=== PATIENT | female | born 1990 | race Caucasian/White ===

== ENCOUNTER → 2018-06-23 | Outpatient (CLI) | payer MEDICAID ==
[~2018-06-23] MED LIST: ACHD5005 PO; ALBU8.5H2 IH; CEPH-507 PO; CETI10TA20 PO; CYCL10TA9 PO; DIPH25TA82 PO; DOCO100C PO; DOCU100C37 PO; FLUT16SP22 NS; HYDR-3454 PO; IBUP-1773 PO; IBUP-30 PO; MONT10TA21 PO; PNV91TAB3 PO; PRED20TA PO; TRAM50TA2 PO
--- NOTE | 2018-06-23 16:06 | Diagnostic Imaging Report ---
TECHNIQUE: Multiple real-time grayscale images were obtained over the gravid uterus. COMPARISON: None. FINDINGS: There is a single living intrauterine in transverse presentation. There is normal volume of amniotic fluid. Placenta is posterior. There is no previa. Anatomical survey is unremarkable. This includes three-vessel cord and four-chamber heart. Heart rate is 161 beats per minute and regular. The biometry correlates with gestational age of 21 weeks 3 days. Biometrical measurements are as follows: Biparietal 4.85 cm, age 20 weeks 5 days. Head circumference 19.03 cm, age 21 weeks 3 days. Abdominal circumference 17.16 cm, age 22 weeks 1 days. Femur length 3.48 cm, age 21 weeks 0 days. Sonographic estimate age: 21 weeks 3 days. Sonographic estimated date of delivery: 10/31/18. Estimated Weight: 431 gm (+/- 63 gm). LMP percentile: 10%. heart rate: 161 beats per minute. number: 1 of 1. IMPRESSION: Single living intrauterine with sonographically estimated gestational age of 21 weeks 3 days and estimated date of confinement of 10/31/2018. Dictated by: Dictated on workstation # [id number]
== END ==
LOC: RAD 12:58
PROVIDERS: ATTEND Obstetrics & Gynecology
DX: Z34.91 Encounter for supervision of normal pregnancy, unspecified, first trimester (principal); Z3A.21 21 weeks gestation of pregnancy
CPT/HCPCS: 76805

== ENCOUNTER 2018-09-16 23:58 | Outpatient (CLI) | payer MEDICAID ==
[~2018-09-16] VITALS: Ht 160 cm; Wt 83.0 kg
[2018-09-17] VITALS (8 sets, daily range): BP systolic 118–133; BP diastolic 67–79
[2018-09-17] MEDS ORDERED: D5 LR IV SOLUTION 1,000 ML IV ONE (00:22)
[2018-09-17] MEDS ORDERED: D5 LR IV SOLUTION 1,000 ML IV SCH (00:30)
[2018-09-17] MEDS ORDERED: morphine INJ 10 MG/ML 1ML (SYR OR VIAL) IVP ONE (00:30)
[2018-09-17 00:48] LABS: BASOPHILS % (AUTO) 0 % (0-10); EOSINOPHILS # (AUTO) 0.6 10^3/uL (0.0-0.3); EOSINOPHILS % (AUTO) 5 % (0-10); HEMATOCRIT 36 % (35-52); HEMOGLOBIN 11.9 G/DL (11.5-16.0); LYMPHOCYTES # (AUTO) 1.5 X 10^3 (1.0-4.0); LYMPHOCYTES % (AUTO) 12 % (12-44); MEAN CORPUSCULAR HEMOGLOBIN 30 PG (25-34); MEAN CORPUSCULAR HGB CONC 33 G/DL (32-36); MEAN CORPUSCULAR VOLUME 90 FL (80-99); MEAN PLATELET VOLUME 9.9 FL (7.4-10.4); MONOCYTES # (AUTO) 0.9 X 10^3 (0.0-1.0); MONOCYTES % (AUTO) 7 % (0-12); NEUTROPHILS # (AUTO) 9.8 X 10^3 (1.8-7.8); NEUTROPHILS % (AUTO) 76 % (42-75); PLATELET COUNT 331 10^3/uL (130-400); RED BLOOD COUNT 4.01 10^6/uL (4.35-5.85); RED CELL DISTRIBUTION WIDTH 13.2 % (10.0-14.5); WHITE BLOOD COUNT 12.8 10^3/uL (4.3-11.0)
[2018-09-17] MEDS ORDERED: GUAI100G2 PO (00:50)
[2018-09-17 01:11] LABS: ALANINE AMINOTRANSFERASE 259 U/L (0-55); ALBUMIN 3.5 GM/DL (3.2-4.5); ALKALINE PHOSPHATASE 136 U/L (40-136); AMYLASE 33 U/L (25-125); BILIRUBIN,DIRECT 0.3 MG/DL (0.0-0.3); BILIRUBIN,INDIRECT 0.2 MG/DL; BILIRUBIN,TOTAL 0.5 MG/DL (0.1-1.0); BUN/CREATININE RATIO 13; CALCIUM 8.9 MG/DL (8.5-10.1); CARBON DIOXIDE 18 MMOL/L (21-32); CHLORIDE 110 MMOL/L (98-107); CREATININE SERUM 0.62 MG/DL (0.60-1.30); GFR ESTIMATED > 60; GLUCOSE 101 MG/DL (70-105); LIPASE 13 U/L (8-78); POTASSIUM 3.5 MMOL/L (3.6-5.0); SODIUM 139 MMOL/L (135-145); TOTAL PROTEIN 6.3 GM/DL (6.4-8.2)
[2018-09-17 03:23] LABS: BACTERIA,URINE TRACE /HPF; BILIRUBIN,URINE 1+ (NEGATIVE); CLARITY,URINE SL CLOUDY; COLOR,URINE AMBER; GLUCOSE, URINE (UA) 3+ (NEGATIVE); KETONES,URINE NEGATIVE (NEGATIVE); LEUKOCYTE ESTERASE ,URINE 2+ (NEGATIVE); NITRITE,URINE NEGATIVE (NEGATIVE); PH,URINE 5 (5-9); PROTEIN,URINE 1+ (NEGATIVE); SQUAMOUS EPITHELIAL CELL,UR 25-50 /HPF; UROBILINOGEN,URINE 4 MG/DL (NORMAL); WBC,URINE 0-2 /HPF
[2018-09-17] MEDS ORDERED: guaiFENesin/DM (ROBITUSSIN DM) 10 ML UDC ONE (06:10)
[2018-09-17] MEDS ORDERED: cefTRIAXone 1 GM/10 ML for IV (ROCEPHIN) ONE (06:11)
[2018-09-17] MEDS ORDERED: RT-ALBUTEROL SULF 2.5 MG/3 ML PRE-MIX VIAL ONE (06:11)
[2018-09-17] MEDS ORDERED: NS (IVPB) 0 ML ONE (06:12)
[2018-09-17] MEDS ORDERED: NS (IVPB) 50 ML ONE (06:15)
[2018-09-17] MEDS ORDERED: cefTRIAXone FOR IV USE 1,000 MG in NS (IVPB) 50 ML IV ONE (06:15)
[2018-09-17] MEDS ORDERED: guaiFENesin/DM (ROBITUSSIN DM) 10 ML UDC PO PRN (06:15)
[2018-09-17] MEDS ORDERED: RT-ALBUTEROL SULF 2.5 MG/3 ML PRE-MIX VIAL INH PRN (06:30)
[2018-09-17] MEDS ORDERED: IPRA4AER IH (08:30)
[2018-09-17] MEDS ORDERED: GUAI-858 PO (08:30)
[2018-09-17] MEDS ORDERED: RT-ALBUTEROL SULF 2.5 MG/3 ML PRE-MIX VIAL INH SCH (09:00)
[2018-09-17 09:24] LABS: ALANINE AMINOTRANSFERASE 268 U/L (0-55); ALBUMIN 3.3 GM/DL (3.2-4.5); ALKALINE PHOSPHATASE 135 U/L (40-136); BILIRUBIN,TOTAL 0.7 MG/DL (0.1-1.0); BUN/CREATININE RATIO 10; CALCIUM 8.6 MG/DL (8.5-10.1); CARBON DIOXIDE 18 MMOL/L (21-32); CHLORIDE 110 MMOL/L (98-107); GFR ESTIMATED > 60; GLUCOSE 104 MG/DL (70-105); POTASSIUM 3.5 MMOL/L (3.6-5.0); SODIUM 139 MMOL/L (135-145); TOTAL PROTEIN 5.9 GM/DL (6.4-8.2)
--- NOTE | 2018-09-17 11:16 | Diagnostic Imaging Report ---
Indication: Abdominal pain during . biophysical profile score is performed which reveals amniotic fluid to be within normal limits with amniotic fluid index of 8 cm. There is tone and motion of limb and trunk. breathing motion was also noted. Placenta reveals no evidence of hematoma or other abnormality. cardiac activity is present with rate of 143 beats per minute. Impression: Normal biophysical profile score of 8/8. Dictated by: Dictated on workstation # [id number]
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
[2018-09-18 06:46] LABS: HEPATITIS C ANTIBODY C Non-Reactive (Non-Reactive)
== END 2018-09-17 11:08 | disposition home or self-care (01) ==
LOC: LDRP 23:58 → WSo 23:58
PROVIDERS: ATTEND Obstetrics & Gynecology
DX: R05 Cough (principal); O99.333 Smoking (tobacco) complicating pregnancy, third trimester; F17.210 Nicotine dependence, cigarettes, uncomplicated; R07.81 Pleurodynia; Z3A.34 34 weeks gestation of pregnancy
CPT/HCPCS: 36415; 76819; 80053; 80074; 81000; 82150; 82247; 82248; 83690; 85025; 94640; 96361; 96374; 96375; 99214

== ENCOUNTER 2018-09-29 13:06 | Inpatient (IN) | payer MEDICAID ==
[~2018-09-29] VITALS: Ht 160 cm; Wt 80.3 kg
[~2018-09-29 13:06] MED LIST changes: -CETI10CA PO; -DIPH25CA79 PO; -IBUP-844 PO; +LACTATED RINGERS 1,000 ML IV ONE; -PREN1TAB79 PO
--- NOTE | 2018-09-29 13:06 | NUR ---
JITENDRA GOMEZ presented to unit from HOME, accompanied by Family, with c/o PREVIOUS SECTION. JITENDRA GOMEZ weighed, gowned, voided, and to bed. EFHM and TOCO applied, VS taken. JITENDRA GOMEZ oriented to bed controls, call light, TV, heat, and A/C controls.
[2018-09-29 13:14] VITALS: BP 126/60
[2018-09-29] MEDS: LACTATED RINGERS 1,000 ML IV SCH ×2 (13:18→16:26)
--- NOTE | 2018-09-29 13:18 | NUR ---
IV started, see intervention.
--- OUTSIDE RECORDS SUMMARY | 2018-09-29 13:30 | XMS REPORT ---
Author Author VÍCTOR NYE [facility] Address [address] [place] [address] Care Team Providers Care Repair Coil Winder Name Role Phone PARRIS, DAWRENEA Unavailable PROBLEMS Type Condition ICD9-CM Code [id number] Code Onset Dates Condition Status SNOMED Code Problem Acute allergic rhinitis J30.9 Active 02486407 Problem Post traumatic stress disorder F43.10 Active 92990090 Problem Bipolar II disorder F31.81 Active 59711889 Problem Chronic posttraumatic stress disorder F43.12 Active 336546953 ALLERGIES Substance Reaction Event Type Date Status Prozac nausea Drug Allergy Jul, Active ENCOUNTERS Encounter Location Date Diagnosis [facility] [id number] [place] [address]83- 4244 Oct, [facility] [address] [address] Sep, [facility] [id number] [place] [address] 07091- 0257 Aug, [facility] [id number] [place] [address] 69042- 0449 Aug, [facility] [id number] [place] [address] 24633- 1818 Jul, Post traumatic stress disorder F43.10 [facility] [id number] [place] [address] 01908- 7067 Jul, Chronic posttraumatic stress disorder F43.12 and Bipolar II disorder F31.81 [facility] [id number] [place] [address] 23672 -0600 06 Jul, 2018 Acute allergic rhinitis J30.9 [facility] [id number] [place] [address] 05823- 2546 Jun, Chronic posttraumatic stress disorder F43.12 and Bipolar II disorder F31.81 [facility] [id number] [place] [address] 859355- 9593 Aug, depression F53 [facility] [id number] [place] [address] 733709- 3094 Feb, [facility] [id number] [place] [address] 87419- 9046 14 Dec, 2014 [facility] [id number] [place] [address] 95265- 4110 Dec, [facility] [id number] [place] [address] 92690- 9300 Oct, [facility] [id number] [place] [address] 06438- 8245 Oct, [facility] [id number] [place] [address] 29328- 5317 Aug, [facility] [address] [place] [address] 99092- 3481 Aug, [facility] [id number] [place] [address] 66746- 3228 Aug, [facility] [address] [address] Aug, [facility] [address] [place] [address] 20085- 5682 Aug, [facility] [address], [place] [address] 5[address] Aug, [facility] [id number] [place] [address] 39055- 1475 Aug, [facility] [address] [address] Aug, [facility] [id number] [place] [address] 61729- 5390 Aug, [facility] [address] [facility] [id number] [address] Aug, [facility] [id number] 3186 Aug, [facility] [address] Aug, [facility] [address] [facility] [id number], [place] [address] Jul, [facility] [address] [facility] [id number], [place] [address]32 Jul, [facility] [id number] [address] 7049 Jul, [facility] [address] [address] 00[address] Jul, [facility] [address], [place] [address]- 5984 Jul, [facility] [address], [place] [address]- 2605 Jul, [facility] [address] [address]- 7842 January, [facility] [id number] [address] January, [facility] [id number] [address] January, [facility] [id number] [address] 1499 January, IMMUNIZATIONS No Known Immunizations SOCIAL HISTORY Never Assessed REASON FOR VISIT Psychiatric intake Dyaana, Referred by Dr. Grimes PLAN OF CARE Activity Details Follow Up 3 Months Reason: VITAL SIGNS Height 64.1 in 2018-08-20 Weight 187.0 lbs 2018-08-20 Heart Rate 92 bpm 2018-08-20 Respiratory Rate 20 2018-08-20 BMI 31.99 kg/m2 2018-08-20 Blood pressure systolic 114 mmHg 2018-08-20 Blood pressure diastolic 62 mmHg 2018-08-20 MEDICATIONS Medication Instructions Dosage Frequency Start Date End Date Duration Status MetFORMIN HCl ER 500 MG Orally Once a day 1 tablet with evening meal 24h Not-Taking Formula Active Delaney Allergy 180 MG Orally Once a day 1 tablet 24h Not-Taking Zyrtec Allergy 10 MG Orally Once a day 1 tablet 24h 30 day(s) Active Zoloft 25 MG Orally Once a day 1 tablet 24h Not-Taking Benadryl Active RESULTS No Results PROCEDURES No Known procedures INSTRUCTIONS MEDICATIONS ADMINISTERED No Known Medications MEDICAL (GENERAL) HISTORY Type Description Date Medical History NARC ALERT Medical History PCOS (Polycystic Ovary Syndrome) Medical History depression Surgical History 2 cesarian Hospitalization History Hospitalization for surgery only
--- OUTSIDE RECORDS SUMMARY | 2018-09-29 13:30 | XMS REPORT ---
Author Author KATJA PIMENTEL Organization [facility] Address [address] [place] [address] Care Team Providers Care County Historian Name Role Phone KATJA PIMENTEL Unavailable PROBLEMS Type Condition ICD9-CM Code [id number] Code Onset Dates Condition Status SNOMED Code Problem Hx of diabetes mellitus Z86.39 Active 392430418 Problem Acute allergic rhinitis J30.9 Active 38163624 Problem Chronic posttraumatic stress disorder F43.12 Active 685322606 Problem Post traumatic stress disorder F43.10 Active 09099491 Problem Bipolar II disorder F31.81 Active 58997706 ALLERGIES No Information ENCOUNTERS Encounter Location Date Diagnosis [place] [address] [address] Oct, [place] [address] [address]- [address]851 Sep, [place] [address] [address]- 7779 Sep, [place] [address] [address]- 1106 Aug, [place] [address] [address]- 9143 Aug, [place] [id number] [place] [address] 99768- 7917 Aug, Chronic posttraumatic stress disorder F43.12 and Bipolar II disorder F31.81 [facility] [address] [address]- [address] Aug, Acute non-recurrent maxillary sinusitis J01.00 and Hx of diabetes mellitus Z86.39 [place] [address] [address]- 1645 Jul, Post traumatic stress disorder F43.10 [facility] [id number] [place] [address] 44468- 4725 Jul, Chronic posttraumatic stress disorder F43.12 and Bipolar II disorder F31.81 [facility] [address] [place] [address] 97198 -2040 Jul, Acute allergic rhinitis J30.9 [facility] [id number] [place] [address] 37805- 0360 Jun, Chronic posttraumatic stress disorder F43.12 and Bipolar II disorder F31.81 [facility] [id number] [place] [address] 73391- 0157 Aug, depression F53 [facility] [id number] [place] [address] 87249- 3098 Feb, [facility] [id number] [place] [address] 28588- 3151 Dec, [facility] [id number] [place] [address] 01268- 0534 Dec, [facility] [id number] [place] [address] 91661- 7454 Oct, [facility] [address], [place] [address]- 8713 Oct, [facility] [id number] [place] [address] 96071- 3132 Aug, [facility] [id number] [place] [address] 15834- 1141 Aug, [facility] [id number] [place] [address] 849030- 3007 Aug, [facility] [address] [place] [address] 31888- 6481 Aug, [facility] [id number] [place] [address], [place]- [address] Aug, [facility] [place] [facility] [address] [id number] [place] [address]- 0647 Aug, [facility] [place] [facility] [address] [id number] [place] [address]- 2513 Aug, [facility] [place] [facility] [address] [id number] [place] [address]- 4021 Aug, [facility] [place] [facility] [address] [id number] [place] [address]- 5267 Aug, [facility] [place] [facility] [address] [id number] [place] [address]- 2907 Aug, [facility] [place] [facility] [address] [id number] [place] [address]- 8190 Aug, [facility] [place] [facility] [address] [id number] [place] [address]- 4667 Aug, [facility] [place] [facility] [address] [id number] [place] [address]- 1187 Jul, [facility] [place] [facility] [address] [id number] [place] [address]- 4023 Jul, [facility] [place] [facility] [address] [id number] [place] [address]- 4731 Jul, [facility] [place] [facility] [address] [id number] [place] [address]- 9152 Jul, [facility] [place] [facility] [address] [id number] [place] [address]- 3138 Jul, [facility] [place] [facility] [address] [id number] [place] [address]- 3718 Jul, [facility] [place] [facility] [address] [id number] [place] [address]- 5646 January, [facility] [place] [facility] [address] [id number] [place] [address] January, [facility] [place] [facility] [address] [facility] [id number] [place] [address]- 7844 January, [facility] [address] [facility] [id number] [address] January, IMMUNIZATIONS No Known Immunizations SOCIAL HISTORY Never Assessed REASON FOR VISIT f/u PLAN OF CARE Activity Details Follow Up Next available Reason: VITAL SIGNS MEDICATIONS Unknown Medications RESULTS No Results PROCEDURES Procedure Date Ordered Result Body Site Psychotherapy, patient &/family, 30 minutes, established patient Sep 10, 2018 INSTRUCTIONS MEDICATIONS ADMINISTERED No Known Medications MEDICAL (GENERAL) HISTORY Type Description Date Medical History NARC ALERT Medical History PCOS (Polycystic Ovary Syndrome) Medical History depression Surgical History 2 cesarian Hospitalization History Hospitalization for surgery only
--- OUTSIDE RECORDS SUMMARY | 2018-09-29 13:30 | XMS REPORT ---
Author Author AMIRA DAVIS [facility] Address [address] [place] [address] Care Team Providers Care Casting Machine Set Up Operator Name Role Phone AMIRA DAVIS Unavailable PROBLEMS Type Condition ICD9-CM Code GRL65-VL Code Onset Dates Condition Status SNOMED Code Problem Hx of diabetes mellitus Z86.39 Active 743729247 Problem Acute allergic rhinitis J30.9 Active 11746999 Problem Chronic posttraumatic stress disorder F43.12 Active 413176212 Problem Post traumatic stress disorder F43.10 Active 64966098 Problem Bipolar II disorder F31.81 Active 17463867 ALLERGIES No Information ENCOUNTERS Encounter Location Date Diagnosis [facility] [address] [address] Oct, [facility] [address] [address]- [address] Sep, [place] [address] [address] Sep, [place] [address] [place] [id number] [place] [address]35- 8701 Aug, [place] [address] [address]- [address] Aug, Chronic posttraumatic stress disorder F43.12 and Bipolar II disorder F31.81 [facility] [address] [address]- 6287 Aug, Acute non-recurrent maxillary sinusitis J01.00 and Hx of diabetes mellitus Z86.39 [facility] [address] [address] [id number] [place] [address] 96015- 2597 Jul, Post traumatic stress disorder F43.10 [place] [address] [address] 14 Jul, 2018 Chronic posttraumatic stress disorder F43.12 and Bipolar II disorder F31.81 [facility] [id number] [place] [address] -[address]11 Jul, Acute allergic rhinitis J30.9 [facility] [address] [address] Jun, Chronic posttraumatic stress disorder F43.12 and Bipolar II disorder F31.81 [facility] [id number] [place] [address] 00451- 5604 Aug, depression F53 [facility] [address] [id number] [place] [address] 41301- 5181 Feb, [facility] [address] [id number] [place] [address] 69224- 7539 14 Dec, 2014 [facility] [id number] [place] [address] 07708- 0230 Dec, [facility] [id number] [place] [address] 66481- 8393 Oct, [facility] [id number] [place] [address] 04962- 4970 Oct, [facility] [address] [address]- 4[address] Aug, [facility] [id number] [place] [address] 69799- 5326 Aug, [facility] [address], [place] [address]- 7042 Aug, [facility] [address] [id number] [place] [address] 58272- 2008 Aug, [facility] [address], [place] [address]- 0141 Aug, [facility] [address] [place] [address] [id number] [place] [address] 1001 Aug, [facility] [place] [facility] [address] [id number] [place] [address]- 9611 Aug, [facility] [place] [facility] [address] [id number] [place] [address]- 8875 Aug, [facility] [place] [facility] [address] [id number] [place] [address]- 9057 Aug, [facility] [place] [facility] [address] [id number] [place] [address]- 4889 Aug, [facility] [place] [facility] [address] [id number] [place] [address] Aug, [facility] [place] [facility] [address] [id number] [place] [address]- 9533 Aug, [facility] [place] [facility] [address] [id number] [place] [address]- 7190 Jul, [facility] [place] [facility] [address] [id number] [place] [address]- 4875 Jul, [facility] [place] [facility] [address] [id number] [place] [address]- 9672 Jul, [facility] [place] [facility] [address] [id number] [place] [address]- 9181 Jul, [facility] [place] [facility] [address] [id number] [place] [address]- 5794 Jul, [facility] [place] [facility] [address] [id number] [place] [address]- 6117 Jul, [facility] [place] [facility] [address] [id number] [place] [address]- 8382 January, [facility] [place] [facility] [address] [id number] [place] [address]- 6428 January, [facility] [place] [facility] [address] [id number] [place] [address]- 7973 January, [facility] [address] [facility] [id number] [place] [address]- 7404 January, IMMUNIZATIONS No Known Immunizations SOCIAL HISTORY Never Assessed REASON FOR VISIT Requests return call PLAN OF CARE VITAL SIGNS MEDICATIONS Unknown Medications RESULTS No Results PROCEDURES No Known procedures INSTRUCTIONS MEDICATIONS ADMINISTERED No Known Medications MEDICAL (GENERAL) HISTORY Type Description Date Medical History NARC ALERT Medical History PCOS (Polycystic Ovary Syndrome) Medical History depression Surgical History 2 cesarian Hospitalization History Hospitalization for surgery only
--- OUTSIDE RECORDS SUMMARY | 2018-09-29 13:30 | XMS REPORT ---
Author Author AMIRA DAVIS [facility] Address [address] [place] [address] Care Team Providers Care Life Insurance Sales Name Role Phone AMIRA DAVIS Unavailable PROBLEMS Type Condition ICD9-CM Code [id number] Code Onset Dates Condition Status SNOMED Code Problem Hx of diabetes mellitus Z86.39 Active 106609094 Problem Acute allergic rhinitis J30.9 Active 48370529 Problem Chronic posttraumatic stress disorder F43.12 Active 484446981 Problem Post traumatic stress disorder F43.10 Active 61788901 Problem Bipolar II disorder F31.81 Active 93721159 ALLERGIES Substance Reaction Event Type Date Status Prozac nausea Drug Allergy Aug, Active ENCOUNTERS Encounter Location Date Diagnosis [place] [address] [address]- [address] Oct, [facility] [address] 9[address]96- 9307 Sep, [facility] [address] 03348- 3870 Sep, [place] [address] [address]- [address] Aug, [facility] [address] 95912- 9547 Aug, Chronic posttraumatic stress disorder F43.12 and Bipolar II disorder F31.81 [facility] [address] 90759- 0877 Aug, Acute non-recurrent maxillary sinusitis J01.00 and Hx of diabetes mellitus Z86.39 [facility] [address] [address]68- 9005 Jul, Post traumatic stress disorder F43.10 [facility] [address], [place] [address]- 7149 Jul, Chronic posttraumatic stress disorder F43.12 and Bipolar II disorder F31.81 [facility] [address], [place] [address] Jul, Acute allergic rhinitis J30.9 [facility] [address] [place] [id number] [place] [address] 37319- 6404 Jun, Chronic posttraumatic stress disorder F43.12 and Bipolar II disorder F31.81 [facility] [address] [place] [address] 23919- 3410 Aug, depression F53 [facility] [address] [place] [address] [id number] [place] [address] 88253- 5892 Feb, [facility] [address] [place] [id number] [place] [address] 83515- 0450 14 Dec, 2014 [facility] [address] [place] [address] [id number] [place] [address] 27831- 8839 Dec, [facility] [address] [place] [id number] [place] [address] 39591- 2020 Oct, [facility] [address], [place] [address]- 6385 Oct, [facility] [id number] [place] [address] 08846 2547 Aug, [facility] [address], [place] [address] 2545 Aug, [facility] [address] [place] [id number] [place] [address] 99668- 5302 Aug, [facility] [address], [place] [address]- 2541 Aug, [facility] [id number] [place] [address] 60390- 0708 Aug, [facility] [place] [facility] [address] [id number] [place] [address]- 2758 Aug, [facility] [place] [facility] [address] [id number] [place] [address]- 8899 Aug, [facility] [place] [facility] [address] [id number] [place] [address]7 Aug, [facility] [place] [facility] [address] [id number] [place] [address]- 4390 Aug, [facility] [place] [facility] [address] [id number] [place] [address]- 2282 Aug, [facility] [place] [facility] [address] [id number] [place] [address]- 7486 Aug, [facility] [place] [facility] [address] [id number] [place] 9246 Aug, [facility] [place] [facility] [address] [id number] [place] [address]- 2569 Jul, [facility] [place] [facility] [address] [id number] [place] [address]- 2431 Jul, [facility] [place] [facility] [address] [id number] [place] [address]- 9577 Jul, [facility] [place] [facility] [address] [id number] [place] [address]- 5190 Jul, [facility] [place] [facility] [address] [id number] [place] [address]- 6435 Jul, [facility] [place] [facility] [address] [id number] [place] [address]- 8611 Jul, [facility] [place] [facility] [address] [id number] [place] [address]- 5843 January, [facility] [place] [facility] [address] [id number] [place] [address]64 January, [facility] [place] [facility] [address] [id number] [place] [address]- 8743 January, [facility] [address] [facility] [id number] [place] [address]- 1601 January, IMMUNIZATIONS No Known Immunizations SOCIAL HISTORY Never Assessed REASON FOR VISIT Establish Care/ discuss allergies- ALEJO Guan PLAN OF CARE Activity Details Follow Up prn. if not improving with PCP or reg follow up Reason: VITAL SIGNS Height 64.1 in 2018-09-10 Weight 183.2 lbs 2018-09-10 Temperature 98.0 degrees Fahrenheit 2018-09-10 Heart Rate 92 bpm 2018-09-10 Respiratory Rate 18 2018-09-10 BMI 31.34 kg/m2 2018-09-10 Blood pressure systolic 110 mmHg 2018-09-10 Blood pressure diastolic 68 mmHg 2018-09-10 MEDICATIONS Medication Instructions Dosage Frequency Start Date End Date Duration Status Benadryl Active Augmentin 500-125 MG Orally 2 times a day 1 tablet 12h 12 Aug, 2018 10 days Active Formula Active Zyrtec Allergy 10 MG Orally Once a day 1 tablet 24h 30 day(s) Active RESULTS Name Result Date Reference Range A1C (IN HOUSE) 2018-09-10 A1C IN HOUSE 5.1 4.3 - 5.6 % Previous A1c Lot [id number] Exp date 06/2020 PROCEDURES Procedure Date Ordered Result Body Site GLYCATED HEMOGLOBIN TEST Sep 10, 2018 INSTRUCTIONS MEDICATIONS ADMINISTERED No Known Medications MEDICAL (GENERAL) HISTORY Type Description Date Medical History NARC ALERT Medical History PCOS (Polycystic Ovary Syndrome) Medical History depression Surgical History 2 cesarian Hospitalization History Hospitalization for surgery only
--- OUTSIDE RECORDS SUMMARY | 2018-09-29 13:30 | XMS REPORT ---
Author Author ABI NASH Organization [facility] Address [address] [place] [address] Care Team Providers Care Public Service Administrator Name Role Phone ABI NASH Unavailable PROBLEMS Type Condition ICD9-CM Code GNR69-XK Code Onset Dates Condition Status SNOMED Code Problem Acute allergic rhinitis J30.9 Active 53015070 Problem Bipolar II disorder F31.81 Active 66823128 Problem Chronic posttraumatic stress disorder F43.12 Active 949276416 ALLERGIES Substance Reaction Event Type Date Status Prozac nausea Drug Allergy Jul, Active ENCOUNTERS Encounter Location Date Diagnosis [facility] [address] [address]- [address] Aug, [facility] [address] [place] [id number] [place] [address] 70918- 0000 Jul, [facility] [address] [address]99- 4321 Jul, [facility] [address] [place] [id number] [place] [address] -6898 Jul, Acute allergic rhinitis J30.9 [facility] [address] [address]- 6088 Jun, Chronic posttraumatic stress disorder F43.12 and Bipolar II disorder F31.81 [facility] [address] [place] [id number] [place] [address] 89765- 6261 Aug, depression F53 [facility] [address] 19326- 0881 Feb, [facility] [address] [address]- 1990 Dec, [facility] [address] [id number] [place] [address]- 7242 Dec, [facility] [place] [facility] [address] [id number] [place] [address] Oct, [facility] [place] [facility] [address] [id number] [place] [address]- 3216 Oct, [facility] [place] [facility] [address] [id number] [place] [address]- 6686 Aug, [facility] [place] [facility] [address] [id number] [place] [address] Aug, [facility] [place] [facility] [address] [id number] [place] [address]- 4385 Aug, [facility] [place] [facility] [address] [id number] [place] [address]- 5110 Aug, [facility] [place] [facility] [address] [id number] [place] [address]- 3001 Aug, [facility] [place] [facility] [address] [id number] [place] [address]- 7212 Aug, [facility] [place] [facility] [address] [id number] [place] [address]- 1019 Aug, [facility] [place] [facility] [address] [id number] [place] [address]- 8651 Aug, [facility] [place] [facility] [address] [id number] [place] [address]- 8422 Aug, [facility] [place] [facility] [address] [id number] [place] 1713 Aug, [facility] [place] [facility] [address] [id number] [place] [address]- 3466 Aug, [facility] [place] [facility] [address] [id number] [place] [address]- 4616 Aug, [facility] [place] [facility] [address] [id number] [place] [address]- 2899 Jul, [facility] [address] [id number] [address]- 5129 Jul, [facility] [address], [place] [address]- 7312 Jul, [facility] [address], [place] [address]- 4203 Jul, [facility] [address] [place] [id number], [place] [address]- 0526 Jul, [facility] [address], [place] [address]- 8941 Jul, [facility] [address] [place] [address] 31178- 9581 January, [facility] [address], [place] [address]- 0384 January, [facility] [address] [address]- 8152 January, [facility] [address] [id number] [address]- 0899 January, IMMUNIZATIONS No Known Immunizations SOCIAL HISTORY Never Assessed REASON FOR VISIT congestion/allergies - ALEJO Cardenas PLAN OF CARE Activity Details Follow Up if not improving with PCP or reg follow up Reason: VITAL SIGNS Height 64.1 in 2018-08-05 Weight 180.4 lbs 2018-08-05 Temperature 97.7 degrees Fahrenheit 2018-08-05 Heart Rate 88 bpm 2018-08-05 Respiratory Rate 18 2018-08-05 BMI 30.87 kg/m2 2018-08-05 Blood pressure systolic 100 mmHg 2018-08-05 Blood pressure diastolic 56 mmHg 2018-08-05 MEDICATIONS Medication Instructions Dosage Frequency Start Date End Date Duration Status Benadryl Active Formula Active MetFORMIN HCl ER 500 MG Orally Once a day 1 tablet with evening meal 24h Not-Taking Zoloft 25 MG Orally Once a day 1 tablet 24h Not-Taking Delaney Allergy 180 MG Orally Once a day 1 tablet 24h Not-Taking RESULTS No Results PROCEDURES No Known procedures INSTRUCTIONS MEDICATIONS ADMINISTERED No Known Medications MEDICAL (GENERAL) HISTORY Type Description Date Medical History NARC ALERT Medical History PCOS (Polycystic Ovary Syndrome) Medical History depression Surgical History 2 cesarian Hospitalization History Hospitalization for surgery only
--- OUTSIDE RECORDS SUMMARY | 2018-09-29 13:31 | XMS REPORT ---
Author Author DOMINIQUE GUADALUPE [facility] Address [address] [place] [address] Care Team Providers Care Fuel Operator Name Role Phone DOMINIQUE GUADALUPE Unavailable PROBLEMS Type Condition ICD9-CM Code TQR00-TU Code Onset Dates Condition Status SNOMED Code Assessment depression F53 Aug, Active 31984868 Problem Anxiety state, unspecified 300.00 Active 610443020 Problem Other abnormal glucose 790.29 Active 114353543 Problem Allergic rhinitis due to pollen 477.0 Active 20952744 Problem Abnormal weight gain 783.1 Active 397126368 Problem Painful respiration 786.52 Active 42610334 Problem Posttraumatic stress disorder 309.81 Active 29269656 ALLERGIES Unknown Allergies SOCIAL HISTORY No smoking Hx information available PLAN OF CARE VITAL SIGNS MEDICATIONS Unknown Medications RESULTS No Results PROCEDURES Procedure Date Ordered Related Diagnosis Body Site Psych diagnostic evaluation, new patient Sep 10, 2016 IMMUNIZATIONS No Known Immunizations
--- OUTSIDE RECORDS SUMMARY | 2018-09-29 13:31 | XMS REPORT ---
Author Author KATJA PIMENTEL Organization [facility] Address [address] [place] [address] Care Team Providers Care Edger Automatic Name Role Phone KATJA PIMENTEL Unavailable PROBLEMS Type Condition ICD9-CM Code DKU19-QU Code Onset Dates Condition Status SNOMED Code Problem Other abnormal glucose 790.29 Active 472321460 Problem Bipolar II disorder F31.81 Active 26498870 Problem Chronic posttraumatic stress disorder F43.12 Active 215304231 Problem Abnormal weight gain 783.1 Active 287207500 Problem Painful respiration 786.52 Active 01024288 Problem Anxiety state, unspecified 300.00 Active 921926057 Problem Allergic rhinitis due to pollen 477.0 Active 76360830 ALLERGIES No Information ENCOUNTERS Encounter Location Date Diagnosis [place] [address] [place] [id number] [place] [address]24- 8600 Aug, [place] [address] [address]- 3436 Jul, [place] [address] [place] [id number] [place] [address] 05595- 2778 Jul, [facility] [address] [place] [id number] [place] [address] 22241- 5053 Jun, Chronic posttraumatic stress disorder F43.12 and Bipolar II disorder F31.81 [facility] [address] [place] [id number] [place] [address] 60707- 9124 Aug, depression F53 [facility] [address] [address]- 0428 Feb, [facility] [address] [place] [id number] [place] [address] 44248- 2856 Dec, [place] [address] [place] [id number] [place] [address]- 4220 Dec, [facility] [address] [id number] [place] [address]- 0076 Oct, [facility] [place] [facility] [address] [id number] [place] [address]6 Oct, [facility] [address] [id number] [place] [address]- 3956 Aug, [facility] [address] [id number] [place] [address]- 0570 Aug, [facility] [address] [id number] [place] [address] Aug, [facility] [address] [id number] [place] [address]- 1516 Aug, [facility] [address] [id number] [place] [address]- 8416 Aug, [facility] [address] [id number] [place] [address]- 4003 Aug, [facility] [place] [facility] [address] [id number] [place] [address]- 9791 Aug, [facility] [address] [id number] [place] [address]- 5008 Aug, [facility] [place] [facility] [address] [id number] [place] [address]- 4651 Aug, [facility] [place] [facility] [address] [id number] [place] [address]- 1123 Aug, [facility] [place] [facility] [address] [id number] [place] [address]- 7926 Aug, [facility] [place] [facility] [address] [id number] [place] [address]- 2126 Aug, [facility] [place] [facility] [address] [id number] [place] [address]- 4589 Jul, [facility] [id number] [address]- 7818 Jul, [facility] [address] [facility] [id number] [address]- 9966 Jul, [facility] [id number], [place] [address]- 4726 Jul, [facility] [address] [facility] [id number], [place] [address]- 3683 Jul, [facility] [id number], [place] [address]- 9723 Jul, [facility] [address], [place] [address]- 5159 January, [facility] [address], [place] [address]- 1378 January, [facility] [address], [place] [address]- 6915 January, [facility] [id number], [place] [address] January, IMMUNIZATIONS No Known Immunizations SOCIAL HISTORY Never Assessed REASON FOR VISIT intake PLAN OF CARE Activity Details Follow Up 2 Weeks Reason: VITAL SIGNS MEDICATIONS Medication Instructions Dosage Frequency Start Date End Date Duration Status Delaney Allergy 180 MG Orally Once a day 1 tablet 24h Active Zoloft 25 MG Orally Once a day 1 tablet 24h Not-Taking Formula Active MetFORMIN HCl ER 500 MG Orally Once a day 1 tablet with evening meal 24h Not-Taking RESULTS No Results PROCEDURES Procedure Date Ordered Result Body Site Psych diagnostic evaluation, established patient Jul 23, 2018 INSTRUCTIONS MEDICATIONS ADMINISTERED No Known Medications MEDICAL (GENERAL) HISTORY Type Description Date Medical History NARC ALERT Medical History depression Medical History PCOS (Polycystic Ovary Syndrome)-dx 2012 Surgical History 2 cesarian Hospitalization History Hospitalization for surgery only
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
--- NOTE | 2018-09-29 13:35 | NUR ---
Dr. Zepeda in to see patient.
[2018-09-29 13:56] LABS: BASOPHILS % (AUTO) 0 % (0-10); EOSINOPHILS # (AUTO) 0.2 10^3/uL (0.0-0.3); EOSINOPHILS % (AUTO) 2 % (0-10); HEMATOCRIT 38 % (35-52); HEMOGLOBIN 12.8 G/DL (11.5-16.0); LYMPHOCYTES # (AUTO) 0.6 X 10^3 (1.0-4.0); LYMPHOCYTES % (AUTO) 8 % (12-44); MEAN CORPUSCULAR HEMOGLOBIN 29 PG (25-34); MEAN CORPUSCULAR HGB CONC 34 G/DL (32-36); MEAN CORPUSCULAR VOLUME 87 FL (80-99); MEAN PLATELET VOLUME 10.4 FL (7.4-10.4); MONOCYTES # (AUTO) 0.3 X 10^3 (0.0-1.0); MONOCYTES % (AUTO) 4 % (0-12); NEUTROPHILS # (AUTO) 6.6 X 10^3 (1.8-7.8); NEUTROPHILS % (AUTO) 85 % (42-75); PLATELET COUNT 312 10^3/uL (130-400); RED BLOOD COUNT 4.39 10^6/uL (4.35-5.85); RED CELL DISTRIBUTION WIDTH 13.2 % (10.0-14.5); WHITE BLOOD COUNT 7.7 10^3/uL (4.3-11.0)
[2018-09-29 14:00] LABS: BILIRUBIN,URINE NEGATIVE (NEGATIVE); CLARITY,URINE CLEAR; COLOR,URINE YELLOW; GLUCOSE, URINE (UA) NEGATIVE (NEGATIVE); KETONES,URINE 4+ (NEGATIVE); LEUKOCYTE ESTERASE ,URINE 1+ (NEGATIVE); NITRITE,URINE NEGATIVE (NEGATIVE); PH,URINE 5 (5-9); PROTEIN,URINE 1+ (NEGATIVE); UROBILINOGEN,URINE 4 MG/DL (NORMAL)
[2018-09-29] MEDS: guaiFENesin/DM (ROBITUSSIN DM) 10 ML UDC PO PRN ×2 (14:14→21:23)
[2018-09-29 14:16] LABS: BACTERIA,URINE TRACE /HPF; RBC,URINE RARE /HPF
[2018-09-29] MEDS ORDERED: DIPH25CA79 PO ×2 (14:25)
[2018-09-29] MEDS ORDERED: CETI10CA PO ×2 (14:25)
[2018-09-29] MEDS ORDERED: PREN1TAB79 PO ×2 (14:25)
[2018-09-29 16:10] VITALS: BP 124/74
--- NOTE | 2018-09-29 19:30 | NUR ---
Report to Rodolfo Carter RN.
[2018-09-29 21:00] VITALS: BP 135/63
[2018-09-29 23:02] VITALS: BP 109/51
[2018-09-30] VITALS (14 sets, daily range): BP systolic 101–135; BP diastolic 51–75
[2018-09-30] MEDS: guaiFENesin/DM (ROBITUSSIN DM) 10 ML UDC PO PRN ×3 (00:55→20:42)
[2018-09-30 05:49] LABS: PROTHROMBIN TIME PATIENT 12.9 SEC (12.2-14.7)
[2018-09-30 05:54] LABS: ALANINE AMINOTRANSFERASE 215 U/L (0-55); ALKALINE PHOSPHATASE 166 U/L (40-136); BILIRUBIN,TOTAL 0.7 MG/DL (0.1-1.0); BUN/CREATININE RATIO 9; CALCIUM 8.3 MG/DL (8.5-10.1); CARBON DIOXIDE 17 MMOL/L (21-32); CHLORIDE 109 MMOL/L (98-107); CREATININE SERUM 0.58 MG/DL (0.60-1.30); GFR ESTIMATED > 60; GLUCOSE 98 MG/DL (70-105); POTASSIUM 3.4 MMOL/L (3.6-5.0); SODIUM 138 MMOL/L (135-145); TOTAL PROTEIN 5.7 GM/DL (6.4-8.2)
--- NOTE | 2018-09-30 07:45 | NUR ---
SLEEPING SOUNDLY WHEN ENTERED ROOM. S.O. ASLEEP WELL. DECISION TO NOT AWAKEN PT AT THIS TIME R/T POOR SLEEP DURING THE NIGHT.
[2018-09-30] MEDS: LACTATED RINGERS 1,000 ML IV SCH ×2 (08:18→15:40)
--- NOTE | 2018-09-30 08:20 | NUR ---
PT AWAKE. VSS. ADJUSTING MONITORS TO TRY TO CAPTURE FHR TRACING. ASSESSMENT COMPLETED. PLAN FOR THIS AFTERNOON.
--- NOTE | 2018-09-30 09:55 | NUR ---
BETAMETHASONE 12 MG IM IN LEFT VG SITE BY AIDA ONEAL. SITE CLEAR. TRACING MATERNAL PULSE WHEN PT SAT UP AND THEN TURNED TO SIDE FOR INJECTION. HAS HAD A REACTIVE STRIP.
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
--- NOTE | 2018-09-30 10:35 | NUR ---
MRSA SWAB OBTAINED FROM [facility] AND TO LAB.
[2018-09-30] MEDS ORDERED: BETAMETHASONE ACE/NA PHOS 6 MG/ML (CELESTONE SOLUSPAN) IM SCH (11:00)
[2018-09-30] MEDS ORDERED: FAMOTIDINE 20MG/2ML IV (PEPCID) IV ONE (15:00)
[2018-09-30] MEDS ORDERED: LACTATED RINGERS 1,000 ML IV PRN (15:00)
[2018-09-30] MEDS ORDERED: METOCLOPRAMIDE INJ 10 MG/2 ML (REGLAN) IV ONE (15:00)
[2018-09-30] MEDS ORDERED: CITRIC ACID/SOB CIT (BICITRA) 30 ML UDC PO ONE (15:00)
--- NOTE | 2018-09-30 15:00 | NUR ---
LOTS OF VISITORS IN ROOM. PREPARING TO SPONGE BATHE IN BATHROOM.
[2018-09-30] MEDS ORDERED: FAMOTIDINE 20MG/2ML IV (PEPCID) ONE (15:06)
[2018-09-30] MEDS ORDERED: METOCLOPRAMIDE INJ 10 MG/2 ML (REGLAN) ONE (15:06)
[2018-09-30] MEDS ORDERED: CITRIC ACID/SOB CIT (BICITRA) 30 ML UDC ONE (15:06)
[2018-09-30] MEDS ORDERED: ONDANSETRON 4 MG/2 ML (SDV) Z0FRAN IVP PRN (15:30)
[2018-09-30] MEDS ORDERED: MEASLES,MUMPS,RUBELLA 1 EA INJ SC SCH (15:30)
[2018-09-30] MEDS ORDERED: ceFAZolin INJECTION 1,000 MG in NS (IVPB) 50 ML IV ONE (15:30)
[2018-09-30] MEDS ORDERED: TETANUS,DIPTH,PERTUSS P/F (BOOSTRIX) 0.5 ML VIAL IM SCH (15:30)
[2018-09-30] MEDS ORDERED: HYDROmorphone 2 MG/ML VIAL (DILAUDID) IV PRN (15:30)
[2018-09-30] MEDS ORDERED: ceFAZolin 2 GM/50 ML PRE-MIX IVPB IV ONE (15:30)
--- NOTE | 2018-09-30 15:34 | Discharge Inst-Women's Service ---
Discharge Inst-Women's Serv Depart Medication/Instructions New, Converted or Re-Newed RX: RX on Chart Final Diagnosis POD 2 RLTCS at 36.5 Acute fatty liver disease of Consults/Follow Up Additional Follow Up: Yes Orders/Referrals Dr. Zepeda or Danielle Eng in 7-[address] Zepeda in 6 weeks Activity Activity: Activity as Tolerated Driving Instructions: No Driving for 1 Week NO SMOKING: NO SMOKING Nothing Inside Vagina: No Douching, No [place], No Tampons Diet Discharge Diet: No Restrictions Symptoms to Report to : Bleeding Excessive, Pain Increased, Fever Over 101 Degrees F, Vaginal Bleeding Increase, Questions/Concerns For Any Problems or Questions: Contact Your Physician Skin/Wound Care Infection Signs and Symptoms: Increased Redness, Foul Odor of Wound, Increased Drainage, Skin Itchy or Has a Rash, Increased Swelling, Temperature Above 101 F Operative Area Clean and Dry: Keep Incision Clean/Dry Stitches/Whitman/Dermabond: Dermabond, Care of Stitches Bathing Instructions: SHARYN Miranda DO Sep 30, 2018 15:34
[2018-09-30] MEDS ORDERED: DOCU100C37 PO ×2 (15:35)
[2018-09-30] MEDS ORDERED: ACHD5005 PO ×2 (15:35)
[2018-09-30] MEDS ORDERED: IBUP-844 PO ×2 (15:35)
[2018-09-30] MEDS ORDERED: fentaNYL INJECTION 100 MCG/2 ML AMP ONE (15:42)
--- NOTE | 2018-09-30 15:44 | NUR ---
TO OB OR AMB IN STABLE CONDITION FOR A REPEAT SECTION BY DR. MENDEZ ACC BY ELECTRICAL ENGINEERING PROFESSOR.
[2018-09-30] MEDS ORDERED: ONDANSETRON 4 MG/2 ML (SDV) Z0FRAN ONE (16:02)
[2018-09-30] MEDS ORDERED: BUPIVACAINE 0.5% 30 ML (SENSORCAINE) VIAL ONE (16:11)
[2018-09-30] MEDS ORDERED: OXYTOCIN/NORMAL SALINE 500 ML IV ONE ×2 (16:15→16:30)
[2018-09-30] MEDS ORDERED: diphenhydrAMINE 50 MG/ML INJ (BENADRYL) IV PRN (17:00)
[2018-09-30] MEDS ORDERED: NALOXONE 0.4 MG/ML 1 ML (NARCAN) VIAL IV PRN (17:00)
[2018-09-30] MEDS ORDERED: ONDANSETRON 4 MG/2 ML (SDV) Z0FRAN IV PRN (17:00)
--- NOTE | 2018-09-30 17:35 | NUR ---
TRANSFERRED TO PP ROOM 301 VIA PT BED FROM [facility] BY YONATAN FARMER MANAGER OF HUMAN RESOURCES AFTER A REPEAT SECTION BY DR. MENDEZ. IV PLACED ON PUMP WITH NEW TUBING. ABD SOFT. ABD DRSG D/I. FF U/2. VAG FLOW LT/MOD RUBRA. CALF SCDS ON BILATERALLY. ORIENTED TO SURROUNDINGS. CALL LIGHT PLACED WITHIN REACH. UNABLE TO MOVE LEGS YET. DENIES ANY PAIN. FAMILY AT BEDSIDE.
--- NOTE | 2018-09-30 17:36 | Operative Report ---
Operative Report Date of Procedure/Surgery Sep 30, 2018 Surgeon (s) SHARYN MENDEZ DO Meat Trimmer (s): Katelynn Davidson Post-Operative Diagnosis same Procedure Performed RLTCS Description of Procedure Anesthesia Type: Spinal Estimated blood loss (mL): 300 Specimen(s) collected/removed Placenta sent Description of the Procedure OPERATIVE REPORT IN DETAIL: Once in the operating room, spinal anesthesia was found to be adequate. She was placed in the supine position with leftward tilt, prepped and draped in normal sterile fashion. A timeout was performed. Anesthesia was tested. A Pfannenstiel skin incision was made through the previously existing scar using a knife and carried down to underlying fascia using Bovie cautery. The fascial incision was extended laterally using Bovie cautery. The superior aspect of fascial incision was then grasped with Kanu clamps, tented up and dissected off the underlying rectus muscles. The inferior aspect of the fascial incision was then grasped with Kanu clamps, tented upward and dissected off the underlying rectus muscles. Rectus muscles were dissected down the midline using sharp dissection with Metzenbaum scissors, which exposed the peritoneum, which I entered bluntly and extended using blunt traction. An Roderick ring retractor was placed within the peritoneal incision, which offered excellent lateral sidewall retraction. I proceeded with making a low transverse incision through the vesicouterine peritoneum and bluntly dissected off the lower uterine segment, creating a bladder flap. I then proceeded with my myotomy until membranes were visualized, at which point I extended the uterine incision laterally and superiorly using bandage scissors. Amniotomy was performed using Allis clamp, clear fluid was noted. The uterine incision extended laterally and superiorly using bandage scissors. The was found in the vertex presentation. With gentle fundal pressure, the infant's head was delivered through the incision where the nares and oropharynx were bulb suctioned. Nuchal cord was reduced x1. Anterior and posterior shoulder was delivered. was then brought out to the operative field where the cord was doubly clamped and cut and infant was handed off to the awaiting Dr. Rivero who was there for delivery. Cord blood was collected. Three-vessel cord and placenta was delivered spontaneously thereafter. IV Pitocin was initiated to facilitate uterine contraction. Uterine fundus became firmer with bimanual massage. The uterus was then exteriorized and cleared of all endometrial clots and debris. I then closed the uterine incision using 0 Vicryl suture in running locked fashion. Second layer of imbricating 0 Monocryl was placed. Excellent hemostasis was noted after doing this. I then placed the uterus back within the pelvis and once again I evaluate all my planes of dissection, which seemed to be hemostatic. I copiously irrigated the pelvis using normal saline. Once again, no active bleeding is noted from any of my dissection planes. I placed Interceed antiadhesive over my low transverse incision. I proceeded with closing the peritoneum with 3-0 vicryl suture in running fashion. The rectus muscles were then reapproximated using 3-0 Vicryl suture in interrupted fashion. The fascia was reapproximated using 0 Vicryl suture in running fashion. The subcutaneous tissue was reapproximated using 3-0 plain in interrupted subcutaneous stitch and the skin was reapproximated using 4-0 Monocryl in a running subcuticular. Dermabond was applied to incision. Sterile dressings with adhesive white tape. The patient tolerated the procedure well and was taken to the recovery area in stable condition. Lap and sponge count was correct at the end of the procedure. Instrument count was correct as well. One gram of Ancef were given preoperatively for infection prophylaxis. Findings of the Procedure Live female infant weight pending, APGARs 8/9. Grossly normal appear uterus tubes and ovaries Allergies and Home Medications Allergies Coded Allergies: No Known Drug Allergies (Unverified , 07/18/14) Home Medications Cetirizine HCl 10 Mg Capsule, 10 MG PO DAILY, (Reported) Diphenhydramine HCl 25 Mg Capsule, 50 MG PO Q6H, (Reported) Docusate Sodium 100 Mg Capsule, 100 MG PO BID PRN for CONSTIPATION-1ST LINE Prescribed by: SHARYN MENDEZ on 09/30/18 1535 Hydrocodone Bit/Acetaminophen 1 Tab Tab, 1-2 TAB PO Q6H PRN for PAIN-MODERATE Prescribed by: SHARYN MENDEZ on 09/30/18 1535 Ibuprofen 600 Mg Tablet, 600 MG PO Q6H Prescribed by: SHARYN MENDEZ on 09/30/18 1535 Vit W-Ca,Fe,FA(<1 mg) 1 Each Tablet, 1 EACH PO DAILY, (Reported) Patient Home Medication List Home Medication List Reviewed: Yes SHARYN MENDEZ DO Sep 30, 2018 17:36
--- NOTE | 2018-09-30 18:00 | NUR ---
CONTINUOUS SPO2 MONITORING. FAMILY AT BEDSIDE. WORRIED ABOUT IN NURSERY. UPDATES GIVEN.
--- NOTE | 2018-09-30 18:40 | NUR ---
[facility]ICARE PERFORMED WITH PAD CHANGE. FF U/2. VAG FLOW LT/MOD RUBRA. PT ATE A REGULAR DIET. S.O. IN NURSERY.
[2018-09-30] MEDS: OXYTOCIN/NORMAL SALINE 500 ML IV SCH ×2 (19:56→20:03)
[2018-09-30] MEDS: KETOROLAC 30 MG/ML VIAL IVP SCH (20:01)
[2018-09-30] MEDS: DOCUSATE SODIUM 100 MG (COLACE) CAP PO SCH (20:01)
[2018-09-30] MEDS: HYDROcodone/APAP 5 MG/325 MG (LORTAB) TAB PO PRN (20:02)
--- NOTE | 2018-09-30 21:30 | NUR ---
Pt. put call light on, states she cannot catch her breath, taking deep slow loud breaths, wheezing. Pt. asked "did you give me anything with Naproxen in it? I've done this before with Naproxen & sometimes with ibuprofen. 1 time I did it in the hospital & they gave me Benadryl & stuff & took xrays of my lungs." VS taken, SpO2 92% initially, auscultated lungs, wheezing noted. IS given & instructed pt. on doing, encouraged pt. to cough. 2133 - Called Dr. Zepeda, update given, new orders rc'd to give the IV Benadryl on pt's emar & order MAT protocol. Will give Benadryl & notify RT.
[2018-09-30] MEDS ORDERED: CATHETER FLUSH 10 ML SYR IV PRN (21:45)
--- NOTE | 2018-09-30 21:47 | NUR ---
RT to room to evaluate pt. Pt. states she does feel better when sitting up & continuing to do IS, lungs sound clearer. Cont. to monitor closely.
[2018-09-30] MEDS ORDERED: RT-ALBUTEROL SULF 2.5 MG/3 ML PRE-MIX VIAL ONE (21:52)
[2018-09-30] MEDS ORDERED: CATHETER FLUSH 10 ML SYR IV SCH (22:00)
[2018-09-30] MEDS ORDERED: RT-ALBUTEROL SULF 2.5 MG/3 ML PRE-MIX VIAL INH PRN (23:00)
[2018-09-30] MEDS ORDERED: ACETAMINOPHEN 500 MG TAB (TYLENOL) PO PRN (23:15)
[2018-09-30] MEDS ORDERED: D5 1/2 NS W/KCL 20 MEQ/L 1,000 ML IV SCH (23:15)
[2018-10-01] MEDS: HYDROcodone/APAP 5 MG/325 MG (LORTAB) TAB PO PRN ×4 (02:57→20:27)
[2018-10-01] MEDS ORDERED: SIMETHICONE 80 MG (MYLICON) CHEW PO PRN (03:00)
[2018-10-01 04:10] VITALS: BP 117/71
[2018-10-01] MEDS: KETOROLAC 30 MG/ML VIAL IVP SCH ×3 (06:15→07:19)
[2018-10-01 06:19] LABS: BASOPHILS % (AUTO) 0 % (0-10); EOSINOPHILS % (AUTO) 0 % (0-10); HEMATOCRIT 33 % (35-52); LYMPHOCYTES # (AUTO) 1.4 X 10^3 (1.0-4.0); LYMPHOCYTES % (AUTO) 13 % (12-44); MEAN CORPUSCULAR HGB CONC 33 G/DL (32-36); MEAN CORPUSCULAR VOLUME 88 FL (80-99); MEAN PLATELET VOLUME 10.1 FL (7.4-10.4); MONOCYTES # (AUTO) 0.6 X 10^3 (0.0-1.0); MONOCYTES % (AUTO) 6 % (0-12); NEUTROPHILS # (AUTO) 8.8 X 10^3 (1.8-7.8); NEUTROPHILS % (AUTO) 82 % (42-75); PLATELET COUNT 283 10^3/uL (130-400); RED BLOOD COUNT 3.73 10^6/uL (4.35-5.85); RED CELL DISTRIBUTION WIDTH 13.1 % (10.0-14.5); WHITE BLOOD COUNT 10.7 10^3/uL (4.3-11.0)
[2018-10-01 06:24] LABS: MEAN CORPUSCULAR HEMOGLOBIN 29 PG (25-34)
[2018-10-01 06:54] LABS: ALANINE AMINOTRANSFERASE 215 U/L (0-55); ALBUMIN 2.8 GM/DL (3.2-4.5); ALKALINE PHOSPHATASE 130 U/L (40-136); BILIRUBIN,TOTAL 0.3 MG/DL (0.1-1.0); BUN/CREATININE RATIO 13; CALCIUM 8.2 MG/DL (8.5-10.1); CARBON DIOXIDE 17 MMOL/L (21-32); CHLORIDE 112 MMOL/L (98-107); CREATININE SERUM 0.61 MG/DL (0.60-1.30); GFR ESTIMATED > 60; GLUCOSE 113 MG/DL (70-105); POTASSIUM 3.5 MMOL/L (3.6-5.0); SODIUM 140 MMOL/L (135-145); TOTAL PROTEIN 5.1 GM/DL (6.4-8.2)
--- NOTE | 2018-10-01 08:36 | Postpartum Progress Note ---
Note Note Day # 1 Subjective: Patient is without complaints. Ambulating, voiding. Tolerating a regular diet without nausea or vomiting, which is an improvement from preoperative. Normal lochia. Pain is well controlled with oral pain medications. Objective: Physical Exam: General - Alert and oriented, no apparent distress Abdomen - Soft, appropriately tender to palpation, non-distended, fundus firm at umbilicus Extremities - no edema, negative Karma's bilaterally Incision- c/d/i Assessment: POD 1 RLTCS Acute fatty liver disease of Acute blood loss anemia Plan: Routine care. Encourage breast feeding. Encourage ambulation. Ferrous sulfate supplementation. Plan for discharge tomorrow if improvement continues Vitals - Labs Vital Signs - I&O Vital Signs Date Time Temp Pulse Resp B/P (MAP) Pulse Ox O2 Delivery O2 Flow Rate FiO2 10/01/18 04:10 98.3 73 18 117/71 (86) 96 Room Air 09/30/18 23:43 98.5 105 18 118/57 (77) 95 Room Air 09/30/18 22:43 102 18 101/56 (71) 99 Room Air 09/30/18 22:41 83 98 21 09/30/18 22:39 98 Room Air 09/30/18 21:43 103 18 126/65 (85) 95 Room Air 09/30/18 21:38 95 18 95 Room Air 09/30/18 21:31 98.4 99 18 128/70 (89) 93 Room Air 09/30/18 20:01 98.6 105 18 132/75 (94) 98 Room Air 09/30/18 19:33 88 18 127/70 (89) 98 Room Air 09/30/18 18:40 89 18 114/71 (85) 98 Room Air 09/30/18 18:10 75 18 126/68 (87) 99 Room Air 09/30/18 17:40 97.8 83 18 124/61 (82) 97 Room Air 09/30/18 13:15 98.1 90 18 127/67 (87) 98 Room Air 09/30/18 10:35 98.2 80 18 135/58 (83) 96 Room Air I & O 10/01/18 07:00 Intake Total 3550 ml Output Total 200 ml Balance 3350 ml Labs Laboratory Tests 10/01/18 06:05: White Blood Count 10.7, Red Blood Count 3.73L, Hemoglobin 11.0L, Hematocrit 33L , Mean Corpuscular Volume 88, Mean Corpuscular Hemoglobin 29, Mean Corpuscular Hemoglobin Concent 33, Red Cell Distribution Width 13.1, Platelet Count 283, Mean Platelet Volume 10.1, Neutrophils (%) (Auto) 82H, Lymphocytes (%) (Auto) 13 , Monocytes (%) (Auto) 6, Eosinophils (%) (Auto) 0, Basophils (%) (Auto) 0, Neutrophils # (Auto) 8.8H, Lymphocytes # (Auto) 1.4, Monocytes # (Auto) 0.6, Eosinophils # (Auto) 0.0, Basophils # (Auto) 0.0, Sodium Level 140, Potassium Level 3.5L, Chloride Level 112H, Carbon Dioxide Level 17L, Anion Gap 11, Blood Urea Nitrogen 8, Creatinine 0.61, Estimat Glomerular Filtration Rate > 60, BUN/ Creatinine Ratio 13, Glucose Level 113H, Calcium Level 8.2L, Corrected Calcium 9.2, Total Bilirubin 0.3, Aspartate Amino Transf (AST/SGOT) 90H, Alanine Aminotransferase (ALT/SGPT) 215H, Alkaline Phosphatase 130, Total Protein 5.1L, Albumin 2.8L Microbiology 09/29/18 Urine Culture - Final, Complete See Report SHARYN MENDEZ DO Oct 01, 2018 08:36
[2018-10-01 09:00] VITALS: BP 121/77
--- NOTE | 2018-10-01 09:00 | NUR ---
to bedside for vitals and AM assessment. resting in bed with in arms. s/o at bedside. request pain medications for incisional pain. dressing removed. incision dry, no drainage noted. see shift assessment.
[2018-10-01] MEDS: DOCUSATE SODIUM 100 MG (COLACE) CAP PO SCH ×2 (09:15→20:27)
[2018-10-01] MEDS ORDERED: CEFEPIME INJECTION 2,000 MG in NS (IVPB) 50 ML IV SCH (10:00)
[2018-10-01] MEDS: RT-ALBUTEROL SULF 2.5 MG/3 ML PRE-MIX VIAL INH SCH ×4 (11:21→19:58)
[2018-10-01 12:49] VITALS: BP 131/80
[2018-10-01] MEDS ORDERED: IBUPROFEN 600 MG (MOTRIN) TAB PO SCH (15:30)
[2018-10-01 17:25] VITALS: BP 121/83
[2018-10-01] MEDS: guaiFENesin/DM (ROBITUSSIN DM) 10 ML UDC PO PRN (20:27)
[2018-10-01 23:10] VITALS: BP 116/65
[2018-10-02] MEDS: guaiFENesin/DM (ROBITUSSIN DM) 10 ML UDC PO PRN ×2 (02:19→08:16)
[2018-10-02] MEDS: HYDROcodone/APAP 5 MG/325 MG (LORTAB) TAB PO PRN ×2 (04:08→10:23)
[2018-10-02 05:45] VITALS: BP 127/76
[2018-10-02 06:28] LABS: ALANINE AMINOTRANSFERASE 162 U/L (0-55); ALBUMIN 2.7 GM/DL (3.2-4.5); ALKALINE PHOSPHATASE 118 U/L (40-136); BILIRUBIN,TOTAL 0.2 MG/DL (0.1-1.0); BUN/CREATININE RATIO 14; CALCIUM 7.9 MG/DL (8.5-10.1); CARBON DIOXIDE 20 MMOL/L (21-32); CHLORIDE 113 MMOL/L (98-107); CREATININE SERUM 0.56 MG/DL (0.60-1.30); GFR ESTIMATED > 60; GLUCOSE 86 MG/DL (70-105); POTASSIUM 3.6 MMOL/L (3.6-5.0); SODIUM 141 MMOL/L (135-145); TOTAL PROTEIN 4.9 GM/DL (6.4-8.2)
[2018-10-02] MEDS: RT-ALBUTEROL SULF 2.5 MG/3 ML PRE-MIX VIAL INH SCH ×2 (06:56→11:42)
--- NOTE | 2018-10-02 07:34 | Postpartum Progress Note ---
Note Note Day # 2 Subjective: Patient is without complaints. Ambulating, voiding. Tolerating a regular diet without nausea or vomiting. Normal lochia. Pain is well controlled with oral pain medications. Objective: Physical Exam: General - Alert and oriented, no apparent distress Abdomen - Soft, appropriately tender to palpation, non-distended, fundus firm at umbilicus Extremities - no edema, negative Karma's bilaterally Incision- c/d/i Assessment: POD 1 RLTCS Acute fatty liver disease of - liver enzymes improving Acute blood loss anemia Plan: Routine care. Encourage breast feeding. Encourage ambulation. Ferrous sulfate supplementation. Plan for discharge today Vitals - Labs Vital Signs - I&O Vital Signs Date Time Temp Pulse Resp B/P (MAP) Pulse Ox O2 Delivery O2 Flow Rate FiO2 10/02/18 06:57 95 Room Air 10/02/18 05:45 98.1 63 18 127/76 (93) 96 Room Air 10/01/18 23:10 97.8 64 18 116/65 (82) 96 Room Air 10/01/18 19:58 98 Room Air 10/01/18 17:25 98.3 94 16 121/83 (96) Room Air 10/01/18 15:45 96 Room Air 10/01/18 12:49 97.9 76 18 131/80 (97) 95 Room Air 10/01/18 11:24 Room Air 10/01/18 09:00 97.9 72 18 121/77 (92) Room Air 10/01/18 09:00 Room Air I & O 10/02/18 07:00 Intake Total 1200 ml Balance 1200 ml Labs Laboratory Tests 10/02/18 05:28: Sodium Level 141, Potassium Level 3.6, Chloride Level 113H, Carbon Dioxide Level 20L, Anion Gap 8, Blood Urea Nitrogen 8, Creatinine 0.56L, Estimat Glomerular Filtration Rate > 60, BUN/Creatinine Ratio 14, Glucose Level 86, Calcium Level 7.9L, Corrected Calcium 8.9, Total Bilirubin 0.2, Aspartate Amino Transf (AST/SGOT) 46H, Alanine Aminotransferase (ALT/SGPT) 162H, Alkaline Phosphatase 118, Total Protein 4.9L, Albumin 2.7L Microbiology 09/30/18 MRSA Screen - Final, Complete MRSA not isolated 09/29/18 Urine Culture - Final, Complete See Report SHARYN MENDEZ DO Oct 02, 2018 07:34
[2018-10-02 08:05] VITALS: BP 135/76
[2018-10-02] MEDS: DOCUSATE SODIUM 100 MG (COLACE) CAP PO SCH (08:16)
--- NOTE | 2018-10-02 08:20 | NUR ---
THIS RN TO PT'S BEDSIDE, SELF INTRODUCED. PT RESTING. VS OBTAINED. MEDS GIVEN; SEE EMAR FOR FURTHER. INITIAL SHIFT ASSESSMENT COMPLETED; SEE INTERVENTION FOR FURTHER. IV DC'D; SEE INTERVENTION. PT DENIES ANY NEEDS AT THIS TIME, PREPPING TO TAKE A NAP. LIGHTS OFF. CALL LIGHT WITHIN REACH. S/O AT THE BEDSIDE.
--- NOTE | 2018-10-02 08:30 | NUR ---
DR. MENDEZ HERE TO SEE PT.
--- NOTE | 2018-10-02 10:30 | NUR ---
DISCHARGE PAPERS PROVIDED AND REVIEWED WITH PT PER Wilbur ESPINAL RN. PRESCRIPTIONS, FOLLOW UP APPOINTMENT CARDS ALSO PROVIDED AND PLACED INTO DISCHARGE FOLDER. PAPER SIGNED.
--- NOTE | 2018-10-02 11:50 | NUR ---
THIS RN TO BEDSIDE, PT DOING HER BREATHING TREATMENT WITH AMALIA FROM RESPIRATORY. SUPPLIES PROVIDED TO PT PER REQUEST, DENIES ANY FURTHER NEEDS AND IS READY TO BE DISCHARGED TO [facility] STATUS.
--- NOTE | 2018-10-02 12:00 | NUR ---
PT DISCHARGED TO ROOMING IN STATUS.
== END 2018-10-02 12:00 | disposition home or self-care (01) | DRG 787 ==
LOC: LDRP 13:06 → WS 15:34
PROVIDERS: ADMIT Obstetrics & Gynecology; ATTEND Obstetrics & Gynecology
PROC: 10D00Z1 Extraction of Products of Conception, Low, Open Approach (ICD-10-PCS; principal; 2018-09-30 15:42)
DX: O26.613 Liver and biliary tract disorders in pregnancy, third trimester (principal); K76.0 Fatty (change of) liver, not elsewhere classified; O90.81 Anemia of the puerperium; D62 Acute posthemorrhagic anemia; O98.313 Other infections with a predominantly sexual mode of transmission complicating pregnancy, third trimester; A60.09 Herpesviral infection of other urogenital tract; O34.211 Maternal care for low transverse scar from previous cesarean delivery; O69.81X0 Labor and delivery complicated by cord around neck, without compression, not applicable or unspecified; O99.283 Endocrine, nutritional and metabolic diseases complicating pregnancy, third trimester; E28.2 Polycystic ovarian syndrome; Z3A.36 36 weeks gestation of pregnancy; Z37.0 Single live birth
CPT/HCPCS: 36415; 80053; 81000; 82570; 83033; 84156; 85025; 85610; 86850; 86900; 86901; 87081; 87088; 90715; 94640; 94664

== ENCOUNTER → 2018-09-29 | Outpatient (CLI) | payer MEDICAID ==
[~2018-09-29] MED LIST changes: +CETI10CA PO; +DIPH25CA79 PO; +GUAI-858 PO; +GUAI100G2 PO; +IBUP-844 PO; +IPRA4AER IH; +PREN1TAB79 PO
[2018-09-29 11:14] LABS: BASOPHILS % (AUTO) 0 % (0-10); EOSINOPHILS # (AUTO) 0.3 10^3/uL (0.0-0.3); EOSINOPHILS % (AUTO) 5 % (0-10); HEMATOCRIT 39 % (35-52); HEMOGLOBIN 12.8 G/DL (11.5-16.0); LYMPHOCYTES % (AUTO) 16 % (12-44); MEAN CORPUSCULAR HEMOGLOBIN 29 PG (25-34); MEAN CORPUSCULAR HGB CONC 33 G/DL (32-36); MEAN CORPUSCULAR VOLUME 87 FL (80-99); MEAN PLATELET VOLUME 10.1 FL (7.4-10.4); MONOCYTES # (AUTO) 0.6 X 10^3 (0.0-1.0); MONOCYTES % (AUTO) 10 % (0-12); NEUTROPHILS # (AUTO) 4.3 X 10^3 (1.8-7.8); NEUTROPHILS % (AUTO) 68 % (42-75); PLATELET COUNT 321 10^3/uL (130-400); RED BLOOD COUNT 4.41 10^6/uL (4.35-5.85); RED CELL DISTRIBUTION WIDTH 13.2 % (10.0-14.5); WHITE BLOOD COUNT 6.3 10^3/uL (4.3-11.0)
[2018-09-29 11:28] LABS: INR 0.9 (0.8-1.4)
[2018-09-29 11:32] LABS: ALANINE AMINOTRANSFERASE 265 U/L (0-55); ALBUMIN 3.8 GM/DL (3.2-4.5); ALKALINE PHOSPHATASE 201 U/L (40-136); BILIRUBIN,DIRECT 0.3 MG/DL (0.0-0.3); BILIRUBIN,INDIRECT 0.5 MG/DL; BILIRUBIN,TOTAL 0.8 MG/DL (0.1-1.0); BUN/CREATININE RATIO 11; CALCIUM 9.6 MG/DL (8.5-10.1); CARBON DIOXIDE 20 MMOL/L (21-32); CHLORIDE 105 MMOL/L (98-107); CREATININE SERUM 0.72 MG/DL (0.60-1.30); GFR ESTIMATED > 60; GLUCOSE 70 MG/DL (70-105); POTASSIUM 3.8 MMOL/L (3.6-5.0); SODIUM 137 MMOL/L (135-145); TOTAL PROTEIN 7.2 GM/DL (6.4-8.2)
== END ==
LOC: LABNPT 11:00
PROVIDERS: ATTEND Obstetrics & Gynecology
DX: O99.89 Other specified diseases and conditions complicating pregnancy, childbirth and the puerperium (principal); R74.8 Abnormal levels of other serum enzymes
CPT/HCPCS: 80053; 82247; 82248; 85025; 85610

== ENCOUNTER 2018-11-22 17:43 | Emergency (ER) | payer MEDICAID ==
[~2018-11-22] VITALS: Ht 160 cm; Wt 72.6 kg
[~2018-11-22 17:43] MED LIST changes: +CETI10CA PO; +DIPH25CA79 PO; +IBUP-844 PO; -LACTATED RINGERS 1,000 ML IV ONE; +PREN1TAB79 PO
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
[2018-11-22] MEDS ORDERED: RT-ALBUTEROL/IPRATROPIUM 3 ML (DUONEB) VIAL INH ONE (18:00)
--- NOTE | 2018-11-22 18:20 | ED Respiratory ---
General Chief Complaint: Respiratory Problems Stated Complaint: SOB Nursing Triage Note: PT PRESENTS TO ER WITH COMPLAINT OF SOA. PT STATES THIS STARTED WHENEVER SHE WAS . PT STATES THEY TOLD HER IT WOULD IMPROVE AFTER DELIVERY, BUT HAS NOT. PT HAD C SECTION ON 09/30/18. PT STATES SHE HAS USED AN ALBUTEROL, THAT IMPROVES HER SYMTPOMS. PT STATES SHE HAS RAN OUT OF HER ALBUTEROL INHALER. Source: patient Exam Limitations: no limitations History of Present Illness Date Seen by Provider: Nov 22, 2018 Time Seen by Provider: 18:20 Initial Comments 28 year old female patient presents to the ED with c/o SOA intermittently for the last several months, but was worse today. Mother is concerned that the patient is allergic to something in her house. Patient was initially told that her symptoms would improve after delivering her baby on 09/30/18. Patient denies any improvement. Patient has been using albuterol for symptoms. She does report mild improvement in the time of use, but reports the symptoms return within 2-3 hours after using any inhaler. Patient also notes nasal congestion, hoarseness, and rhinorrhea. At time she does have generalized itching. Denies changes in foods, soaps, detergents, food, etc. Timing/Duration: getting worse, intermittent Prior Episodes/Possible Cause: frequent episodes Modifying Factors: Worse With Activity; Improves With Albuterol Inhaler Allergies and Home Medications Allergies Coded Allergies: ibuprofen (Verified Allergy, Unknown, shortness of breath, 11/22/18) naproxen (Verified Allergy, Unknown, 10/01/18) SHORTNESS OF BREATH Home Medications Albuterol Sulfate 18 Gm Hfa.aer.ad, 2 PUFF INH Q4H PRN for SHORTNESS OF BREATH Prescribed by: CHERYL MARTIN on 11/22/182022 Cetirizine HCl 10 Mg Capsule, 10 MG PO DAILY, (Reported) Diphenhydramine HCl 25 Mg Capsule, 50 MG PO Q6H, (Reported) Docusate Sodium 100 Mg Capsule, 100 MG PO BID PRN for CONSTIPATION-1ST LINE Prescribed by: SHARYN MENDEZ on 09/30/181534 Epinephrine 0.3 Mg/0.3 Ml Auto.injct, 0.3 MG IJ ONCE PRN for SHORTNESS OF BREATH Prescribed by: CHERYL MARTIN on 11/22/182017 Famotidine 20 Mg Tablet, 20 MG PO BID Prescribed by: CHERYL MARTIN on 11/22/182017 Hydrocodone Bit/Acetaminophen 1 Tab Tab, 1-2 TAB PO Q6H PRN for PAIN-MODERATE Prescribed by: SHARYN MENDEZ on 09/30/18 153 Ibuprofen 600 Mg Tablet, 600 MG PO Q6H Prescribed by: SHARYN MENDEZ on 09/30/18 153 Vit W-Ca,Fe,FA(<1 mg) 1 Each Tablet, 1 EACH PO DAILY, (Reported) Patient Home Medication List Home Medication List Reviewed: Yes Review of Systems Review of Systems Constitutional: No chills, No diaphoresis, No dizziness, No fever, No malaise EENTM: see HPI, hoarseness, nose congestion, other (rhinorrhea); No ear pain, No mouth pain, No throat pain, No throat swelling Respiratory: see HPI, cough; No hemoptysis, No orthopnea, No phlegm; short of breath; No stridor; wheezing Cardiovascular: No chest pain; palpitations; No syncope Gastrointestinal: No abdominal pain, No constipation, No diarrhea, No dysphagia , No heartburn, No loss of appetite, No nausea, No vomiting Genitourinary: No dysuria, No frequency, No pain Musculoskeletal: no symptoms reported Skin: no symptoms reported Psychiatric/Neurological: No Symptoms Reported All Other Systems Reviewed Negative Unless Noted: Yes (Negative excepted noted.) Past Qmdoxxf-Mqsjhi-Vtngfr Hx Past Med/Social Hx: Reviewed Nursing Past Med/Soc Hx Patient Social History Alcohol Use: Denies Use Recreational Drug Use: No Type Used: Cigarettes Former Smoker, Quit: January 28, 2018 Recent Foreign Travel: No Contact w/Someone Who Travel: No Recent Infectious Disease Expo: No Recent Hopitalizations: No Immunizations Up To Date Tetanus Booster (TDap): Unknown PED Vaccines UTD: Yes Date of Pneumonia Vaccine: Aug 30, 2014 Date of Influenza Vaccine: Jul 28, 2018 Seasonal Allergies Seasonal Allergies: Yes Past Medical History Surgeries: Yes (Cyst removed on eye, D&C, CS x 2) Section, Eye Surgery Respiratory: No Sleep Apnea Cardiac: No Neurological: No Concussion Reproductive Disorders: No Female Reproductive Disorders: Polycystic Ovarian Dis Sexually Transmitted Disease: Yes (HSV2) HIV/AIDS: No Genitourinary: No Gastrointestinal: No Musculoskeletal: No Endocrine: No Diabetes, Non-Insulin dep HEENT: No Loss of Vision: Denies Hearing Impairment: Denies Cancer: No Psychosocial: Yes Bipolar, Depression Integumentary: No Blood Disorders: No Adverse Reaction/Blood Tranf: No Family Medical History Reviewed Nursing Family Hx Diabetes mellitus 19 MOTHER Hypertension 19 MOTHER Thyroid disease 19 MOTHER No Family History of: Asthma Dementia Myocardial infarction Respiratory disorder Seizure disorder No Pertinent Family Hx Physical Exam Vital Signs - First Documented 11/22/18 17:48 Pulse 100 Resp 22 B/P (MAP) 125/89 (101) Pulse Ox 90 O2 Delivery Room Air Capillary Refill : Less Than 3 Seconds Height: 5'3.00" Weight: 160lbs. 0.0oz. 72.153223vo; 31.4 BMI Method:Stated General Appearance: WD/WN, no apparent distress HEENT: PERRL/EOMI, pharynx normal Neck: non-tender, supple, normal inspection Respiratory: no respiratory distress, no accessory muscle use, rhonchi ( bilaterally), wheezing (bilateral wheezing ), expiration Cardiovascular: normal peripheral pulses, regular rate, rhythm, no edema, no murmur Gastrointestinal: normal bowel sounds, non tender, soft, no organomegaly; No distended Extremities: no pedal edema, no calf tenderness, normal capillary refill Neurologic/Psychiatric: alert, normal mood/affect, oriented x 3 Skin: normal color, warm/dry; No cyanosis, No cool, No mottled, No rash Progress/Results/Core Measures Suspected Sepsis Recent Fever Within 48 Hours: No Infection Criteria Present: None New/Unexplained Altered Menta: No Sepsis Screen: No Definite Risk SIRS Temperature: Pulse: 100 Respiratory Rate: 22 Laboratory Tests 11/22/18 17:54: White Blood Count 8.1 Blood Pressure 125 /89 Mean: 101 Laboratory Tests 11/22/18 17:54: Creatinine 0.83, Platelet Count 573H, Total Bilirubin 0.8 Results/Orders Lab Results Laboratory Tests Test 11/22/18 17:54 11/22/18 18:57 Range/Units White Blood Count 8.1 4.3-11.0 10^3/uL Red Blood Count 4.42 4.35-5.85 10^6/uL Hemoglobin 13.0 11.5-16.0 G/DL Hematocrit 39 35-52 % Mean Corpuscular Volume 89 80-99 FL Mean Corpuscular Hemoglobin 29 25-34 PG Mean Corpuscular Hemoglobin Concent 33 32-36 G/DL Red Cell Distribution Width 15.0 H 10.0-14.5 % Platelet Count 573 H 130-400 10^3/uL Mean Platelet Volume 10.3 7.4-10.4 FL Neutrophils (%) (Auto) 55 42-75 % Lymphocytes (%) (Auto) 26 12-44 % Monocytes (%) (Auto) 6 0-12 % Eosinophils (%) (Auto) 13 H 0-10 % Basophils (%) (Auto) 0 0-10 % Neutrophils # (Auto) 4.5 1.8-7.8 X 10^3 Lymphocytes # (Auto) 2.1 1.0-4.0 X 10^3 Monocytes # (Auto) 0.5 0.0-1.0 X 10^3 Eosinophils # (Auto) 1.1 H 0.0-0.3 10^3/uL Basophils # (Auto) 0.0 0.0-0.1 10^3/uL Neutrophils % (Manual) 55 % Lymphocytes % (Manual) 32 % Monocytes % (Manual) 4 % Eosinophils % (Manual) 9 % Basophils % (Manual) 0 % Band Neutrophils 0 % Blood Morphology Comment NORMAL Sodium Level 143 135-145 MMOL/L Potassium Level 4.1 3.6-5.0 MMOL/L Chloride Level 107 98-107 MMOL/L Carbon Dioxide Level 25 21-32 MMOL/L Anion Gap 11 5-14 MMOL/L Blood Urea Nitrogen 14 7-18 MG/DL Creatinine 0.83 0.60-1.30 MG/DL Estimat Glomerular Filtration Rate > 60 BUN/Creatinine Ratio 17 Glucose Level 89 70-105 MG/DL Calcium Level 9.8 8.5-10.1 MG/DL Corrected Calcium 9.5 8.5-10.1 MG/DL Total Bilirubin 0.8 0.1-1.0 MG/DL Aspartate Amino Transf (AST/SGOT) 14 5-34 U/L Alanine Aminotransferase (ALT/SGPT) 16 0-55 U/L Alkaline Phosphatase 65 40-136 U/L Total Protein 6.3 L 6.4-8.2 GM/DL Albumin 4.4 3.2-4.5 GM/DL D-Dimer 0.63 H 0.00-0.49 UG/ML My Orders Orders - MARIO,CHERYL L PA Albuterol/Ipra Inhalation Soln (Duoneb I (11/22/18 18:00) Svn Small Volume Nebulizer (11/22/18 17:55) Saline Lock/Iv-Start (11/22/18 18:31) Chest Pa/Lat (2 View) (11/22/18 18:31) Cbc With Automated Diff (11/22/18 18:31) Comprehensive Metabolic Panel (11/22/18 18:31) Famotidine Injection (Pepcid Injection) (11/22/18 18:31) Albuterol Pre-Mix Nebs (Rt) (Proventil (11/22/18 18:31) Ns Iv 1000 Ml (Sodium Chloride 0.9%) (11/22/18 18:31) Svn Small Volume Nebulizer (11/22/18 18:31) Diphenhydramine Injection (Benadryl Inje (11/22/18 18:45) Methylprednisolone Sod Succ (Solu-Medrol (11/22/18 18:45) Manual Differential (11/22/18 17:54) Fibrin Degradation Products (11/22/18 18:42) Prednisone Tablet (Deltasone Tablet) (11/22/18 20:15) Rx-Albuterol Inhaler (Rx-Proair) (11/22/18 20:02) Medications Given in ED Current Medications Medications Dose Ordered Sig/Kemi Route Start Time Stop Time Status Last Admin Dose Admin Albuterol/ Ipratropium 3 ml ONCE ONCE INH 11/22/18 18:00 11/22/18 18:01 DC 11/22/18 18:01 3 ML Diphenhydramine HCl 25 mg ONCE ONCE IM 11/22/18 18:45 11/22/18 18:46 DC 11/22/18 19:11 25 MG Methylprednisolone Sodium Succinate 125 mg ONCE ONCE IVP 11/22/18 18:45 11/22/18 18:46 DC 11/22/18 19:11 125 MG Prednisone 40 mg ONCE ONCE PO 11/22/18 20:15 11/22/18 20:16 DC 11/22/18 20:24 40 MG Vital Signs/I&O 11/22/18 11/22/18 17:48 20:30 Pulse 100 96 Resp 22 22 B/P (MAP) 125/89 (101) 131/89 (103) Pulse Ox 90 97 O2 Delivery Room Air Capillary Refill : Less Than 3 Seconds Blood Pressure Mean: 101 Diagnostic Imaging Diagonstic Imaging: Xray Plain Films/CT/US/NM/MRI: chest Comments CHEST PA/LAT (2 VIEW) INDICATION: Shortness of air. Cough. COMPARISON: 2014. EXAMINATION: Frontal and lateral views of the chest were obtained. FINDINGS: No normal heart size and pulmonary vascularity. The lungs are clear. There are no signs of infiltrate, pleural effusions or pneumothoraces. The visualized osseous structures show no acute abnormalities. IMPRESSION: No acute process. No signs of infiltrates, effusions or pneumothoraces. Dictated on workstation # [id number] Reviewed: Reviewed by Me (radiology report reviewed by me) Departure Communication (Admissions) Patient seen and evaluated. Patient initially given a DuoNeb treatment with mild improvement in symptoms. Patient was then given Pepcid 20 mg IV, Benadryl 25 mg IV, sliding Medrol 125 mg IV with improvement in symptoms. Following medications and nebulizer treatments patient reports almost complete resolution of symptoms. Patient is alert/oriented 3, no acute distress. Cardiovascular regular rate and rhythm, lungs are clear to auscultation. Plan for discharge to home. Patient to follow-up with her primary care provider for recheck and possible need for referral to Dr. conley for allergy testing and/or Dr. Grigsby for pulmonary evaluation. Patient also have her house tested for mold. Patient to return immediately to the emergency department for worsened symptoms or any other concerns. Impression Primary Impression: Asthma, allergic Qualified Codes: J45.41 - Moderate persistent asthma with (acute) exacerbation Disposition: 01 HOME, SELF-CARE Condition: Improved Departure-Patient Inst. Decision time for Depature: 20:08 Referrals: CJ GRIGSBY MICHAEL P MD ORENDER, JACQUELINE S DO (PCP/Family) Primary Care Physician Patient Instructions: Allergy to Mold, Anaphylaxis (DC), Asthma, Adult (DC) Add. Discharge Instructions: All discharge instructions reviewed with patient and/or family. Voiced understanding. Medications as instructed. Benadryl [id number] as needed for breakthrough symptoms. Have your house checked for mold. Follow-up with your family practitioner for recheck as an outpatient. Discussed seeing an leather whitener with your family practitioner. Return to the emergency department immediately for worsened symptoms or any other concerns. Scripts Albuterol Sulfate (Ventolin Hfa) 18 Gm Hfa.aer.ad 2 PUFF INH Q4H PRN for SHORTNESS OF BREATH, #1 EA 0 Refills Prov: CHERYL MARTIN 11/22/18 Famotidine (Pepcid) 20 Mg Tablet 20 MG PO BID, #60 TAB 0 Refills Prov: CHERYL MARTIN 11/22/18 Epinephrine (Epipen 2-Emery) 0.3 Mg/0.3 Ml Auto.injct 0.3 MG IJ ONCE PRN for SHORTNESS OF BREATH, #2 ML 1 Refill Prov: CHERYL MARTIN 11/22/18 Copy Copies To 1: KATIE MOSS GRETCHEN L PA Nov 22, 2018 18:20
[2018-11-22] MEDS ORDERED: NS IV 1000 ML 1,000 ML IV SCH (18:31)
[2018-11-22] MEDS ORDERED: FAMOTIDINE 20MG/2ML IV (PEPCID) IV STA (18:31)
[2018-11-22] MEDS ORDERED: RT-ALBUTEROL SULF 2.5 MG/3 ML PRE-MIX VIAL INH STA (18:31)
[2018-11-22 18:39] LABS: BASOPHILS % (AUTO) 0 % (0-10); EOSINOPHILS # (AUTO) 1.1 10^3/uL (0.0-0.3); EOSINOPHILS % (AUTO) 13 % (0-10); HEMATOCRIT 39 % (35-52); LYMPHOCYTES # (AUTO) 2.1 X 10^3 (1.0-4.0); LYMPHOCYTES % (AUTO) 26 % (12-44); MEAN CORPUSCULAR HEMOGLOBIN 29 PG (25-34); MEAN CORPUSCULAR HGB CONC 33 G/DL (32-36); MEAN CORPUSCULAR VOLUME 89 FL (80-99); MEAN PLATELET VOLUME 10.3 FL (7.4-10.4); MONOCYTES # (AUTO) 0.5 X 10^3 (0.0-1.0); MONOCYTES % (AUTO) 6 % (0-12); NEUTROPHILS # (AUTO) 4.5 X 10^3 (1.8-7.8); NEUTROPHILS % (AUTO) 55 % (42-75); PLATELET COUNT 573 10^3/uL (130-400); WHITE BLOOD COUNT 8.1 10^3/uL (4.3-11.0)
[2018-11-22] MEDS ORDERED: methylPREDNISolone 125 MG (Solu-MEDROL) VIAL IVP ONE (18:45)
[2018-11-22] MEDS ORDERED: diphenhydrAMINE 50 MG/ML INJ (BENADRYL) IM ONE (18:45)
--- NOTE | 2018-11-22 18:57 | Diagnostic Imaging Report ---
INDICATION: Shortness of air. Cough. COMPARISON: 03/04/2015. EXAMINATION: Frontal and lateral views of the chest were obtained. FINDINGS: No normal heart size and pulmonary vascularity. The lungs are clear. There are no signs of infiltrate, pleural effusions or pneumothoraces. The visualized osseous structures show no acute abnormalities. IMPRESSION: No acute process. No signs of infiltrates, effusions or pneumothoraces. Dictated by: Dictated on workstation # [id number]
[2018-11-22 19:01] LABS: BAND NEUTROPHILS 0 %; BASOPHILS % (MANUAL) 0 %; EOSINOPHILS % (MANUAL) 9 %; LYMPHOCYTES % (MANUAL) 32 %; MONOCYTES % (MANUAL) 4 %; NEUTROPHILS % (MANUAL) 55 %; RBC MORPH NORMAL
[2018-11-22 19:18] LABS: ALANINE AMINOTRANSFERASE 16 U/L (0-55); ALBUMIN 4.4 GM/DL (3.2-4.5); ALKALINE PHOSPHATASE 65 U/L (40-136); BILIRUBIN,TOTAL 0.8 MG/DL (0.1-1.0); BUN/CREATININE RATIO 17; CALCIUM 9.8 MG/DL (8.5-10.1); CARBON DIOXIDE 25 MMOL/L (21-32); CHLORIDE 107 MMOL/L (98-107); CREATININE SERUM 0.83 MG/DL (0.60-1.30); GFR ESTIMATED > 60; GLUCOSE 89 MG/DL (70-105); POTASSIUM 4.1 MMOL/L (3.6-5.0); SODIUM 143 MMOL/L (135-145); TOTAL PROTEIN 6.3 GM/DL (6.4-8.2)
[2018-11-22] MEDS ORDERED: RX-ALBUTEROL INHALER (PROAIR) 8 GM IH STA (20:02)
[2018-11-22] MEDS ORDERED: predniSONE 20 MG TAB PO ONE (20:15)
[2018-11-22] MEDS ORDERED: EPIN0.3P3 IJ (20:18)
[2018-11-22] MEDS ORDERED: FAMO-119 PO (20:18)
[2018-11-22] MEDS ORDERED: ALBU18HF2 INH (20:23)
[2018-11-22 20:30] VITALS: BP 131/89
== END 2018-11-22 20:31 | disposition home or self-care (01) ==
LOC: EDUNIT# 17:43 → ER 17:44
DX: J45.998 Other asthma (principal); G47.30 Sleep apnea, unspecified; E11.9 Type 2 diabetes mellitus without complications; F31.9 Bipolar disorder, unspecified; Z87.448 Personal history of other diseases of urinary system; Z88.6 Allergy status to analgesic agent; Z82.49 Family history of ischemic heart disease and other diseases of the circulatory system; Z88.8 Allergy status to other drugs, medicaments and biological substances; Z79.51 Long term (current) use of inhaled steroids; Z87.891 Personal history of nicotine dependence; Z98.890 Other specified postprocedural states
CPT/HCPCS: 36415; 71046; 80053; 85007; 85027; 85379

== ENCOUNTER 2019-02-09 09:37 | Emergency (ER) | payer MEDICAID ==
[~2019-02-09] VITALS: Ht 160 cm; Wt 72.6 kg
[~2019-02-09 09:37] MED LIST changes: +ALBU18HF2 INH; +EPIN0.3P3 IJ; +FAMO-119 PO
--- OUTSIDE RECORDS SUMMARY | 2019-02-09 09:42 | XMS REPORT ---
Author Author Migration, Doctor Organization [facility] Address Unknown Phone Unavailable Care Team Providers Care Replenishment Analyst Name Role Phone Migration, Doctor Unavailable Unavailable PROBLEMS Type Condition ICD9-CM Code [id number] Code Onset Dates Condition Status SNOMED Code Problem Acute allergic rhinitis J30.9 Active 74639216 Problem Hx of diabetes mellitus Z86.39 Active 083190900 Problem Chronic posttraumatic stress disorder F43.12 Active 555841232 Problem Bipolar II disorder F31.81 Active 11326643 Problem Post traumatic stress disorder F43.10 Active 62209749 ALLERGIES No Information ENCOUNTERS Encounter Location Date Diagnosis [facility] [address] [address] Dec, [facility] [address] [address] Oct, Post traumatic stress disorder F43.10 [facility] [address] [address] Aug, [facility] [address] [address] Aug, Chronic posttraumatic stress disorder F43.12 and Bipolar II disorder F31.81 [facility] [address] [address] Aug, Acute non-recurrent maxillary sinusitis J01.00 and Hx of diabetes mellitus Z86.39 [facility] [address] [address] Jul, Post traumatic stress disorder F43.10 [facility] [address] [address] Jul, Chronic posttraumatic stress disorder F43.12 and Bipolar II disorder F31.81 [facility] [address] [place] [address] Jul, Acute allergic rhinitis J30.9 [facility] [id number] [place] [address] Jun, Chronic posttraumatic stress disorder F43.12 and Bipolar II disorder F31.81 [facility] [id number] [place] [address] Aug, depression F53 [facility] [id number] [place] [address] Feb, [facility] [id number] [place] [address] 14 Dec, 2014 [facility] [id number] [place] [address] Dec, [facility] [id number] [place] [address] Oct, [facility] [id number] [place] [address] Oct, [facility] [id number] [place] [address] Aug, [facility] [id number] [place] [address] Aug, [facility] [id number] [place] [address] Aug, [facility] [id number] [place] [address] Aug, [facility] [id number] [place] [address] Aug, [facility] [id number] [place] [address] Aug, [facility] [id number] [place] [address] Aug, [facility] [address] [facility] [id number] [address] Aug, [facility] [address] [facility] [id number] [address] Aug, [facility] [address] [facility] [id number] Aug, [facility] [address] [facility] [id number] [address] Aug, [facility] [address] [facility] [id number], [place] [address] Aug, [facility] [address] [facility] [id number] [place] [address] Jul, [facility] [address] [facility] [id number] [address] Jul, [facility] [address] [id number] [address] Jul, [facility] [address] [facility] [id number] [address] Jul, [facility] [address] [id number] [address] Jul, [facility] [address] [id number] [address] Jul, [facility] [address] [id number] [address] January, [facility] [address] [facility] [id number], [place] [address] January, [facility] [address] [facility] [id number], [place] [address] January, [facility] [address] [facility] [id number], [place] [address] January, IMMUNIZATIONS No Known Immunizations SOCIAL HISTORY Never Assessed [place] [place] VITAL SIGNS MEDICATIONS Unknown Medications RESULTS No Results PROCEDURES No Known procedures INSTRUCTIONS MEDICATIONS ADMINISTERED No Known Medications MEDICAL (GENERAL) HISTORY Type Description Date Medical History NARC ALERT Medical History PCOS (Polycystic Ovary Syndrome) Medical History depression Surgical History 2 cesarian Hospitalization History Hospitalization for surgery only
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
--- NOTE | 2019-02-09 09:55 | ED Cough/URI ---
General Chief Complaint: Cough/Cold/Flu Symptoms Stated Complaint: COUGH;SOA;SORE THROAT Source: patient Exam Limitations: no limitations History of Present Illness Date Seen by Provider: February 09, 2019 Time Seen by Provider: 09:40 Initial Comments The patient presents to the ER by private conveyance with chief complaint of sore throat and nonproductive cough that is worse at night when she lays down. She has a Delaney, Singulair, Pepcid, inhaler she uses every 4 hours as necessary and nebulized albuterol. She says she's been using mojxop-ghj-blcak but her last use was sometime yesterday. She was told she had asthma after her last but she never had asthma or COPD before. She used to be a smoker but quit with her last area and this particular cough and runny nose and allergies as been going on for several months but in the last 3 or 4 days since it is progressively gotten worse to where she is having a hard time sleeping. She then explained that she slept pretty well last night so she did not need her breathing treatment. She is denying fevers nausea vomiting diarrhea abdominal pain travel outside the [place]. She says she put the pulse oximeter from her mom on her finger and it measured 80%. She remarks that she was on steroids one month ago and Benadryl, epinephrine pen, Pepcid. He was describing a possible anaphylactic reaction. Allergies and Home Medications Allergies Coded Allergies: ibuprofen (Verified Allergy, Unknown, shortness of breath, 11/22/18) naproxen (Verified Allergy, Unknown, 10/01/18) SHORTNESS OF BREATH Home Medications Albuterol Sulfate 18 Gm Hfa.aer.ad, 2 PUFF INH Q4H PRN for SHORTNESS OF BREATH Prescribed by: CHERYL MARTIN on 11/22/182022 Cetirizine HCl 10 Mg Capsule, 10 MG PO DAILY, (Reported) Diphenhydramine HCl 25 Mg Capsule, 50 MG PO Q6H, (Reported) Docusate Sodium 100 Mg Capsule, 100 MG PO BID PRN for CONSTIPATION-1ST LINE Prescribed by: SHARYN MENDEZ on 09/30/18 153 Epinephrine 0.3 Mg/0.3 Ml Auto.injct, 0.3 MG IJ ONCE PRN for SHORTNESS OF BREATH Prescribed by: CHERYL MARTIN on 11/22/182017 Famotidine 20 Mg Tablet, 20 MG PO BID Prescribed by: CHERYL MARTIN on 11/22/182017 Hydrocodone Bit/Acetaminophen 1 Tab Tab, 1-2 TAB PO Q6H PRN for PAIN-MODERATE Prescribed by: SHARYN MENDEZ on 09/30/18 153 Ibuprofen 600 Mg Tablet, 600 MG PO Q6H Prescribed by: SHARYN MENDEZ on 09/30/18 1535 Vit W-Ca,Fe,FA(<1 mg) 1 Each Tablet, 1 EACH PO DAILY, (Reported) Patient Home Medication List Home Medication List Reviewed: Yes Review of Systems Review of Systems Constitutional: No chills, No fever, No malaise EENTM: No hearing loss, No ear pain Respiratory: cough; No phlegm; short of breath, wheezing Cardiovascular: No chest pain, No palpitations Gastrointestinal: No abdominal pain, No constipation Past Oiisenc-Rwlriu-Ciqohd Hx Patient Social History Alcohol Use: Denies Use Recreational Drug Use: No Smoking Status: Never a Smoker Type Used: Cigarettes Former Smoker, Quit: January 28, 2018 Recent Hopitalizations: No Immunizations Up To Date Tetanus Booster (TDap): Unknown PED Vaccines UTD: Yes Date of Pneumonia Vaccine: Aug 30, 2014 Date of Influenza Vaccine: Jul 28, 2018 Seasonal Allergies Seasonal Allergies: Yes Past Medical History Surgeries: Yes (Cyst removed on eye, D&C, CS x 2) Section, Eye Surgery Respiratory: No Sleep Apnea Cardiac: No Neurological: No Concussion Reproductive Disorders: No Female Reproductive Disorders: Polycystic Ovarian Dis Sexually Transmitted Disease: Yes (HSV2) HIV/AIDS: No Genitourinary: No Gastrointestinal: No Musculoskeletal: No Endocrine: No Diabetes, Non-Insulin dep HEENT: No Loss of Vision: Denies Hearing Impairment: Denies Cancer: No Psychosocial: Yes Bipolar, Depression Integumentary: No Blood Disorders: No Adverse Reaction/Blood Tranf: No Family Medical History Diabetes mellitus 19 MOTHER Hypertension 19 MOTHER Thyroid disease 19 MOTHER No Family History of: Asthma Dementia Myocardial infarction Respiratory disorder Seizure disorder No Pertinent Family Hx Physical Exam Vital Signs - First Documented 02/09/19 09:49 Temp 97.6 Pulse 107 Resp 18 B/P (MAP) 143/87 (105) Pulse Ox 96 O2 Delivery Room Air O2 Flow Rate 99.00 Capillary Refill : Height: 5'3.00" Weight: 160lbs. 0.0oz. 72.186135dr; 31.4 BMI Method:Stated General Appearance: WD/WN, no apparent distress Eyes: Bilateral Eye Normal Inspection, Bilateral Eye PERRL, Bilateral Eye EOMI HEENT: PERRL/EOMI, normal ENT inspection, pharynx normal, TM abnormal (R), TM abnormal (L) (mucoid effusion without erythema injection or bulging bilaterally) Neck: non-tender, full range of motion, supple, normal inspection Respiratory: no respiratory distress, no accessory muscle use, wheezing (scant left worse than right) Cardiovascular: normal peripheral pulses, regular rate, rhythm Neurologic/Psychiatric: alert, normal mood/affect, oriented x 3, other ( pressured speech) Progress/Results/Core Measures Suspected Sepsis SIRS Temperature: Pulse: Respiratory Rate: Blood Pressure / Mean: Results/Orders My Orders Orders - YRN KNIGHT Chest Pa/Lat (2 View) (02/09/19 09:48) Vital Signs/I&O 02/09/19 02/09/19 09:49 09:49 Temp 97.6 Pulse 107 Resp 18 B/P (MAP) 143/87 (105) Pulse Ox 96 O2 Delivery Room Air Room Air O2 Flow Rate 99.00 Capillary Refill : Progress Note : Time: 09:54 Progress Note The patient's vital signs are acceptable. Her heart rate is around 100 - 105 as she is excitedly explaining her story however after she has left alone and stops talking her heart rate goes down in the 80s. Her oxygen saturation 94% on room air. Scant wheezes heard on the left base. She has not used her breathing treatment today. We will encourage her to use that and follow-up with primary care if nothing is seen on x-ray. Sounds like she has an upper respiratory tract infection with postnasal drip that causes her cough to be worse at night. We can recommend some things that might help her as well as have her follow-up with primary care discuss whether she needs better maintenance medications for her asthma. It's not entirely clear that she has been appropriately diagnosed with asthma. She presents difficulty with redirection. Diagnostic Imaging Diagonstic Imaging: Xray Plain Films/CT/US/NM/MRI: chest (2v) Comments No acute cardiopulmonary process noted. NAME: LUKASDUSTYELVIRAPHOENIX Darling [facility] REC#: [id number] PHYSICIAN: YRN KNIGHT MD CC: DOLORES JOSÉ MD; YRN KNIGHT Page 1 of 1 RADIOLOGY REPORT [facility] [place] CC: DOLORES JOSÉ MD; YRN KNIGHT Page 1 of 1 RADIOLOGY REPORT NAME: JITENDRA GOMEZ [facility] REC#: [id number] PT STATUS: REG ER : 1990 PHYSICIAN: YRN KNIGHT MD ADMIT DATE: 02/09/19/ER Signed Date of Exam: 02/09/19 CHEST PA/LAT (2 VIEW) CHEST PA/LAT (2 VIEW) Indication: Cough Comparison: 11/22/2018 Findings: No focal pneumonic consolidation, pleural effusion or pneumothorax. Normal heart size and pulmonary vasculature. Impression: No acute cardiopulmonary process. Dictated by: Dictated on workstation # [id number] Dict: 02/09/19 1012 Trans: 02/09/19 1015 Interpreted by: DOLORES JOSÉ MD Electronically signed by: DOLORES JOSÉ MD 02/09/19 1015 Reviewed: Reviewed by Ms Departure Impression Primary Impression: Upper respiratory infection Qualified Codes: J06.9 - Acute upper respiratory infection, unspecified Additional Impressions: Postnasal drip Chronic otitis media with effusion, bilateral Disposition: 01 HOME, SELF-CARE Condition: Stable Departure-Patient Inst. Decision time for Depature: 10:19 Referrals: [facility]/RICHY ABEL DO (PCP/Family) Primary Care Physician Add. Discharge Instructions: Please continue to use the Delaney. Use your breathing treatments as prescribed. If you have difficulty breathing then you may return to the ER for further evaluation. Please follow-up with primary care in the next 1-2 weeks to discuss better management of your asthma symptoms as well as diagnosis. You can discuss whether a pulmonology consult would be reasonable. Use vapor rubs such as Vicks or Mentholatum. Use hot tea with honey or lemon as necessary for your scratchy throat. You may also use salt water gargles as often as necessary. 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 You may Take Tessalon Perles 1 capsule every 6 hours as needed for cough. All discharge instructions reviewed with patient and/or family. Voiced understanding. Scripts Benzonatate (TESSALON PERLES) 100 Mg Capsule 100 MG PO Q6H PRN for COUGH, #20 CAP 0 Refills Prov: YRN KNIGHT 02/09/19 YRN KNIGHT February 09, 2019 09:55
--- NOTE | 2019-02-09 10:17 | Diagnostic Imaging Report ---
CHEST PA/LAT (2 VIEW) Indication: Cough Comparison: 11/22/2018 Findings: No focal pneumonic consolidation, pleural effusion or pneumothorax. Normal heart size and pulmonary vasculature. Impression: No acute cardiopulmonary process. Dictated by: Dictated on workstation # [id number]
[2019-02-09] MEDS ORDERED: BENZ100C18 PO (10:20)
[2019-02-09 10:35] VITALS: BP 131/57
== END 2019-02-09 10:33 | disposition home or self-care (01) ==
LOC: EDUNIT# 09:37 → ER 09:38
DX: J06.9 Acute upper respiratory infection, unspecified (principal); H65.493 Other chronic nonsuppurative otitis media, bilateral; R09.82 Postnasal drip; G47.30 Sleep apnea, unspecified; J45.909 Unspecified asthma, uncomplicated; E11.9 Type 2 diabetes mellitus without complications; F31.9 Bipolar disorder, unspecified; Z88.6 Allergy status to analgesic agent; Z87.448 Personal history of other diseases of urinary system; Z86.19 Personal history of other infectious and parasitic diseases; Z88.8 Allergy status to other drugs, medicaments and biological substances; Z87.891 Personal history of nicotine dependence; Z98.890 Other specified postprocedural states
CPT/HCPCS: 71046

== ENCOUNTER 2020-03-10 07:11 | Emergency (ER) | payer MEDICAID ==
[~2020-03-10] VITALS: Ht 160 cm; Wt 79.1 kg
[~2020-03-10 07:11] MED LIST changes: +BENZ100C18 PO
--- OUTSIDE RECORDS SUMMARY | 2020-03-10 07:19 | XMS REPORT ---
Author Author Chun Collado Organization [facility] Address [address] [place] [address] Care Team Providers Care Rn Psych Name Role Phone MYRTLE Collado Unavailable PROBLEMS Type Condition ICD9-CM Code PPI77-MD Code Onset Dates Condition S tatus SNOMED Code Problem Post traumatic stress disorder F43.10 Active 68077033 Problem Moderate persistent asthma with acute exacerbation J45.41 Active [id number] Problem Bipolar II disorder F31.81 Active [id number] ALLERGIES No Information ENCOUNTERS Encounter Location Date Diagnosis [facility] [address] [address] Dec, Moderate persistent asthma w ith acute exacerbation J45.41 ; Nasal polyps J33.9 ; Bipolar II disorder F31.81 and Chronic posttraumatic stress disorder F43.[address] [address] Dec, [facility] [address] [place] [id number] [address] [place] [address] Dec, [address] [place], [place] [id number] [place] [address] Nov, Post traumatic stress disorder F43.10 [facility] [address] [facility]] [id number] [address] [address] Oct, Moderate persistent asthma w ithout complication J45.40 [facility] [address] [facility] 3] [id number] [address] [address] 03 Oct, 2019 Mild intermittent asthma wit h exacerbation J45.21 [facility] [address] [facility]NOTE 3] [id number] [address] [address] Sep, [place] [address] [place] [address] [facility] [id number] [place] [address] Aug, [facility] [address] [facility] 3] [id number] [address] [address] 17 May, 2019 Chronic posttraumatic stress disorder F43.12 and Bipolar II disorder F31.81 [facility] [address] [facility]NOTE 3] [id number] [address] [place] [address] 13 May, 2019 Post traumatic stress disord er F43.10 and Bipolar II disorder F31.81 [facility] [address] [facility] 3] [id number] [address] [place] [address] 10 May, 2019 Moderate persistent asthma w ithout complication J45.40 and Elevated liver enzymes R74.8 [facility] [address] [facility] 3] [id number] [address] [place] [address] Apr, Post traumatic stress disord er F43.10 and Bipolar II disorder F31.81 [facility] [address] [facility]NOTE 3] [id number] [address] [place] [address] Mar, Nasal airway abnormality R68 .89 [facility] [address] [facility]NOTE 3] [id number] [address] [address] Mar, Acute allergic rhinitis J30. 9 and Uncomplicated asthma, unspecified asthma severity, unspecified whether persistent J45.909 [facility] [address] [facility] 3] [id number] [address] [phone] January, Post traumatic stress disord er F43.10 and Bipolar II disorder F31.81 [facility] [address] [facility]NOTE 3] [id number] [address] [place] [address] Dec, [facility] [address] [facility] 3] [id number] [address] [place] [phone] Oct, Post traumatic stress disord er F43.10 [facility] [address] [facility] 3] [id number] [address] [place] [phone] Aug, [facility] [address] [facility] 3] [id number] [address] [place] [address] Aug, Chronic posttraumatic stress disorder F43.12 and Bipolar II disorder F31.81 [facility] [address] [facility] 3] [id number] [address] [place] [address] Aug, Acute non-recurrent maxillar y sinusitis J01.00 and Hx of diabetes mellitus Z86.39 [facility] [address] [facility] 3] [id number] [address] [place] [address] Jul, Post traumatic stress disord er F43.10 [facility] [address] [facility] 3] [id number] [address] [place] [address] Jul, Chronic posttraumatic stress disorder F43.12 and Bipolar II disorder F31.81 [facility] [address] [facility] 3] [id number] [address] [place] [address] Jul, Acute allergic rhinitis J30. 9 [facility] [address] [facility]] [id number] [address] [place] [address] Jun, Chronic posttraumatic stress disorder F43.12 and Bipolar II disorder F31.81 [facility] [address] [facility] 3] [id number] [address] [place] [phone] Aug, depression F53 [facility] [address] [facility] 3] [id number] [address] [phone] Feb, [facility] [address] [facility] 3] [id number] [address] [place] [phone] Dec, [facility] [address] [facility] 3] [id number] [address] [place] [address] Dec, [facility] [address] [facility] 3] [id number] [address] [place] [phone] Oct, [facility] [address] [facility] 3] [id number] [address] [phone] Oct, [facility] [address] [facility] 3] [id number] [address] [place] [phone] Aug, [facility] [address] [id number] [address] [place] [address], [place] [address] 30 Aug, 2014 [facility] [address] [id number] [address] [place] [address], [place] [address] Aug, [facility] [address] [id number] [address] [place] [address], [place] [address] Aug, [facility] [address] [id number] [address] [place] [address], [place] [address] Aug, [facility] [address] [id number] [address] [place] [address], [place] [address] Aug, [facility] [address] [id number] [address] [place] [address], [place] [address] Aug, [facility] [address] [id number] [address] [place] [address], [place] [address] Aug, [facility] [address] [id number] [address] [place] [address], [place] [address] Aug, [facility] [address] [id number] [address] [place] [address], [place] [address] Aug, [facility] [address] [id number] [address] [place] [address], [place] [address] Aug, [facility] [address] [id number] [address] [place] [address], [place] [address] Aug, [facility] [address] [id number] [address] [place] [address], [place] [address] Jul, [facility] [address] [id number] [address] [place] [address], [place] [address] Jul, [facility] [address] [id number] [address] [place] [address], [place] [address] Jul, [facility] [address] [id number] [address] [place] [address], [place] [address] Jul, [facility] [address] [id number] [address] [place] [address], [place] [address] Jul, [facility] [address] [facility]] [id number] [address] [place] [address] Jul, [facility] [address] [facility] 3] [id number] [address] [place] [address] January, [facility] [address] [facility] 3] [id number] [address] [phone] January, [facility] [address] [facility] 3] [id number] [address] [place] [address] January, [facility] [address] [facility] 3] [id number] [address] [place] [phone] January, IMMUNIZATIONS No Known Immunizations SOCIAL HISTORY Never Assessed REASON FOR VISIT PLAN OF CARE VITAL SIGNS MEDICATIONS Unknown Medications RESULTS No Results PROCEDURES No Known procedures INSTRUCTIONS MEDICATIONS ADMINISTERED No Known Medications MEDICAL (GENERAL) HISTORY Type Description Date Medical History NARC ALERT Medical History PCOS (Polycystic Ovary Syndrome) Medical History depression Medical History Asthma Medical History liver enzyme issues during Surgical History 2 cesarian Surgical History d&c Surgical History cyst from left eyelid removed Surgical History nasal polyps Hospitalization History Hospitalization for surgery only
--- OUTSIDE RECORDS SUMMARY | 2020-03-10 07:19 | XMS REPORT ---
Author Author Chun Collado Organization [facility] Address [address] [place] [address] Care Team Providers Care Manager Technical Support Name Role Phone MYRTLE Collado Unavailable PROBLEMS Type Condition ICD9-CM Code OGN28-PQ Code Onset Dates Condition S tatus SNOMED Code Problem Moderate persistent asthma without complication J4 5.40 Active 768938723 Problem Mild intermittent asthma with exacerbation J45.21 Active 064268442 Problem Chronic posttraumatic stress disorder F43.12 Active 847460916 Problem Bipolar II disorder F31.81 Active 30274480 Problem Post traumatic stress disorder F43.10 Active [id number] ALLERGIES No Information ENCOUNTERS Encounter Location Date Diagnosis [facility] [address] [facility] [id number] [address] [address] 03 Oct, 2019 Mild intermittent asthma wit h exacerbation J45.21 [facility] [address] [address] Sep, [facility] [address] [facility] [place] [address] Aug, [facility] [address] [address] 17 May, 2019 Chronic posttraumatic stress disorder F4 3.12 and Bipolar II disorder F31.81 [facility] [address] [address] 13 May, 2019 Post traumatic stress disorder F43.10 an d Bipolar II disorder F31.81 [facility] [address] [address] 10 May, 2019 Moderate persistent asthma without compl ication J45.40 and Elevated liver enzymes R74.8 [facility] [address] [address] Apr, Post traumatic stress disorder F43.10 an d Bipolar II disorder F31.81 [facility] [id number] [place] [address] Mar, Nasal airway abnormality R68 .89 [facility] [address] [place] [id number] [address] [place] [address] Mar, Acute allergic rhinitis J30. 9 and Uncomplicated asthma, unspecified asthma severity, unspecified whether persistent J45.909 [facility] [address] [address] January, Post traumatic stress disorder F43.10 an d Bipolar II disorder F31.81 [facility] [address] [address] Dec, [facility] [address] [address] Oct, Post traumatic stress disorder F43.10 [facility] [address] [address] Aug, [place] [address] [address] Aug, Chronic posttraumatic stress disorder F4 3.12 and Bipolar II disorder F31.81 [place] [address] [address] Aug, Acute non-recurrent maxillary sinusitis J01.00 and Hx of diabetes mellitus Z86.39 [facility] [address] [address] Jul, Post traumatic stress disorder F43.10 [facility] [address] [address] 14 Jul, 2018 Chronic posttraumatic stress disorder F4 3.12 and Bipolar II disorder F31.81 [facility] [address] [place] [id number] [place] [address] Jul, Acute allergic rhinitis J30. 9 [facility] [address] [place] [id number] [place] [address] Jun, Chronic posttraumatic stress disorder F4 3.12 and Bipolar II disorder F31.81 [facility] [id number] [place] [address] Aug, depression F53 [facility] [id number] [place] [address] Feb, [facility] [id number] [place] [address] 14 Dec, 2014 [facility] [id number] [place] [address] Dec, [facility] [id number] [place] [address] Oct, [facility] [id number] [place] [address] Oct, [facility] [id number] [place] [address] Aug, [facility] [id number] [place] [address] Aug, [facility] [id number] [place] [address] Aug, [facility] [id number] [place] [address] Aug, [facility] [id number] [place] [address] Aug, [facility] [id number] [place] [address] Aug, [facility] [id number] [place] [address] Aug, [facility] [id number] [place] [address] Aug, [facility] [id number] [place] [address] 18 Aug, 2014 [facility] [id number] [place] [address] Aug, [facility] [id number] [place] [address] Aug, [facility] [id number] [place] [address] Aug, [facility] [id number] [place] [address] Jul, [facility] [address] [place] [id number] [place] [address] Jul, [facility] [id number] [place] [address] Jul, [facility] [address] [place] [id number] [place] [address] Jul, [facility] [id number] [place] [address] Jul, [facility] [id number] [place] [address] Jul, [facility] [id number] [place] [address] January, [facility] [id number] [place] [address] January, [facility] [id number] [place] [address] January, [facility] [id number] [place] [address] January, IMMUNIZATIONS No Known Immunizations SOCIAL HISTORY Never Assessed REASON FOR VISIT PLAN OF CARE VITAL SIGNS Weight 198.2 lbs 2014-02-17 Temperature 97 degrees Fahrenheit 2014-02-17 Heart Rate 78 bpm 2014-02-17 Respiratory Rate 16 2014-02-17 Blood pressure systolic 120 mmHg 2014-02-17 Blood pressure diastolic 82 mmHg 2014-02-17 MEDICATIONS No Known Medications RESULTS No Results PROCEDURES Procedure Date Ordered Result Body Site COMPLETE CBC W/AUTO DIFF WBC February 17, 2014 ASSAY THYROID STIM HORMONE February 17, 2014 ASSAY OF INSULIN February 17, 2014 LIPID PANEL February 17, 2014 COMPREHEN METABOLIC PANEL February 17, 2014 VENIPUNCT, ROUTINE* February 17, 2014 INSTRUCTIONS MEDICATIONS ADMINISTERED No Known Medications MEDICAL (GENERAL) HISTORY Type Description Date Medical History NARC ALERT Medical History PCOS (Polycystic Ovary Syndrome) Medical History depression Medical History Asthma Medical History liver enzyme issues during Surgical History 2 cesarian Surgical History d&c Surgical History cyst from left eyelid removed Hospitalization History Hospitalization for surgery only
--- OUTSIDE RECORDS SUMMARY | 2020-03-10 07:19 | XMS REPORT ---
Author Author Chun Collado Organization [facility] Address [address] [place] [address] Care Team Providers Care Truck Hop Name Role Phone MYRTLE Collado Unavailable PROBLEMS Type Condition ICD9-CM Code FJA89-ON Code Onset Dates Condition S tatus SNOMED Code Problem Post traumatic stress disorder F43.10 Active 57584887 Problem Moderate persistent asthma without complication J4 5.40 Active 670477202 Problem Chronic posttraumatic stress disorder F43.12 Active 150607350 Problem Bipolar II disorder F31.81 Active 94325376 ALLERGIES No Information ENCOUNTERS Encounter Location Date Diagnosis [facility] [address] [id number] [address] [place] [id number] 17 May, 2019 Chronic posttraumatic stress disorder F43.12 and Bipolar II disorder F31.81 [facility] [address] [facility] [id number] [address] [place] [address] 13 May, 2019 Post traumatic stress disord er F43.10 and Bipolar II disorder F31.81 [facility] [address] [facility] [id number] [address] [place] [id number] 10 May, 2019 Moderate persistent asthma w ithout complication J45.40 and Elevated liver enzymes R74.8 [facility] [address] [facility] [id number] [address] [place] [id number] 16 Apr, 2019 Post traumatic stress disord er F43.10 and Bipolar II disorder F31.81 [facility] [address] [facility] [id number] [address] [place] [address] Mar, Nasal airway abnormality R68 .89 [facility] [address] [facility] [id number] [address] [place] [address] Mar, Acute allergic rhinitis J30. 9 and Uncomplicated asthma, unspecified asthma severity, unspecified whether persistent J45.909 [facility] [address] [id number] [address] [place] [address] January, Post traumatic stress disord er F43.10 and Bipolar II disorder F31.81 [facility] [address] [id number] [address] [place] [address] Dec, [facility] [address] [id number] [address] [place] [address] Oct, Post traumatic stress disord er F43.10 [facility] [address] [id number] [address] [place] [address] Aug, [facility] [address] [facility] [id number] [address] [place] [address] Aug, Chronic posttraumatic stress disorder F43.12 and Bipolar II disorder F31.81 [facility] [address] [facility] [id number] [address] [place] [address] Aug, Acute non-recurrent maxillar y sinusitis J01.00 and Hx of diabetes mellitus Z86.39 [facility] [address] [facility] [id number] [address] [place] [address] Jul, Post traumatic stress disord er F43.10 [facility] [address] [facility] [id number] [address] [place] [id number] 14 Jul, 2018 Chronic posttraumatic stress disorder F43.12 and Bipolar II disorder F31.81 [facility] [address] [id number] [address] [place] [id number] 06 Jul, 2018 Acute allergic rhinitis J30. 9 [facility] [address] [facility] [id number] [address] [place] [address] Jun, Chronic posttraumatic stress disorder F43.12 and Bipolar II disorder F31.81 [facility] [address] [facility] [id number] [address] [place] [phone] Aug, depression F53 [facility] [address] [id number] [address] [place] [address], [place] [address] 11 Feb, 2015 [facility] [address] [id number] [address] [place] [address], [place] [address] 14 Dec, 2014 [facility] [address] [id number] [address] [place] [address], [place] [address] Dec, [facility] [address] [id number] [address] [place] [address], [place] [address] Oct, [facility] [address] [id number] [address] [place] [address], [place] [address] Oct, [facility] [address] [id number] [address] [place] [address], [place] [address] Aug, [facility] [address] [id number] [address] [place] [address], [place] [address] Aug, [facility] [address] [id number] [address] [place] [address], [place] [address] Aug, [facility] [address] [id number] [address] [place] [address], [place] [address] Aug, [facility] [address] [id number] [address] [place] [address], [place] [address] Aug, [facility] [address] [id number] [address] [place] [address], [place] [address] Aug, [facility] [address] [id number] [address] [place] [address], [place] [address] Aug, [facility] [address] [id number] [address] [place] [address], [place] [address] Aug, [facility] [address] [id number] [address] [place] [address], [place] [address] 18 Aug, 2014 [facility] [address] [id number] [address] [place] [address], [place] [address] Aug, [facility] [address] [id number] [address] [place] [address], [place] [address] Aug, [facility] [address] [id number] [address] [place] [phone] Aug, [facility] [address] [id number] [address] [place] [phone] Jul, [facility] [address] [id number] [address] [place] [phone] Jul, [facility] [address] [id number] [address] [place] [phone] Jul, [facility] [address] [id number] [address] [place] [address] Jul, [facility] [address] [id number] [address] [place] [address] Jul, [facility] [address] [id number] [address] [place] [phone] Jul, [facility] [address] [id number] [address] [place] [address] January, [facility] [address] [id number] [address] [place] [address] January, [facility] [address] [id number] [address] [place] [address] January, [facility] [address] [id number] [address] [place] [address] January, IMMUNIZATIONS No Known Immunizations SOCIAL HISTORY Never Assessed REASON FOR VISIT PLAN OF CARE VITAL SIGNS Weight 165.59 lbs 2014-09-16 Temperature 98 degrees Fahrenheit 2014-09-16 Heart Rate 78 bpm 2014-09-16 Respiratory Rate 18 2014-09-16 Blood pressure systolic 118 mmHg 2014-09-16 Blood pressure diastolic 78 mmHg 2014-09-16 MEDICATIONS Unknown Medications RESULTS No Results PROCEDURES Procedure Date Ordered Result Body Site COMPLETE CBC W/AUTO DIFF WBC Sep 16, 2014 MYCOPLASMA ANTIBODY Sep 16, 2014 URINALYSIS, AUTO, W/O SCOPE Sep 16, 2014 VISIT Sep 16, 2014 VENIPUNCT, ROUTINE* Sep 16, 2014 INSTRUCTIONS MEDICATIONS ADMINISTERED No Known Medications MEDICAL (GENERAL) HISTORY Type Description Date Medical History NARC ALERT Medical History PCOS (Polycystic Ovary Syndrome) Medical History depression Medical History Asthma Medical History liver enzyme issues during Surgical History 2 cesarian Surgical History d&c Surgical History cyst from left eyelid removed Hospitalization History Hospitalization for surgery only
--- OUTSIDE RECORDS SUMMARY | 2020-03-10 07:19 | XMS REPORT ---
Author Author Chun Collado Organization [facility] Address [address] [place] [address] Care Team Providers Care Spike Maker Name Role Phone MYRTLE Collado Unavailable PROBLEMS Type Condition ICD9-CM Code [id number] Code Onset Dates Condition S tatus SNOMED Code Problem Post traumatic stress disorder F43.10 Active 50414487 Problem Moderate persistent asthma without complication J4 5.40 Active 615599898 Problem Chronic posttraumatic stress disorder F43.12 Active 715332290 Problem Bipolar II disorder F31.81 Active 96427398 ALLERGIES No Information ENCOUNTERS Encounter Location Date Diagnosis [facility] [address] [address] Aug, [facility] [address] [address] 17 May, 2019 Chronic posttraumatic stress disorder F4 3.12 and Bipolar II disorder F31.[address] [address] 13 May, 2019 Post traumatic stress disorder F43.10 an d Bipolar II disorder F31.81 [place] [id number] [address] 10 May, 2019 Moderate persistent asthma without compl ication J45.40 and Elevated liver enzymes R74.8 [facility] [address] [address] 16 Apr, 2019 Post traumatic stress disorder F43.10 an d Bipolar II disorder F31.81 [facility] [address] [id number] [address] [place] [address] Mar, Nasal airway abnormality R68 .89 [facility] [address] [id number] [address] [place] [address] Mar, Acute allergic rhinitis J30. 9 and Uncomplicated asthma, unspecified asthma severity, unspecified whether persistent J45.909 [facility] [address] [address] January, Post traumatic stress disorder F43.10 an d Bipolar II disorder F31.81 [facility] [address] [address] Dec, [place] [address] [address] Oct, Post traumatic stress disorder F43.10 [place] [address] [address] Aug, [place] [address] [address] Aug, Chronic posttraumatic stress disorder F4 3.12 and Bipolar II disorder F31.81 [place] [address] [address] Aug, Acute non-recurrent maxillary sinusitis J01.00 and Hx of diabetes mellitus Z86.39 [place] [address] [address] Jul, Post traumatic stress disorder F43.10 [place] [address] [address] Jul, Chronic posttraumatic stress disorder F4 3.12 and Bipolar II disorder F31.81 [facility] [address] [facility] [id number] [address] [address] Jul, Acute allergic rhinitis J30. 9 [facility] [address] [address] Jun, Chronic posttraumatic stress disorder F4 3.12 and Bipolar II disorder F31.81 [facility] [address] [address] 12 Aug, 2016 depression F53 [facility] [address] [address] Feb, [facility] [address] [id number] [place] [address] 14 Dec, 2014 [facility] [address] [id number] [place] [address] Dec, [facility] [address] [id number] [place] [address] Oct, [facility] [address] [id number] [place] [address] Oct, [facility] [address] [id number] [place] [address] Aug, [facility] [address] [id number] [place] [address] Aug, [facility] [address] [id number] [place] [address] Aug, [facility] [address] [id number] [place] [address] Aug, [facility] [address] [id number] [place] [address] Aug, [facility] [address] [id number] [place] [address] Aug, [facility] [address] [id number] [place] [address] Aug, [facility] [address] [id number] [place] [address] Aug, [facility] [address] [id number] [place] [address] Aug, [facility] [address] [id number] [place] [address] Aug, [facility] [address] [id number] [place] [address] Aug, [facility] [address] [id number] [place] [address] Aug, [facility] [address] [id number] [place] [address] Jul, [facility] [id number] [place] [address] Jul, [facility] [id number] [place] [address] Jul, [facility] [id number] [place] [address] Jul, [facility] [id number] [place] [address] Jul, [facility] [id number] [place] [address] Jul, [facility] [id number] [place] [address] January, [facility] [id number] [place] [address] January, [facility] [id number] [place] [address] January, [facility] [id number] [place] [address] January, IMMUNIZATIONS No Known Immunizations SOCIAL HISTORY [...]
--- OUTSIDE RECORDS SUMMARY | 2020-03-10 07:20 | XMS REPORT ---
Author Author Chun Collado Organization [facility] Address [address] [place] [address] Care Team Providers Care Hand Engraver Name Role Phone MYRTLE Collado Unavailable PROBLEMS Type Condition ICD9-CM Code [id number] Code Onset Dates Condition S tatus SNOMED Code Problem Hx of diabetes mellitus Z86.39 Active 420457247 Problem Uncomplicated asthma, unspec ified asthma severity, unspecified whether persistent J45.909 Active 894457741 Problem Chronic posttraumatic stress disorder F43.12 Active 881762695 Problem Bipolar II disorder F31.81 Active 07993770 Problem Post traumatic stress disorder F43.10 Active 73004823 Problem Acute allergic rhinitis J30.9 Active 26407712 ALLERGIES No Information ENCOUNTERS Encounter Location Date Diagnosis [facility] [address] [facility] [id number] [address] [place] [address] 17 May, 2019 [facility] [address] [facility] [id number] [address] [place] [address] May, [facility] [address] [facility] [id number] [address] [place] [address] May, [facility] [address] [facility] [id number] [address] [place] [address] Apr, Post traumatic stress disord er F43.10 and Bipolar II disorder F31.81 [facility] [address] [facility] [id number] [address] [place] [address] Mar, Nasal airway abnormality R68 .89 [facility] [address] [facility] [id number] [address] [place] [address] Mar, Acute allergic rhinitis J30. 9 and Uncomplicated asthma, unspecified asthma severity, unspecified whether persistent J45.909 [facility] [address] [id number] [address] [place] [address] January, Post traumatic stress disord er F43.10 and Bipolar II disorder F31.81 [facility] [address] [id number] [address] [place] [address] Dec, [facility] [address] [id number] [address] [place] [address] Oct, Post traumatic stress disord er F43.10 [facility] [address] [id number] [address] [place] [address] Aug, [facility] [address] [facility] [id number] [address] [place] [address] Aug, Chronic posttraumatic stress disorder F43.12 and Bipolar II disorder F31.81 [facility] [address] [facility] [id number] [address] [place] [address] Aug, Acute non-recurrent maxillar y sinusitis J01.00 and Hx of diabetes mellitus Z86.39 [facility] [address] [id number] [address] [place] [address] Jul, Post traumatic stress disord er F43.10 [facility] [address] [facility] [id number] [address] [place] [address] 14 Jul, 2018 Chronic posttraumatic stress disorder F43.12 and Bipolar II disorder F31.81 [facility] [address] [id number] [address] [place] [address] 06 Jul, 2018 Acute allergic rhinitis J30. 9 [facility] [address] [id number] [address] [place] [address] Jun, Chronic posttraumatic stress disorder F43.12 and Bipolar II disorder F31.81 [facility] [address] [id number] [address] [place] [address] 12 Aug, 2016 depression F53 [facility] [address] [facility] [id number] [address] [place] [address] Feb, [facility] [address] [id number] [address] [place] [address], [place] [address] 14 Dec, 2014 [facility] [address] [id number] [address] [place] [address], [place] [address] Dec, [facility] [address] [id number] [address] [place] [address], [place] [address] Oct, [facility] [address] [id number] [address] [place] [address], [place] [address] Oct, [facility] [address] [id number] [address] [place] [address], [place] [address] Aug, [facility] [address] [id number] [address] [place] [address], [place] [address] Aug, [facility] [address] [id number] [address] [place] [address], [place] [address] Aug, [facility] [address] [id number] [address] [place] [address], [place] [address] Aug, [facility] [address] [id number] [address] [place] [address], [place] [address] Aug, [facility] [address] [id number] [address] [place] [address], [place] [address] Aug, [facility] [address] [id number] [address] [place] [address], [place] [address] Aug, [facility] [address] [id number] [address] [place] [address], [place] [address] Aug, [facility] [address] [id number] [address] [place] [address], [place] [address] Aug, [facility] [address] [id number] [address] [place] [address], [place] [address] Aug, [facility] [address] [id number] [address] [place] [address], [place] [address] Aug, [facility] [address] [id number] [address] [place] [address] Aug, [facility] [address] [id number] [address] [place] [address] Jul, [facility] [address] [id number] [address] [place] [address] Jul, [facility] [address] [id number] [address] [place] [address] Jul, [facility] [address] [id number] [address] [place] [address] Jul, [facility] [address] [id number] [address] [place] [address] Jul, [facility] [address] [id number] [address] [place] [address] Jul, [facility] [address] [id number] [address] [place] [address] January, [facility] [address] [id number] [address] [place] [address] January, [facility] [address] [id number] [address] [place] [address] January, [facility] [address] [id number] [address] [place] [address] January, IMMUNIZATIONS No Known Immunizations SOCIAL HISTORY [...]
--- OUTSIDE RECORDS SUMMARY | 2020-03-10 07:20 | XMS REPORT ---
Author Author Chun PIMENTEL Organization [facility] Address [address] [place] [address] Care Team Providers Care Shaper Set Up Operator Name Role Phone KATJA PIMENTEL Unavailable PROBLEMS Type Condition ICD9-CM Code [id number] Code Onset Dates Condition S tatus SNOMED Code Problem Post traumatic stress disorder F43.10 Active 43199229 Problem Moderate persistent asthma without complication J4 5.40 Active 503627443 Problem Chronic posttraumatic stress disorder F43.12 Active 200434511 Problem Bipolar II disorder F31.81 Active [id number] ALLERGIES No Information ENCOUNTERS Encounter Location Date Diagnosis [facility] [address] [id number] [address] [place] [address] 17 May, 2019 Chronic posttraumatic stress disorder F43.12 and Bipolar II disorder F31.81 [facility] [address] [id number] [address] [place] [id number] 13 May, 2019 Post traumatic stress disord er F43.10 and Bipolar II disorder F31.81 [facility] [address] [id number] [address] [place] [phone] 10 May, 2019 Moderate persistent asthma w ithout complication J45.40 and Elevated liver enzymes R74.8 [facility] [address] [facility] [id number] [address] [place] [address] 16 Apr, 2019 Post traumatic stress disord er F43.10 and Bipolar II disorder F31.81 [facility] [address] [id number] [address] [place] [address] Mar, Nasal airway abnormality R68 .89 [facility] [address] [id number] [address] [place] [address] Mar, Acute allergic rhinitis J30. 9 and Uncomplicated asthma, unspecified asthma severity, unspecified whether persistent J45.909 [facility] [address] [id number] [address] [place] [address] January, Post traumatic stress disord er F43.10 and Bipolar II disorder F31.81 [facility] [address] [id number] [address] [place] [address] Dec, [facility] [address] [facility] [id number] [address] [place] [id number] Oct, Post traumatic stress disord er F43.10 [facility] [address] [id number] [address] [place] [id number] Aug, [facility] [address] [facility] [id number] [address] [place] [address] Aug, Chronic posttraumatic stress disorder F43.12 and Bipolar II disorder F31.81 [facility] [address] [facility] [id number] [address] [place] [phone] Aug, Acute non-recurrent maxillar y sinusitis J01.00 and Hx of diabetes mellitus Z86.39 [facility] [address] [facility] [id number] [address] [place] [address] Jul, Post traumatic stress disord er F43.10 [facility] [address] [facility] [id number] [address] [place] [id number] 14 Jul, 2018 Chronic posttraumatic stress disorder F43.12 and Bipolar II disorder F31.81 [facility] [address] [facility] [id number] [address] [place] [id number] 06 Jul, 2018 Acute allergic rhinitis J30. 9 [facility] [address] [facility] [id number] [address] [place] [address] Jun, Chronic posttraumatic stress disorder F43.12 and Bipolar II disorder F31.81 [facility] [address] [facility] [id number] [address] [place] [address] Aug, depression F53 [facility] [address] [id number] [address] [place] [address], [place] [address] 11 Feb, 2015 [facility] [address] [id number] [address] [place] [address], [place] [address] 14 Dec, 2014 [facility] [address] [id number] [address] [place] [address], [place] [address] 13 Dec, 2014 [facility] [address] [id number] [address] [place] [address], [place] [address] 27 Oct, 2014 [facility] [address] [id number] [address] [place] [address], [place] [address] Oct, [facility] [address] [id number] [address] [place] [address], [place] [address] Aug, [facility] [address] [id number] [address] [place] [address], [place] [address] Aug, [facility] [address] [id number] [address] [place] [address], [place] [address] Aug, [facility] [address] [id number] [address] [place] [address], [place] [address] Aug, [facility] [address] [id number] [address] [place] [address], [place] [address] Aug, [facility] [address] [id number] [address] [place] [address], [place] [address] Aug, [facility] [address] [id number] [address] [place] [address], [place] [address] Aug, [facility] [address] [id number] [address] [place] [address], [place] [address] Aug, [facility] [address] [id number] [address] [place] [address], [place] [address] Aug, [facility] [address] [id number] [address] [place] [address], [place] [address] Aug, [facility] [address] [id number] [address] [place] [address], [place] [address] Aug, [facility] [address] [id number] [address] [place] [phone] Aug, [facility] [address] [id number] [address] [place] [id number] Jul, [facility] [address] [id number] [address] [place] [address] Jul, [facility] [address] [id number] [address] [place] [address] Jul, [facility] [address] [id number] [address] [place] [address] Jul, [facility] [address] [id number] [address] [place] [address] Jul, [facility] [address] [id number] [address] [place] [address] Jul, [facility] [address] [id number] [address] [place] [address] January, [facility] [address] [id number] [address] [place] [address] January, [facility] [address] [id number] [address] [place] [address] January, [facility] [address] [id number] [address] [place] [address] January, IMMUNIZATIONS No Known Immunizations SOCIAL HISTORY [...]
--- OUTSIDE RECORDS SUMMARY | 2020-03-10 07:20 | XMS REPORT ---
Author Author Chun PIMENTEL Organization [facility] Address [address] [place] [address] Care Team Providers Care Cam Milling Machine Operator Name Role Phone KATJA PIMENTEL Unavailable PROBLEMS ALLERGIES No Information ENCOUNTERS IMMUNIZATIONS No Known Immunizations SOCIAL HISTORY No smoking Hx information available REASON FOR VISIT PLAN OF CARE VITAL SIGNS MEDICATIONS Unknown Medications RESULTS No Results PROCEDURES INSTRUCTIONS MEDICATIONS ADMINISTERED No Known Medications MEDICAL (GENERAL) HISTORY
--- OUTSIDE RECORDS SUMMARY | 2020-03-10 07:20 | XMS REPORT ---
Author Author Chun PIMENTEL Organization [facility] Address [address] [place] [address] Care Team Providers Care Angiography Nurse Name Role Phone KATJA PIMENTEL Unavailable PROBLEMS Type Condition ICD9-CM Code [id number] Code Onset Dates Condition S tatus SNOMED Code Problem Acute allergic rhinitis J30.9 Active 77083532 Problem Hx of diabetes mellitus Z86.39 Active 609834762 Problem Chronic posttraumatic stress disorder F43.12 Active 019553936 Problem Bipolar II disorder F31.81 Active 94048778 Problem Post traumatic stress disorder F43.10 Active 58068155 ALLERGIES No Information ENCOUNTERS Encounter Location Date Diagnosis [place] [address] [facility] [id number] [address] [place] [address] January, Post traumatic stress disord er F43.10 and Bipolar II disorder F31.81 [place] [address] [facility] [id number] [address] [place] [address] Dec, [place] [address] [facility] [id number] [address] [place] [address] Oct, Post traumatic stress disord er F43.10 [place] [address] [facility] [id number] [address] [place] [address] Aug, [place] [address] [facility] [id number] [address] [place] [address] Aug, Chronic posttraumatic stress disorder F43.12 and Bipolar II disorder F31.81 [place] [address] [facility] [id number] [address] [place] [address] Aug, Acute non-recurrent maxillar y sinusitis J01.00 and Hx of diabetes mellitus Z86.39 [place] [address] [id number] [address] [place] [address] Jul, Post traumatic stress disord er F43.10 [facility] [address] [facility] [id number] [address] [place] [address] Jul, Chronic posttraumatic stress disorder F43.12 and Bipolar II disorder F31.81 [facility] [address] [facility] [id number] [address] [place] [address] Jul, Acute allergic rhinitis J30. 9 [facility] [address] [id number] [address] [place] [address] Jun, Chronic posttraumatic stress disorder F43.12 and Bipolar II disorder F31.81 [facility] [address] [facility] [id number] [address] [place] [address] Aug, depression F53 [facility] [address] [facility] [id number] [address] [place] [address] Feb, [facility] [address] [facility] [id number] [address] [place] [address] Dec, [facility] [address] [id number] [address] [place] [address] Dec, [facility] [address] [facility] [id number] [address] [place] [address] Oct, [facility] [address] [facility] [id number] [address] [place] [address] Oct, [facility] [address] [facility] [id number] [address] [place] [address] Aug, [facility] [address] [id number] [address] [place] [address] Aug, [facility] [address] [facility] [id number] [address] [place] [address] Aug, [facility] [address] [facility] [id number] [address] [place] [address] Aug, [facility] [address] [id number] [address] [place] [address], [place] [address] Aug, [facility] [address] [id number] [address] [place] [address], [place] [address] Aug, [facility] [address] [id number] [address] [place] [address], [place] [address] Aug, [facility] [address] [id number] [address] [place] [address], [place] [address] Aug, [facility] [address] [id number] [address] [place] [address], [place] [address] Aug, [facility] [address] [id number] [address] [place] [address], [place] [address] Aug, [facility] [address] [id number] [address] [place] [address], [place] [address] Aug, [facility] [address] [id number] [address] [place] [address], [place] [address] Aug, [facility] [address] [id number] [address] [place] [address], [place] [address] Jul, [facility] [address] [id number] [address] [place] [address], [place] [address] Jul, [facility] [address] [id number] [address] [place] [address], [place] [address] Jul, [facility] [address] [id number] [address] [place] [address], [place] [address] Jul, [facility] [address] [id number] [address] [place] [address], [place] [address] Jul, [facility] [address] [id number] [address] [place] [address], [place] [address] Jul, [facility] [address] [id number] [address] [place] [address], [place] [address] January, [facility] [address] [id number] [address] [place] [address], [place] [address] January, [facility] [address] [facility] [id number] [address] [place] [address] January, [facility] [address] [facility] [id number] [address] [place] [address] January, IMMUNIZATIONS No Known Immunizations SOCIAL HISTORY Never Assessed REASON FOR VISIT PLAN OF CARE VITAL SIGNS MEDICATIONS No Known Medications RESULTS No Results PROCEDURES Procedure Date Ordered Result Body Site PSYTX PT&/FAMILY 45 MINUTES Aug 31, 2014 INSTRUCTIONS MEDICATIONS ADMINISTERED No Known Medications MEDICAL (GENERAL) HISTORY Type Description Date Medical History NARC ALERT Medical History PCOS (Polycystic Ovary Syndrome) Medical History depression Surgical History 2 cesarian Hospitalization History Hospitalization for surgery only
--- OUTSIDE RECORDS SUMMARY | 2020-03-10 07:20 | XMS REPORT ---
Author Author Chun Collado Organization [facility] Address [address] [place] [address] Care Team Providers Care Business Continuity Coordinator Name Role Phone MYRTLE Colaldo Unavailable PROBLEMS Type Condition ICD9-CM Code BXS10-HD Code Onset Dates Condition S tatus SNOMED Code Problem Hx of diabetes mellitus Z86.39 Active 536297492 Problem Uncomplicated asthma, unspec ified asthma severity, unspecified whether persistent J45.909 Active 343279327 Problem Chronic posttraumatic stress disorder F43.12 Active 926861330 Problem Bipolar II disorder F31.81 Active 54813586 Problem Post traumatic stress disorder F43.10 Active 59136958 Problem Acute allergic rhinitis J30.9 Active 49026534 ALLERGIES No Information ENCOUNTERS Encounter Location Date Diagnosis [facility] [address] [id number] [address] [place] [address] May, [facility] [address] [address] Apr, [facility] [address] [id number] [address] [place] [address] Mar, Nasal airway abnormality R68 .89 [facility] [address] [facility] [id number] [address] [place] [address] Mar, Acute allergic rhinitis J30. 9 and Uncomplicated asthma, unspecified asthma severity, unspecified whether persistent J45.909 [facility] [address] [id number] [address] [place] [address] January, Post traumatic stress disord er F43.10 and Bipolar II disorder F31.81 [facility] [address] [id number] [address] [place] [address] Dec, [facility] [address] [id number] [address] [place] [address] Oct, Post traumatic stress disord er F43.10 [facility] [address] [id number] [address] [place] [address] 13 Aug, 2018 [facility] [address] [facility] [id number] [address] [place] [address] Aug, Chronic posttraumatic stress disorder F43.12 and Bipolar II disorder F31.81 [facility] [address] [id number] [address] [place] [address] Aug, Acute non-recurrent maxillar y sinusitis J01.00 and Hx of diabetes mellitus Z86.39 [facility] [address] [id number] [address] [place] [address] Jul, Post traumatic stress disord er F43.10 [facility] [address] [id number] [address] [place] [address] 14 Jul, 2018 Chronic posttraumatic stress disorder F43.12 and Bipolar II disorder F31.81 [facility] [address] [id number] [address] [place] [address] 06 Jul, 2018 Acute allergic rhinitis J30. 9 [facility] [address] [id number] [address] [place] [address] 24 Jun, 2018 Chronic posttraumatic stress disorder F43.12 and Bipolar II disorder F31.81 [facility] [address] [id number] [address] [place] [address] Aug, depression F53 [facility] [address] [id number] [address] [place] [address] Feb, [facility] [address] [id number] [address] [place] [address] 14 Dec, 2014 [facility] [address] [facility] [id number] [address] [place] [address] 13 Dec, 2014 [facility] [address] [id number] [address] [place] [address], [place] [address] Oct, [facility] [address] [id number] [address] [place] [address], [place] [address] Oct, [facility] [address] [id number] [address] [place] [address], [place] [address] Aug, [facility] [address] [id number] [address] [place] [address], [place] [address] Aug, [facility] [address] [id number] [address] [place] [address], [place] [address] Aug, [facility] [address] [id number] [address] [place] [address], [place] [address] Aug, [facility] [address] [id number] [address] [place] [address], [place] [address] Aug, [facility] [address] [id number] [address] [place] [address], [place] [address] Aug, [facility] [address] [id number] [address] [place] [address], [place] [address] Aug, [facility] [address] [id number] [address] [place] [address], [place] [address] Aug, [facility] [address] [id number] [address] [place] [address], [place] [address] Aug, [facility] [address] [id number] [address] [place] [address], [place] [address] Aug, [facility] [address] [id number] [address] [place] [address], [place] [address] Aug, [facility] [address] [id number] [address] [place] [address], [place] [address] Aug, [facility] [address] [id number] [address] [place] [address], [place] [address] Jul, [facility] [address] [id number] [address] [place] [address], [place] [address] Jul, [facility] [address] [id number] [address] [place] [address] Jul, [facility] [address] [id number] [address] [place] [address] Jul, [facility] [address] [id number] [address] [place] [address] Jul, [facility] [address] [id number] [address] [place] [address] Jul, [facility] [address] [id number] [address] [place] [address] January, [facility] [address] [id number] [address] [place] [address] January, [facility] [address] [id number] [address] [place] [address] January, [facility] [address] [id number] [address] [place] [address] January, IMMUNIZATIONS No Known Immunizations SOCIAL HISTORY [...]
--- OUTSIDE RECORDS SUMMARY | 2020-03-10 07:20 | XMS REPORT ---
Author Author Chun Collado Organization [facility] Address [address] [place] [address] Care Team Providers Care Vocational Nurse Name Role Phone MYRTLE Collado Unavailable PROBLEMS Type Condition ICD9-CM Code BPV75-GN Code Onset Dates Condition S tatus SNOMED Code Problem Hx of diabetes mellitus Z86.39 Active 694763863 Problem Uncomplicated asthma, unspec ified asthma severity, unspecified whether persistent J45.909 Active 238084283 Problem Chronic posttraumatic stress disorder F43.12 Active 787276763 Problem Bipolar II disorder F31.81 Active 48636582 Problem Post traumatic stress disorder F43.10 Active 86897494 Problem Acute allergic rhinitis J30.9 Active [id number] ALLERGIES No Information ENCOUNTERS Encounter Location Date Diagnosis [facility] [address] [facility] [id number] [address] [place] [phone] May, [facility] [address] [facility] [id number] [address] [place] [phone] May, [facility] [address] [facility] [id number] [address] [place] [phone] Apr, Post traumatic stress disord er F43.10 and Bipolar II disorder F31.81 [facility] [address] [facility] [id number] [address] [place] [phone] Mar, Nasal airway abnormality R68 .89 [facility] [address] [facility] [id number] [address] [place] [phone] Mar, Acute allergic rhinitis J30. 9 and Uncomplicated asthma, unspecified asthma severity, unspecified whether persistent J45.909 [facility] [address] [facility] [id number] [address] [place] [phone] January, Post traumatic stress disord er F43.10 and Bipolar II disorder F31.81 [facility] [address] [facility] [id number] [address] [place] [phone] Dec, [facility] [address] [facility] [id number] [address] [place] [address] Oct, Post traumatic stress disord er F43.10 [facility] [address] [facility] [id number] [address] [place] [phone] Aug, [facility] [address] [facility] [id number] [address] [place] [phone] Aug, Chronic posttraumatic stress disorder F43.12 and Bipolar II disorder F31.81 [facility] [address] [facility] [id number] [address] [place] [phone] Aug, Acute non-recurrent maxillar y sinusitis J01.00 and Hx of diabetes mellitus Z86.39 [facility] [address] [place] [id number] [address] [place] [phone] Jul, Post traumatic stress disord er F43.10 [facility] [address] [facility] [id number] [address] [place] [phone] 14 Jul, 2018 Chronic posttraumatic stress disorder F43.12 and Bipolar II disorder F31.81 [facility] [address] [facility] [id number] [address] [place] [phone] Jul, Acute allergic rhinitis J30. 9 [facility] [address] [facility] [id number] [address] [place] [phone] Jun, Chronic posttraumatic stress disorder F43.12 and Bipolar II disorder F31.81 [facility] [address] [facility] [id number] [address] [place] [phone] Aug, depression F53 [facility] [address] [facility] [id number] [address] [place] [phone] Feb, [facility] [address] [place] [id number] [address] [place] [id number] 14 Dec, 2014 [facility] [address] [id number] [address] [place] [address], [place] [address] Dec, [facility] [address] [id number] [address] [place] [address], [place] [address] Oct, [facility] [address] [id number] [address] [place] [address], [place] [address] Oct, [facility] [address] [id number] [address] [place] [address], [place] [address] Aug, [facility] [address] [id number] [address] [place] [address], [place] [address] Aug, [facility] [address] [id number] [address] [place] [address], [place] [address] Aug, [facility] [address] [id number] [address] [place] [address], [place] [address] Aug, [facility] [address] [id number] [address] [place] [address], [place] [address] Aug, [facility] [address] [id number] [address] [place] [address], [place] [address] Aug, [facility] [address] [id number] [address] [place] [address], [place] [address] Aug, [facility] [address] [id number] [address] [place] [address], [place] [address] Aug, [facility] [address] [id number] [address] [place] [address], [place] [address] Aug, [facility] [address] [id number] [address] [place] [address], [place] [address] Aug, [facility] [address] [id number] [address] [place] [address], [place] [address] Aug, [facility] [address] [id number] [address] [place] [address], [place] [address] Aug, [facility] [address] [id number] [address] [place] [phone] Jul, [facility] [address] [id number] [address] [place] [phone] Jul, [facility] [address] [id number] [address] [place] [phone] Jul, [facility] [address] [id number] [address] [place] [phone] Jul, [facility] [address] [id number] [address] [place] [phone] Jul, [facility] [address] [id number] [address] [place] [phone] Jul, [facility] [address] [id number] [address] [place] [phone] January, [facility] [address] [id number] [address] [place] [phone] January, [facility] [address] [id number] [address] [place] [phone] January, [facility] [address] [id number] [address] [place] [phone] January, IMMUNIZATIONS No Known Immunizations SOCIAL HISTORY [...]
--- OUTSIDE RECORDS SUMMARY | 2020-03-10 07:20 | XMS REPORT ---
Author Author Chun PIMENTEL Organization [facility] Address [address] [place] [address] Care Team Providers Care Foreign Trade Teacher Name Role Phone KATJA PIMENTEL Unavailable PROBLEMS Type Condition ICD9-CM Code [id number] Code Onset Dates Condition S tatus SNOMED Code Problem Acute allergic rhinitis J30.9 Active 65019339 Problem Hx of diabetes mellitus Z86.39 Active 283358713 Problem Chronic posttraumatic stress disorder F43.12 Active 685763148 Problem Bipolar II disorder F31.81 Active 62622827 Problem Post traumatic stress disorder F43.10 Active 42543931 ALLERGIES No Information ENCOUNTERS Encounter Location Date Diagnosis [place] [address] [address] [facility] [id number] [address] [place] [phone] January, Post traumatic stress disord er F43.10 and Bipolar II disorder F31.81 [place] [address] [address] [facility] [id number] [address] [place] [phone] Dec, [place] [address] [address] [facility] [id number] [address] [place] [address] Oct, Post traumatic stress disord er F43.10 [place] [address] [address] [facility] [id number] [address] [place] [phone] Aug, [place] [address] [address] [facility] [id number] [address] [place] [phone] Aug, Chronic posttraumatic stress disorder F43.12 and Bipolar II disorder F31.81 [place] [address] [address] [facility] [id number] [address] [place] [phone] Aug, Acute non-recurrent maxillar y sinusitis J01.00 and Hx of diabetes mellitus Z86.39 [place] [address] [id number] [address] [place] [phone] Jul, Post traumatic stress disord er F43.10 [facility] [address] [facility] [id number] [address] [place] [address] Jul, Chronic posttraumatic stress disorder F43.12 and Bipolar II disorder F31.81 [facility] [address] [facility] [id number] [address] [place] [phone] Jul, Acute allergic rhinitis J30. 9 [facility] [address] [id number] [address] [place] [address] Jun, Chronic posttraumatic stress disorder F43.12 and Bipolar II disorder F31.81 [facility] [address] [facility] [id number] [address] [place] [phone] Aug, depression F53 [facility] [address] [facility] [id number] [address] [place] [phone] Feb, [facility] [address] [facility] [id number] [address] [place] [phone] Dec, [facility] [address] [id number] [address] [place] [phone] Dec, [facility] [address] [facility] [id number] [address] [place] [phone] Oct, [facility] [address] [facility] [id number] [address] [place] [phone] Oct, [facility] [address] [facility] [id number] [address] [place] [phone] Aug, [facility] [address] [id number] [address] [place] [phone] Aug, [facility] [address] [facility] [id number] [address] [place] [phone] Aug, [facility] [address] [facility] [id number] [address] [place] [phone] Aug, [facility] [address] [id number] [address] [place] [address], [place] [address] Aug, [facility] [address] [id number] [address] [place] [address], [place] [address] Aug, [facility] [address] [id number] [address] [place] [address], [place] [address] Aug, [facility] [address] [id number] [address] [place] [address], [place] [address] Aug, [facility] [address] [id number] [address] [place] [address], [place] [address] Aug, [facility] [address] [id number] [address] [place] [address], [place] [address] Aug, [facility] [address] [id number] [address] [place] [address], [place] [address] Aug, [facility] [address] [id number] [address] [place] [address], [place] [address] Aug, [facility] [address] [id number] [address] [place] [address], [place] [address] Jul, [facility] [address] [id number] [address] [place] [address], [place] [address] Jul, [facility] [address] [id number] [address] [place] [address], [place] [address] Jul, [facility] [address] [id number] [address] [place] [address], [place] [address] Jul, [facility] [address] [id number] [address] [place] [address], [place] [address] Jul, [facility] [address] [id number] [address] [place] [address], [place] [address] Jul, [facility] [address] [id number] [address] [place] [address], [place] [address] January, [facility] [address] [id number] [address] [place] [address], [place] [address] January, [facility] [address] [facility] [id number] [address] [place] [phone] January, [facility] [address] [facility] [id number] [address] [place] [phone] January, IMMUNIZATIONS No Known Immunizations SOCIAL HISTORY Never Assessed REASON FOR VISIT PLAN OF CARE VITAL SIGNS MEDICATIONS No Known Medications RESULTS No Results PROCEDURES No Known procedures INSTRUCTIONS MEDICATIONS ADMINISTERED No Known Medications MEDICAL (GENERAL) HISTORY Type Description Date Medical History NARC ALERT Medical History PCOS (Polycystic Ovary Syndrome) Medical History depression Surgical History 2 cesarian Hospitalization History Hospitalization for surgery only
--- OUTSIDE RECORDS SUMMARY | 2020-03-10 07:20 | XMS REPORT ---
Author Author Santiago Walkerneema Doctor Organization [facility] Address Unknown Phone Unavailable Care Team Providers Care Clerical Administrative Assistant Name Role Phone Migration, Doctor Unavailable Unavailable PROBLEMS Type Condition ICD9-CM Code SFC56-LC Code Onset Dates Condition S tatus SNOMED Code Problem Acute allergic rhinitis J30.9 Active 00987919 Problem Hx of diabetes mellitus Z86.39 Active 671774917 Problem Chronic posttraumatic stress disorder F43.12 Active 982833070 Problem Bipolar II disorder F31.81 Active 25654001 Problem Post traumatic stress disorder F43.10 Active 49648294 ALLERGIES No Information ENCOUNTERS Encounter Location Date Diagnosis [place] [address] [address] [place] [id number] [place] [address] Dec, [facility] [address] [place] [id number] [address] [place] [address] Oct, Post traumatic stress disord er F43.10 [place] [address] [address] [place] [id number] [address] [place] [address] 13 Aug, 2018 [facility] [address] [place] [id number] [place] [address] Aug, Chronic posttraumatic stress disorder F43.12 and Bipolar II disorder F31.81 [facility] [address] [place] [id number] [address] [place] [address] Aug, Acute non-recurrent maxillar y sinusitis J01.00 and Hx of diabetes mellitus Z86.39 [facility] [address] [place] [id number] [address] [place] [address] Jul, Post traumatic stress disord er F43.10 [place] [address] [address] [place] [id number] [address] [place] [address] 14 Jul, 2018 Chronic posttraumatic stress disorder F43.12 and Bipolar II disorder F31.81 [facility] [address] [id number] [address] [place] [address] Jul, Acute allergic rhinitis J30. 9 [facility] [address] [facility] [id number] [address] [place] [address] Jun, Chronic posttraumatic stress disorder F43.12 and Bipolar II disorder F31.81 [facility] [address] [id number] [address] [place] [address] Aug, depression F53 [facility] [address] [id number] [address] [place] [phone] Feb, [facility] [address] [id number] [address] [place] [phone] 14 Dec, 2014 [facility] [address] [facility] [id number] [address] [place] [phone] Dec, [facility] [address] [id number] [address] [place] [phone] Oct, [facility] [address] [id number] [address] [place] [address] Oct, [facility] [address] [id number] [address] [place] [phone] Aug, [facility] [address] [facility] [id number] [address] [place] [phone] Aug, [facility] [address] [id number] [address] [place] [phone] Aug, [facility] [address] [id number] [address] [place] [phone] Aug, [facility] [address] [id number] [address] [place] [address] Aug, [facility] [address] [id number] [address] [place] [phone] Aug, [facility] [address] [id number] [address] [place] [phone] Aug, [facility] [address] [id number] [address] [place] [address], [place] [address] Aug, [facility] [address] [id number] [address] [place] [address], [place] [address] Aug, [facility] [address] [id number] [address] [place] [address], [place] [address] Aug, [facility] [address] [id number] [address] [place] [address], [place] [address] Aug, [facility] [address] [id number] [address] [place] [address], [place] [address] Aug, [facility] [address] [id number] [address] [place] [phone] Jul, [facility] [address] [id number] [address] [place] [address], [place] [address] Jul, [facility] [address] [id number] [address] [place] [phone] Jul, [facility] [address] [id number] [address] [place] [address] Jul, [facility] [address] [id number] [address] [place] [phone] Jul, [facility] [address] [id number] [address] [place] [phone] Jul, [facility] [address] [id number] [address] [place] [phone] January, [facility] [address] [id number] [address] [place] [phone] January, [facility] [address] [id number] [address] [place] [phone] January, [facility] [address] [id number] [address] [place] [phone] January, IMMUNIZATIONS No Known Immunizations SOCIAL HISTORY Never Assessed REASON FOR VISIT EMR-[facility] PLAN OF CARE VITAL SIGNS MEDICATIONS Unknown Medications RESULTS No Results PROCEDURES No Known procedures INSTRUCTIONS MEDICATIONS ADMINISTERED No Known Medications MEDICAL (GENERAL) HISTORY Type Description Date Medical History NARC ALERT Medical History PCOS (Polycystic Ovary Syndrome) Medical History depression Surgical History 2 cesarian Hospitalization History Hospitalization for surgery only
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
[2020-03-10] MEDS ORDERED: NS IV 1000 ML 1,000 ML IV SCH (07:30)
[2020-03-10] MEDS ORDERED: RT-ALBUTEROL/IPRATROPIUM 3 ML (DUONEB) VIAL INH ONE (07:30)
[2020-03-10] MEDS ORDERED: methylPREDNISolone 125 MG (Solu-MEDROL) VIAL IVP ONE (07:30)
[2020-03-10] MEDS ORDERED: MAGNESIUM 1 GM/100 ML IVPB 100 ML IV ONE (07:30)
[2020-03-10] MEDS ORDERED: RT-ALBUTEROL SULF 2.5 MG/3 ML PRE-MIX VIAL INH STA (07:30)
[2020-03-10] MEDS ORDERED: diphenhydrAMINE 25 MG TAB (BENADRYL) PO ONE (07:30)
--- NOTE | 2020-03-10 08:00 | NUR ---
Contacted pt , Toni, regarding pt condition et plan of care. Toni voices no further questions or concerns at this time. ([phone])
[2020-03-10 08:03] LABS: BASOPHILS # (AUTO) 0.1 10^3/uL (0.0-0.1); BASOPHILS % (AUTO) 1 % (0-10); EOSINOPHILS # (AUTO) 0.5 10^3/uL (0.0-0.3); EOSINOPHILS % (AUTO) 5 % (0-10); HEMATOCRIT 40 % (35-52); LYMPHOCYTES # (AUTO) 1.4 X 10^3 (1.0-4.0); LYMPHOCYTES % (AUTO) 15 % (12-44); MEAN CORPUSCULAR HEMOGLOBIN 28 PG (25-34); MEAN CORPUSCULAR HGB CONC 33 G/DL (32-36); MEAN CORPUSCULAR VOLUME 87 FL (80-99); MONOCYTES # (AUTO) 0.8 X 10^3 (0.0-1.0); MONOCYTES % (AUTO) 9 % (0-12); NEUTROPHILS # (AUTO) 6.9 X 10^3 (1.8-7.8); NEUTROPHILS % (AUTO) 71 % (42-75); PLATELET COUNT 438 10^3/uL (130-400); RED CELL DISTRIBUTION WIDTH 15.8 % (10.0-14.5); WHITE BLOOD COUNT 9.7 10^3/uL (4.3-11.0)
[2020-03-10 08:07] LABS: ALBUMIN 4.1 GM/DL (3.2-4.5)
[2020-03-10 08:08] LABS: CHLORIDE 110 MMOL/L (98-107); POTASSIUM 3.9 MMOL/L (3.6-5.0); SODIUM 141 MMOL/L (135-145)
[2020-03-10 08:09] LABS: CALCIUM 8.6 MG/DL (8.5-10.1)
[2020-03-10 08:10] LABS: GLUCOSE 102 MG/DL (70-105); TOTAL PROTEIN 6.6 GM/DL (6.4-8.2)
[2020-03-10 08:11] LABS: CARBON DIOXIDE 20 MMOL/L (21-32)
[2020-03-10 08:12] LABS: BILIRUBIN,TOTAL 0.3 MG/DL (0.1-1.0)
[2020-03-10 08:13] LABS: ALKALINE PHOSPHATASE 78 U/L (40-136)
[2020-03-10 08:14] LABS: CREATININE SERUM 0.78 MG/DL (0.60-1.30); GFR ESTIMATED > 60
[2020-03-10 08:15] LABS: BUN/CREATININE RATIO 17
[2020-03-10 08:17] LABS: ALANINE AMINOTRANSFERASE 20 U/L (0-55)
--- NOTE | 2020-03-10 08:28 | Diagnostic Imaging Report ---
INDICATION: Shortness of air COMPARISON: 02/09/2019 FINDINGS: Single frontal view of the chest demonstrates normal heart size and pulmonary vascularity. The lungs are well aerated and clear. No large pleural effusion or pneumothorax is seen. The visualized osseous structures show no acute abnormalities. IMPRESSION: 1. No acute cardiopulmonary process. Dictated by: Dictated on workstation # [id number]
--- NOTE | 2020-03-10 09:01 | ED Respiratory ---
General Chief Complaint: Respiratory Problems Stated Complaint: SOA Nursing Triage Note: Pt amb to room #10 with c/o SOA. Pt reports increase in SOA throughout this week that became severe throughout the night. 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 Initial SPO2 91% via RA. 2L O2 applied via NC et SPO2 delbert to 94%. Pt denies fever or chills. 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 Pt reports "burning sensation" to lungs. A&OX4. 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 She does have a history of allergies and asthma exacerbations although this seems to be worse than her prior episodes. Oxygen saturation is borderline at 91 percent on arrival. She is very wheezy. She denies any symptoms of infectious illness such as myalgia, headache, chills, sore throat, etc. She reports her inhaled albuterol has not helped her much over diet. She denies any risk factors for romeo virus such as exposure to ill persons or travel. Allergies and Home Medications Allergies Coded Allergies: ibuprofen (Verified Allergy, Unknown, shortness of breath, 11/22/18) naproxen (Verified Allergy, Unknown, 10/01/18) SHORTNESS OF BREATH Home Medications Albuterol Sulfate 18 Gm Hfa.aer.ad, 2 PUFF INH Q4H PRN for SHORTNESS OF BREATH Prescribed by: CHERYL MARTIN on 11/22/182022 Albuterol Sulfate 1 Puff Puff, 2 PUFF IH Q4H PRN for WHEEZING 1 PUFF = 90 MCG. Dispense with chamber is pt needs one. Prescribed by: NINI IBRAHIM on 03/10/20 1017 Albuterol Sulfate 2.5 Mg/3 Ml Vial.neb, 2.5 MG INH Q4H PRN for WHEEZING Prescribed by: NIIN IBRAHIM on 03/10/20 1017 Benzonatate 100 Mg Capsule, 100 MG PO Q6H PRN for COUGH Prescribed by: YRN KNIGHT on 02/09/19 1020 Cetirizine HCl 10 Mg Capsule, 10 MG PO DAILY, (Reported) Diphenhydramine HCl 25 Mg Capsule, 50 MG PO Q6H, (Reported) Docusate Sodium 100 Mg Capsule, 100 MG PO BID PRN for CONSTIPATION-1ST LINE Prescribed by: SHARYN MENDEZ on 09/30/18 153 Epinephrine 0.3 Mg/0.3 Ml Auto.injct, 0.3 MG IJ ONCE PRN for SHORTNESS OF BREATH Prescribed by: CHERYL MARTIN on 11/22/182017 Famotidine 20 Mg Tablet, 20 MG PO BID Prescribed by: CHERYL MARTIN on 11/22/182017 Hydrocodone Bit/Acetaminophen 1 Tab Tab, 1-2 TAB PO Q6H PRN for PAIN-MODERATE Prescribed by: SHARYN MENDEZ on 09/30/18 153 Ibuprofen 600 Mg Tablet, 600 MG PO Q6H Prescribed by: SHARYN MENDEZ on 09/30/18 153 Prednisone 20 Mg Tab, 40 MG PO DAILY Prescribed by: NINI IBRAHIM on 03/10/20 1017 Vit W-Ca,Fe,FA(<1 mg) 1 Each Tablet, 1 EACH PO DAILY, (Reported) [Nebulizer w tubing] , 1 NEB for WHEEZING Dx: Asthma, Samter's Triad. Lenght of need 99 mo. Prescribed by: NINI IBRAHIM on 03/10/20 1017 Patient Home Medication List Home Medication List Reviewed: Yes Review of Systems Review of Systems Constitutional: no symptoms reported EENTM: no symptoms reported Respiratory: see HPI Cardiovascular: no symptoms reported Gastrointestinal: no symptoms reported Genitourinary: no symptoms reported : No Musculoskeletal: no symptoms reported Skin: no symptoms reported Psychiatric/Neurological: No Symptoms Reported Hematologic/Lymphatic: No Symptoms Reported Immunological/Allergic: see HPI (seasonal allergy symptoms) Past Kialklj-Gkgytz-Mdryvk Hx Past Med/Social Hx: Reviewed Nursing Past Med/Soc Hx Patient Social History Alcohol Use: Rarely Uses Number of Drinks Today: 0 Recreational Drug Use: No Smoking Status: Former Smoker Type Used: Cigarettes Former Smoker, Quit: January 28, 2018 2nd Hand Smoke Exposure: No Recent Foreign Travel: No Contact w/Someone Who Travel: No Recent Infectious Disease Expo: No Recent Hopitalizations: No Immunizations Up To Date Tetanus Booster (TDap): Unknown PED Vaccines UTD: Yes Date of Pneumonia Vaccine: Aug 30, 2014 Date of Influenza Vaccine: Jul 28, 2018 Seasonal Allergies Seasonal Allergies: Yes Past Medical History Surgeries: Yes (Cyst removed on eye, D&C, CS x 2) Section, Eye Surgery Respiratory: Yes Asthma (Sampter's Triad), Sleep Apnea Cardiac: No Neurological: Yes Concussion Reproductive Disorders: No Female Reproductive Disorders: Polycystic Ovarian Dis Sexually Transmitted Disease: Yes (HSV2) HIV/AIDS: No Genitourinary: No Gastrointestinal: No Musculoskeletal: No Endocrine: No Diabetes, Non-Insulin dep HEENT: No Loss of Vision: Denies Hearing Impairment: Denies Cancer: No Psychosocial: Yes Bipolar, Depression Integumentary: No Blood Disorders: No Adverse Reaction/Blood Tranf: No Family Medical History Reviewed Nursing Family Hx Diabetes mellitus 19 MOTHER Hypertension 19 MOTHER Thyroid disease 19 MOTHER No Family History of: Asthma Dementia Myocardial infarction Respiratory disorder Seizure disorder No Pertinent Family Hx Physical Exam Vital Signs - First Documented 03/10/20 07:13 Temp 37.1 Pulse 126 Resp 30 B/P (MAP) 121/76 (91) Pulse Ox 94 O2 Delivery Nasal Cannula O2 Flow Rate 2.00 Capillary Refill : Less Than 3 Seconds Height: 5'3.00" Weight: 160lbs. 0.0oz. [id number]; 30.00 BMI Method:Stated General Appearance: WD/WN, mild distress HEENT: PERRL/EOMI, normal ENT inspection Neck: normal inspection Respiratory: no respiratory distress, no accessory muscle use, stridor, wheezing Cardiovascular: no edema, no murmur, tachycardia Gastrointestinal: non tender, soft Extremities: normal inspection, no pedal edema Neurologic/Psychiatric: manager case II-XII nml as tested, no motor/sensory deficits, alert, normal mood/affect, oriented x 3 Skin: normal color, warm/dry Progress/Results/Core Measures Suspected Sepsis Recent Fever Within 48 Hours: No Infection Criteria Present: Suspected New Infection New/Unexplained Altered Menta: No Sepsis Screen: Possible Sepsis Risk SIRS Temperature: Pulse: 126 Respiratory Rate: 30 Laboratory Tests 03/10/20 07:23: White Blood Count 9.7 Blood Pressure 121 /76 Mean: 91 Laboratory Tests 03/10/20 07:23: Creatinine 0.78, Platelet Count 438H, Total Bilirubin 0.3 Results/Orders Lab Results Laboratory Tests Test 03/10/20 07:23 Range/Units White Blood Count 9.7 4.3-11.0 10^3/uL Red Blood Count 4.60 4.35-5.85 10^6/uL Hemoglobin 13.0 11.5-16.0 G/DL Hematocrit 40 35-52 % Mean Corpuscular Volume 87 80-99 FL Mean Corpuscular Hemoglobin 28 25-34 PG Mean Corpuscular Hemoglobin Concent 33 32-36 G/DL Red Cell Distribution Width 15.8 H 10.0-14.5 % Platelet Count 438 H 130-400 10^3/uL Mean Platelet Volume 10.0 7.4-10.4 FL Neutrophils (%) (Auto) 71 42-75 % Lymphocytes (%) (Auto) 15 12-44 % Monocytes (%) (Auto) 9 0-12 % Eosinophils (%) (Auto) 5 0-10 % Basophils (%) (Auto) 1 0-10 % Neutrophils # (Auto) 6.9 1.8-7.8 X 10^3 Lymphocytes # (Auto) 1.4 1.0-4.0 X 10^3 Monocytes # (Auto) 0.8 0.0-1.0 X 10^3 Eosinophils # (Auto) 0.5 H 0.0-0.3 10^3/uL Basophils # (Auto) 0.1 0.0-0.1 10^3/uL Sodium Level 141 135-145 MMOL/L Potassium Level 3.9 3.6-5.0 MMOL/L Chloride Level 110 H 98-107 MMOL/L Carbon Dioxide Level 20 L 21-32 MMOL/L Anion Gap 11 5-14 MMOL/L Blood Urea Nitrogen 13 7-18 MG/DL Creatinine 0.78 0.60-1.30 MG/DL Estimat Glomerular Filtration Rate > 60 BUN/Creatinine Ratio 17 Glucose Level 102 70-105 MG/DL Calcium Level 8.6 8.5-10.1 MG/DL Corrected Calcium 8.5 8.5-10.1 MG/DL Total Bilirubin 0.3 0.1-1.0 MG/DL Aspartate Amino Transf (AST/SGOT) 17 5-34 U/L Alanine Aminotransferase (ALT/SGPT) 20 0-55 U/L Alkaline Phosphatase 78 40-136 U/L C-Reactive Protein High Sensitivity 0.49 0.00-0.50 MG/DL Total Protein 6.6 6.4-8.2 GM/DL Albumin 4.1 3.2-4.5 GM/DL Serum Test, Qualitative NEGATIVE NEGATIVE My Orders Orders - NINI COUCH MD Albuterol Pre-Mix Nebs (Rt) (Proventil (03/10/20 07:30) Albuterol/Ipra Inhalation Soln (Duoneb I (03/10/20 07:30) Svn Small Volume Nebulizer (03/10/20 07:30) Svn Small Volume Nebulizer (03/10/20 07:30) Methylprednisolone Sod Succ (Solu-Medrol (03/10/20 07:30) Ed Iv/Invasive Line Start (03/10/20 07:30) Ns Iv 1000 Ml (Sodium Chloride 0.9%) (03/10/20 07:30) Cbc With Automated Diff (03/10/20 07:30) Comprehensive Metabolic Panel (03/10/20 07:30) Hs C Reactive Protein (03/10/20 07:30) Hcg,Qualitative Serum (03/10/20 07:30) Diphenhydramine Tablet (Benadryl Tablet) (03/10/20 07:30) Magnesium 1 Gm/100 Ml Ivpb (Magnesium [place] (03/10/20 07:30) Chest 1 View, Ap/Pa Only (03/10/20 08:09) Medications Given in ED Vital Signs/I&O 03/10/20 03/10/20 03/10/20 07:13 07:56 10:30 Temp 37.1 36.9 Pulse 126 113 Resp 30 24 B/P (MAP) 121/76 (91) 127/72 (91) Pulse Ox 94 97 99 O2 Delivery Nasal Cannula Nasal Cannula Room Air O2 Flow Rate 2.00 2.00 2.00 Capillary Refill : Less Than 3 Seconds Blood Pressure Mean: 91 Progress Note #1: Time: 09:00 Progress Note Patient is receiving treatments including hour-long nebulizer treatment, a liter of IV fluid, Solu-Medrol 125 mg IV, magnesium 1 g IV. Cough and wheezing are improving. Labs are unremarkable. Patient is not . Chest x-ray is clear. Plan is to monitor her and hours so after her nebulizer treatment is complete to ensure she does not have rebound symptoms. If discharged, I will prescribe a nebulizer machine and medication. Progress Note #2: Progress Note Lungs were clear after nebulizer treatment. She experienced no rebound. She was discharged home with medications and a prescription for a nebulizer machine. Diagnostic Imaging Diagonstic Imaging: Xray Plain Films/CT/US/NM/MRI: chest Comments Chest x-ray viewed by me and report reviewed. See report below: NAME: JITENDRA GOMEZ [facility] REC#: [id number] PT STATUS: REG ER : 1990 PHYSICIAN: NINI COUCH MD ADMIT DATE: 03/10/20/ER Draft Date of Exam:03/10/20 CHEST 1 VIEW, AP/PA ONLY INDICATION: Shortness of air COMPARISON: 02/09/2019 FINDINGS: Single frontal view of the chest demonstrates normal heart size and pulmonary vascularity. The lungs are well aerated and clear. No large pleural effusion or pneumothorax is seen. The visualized osseous structures show no acute abnormalities. IMPRESSION: 1. No acute cardiopulmonary process. Dictated on workstation # [id number] Dict: 03/10/20 0825 Trans: 03/10/20 0827 [facility] [id number] Interpreted by: FAITH LEWIS MD Departure Impression Primary Impression: Asthma exacerbation Qualified Codes: J45.901 - Unspecified asthma with (acute) exacerbation Additional Impression: Samter's triad Disposition: 01 HOME, SELF-CARE Condition: Improved Departure-Patient Inst. Referrals: RICHY SOTO DO (PCP/Family) Primary Care Physician Patient Instructions: Asthma, Adult (DC) Add. Discharge Instructions: Drink plenty of water. Use your inhaler as prescribed. If you're at home and able you may use the nebulizer machine. Complete your steroids as prescribed. Avoid inhaled irritants such as dust, smoke, etc. Use an [id number] allergy medicine such as Claritin (loratadine), Zyrtec (cetirizine), etc. Follow-up with your primary care provider soon as possible. Return to care if you have worsening symptoms despite taking these measures. All discharge instructions reviewed with patient and/or family. Voiced understanding. Scripts [Nebulizer w tubing] No Conflict Check 1 NEB PRN for WHEEZING, #1 Dx: Asthma, Samter's Triad. Lenght of need 99 mo. Prov: NINI COUCH MD 03/10/20 Albuterol Sulfate (Albuterol Sulfate) 2.5 Mg/3 Ml Vial.neb 2.5 MG INH Q4H PRN for WHEEZING, #50 EA 1 Refill Prov: NINI COUCH MD 03/10/20 Prednisone (Prednisone) 20 Mg Tab 40 MG PO DAILY, #8 TAB 0 Refills Prov: NINI COUCH MD 03/10/20 Albuterol Sulfate (PROAIR HFA) 1 Puff Puff 2 PUFF IH Q4H PRN for WHEEZING, #1 PUFF 1 PUFF = 90 MCG. Dispense with chamber is pt needs one. Prov: NINI COUCH MD 03/10/20 Copy Copies To 1: RICHY SOTO JOSHUA T MD Mar 10, 2020 09:01
[2020-03-10] MEDS ORDERED: [UNRECOGNIZED DRUG - SUPPLY] NEB (10:17)
[2020-03-10] MEDS ORDERED: ALBU2.5V4 INH (10:17)
[2020-03-10] MEDS ORDERED: RT-ALBUINH IH (10:17)
[2020-03-10] MEDS ORDERED: PRD20T PO (10:17)
[2020-03-10 10:30] VITALS: BP 127/72
== END 2020-03-10 10:30 | disposition home or self-care (01) ==
LOC: EDUNIT# 07:11 → ER 07:13
DX: J45.901 Unspecified asthma with (acute) exacerbation (principal); K44.9 Diaphragmatic hernia without obstruction or gangrene; Z88.6 Allergy status to analgesic agent; Z87.891 Personal history of nicotine dependence; Z87.820 Personal history of traumatic brain injury; Z79.82 Long term (current) use of aspirin
CPT/HCPCS: 36415; 71045; 80053; 84703; 85025; 86141; 94640

== ENCOUNTER 2020-05-17 01:56 | Emergency (ER) | payer MEDICAID ==
[~2020-05-17] VITALS: Ht 160 cm; Wt 81.6 kg
[~2020-05-17 01:56] MED LIST changes: +ALBU2.5V4 INH; +PRD20T PO; +RT-ALBUINH IH; +[UNRECOGNIZED DRUG - SUPPLY] NEB
[2020-05-17] MEDS ORDERED: ALBUTEROL/IPRATROP (COMBIVENT RESPIMAT) 4 GM INHALER ONE ×2 (02:15→22:25)
[2020-05-17] MEDS ORDERED: ADVAIR HFA 115/21 MCG INHALER 8 GM IH ONE ×3 (02:15→22:24)
[2020-05-17] MEDS ORDERED: ALBUTEROL/IPRATROP (COMBIVENT RESPIMAT) 4 GM INHALER IH ONE (02:30)
[2020-05-17] MEDS ORDERED: methylPREDNISolone 125 MG (Solu-MEDROL) VIAL IVP ONE (02:30)
--- NOTE | 2020-05-17 02:45 | ED Respiratory ---
General Stated Complaint: SOB Source: patient, old records History of Present Illness Date Seen by Provider: May 17, 2020 Time Seen by Provider: 02:15 Initial Comments PT ARRIVES VIA POV FROM HOME PT WITH HISTORY OF ASTHMA C/O DIFFICULTY BREATHING FOR THE LAST 3-4 DAYS--STATES SHE "ALWAYS HAS BREATHING PROBLEMS" BUT HAS BEEN MUCH WORSE FOR THE LAST FEW DAYS C/O NON-PRODUCTIVE COUGH NO KNOWN FEVER/SWEATS/CHILLS CHEST FEELS TIGHT DUE TO BREATHING PROBLEMS STATES HER THROAT FEELS SORE AND TIGHT WELL NO NAUSEA/VOMITING/DIARRHEA NO HEADACHE NO BODY ACHES STATES SHE ALWAYS HAS DECREASED TASTE AND SMELL DUE TO NASAL POLYPS PT STATES THE HAS USED HER INHALERS AND NEBULIZER MULTIPLE TIMES EVERY DAY FOR THE LAST FEW DAYS--STATES HAS TO USE THEM 5-6 TIMES DURING THE NIGHT EVERY NIGHT--CANNOT STATE HOW MANY TIMES SHE HAS USED THEM IN THE LAST 24 HOURS USED ADVAIR YESTERDAY MORNING, DID NOT USE IT THIS EVENING LAST USED ALBUTEROL NEBULIZER AN HOUR AGO NO IMPROVEMENT HAS NOT SOUGHT CARE UNTIL TONIGHT FOR THIS EPISODE PT HAS NOT SEEN A GAMING SURVEILLANCE OBSERVER STATES SHE HAS "ALOT OF ALLERGIES" BUT HAS NOT SEEN AN ASSOCIATE THEATRE PROFESSOR OR HAD ANY ALLERGY TESTING DONE PT IS A FORMER SMOKER, QUIT WITH LAST DRINKS "OCCASIONALLY" AND HAD "1 DRINK" TONIGHT USED MARIJUANA WHEN YOUNGER, NONE FOR YEARS LMP 1 WEEK AGO. NORMAL. NO CONTROL. LIVES AT HOME WITH HER CHILDREN--NONE OF THEM ARE ILL NO KNOWN SICK CONTACTS OR KNOWN EXPOSURE TO COVID-19 PT IS UNEMPLOYED. PT WAS HERE IN FEBRUARY FOR SAME, COVID-19 TEST WAS NEGATIVE AT THAT TIME PCP: [facility] Allergies and Home Medications Allergies Coded Allergies: aspirin (Verified Allergy, Unknown, 05/17/20) ibuprofen (Verified Allergy, Unknown, shortness of breath, 11/22/18) naproxen (Verified Allergy, Unknown, 10/01/18) SHORTNESS OF BREATH Home Medications Albuterol Sulfate 18 Gm Hfa.aer.ad, 2 PUFF INH Q4H PRN for SHORTNESS OF BREATH Prescribed by: CHERYL MARTIN on 11/22/182022 Albuterol Sulfate 1 Puff Puff, 2 PUFF IH Q4H PRN for WHEEZING 1 PUFF = 90 MCG. Dispense with chamber is pt needs one. Prescribed by: NINI IBRAHIM on 03/10/20 1017 Albuterol Sulfate 2.5 Mg/3 Ml Vial.neb, 2.5 MG INH Q4H PRN for WHEEZING Prescribed by: NINI IBRAHIM on 03/10/20 1017 Benzonatate 100 Mg Capsule, 100 MG PO Q6H PRN for COUGH Prescribed by: YRN KNIGHT on 02/09/19 1020 Cetirizine HCl 10 Mg Capsule, 10 MG PO DAILY, (Reported) Diphenhydramine HCl 25 Mg Capsule, 50 MG PO Q6H, (Reported) Docusate Sodium 100 Mg Capsule, 100 MG PO BID PRN for CONSTIPATION-1ST LINE Prescribed by: SHARYN MENDEZ on 09/30/18 153 Epinephrine 0.3 Mg/0.3 Ml Auto.injct, 0.3 MG IJ ONCE PRN for SHORTNESS OF BREATH Prescribed by: CHERYL MARTIN on 11/22/182017 Famotidine 20 Mg Tablet, 20 MG PO BID Prescribed by: CHERYL MARTIN on 11/22/182017 Hydrocodone Bit/Acetaminophen 1 Tab Tab, 1-2 TAB PO Q6H PRN for PAIN-MODERATE Prescribed by: SHARYN MENDEZ on 09/30/18 153 Ibuprofen 600 Mg Tablet, 600 MG PO Q6H Prescribed by: SHARYN MENDEZ on 09/30/18 153 Prednisone 20 Mg Tab, 40 MG PO DAILY Prescribed by: NINI IBRAHIM on 03/10/20 101 Prednisone 10 Mg Tab.ds.pk, 10 MG PO DAILY Take 6 tabs(60mg)daily,decrease by 1 tab(10mg)every other day. 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 Prescribed by: NINI IBRAHIM on 03/10/20 1017 Patient Home Medication List Home Medication List Reviewed: Yes Review of Systems Review of Systems Constitutional: no symptoms reported; No diaphoresis, No dizziness, No fever EENTM: see HPI, throat pain Respiratory: see HPI, cough, short of breath, wheezing Cardiovascular: see HPI, chest pain Gastrointestinal: no symptoms reported; No abdominal pain, No nausea, No vomiti ng Genitourinary: no symptoms reported : No LMP: May 09, 2020 Musculoskeletal: no symptoms reported Skin: no symptoms reported Psychiatric/Neurological: No Symptoms Reported Hematologic/Lymphatic: No Symptoms Reported Immunological/Allergic: see HPI (ENVIRONMENTAL ALLERGIES, ASPIRIN ALLERGY, POSSIBLE FOOD ALLERGIES) Past Amxnips-Dfdtzh-Nzcgsj Hx Past Med/Social Hx: Reviewed and Corrections made Patient Social History Alcohol Use: Occasionally Uses Recreational Drug Use: Yes (THC WHEN YOUNG, NONE FOR YEARS;UDS + FOR AMPHETAMINES 05/17/20) Drug of Choice: THC WHEN YOUNG, NONE FOR YEARS; UDS+ AMPHETAMINES 05/17/20 Smoking Status: Former Smoker Type Used: Cigarettes Former Smoker, Quit: January 28, 2018 2nd Hand Smoke Exposure: No Recent Foreign Travel: No Contact w/Someone Who Travel: No Recent Hopitalizations: No Immunizations Up To Date Tetanus Booster (TDap): Unknown PED Vaccines UTD: Yes Date of Pneumonia Vaccine: Aug 30, 2014 Date of Influenza Vaccine: Jul 28, 2018 Seasonal Allergies Seasonal Allergies: Yes Past Medical History Surgeries: Yes (Cyst removed on eye, D&C, CS x 2) Section, Eye Surgery 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) Asthma, Sleep Apnea Cardiac: No Neurological: Yes Concussion Reproductive Disorders: No Female Reproductive Disorders: Ovarian Cyst, Polycystic Ovarian Dis Sexually Transmitted Disease: Yes (HSV2) HIV/AIDS: No Genitourinary: No Gastrointestinal: No Musculoskeletal: No Endocrine: Yes Diabetes, Non-Insulin dep HEENT: Yes (NASAL POLYPS) Loss of Vision: Denies Hearing Impairment: Denies Cancer: No Psychosocial: Yes Anxiety, Bipolar, Depression Integumentary: No Blood Disorders: No Adverse Reaction/Blood Tranf: No Family Medical History Diabetes mellitus 19 MOTHER Hypertension 19 MOTHER Thyroid disease 19 MOTHER No Family History of: Asthma Dementia Myocardial infarction Respiratory disorder Seizure disorder No Pertinent Family Hx Physical Exam Vital Signs - First Documented 05/17/20 05/17/20 02:10 02:20 Temp 36.5 Pulse 89 Resp 22 B/P (MAP) 128/92 (104) Pulse Ox 92 O2 Delivery Room Air O2 Flow Rate 2.00 Capillary Refill : Height: 5'3.00" Weight: 160lbs. 0.0oz. 72.407267fh; 30.00 BMI Method:Stated General Appearance: WD/WN, mild distress (DYSPEIC--TALKS RAPIDLY, BUT IS DYSPNEIC AND SPEAKS IN SHORT SENTENCES, BUT TALKS ALOT. MILDLY ANXIOUS) HEENT: PERRL/EOMI, TMs normal, pharyngeal erythema (MILD) Neck: non-tender, full range of motion, supple, normal inspection Respiratory: respiratory distress (MILD), decreased breath sounds, accessory muscle use, rales, wheezing Cardiovascular: no edema, no murmur, tachycardia Gastrointestinal: non tender, soft Extremities: normal capillary refill Neurologic/Psychiatric: filling mixer II-XII nml as tested, no motor/sensory deficits, alert, oriented x 3 Skin: normal color, warm/dry; No rash Progress/Results/Core Measures Suspected Sepsis SIRS Temperature: Pulse: Respiratory Rate: Laboratory Tests 05/17/20 02:30: White Blood Count 6.8 Blood Pressure / Mean: Laboratory Tests 05/17/20 02:30: Creatinine 0.77, Platelet Count 500H, Total Bilirubin 0.2 Results/Orders Lab Results Laboratory Tests Test 05/17/20 02:30 05/17/20 02:35 05/17/20 02:48 Range/Units White Blood Count 6.8 4.3-11.0 10^3/uL Red Blood Count 4.45 4.35-5.85 10^6/uL Hemoglobin 12.4 11.5-16.0 G/DL Hematocrit 38 35-52 % Mean Corpuscular Volume 86 80-99 FL Mean Corpuscular Hemoglobin 28 25-34 PG Mean Corpuscular Hemoglobin Concent 32 32-36 G/DL Red Cell Distribution Width 17.1 H 10.0-14.5 % Platelet Count 500 H 130-400 10^3/uL Mean Platelet Volume 9.8 7.4-10.4 FL Neutrophils (%) (Auto) 53 42-75 % Lymphocytes (%) (Auto) 31 12-44 % Monocytes (%) (Auto) 7 0-12 % Eosinophils (%) (Auto) 9 0-10 % Basophils (%) (Auto) 0 0-10 % Neutrophils # (Auto) 3.6 1.8-7.8 X 10^3 Lymphocytes # (Auto) 2.1 1.0-4.0 X 10^3 Monocytes # (Auto) 0.5 0.0-1.0 X 10^3 Eosinophils # (Auto) 0.6 H 0.0-0.3 10^3/uL Basophils # (Auto) 0.0 0.0-0.1 10^3/uL Erythrocyte Sedimentation Rate 6 0-20 MM/HR Sodium Level 145 135-145 MMOL/L Potassium Level 3.5 L 3.6-5.0 MMOL/L Chloride Level 111 H 98-107 MMOL/L Carbon Dioxide Level 23 21-32 MMOL/L Anion Gap 11 5-14 MMOL/L Blood Urea Nitrogen 7 7-18 MG/DL Creatinine 0.77 0.60-1.30 MG/DL Estimat Glomerular Filtration Rate > 60 BUN/Creatinine Ratio 9 Glucose Level 116 H 70-105 MG/DL Calcium Level 8.4 L 8.5-10.1 MG/DL Corrected Calcium 8.6 8.5-10.1 MG/DL Magnesium Level 1.6 1.6-2.4 MG/DL Total Bilirubin 0.2 0.1-1.0 MG/DL Aspartate Amino Transf (AST/SGOT) 13 5-34 U/L Alanine Aminotransferase (ALT/SGPT) 22 0-55 U/L Alkaline Phosphatase 65 40-136 U/L Lactate Dehydrogenase 188 125-220 U/L C-Reactive Protein High Sensitivity 0.12 0.00-0.50 MG/DL B-Type Natriuretic Peptide 69.4 <100.0 PG/ML Total Protein 6.2 L 6.4-8.2 GM/DL Albumin 3.7 3.2-4.5 GM/DL Procalcitonin 0.01 <0.10 NG/ML Serum Test, Qualitative NEGATIVE NEGATIVE Serum Alcohol < 10 <10 MG/DL Monoscreen NEGATIVE NEGATIVE Group A Streptococcus Screen NEGATIVE NEGATIVE Urine Color YELLOW Urine Clarity CLEAR Urine pH 6.0 5-9 Urine Specific [place] 1.025 H 1.016-1.022 Urine Protein NEGATIVE NEGATIVE Urine Glucose (UA) NEGATIVE NEGATIVE Urine Ketones NEGATIVE NEGATIVE Urine Nitrite NEGATIVE NEGATIVE Urine Bilirubin NEGATIVE NEGATIVE Urine Urobilinogen 0.2 < = 1.0 MG/DL Urine Leukocyte Esterase NEGATIVE NEGATIVE Urine RBC (Auto) NEGATIVE NEGATIVE Urine RBC NONE /HPF Urine WBC NONE /HPF Urine Squamous Epithelial Cells >50 H /HPF Urine Crystals NONE /LPF Urine Bacteria TRACE /HPF Urine Casts NONE /LPF Urine Mucus NEGATIVE /LPF Urine Culture Indicated NO Urine Opiates Screen NEGATIVE NEGATIVE Urine Oxycodone Screen NEGATIVE NEGATIVE Urine Methadone Screen NEGATIVE NEGATIVE Urine Propoxyphene Screen NEGATIVE NEGATIVE Urine Barbiturates Screen NEGATIVE NEGATIVE Ur Tricyclic Antidepressants Screen NEGATIVE NEGATIVE Urine Phencyclidine Screen NEGATIVE NEGATIVE Urine Amphetamines Screen POSITIVE H NEGATIVE Urine Methamphetamines Screen NEGATIVE NEGATIVE Urine Benzodiazepines Screen NEGATIVE NEGATIVE Urine Cocaine Screen NEGATIVE NEGATIVE Urine Cannabinoids Screen NEGATIVE NEGATIVE My Orders Orders - SALENA MONTERO DO Albuterol/Ipratropium Inhaler (Combivent (05/17/20 02:30) Fluticasone/Salmeterol 115/21 (Advair Hf (05/17/20 02:30) Methylprednisolone Sod Succ (Solu-Medrol (05/17/20 02:30) Rt Request For Service (05/17/20 02:16) Ed Iv/Invasive Line Start (05/17/20 02:16) O2 (05/17/20 02:16) Monitor-Rhythm Ecg Trace Only (05/17/20 02:16) Alcohol (05/17/20 02:16) BNP (05/17/20 02:16) Cbc With Automated Diff (05/17/20 02:16) Comprehensive Metabolic Panel (05/17/20 02:16) Drug Screen Stat (Urine) (05/17/20 02:16) Hcg,Qualitative Serum (05/17/20 02:16) Magnesium (05/17/20 02:16) Monotest (05/17/20 02:16) Rapid Strep A Screen (05/17/20 02:16) Ua Culture If Indicated (05/17/20 02:16) Procalcitonin (Pct) (05/17/20 02:16) Hs C Reactive Protein (05/17/20 02:16) Erythrocyte Sedimentation Rate (05/17/20 02:16) LDH (05/17/20 02:16) Chest 1 View, Ap/Pa Only (05/17/20 02:16) Coronavirus Sars-Cov-2 So 2018 (05/17/20 02:16) Fluticasone/Salmeterol 115/21 (Advair Hf (05/17/20 02:15) Albuterol/Ipratropium Inhaler (Combivent (05/17/20 02:15) Magnesium 1 Gm/100 Ml Ivpb (Magnesium [place] (05/17/20 03:30) Medications Given in ED Current Medications Medications Dose Ordered Sig/Kemi Route Start Time Stop Time Status Last Admin Dose Admin Albuterol/ Ipratropium 1 PUFF ONCE ONCE IH 05/17/20 02:30 05/17/20 02:31 DC 05/17/20 02:31 4 GM Magnesium Sulfate/ Dextrose 100 ml @ 100 mls/hr ONCE ONCE IV 05/17/20 03:30 05/17/20 04:29 05/17/20 03:30 200 MLS/HR Methylprednisolone Sodium Succinate 125 mg ONCE ONCE IVP 05/17/20 02:30 05/17/20 02:31 DC 05/17/20 02:31 125 MG Salmeterol Xinafoate/ Fluticasone 2 PUFFS ONCE ONCE IH 05/17/20 02:30 05/17/20 02:31 DC 05/17/20 02:31 60 PUFF Vital Signs/I&O 05/17/20 05/17/20 02:10 02:20 Temp 36.5 Pulse 89 Resp 22 B/P (MAP) 128/92 (104) Pulse Ox 92 O2 Delivery Room Air Nasal Cannula O2 Flow Rate 2.00 Capillary Refill : Progress Note : Progress Note O2 SAT 90-92% ON ROOM AIR ON ARRIVAL. PLACED ON O2 AND O2 SATS UP TO MID 90'S GIVEN SOLU-MEDROL, ADVAIR INHALER TREATMENT AND COMBIVENT INHALER TREATMENT--FEELS MUCH BETTER, INCREASED AERATION, DECREASED RALES/WHEEZING AND NO LONGER DYSPNEIC GIVEN IV MAGNESIUM WELL AFTER SYMPTOMS IMPROVED/RESOLVED, O2 WAS DISCONTINUED AND PT OBSERVED IN ER FOR OVER AN HOUR PT HAD NO RETURN OF SYMPTOMS, O2 SATS 96% ON ROOM AIR PT FEELS COMFORTABLE GOING HOME Departure Impression Primary Impression: Asthma exacerbation Additional Impression: Person under investigation for COVID-19 Disposition: HOME, SELF-CARE Condition: Improved Departure-Patient Inst. Referrals: RICHY SOTO DO (PCP/Family) Primary Care Physician [facility] [place] Patient Instructions: Asthma, Adult (DC), How to Use Your Metered Dose Inhaler (Adults), Rescue vs Controller Inhalers, Coronavirus Disease 2019 (COVID-19) Overview, Preventing the Spread of an Infectious Disease, How to Use Your Dry Powder Inhaler (Adults) Add. Discharge Instructions: LOTS OF CLEAR LIQUIDS TYLENOL AND MOTRIN NEEDED FOR PAIN OR FEVER USE YOUR ADVAIR 4 PUFFS TWICE A DAY FOR THE NEXT WEEK, THEN DECREASED TO 2 PUFFS TWICE A DAY USE YOUR COMBIVENT INHALER WITH A SPACER EVERY 4 HOURS NEEDED FOR BREATHING FOLLOW UP WITH [facility] IN 3-4 DAYS IF NO BETTER, RETURN TO ER IF WORSE QUARANTINE YOURSELF, ALL HOUSEHOLD MEMBERS AND ALL CLOSE CONTACTS FOR THE NEXT 2 WEEKS--NO ONE ENTERS OR LEAVES YOUR HOUSE FOR THE NEXT 2 WEEKS Scripts Prednisone (Prednisone) 10 Mg Tab.ds.pk 10 MG PO DAILY, #42 EA Take 6 tabs(60mg)daily,decrease by 1 tab(10mg)every other day. Prov: SALENA MONTERO DO 05/17/20 SALENA MONTERO DO May 17, 2020 02:45
[2020-05-17 02:51] LABS: BASOPHILS % (AUTO) 0 % (0-10); EOSINOPHILS # (AUTO) 0.6 10^3/uL (0.0-0.3); EOSINOPHILS % (AUTO) 9 % (0-10); HEMATOCRIT 38 % (35-52); HEMOGLOBIN 12.4 G/DL (11.5-16.0); LYMPHOCYTES # (AUTO) 2.1 X 10^3 (1.0-4.0); LYMPHOCYTES % (AUTO) 31 % (12-44); MEAN CORPUSCULAR HEMOGLOBIN 28 PG (25-34); MEAN CORPUSCULAR HGB CONC 32 G/DL (32-36); MEAN CORPUSCULAR VOLUME 86 FL (80-99); MEAN PLATELET VOLUME 9.8 FL (7.4-10.4); MONOCYTES # (AUTO) 0.5 X 10^3 (0.0-1.0); MONOCYTES % (AUTO) 7 % (0-12); NEUTROPHILS # (AUTO) 3.6 X 10^3 (1.8-7.8); NEUTROPHILS % (AUTO) 53 % (42-75); PLATELET COUNT 500 10^3/uL (130-400); RED CELL DISTRIBUTION WIDTH 17.1 % (10.0-14.5); WHITE BLOOD COUNT 6.8 10^3/uL (4.3-11.0)
[2020-05-17 03:03] LABS: ALBUMIN 3.7 GM/DL (3.2-4.5); CHLORIDE 111 MMOL/L (98-107); POTASSIUM 3.5 MMOL/L (3.6-5.0); SODIUM 145 MMOL/L (135-145)
[2020-05-17 03:04] LABS: CALCIUM 8.4 MG/DL (8.5-10.1)
[2020-05-17 03:05] LABS: GLUCOSE 116 MG/DL (70-105); TOTAL PROTEIN 6.2 GM/DL (6.4-8.2)
[2020-05-17 03:06] LABS: CARBON DIOXIDE 23 MMOL/L (21-32)
[2020-05-17 03:07] LABS: BILIRUBIN,TOTAL 0.2 MG/DL (0.1-1.0)
[2020-05-17 03:09] LABS: ALKALINE PHOSPHATASE 65 U/L (40-136); CREATININE SERUM 0.77 MG/DL (0.60-1.30); GFR ESTIMATED > 60
[2020-05-17 03:09] LABS: BILIRUBIN,URINE NEGATIVE (NEGATIVE); CLARITY,URINE CLEAR; COLOR,URINE YELLOW; GLUCOSE, URINE (UA) NEGATIVE (NEGATIVE); KETONES,URINE NEGATIVE (NEGATIVE); LEUKOCYTE ESTERASE ,URINE NEGATIVE (NEGATIVE); NITRITE,URINE NEGATIVE (NEGATIVE); PROTEIN,URINE NEGATIVE (NEGATIVE)
[2020-05-17 03:10] LABS: BUN/CREATININE RATIO 9
[2020-05-17 03:11] LABS: ERYTHROCYTE SEDIMENTATION RATE 6 MM/HR (0-20)
[2020-05-17 03:12] LABS: ALANINE AMINOTRANSFERASE 22 U/L (0-55); MAGNESIUM 1.6 MG/DL (1.6-2.4)
[2020-05-17 03:15] LABS: AMPHETAMINE SCREEN, URINE POSITIVE (NEGATIVE); BARBITURATE SCREEN URINE NEGATIVE (NEGATIVE); BENZODIAZEPINES SCREEN URINE NEGATIVE (NEGATIVE); CANNABINOID SCREEN, URINE NEGATIVE (NEGATIVE); COCAINE SCREEN URINE NEGATIVE (NEGATIVE); METHADONE STAT NEGATIVE (NEGATIVE); METHAMPHETAMINE SCREEN URINE S NEGATIVE (NEGATIVE); OPIATE SCREEN URINE NEGATIVE (NEGATIVE); OXYCODONE STAT NEGATIVE (NEGATIVE); PROPOXYPHENE STAT NEGATIVE (NEGATIVE); TRICYCLIC ANTIDEPRESSANTS SCRE NEGATIVE (NEGATIVE)
[2020-05-17 03:19] LABS: BACTERIA,URINE TRACE /HPF; SQUAMOUS EPITHELIAL CELL,UR >50 /HPF
[2020-05-17] MEDS ORDERED: MAGNESIUM 1 GM/100 ML IVPB 100 ML IV ONE ×2 (03:30→22:44)
[2020-05-17] MEDS ORDERED: PRED10TA22 PO (04:21)
[2020-05-17 04:30] VITALS: BP 132/90
--- NOTE | 2020-05-17 05:25 | Diagnostic Imaging Report ---
EXAMINATION: Portable erect AP chest at 2:50 AM INDICATION: Dyspnea The heart size is within normal limits and stable when compared to 03/10/2020. The lungs are generally clear. There is no evidence for failure, pneumonia or for a pleural effusion. The mediastinum is not widened. The osseous structures are intact. IMPRESSION: There is no evidence for active disease. Dictated by: Dictated on workstation # [id number]
[2020-05-17] MEDS ORDERED: methylPREDNISolone 125 MG (Solu-MEDROL) VIAL ONE (22:24)
[2020-05-17] MEDS ORDERED: MAGNESIUM 1 GM/100 ML IVPB 400 ML IV ONE (22:25)
[2020-05-18] MEDS ORDERED: LORazepam INJ 2 MG/ML (ATIVAN) VIAL ONE ×2 (00:01→08:36)
[2020-05-18] MEDS ORDERED: methylPREDNISolone 125 MG (Solu-MEDROL) VIAL ONE ×4 (03:55→21:40)
[2020-05-18] MEDS ORDERED: ENOXAPARIN 40 MG/0.4 ML (LOVENOX) SYR ONE (12:24)
[2020-05-18] MEDS ORDERED: diphenhydrAMINE 25 MG TAB (BENADRYL) PO ONE (16:46)
[2020-05-19] MEDS ORDERED: diphenhydrAMINE 25 MG TAB (BENADRYL) PO ONE (05:45)
--- NOTE | 2020-05-19 10:37 | Diagnostic Imaging Report ---
EXAMINATION: portable chest on 05/17 at 11:17 PM INDICATION: Fever with shortness of air and cough. Correlation is made with prior chest earlier the same day. The heart size is normal. Lungs appear to be fairly clear. No infiltrate is detected. There is no effusion or pneumothorax. IMPRESSION: No acute cardiopulmonary process is detected. Dictated by: Dictated on workstation # [id number]
[2020-05-19] MEDS ORDERED: EPIN0.3P2 IJ (12:41)
[2020-05-19 16:13] LABS: AMPHETAMINE SCREEN, URINE NEGATIVE (NEGATIVE); BARBITURATE SCREEN URINE NEGATIVE (NEGATIVE); BENZODIAZEPINES SCREEN URINE NEGATIVE (NEGATIVE); CANNABINOID SCREEN, URINE NEGATIVE (NEGATIVE); COCAINE SCREEN URINE NEGATIVE (NEGATIVE); METHADONE STAT NEGATIVE (NEGATIVE); METHAMPHETAMINE SCREEN URINE S NEGATIVE (NEGATIVE); OPIATE SCREEN URINE NEGATIVE (NEGATIVE); OXYCODONE STAT NEGATIVE (NEGATIVE); PROPOXYPHENE STAT NEGATIVE (NEGATIVE); TRICYCLIC ANTIDEPRESSANTS SCRE NEGATIVE (NEGATIVE)
[2020-05-19 16:47] LABS: WHITE BLOOD COUNT 14.4 10^3/uL (4.3-11.0)
[2020-05-19 16:48] LABS: BASOPHILS % (AUTO) 0 % (0-10); EOSINOPHILS % (AUTO) 0 % (0-10); HEMATOCRIT 40 % (35-52); HEMOGLOBIN 12.9 G/DL (11.5-16.0); LYMPHOCYTES # (AUTO) 2.4 X 10^3 (1.0-4.0); LYMPHOCYTES % (AUTO) 17 % (12-44); MEAN CORPUSCULAR HEMOGLOBIN 28 PG (25-34); MEAN CORPUSCULAR HGB CONC 33 G/DL (32-36); MEAN CORPUSCULAR VOLUME 86 FL (80-99); MEAN PLATELET VOLUME 9.7 FL (7.4-10.4); MONOCYTES # (AUTO) 1.4 X 10^3 (0.0-1.0); MONOCYTES % (AUTO) 10 % (0-12); NEUTROPHILS # (AUTO) 10.6 X 10^3 (1.8-7.8); NEUTROPHILS % (AUTO) 73 % (42-75); PLATELET COUNT 592 10^3/uL (130-400); RED CELL DISTRIBUTION WIDTH 17.1 % (10.0-14.5)
[2020-05-19 20:37] LABS: ABG PCO2 51 MMHG (35-45); ABG PH 7.35 (7.37-7.43); ABG PO2 75 MMHG (79-93); ABG TCO2 28.8 MMOL/L (21.0-31.0)
[2020-05-19 20:38] LABS: ABG BASE EXCESS 2.1 MMOL/L (-2.5-2.5); ABG OXYGEN SATURATION 94 % (94-100); ALLENS TEST YES-POS; INSPIRED O2 4L; PATIENT TEMP 36.5; VENTILATOR NO
[2020-05-19 20:39] LABS: INR 0.8 (0.8-1.4)
[2020-05-19 20:40] LABS: PROTHROMBIN TIME PATIENT 11.7 SEC (12.2-14.7)
[2020-05-19 20:42] LABS: BUN/CREATININE RATIO 18; CARBON DIOXIDE 24 MMOL/L (21-32); CHLORIDE 109 MMOL/L (98-107); CREATININE SERUM 0.72 MG/DL (0.60-1.30); GFR ESTIMATED > 60; GLUCOSE 92 MG/DL (70-105); SODIUM 145 MMOL/L (135-145)
[2020-05-19 20:43] LABS: ALANINE AMINOTRANSFERASE 24 U/L (0-55); ALBUMIN 4.2 GM/DL (3.2-4.5); ALKALINE PHOSPHATASE 70 U/L (40-136); BILIRUBIN,TOTAL 0.2 MG/DL (0.1-1.0); CALCIUM 9.3 MG/DL (8.5-10.1); MAGNESIUM 1.9 MG/DL (1.6-2.4)
== END 2020-05-17 04:30 | disposition home or self-care (01) ==
LOC: EDUNIT# 01:56 → ER 01:59
DX: J45.901 Unspecified asthma with (acute) exacerbation (principal); Z88.8 Allergy status to other drugs, medicaments and biological substances; Z88.6 Allergy status to analgesic agent; Z87.820 Personal history of traumatic brain injury; Z87.891 Personal history of nicotine dependence; Z82.49 Family history of ischemic heart disease and other diseases of the circulatory system; Z20.828 Contact with and (suspected) exposure to other viral communicable diseases; Z79.52 Long term (current) use of systemic steroids
CPT/HCPCS: 71045; 80053; 80306; 81000; 82805; 83615; 83735; 83880; 84145; 84484; 84703; 85025; 85610; 85652; 85730; 86141; 86308; 87430; 93041; 99284; G0480; U0002; 36415; 80320; 87635

== ENCOUNTER 2020-05-17 22:00 | Observation (INO) | payer MEDICAID ==
[~2020-05-17 22:00] MED LIST changes: +MAGNESIUM 1 GM/100 ML IVPB IV SCH; +PRED10TA22 PO
[2020-05-18] MEDS ORDERED: LORazepam INJ 2 MG/ML (ATIVAN) VIAL IV PRN (02:00)
[2020-05-19 08:00] VITALS: BP 96/59
[2020-05-19] MEDS ORDERED: HYDR-700 PO (08:37)
[2020-05-19] MEDS ORDERED: FLUT1DIS27 IH (08:37)
[2020-05-19] MEDS ORDERED: IPRA4AER IH (08:37)
[2020-05-19] MEDS ORDERED: CLON0.1T PO (08:37)
[2020-05-19] MEDS ORDERED: ALB0.5V INH (08:37)
[2020-05-19] MEDS ORDERED: GUAI5LIQ11 PO (08:37)
[2020-05-19] MEDS ORDERED: DIPH25CA79 PO (08:37)
--- NOTE | 2020-05-19 08:37 | NUR ---
SPOKE WITH THE PT AND ALSO CALLED [facility] TO COMPLETE THE MED REC THE FOLLOWING ARE FILL DATES FROM [facility]: 03-30-2020 CLONIDINE 0.1MG #30/PRN 03-30-2020 HYDROXYZINE HCL 25MG #90/PRN 05-17-2020 COMBIVENT RESPIMAT #10/29DS 05-17-2020 ADVAIR 500/50MCG #10/29DS 05-17-2020 ALBUTEROL SOLU. OTC MEDS: RUIZ FIELDS
[2020-05-19] MEDS ORDERED: diphenhydrAMINE 25 MG TAB (BENADRYL) PO PRN (08:45)
[2020-05-19] MEDS ORDERED: cloNIDine 0.1 MG (CATAPRES) TAB PO SCH (09:00)
[2020-05-19 09:32] LABS: BASOPHILS % (AUTO) 0 % (0-10); EOSINOPHILS % (AUTO) 0 % (0-10); HEMATOCRIT 39 % (35-52); HEMOGLOBIN 12.4 G/DL (11.5-16.0); LYMPHOCYTES % (AUTO) 5 % (12-44); MEAN CORPUSCULAR HEMOGLOBIN 27 PG (25-34); MEAN CORPUSCULAR HGB CONC 32 G/DL (32-36); MEAN CORPUSCULAR VOLUME 86 FL (80-99); MEAN PLATELET VOLUME 9.8 FL (7.4-10.4); MONOCYTES % (AUTO) 3 % (0-12); NEUTROPHILS % (AUTO) 92 % (42-75); PLATELET COUNT 486 10^3/uL (130-400); WHITE BLOOD COUNT 17.9 10^3/uL (4.3-11.0)
[2020-05-19 09:33] LABS: LYMPHOCYTES # (AUTO) 0.9 X 10^3 (1.0-4.0); MONOCYTES # (AUTO) 0.5 X 10^3 (0.0-1.0); NEUTROPHILS # (AUTO) 16.4 X 10^3 (1.8-7.8)
[2020-05-19 09:36] LABS: BUN/CREATININE RATIO 29; CALCIUM 8.9 MG/DL (8.5-10.1); CARBON DIOXIDE 24 MMOL/L (21-32); CHLORIDE 105 MMOL/L (98-107); CREATININE SERUM 0.68 MG/DL (0.60-1.30); GFR ESTIMATED > 60; GLUCOSE 133 MG/DL (70-105); POTASSIUM 4.7 MMOL/L (3.6-5.0); SODIUM 138 MMOL/L (135-145)
[2020-05-19] MEDS ORDERED: cloNIDine 0.1 MG (CATAPRES) TAB ONE (09:47)
[2020-05-19] MEDS ORDERED: ALBUTEROL/IPRATROP (COMBIVENT RESPIMAT) 4 GM INHALER IH SCH (10:00)
[2020-05-19 10:47] LABS: ABG BASE EXCESS 0.9 MMOL/L (-2.5-2.5); ABG PCO2 40 MMHG (35-45); ABG PH 7.41 (7.37-7.43); ABG PO2 81 MMHG (79-93); ABG TCO2 26.3 MMOL/L (21.0-31.0)
[2020-05-19 10:48] LABS: ABG OXYGEN SATURATION 97 % (94-100); CARBON DIOXIDE 22 MMOL/L (21-32); CHLORIDE 106 MMOL/L (98-107); INSPIRED O2 4 L; PATIENT TEMP 36.7; POTASSIUM 3.7 MMOL/L (3.6-5.0); SODIUM 141 MMOL/L (135-145)
[2020-05-19 10:49] LABS: ALANINE AMINOTRANSFERASE 22 U/L (0-55); ALBUMIN 3.9 GM/DL (3.2-4.5); ALKALINE PHOSPHATASE 66 U/L (40-136); BILIRUBIN,TOTAL 0.3 MG/DL (0.1-1.0); BUN/CREATININE RATIO 17; CALCIUM 8.5 MG/DL (8.5-10.1); CREATININE SERUM 0.75 MG/DL (0.60-1.30); GFR ESTIMATED > 60; GLUCOSE 138 MG/DL (70-105); MAGNESIUM 2.7 MG/DL (1.6-2.4); PHOSPHORUS 2.9 MG/DL (2.3-4.7); TOTAL PROTEIN 6.4 GM/DL (6.4-8.2)
[2020-05-19 10:50] LABS: HEMATOCRIT 39 % (35-52); HEMOGLOBIN 12.4 G/DL (11.5-16.0); MEAN CORPUSCULAR HEMOGLOBIN 27 PG (25-34); MEAN CORPUSCULAR HGB CONC 32 G/DL (32-36); MEAN CORPUSCULAR VOLUME 86 FL (80-99); MEAN PLATELET VOLUME 9.6 FL (7.4-10.4); PLATELET COUNT 506 10^3/uL (130-400); WHITE BLOOD COUNT 13.5 10^3/uL (4.3-11.0)
[2020-05-19 10:51] LABS: BASOPHILS % (AUTO) 0 % (0-10); EOSINOPHILS % (AUTO) 0 % (0-10); LYMPHOCYTES # (AUTO) 0.8 X 10^3 (1.0-4.0); LYMPHOCYTES % (AUTO) 6 % (12-44); MONOCYTES # (AUTO) 0.3 X 10^3 (0.0-1.0); MONOCYTES % (AUTO) 2 % (0-12); NEUTROPHILS # (AUTO) 12.5 X 10^3 (1.8-7.8); NEUTROPHILS % (AUTO) 92 % (42-75)
[2020-05-19 10:53] LABS: ANISOCYTOSIS SLIGHT; BAND NEUTROPHILS 0 %; BASOPHILS % (MANUAL) 0 %; EOSINOPHILS % (MANUAL) 0 %; LYMPHOCYTES % (MANUAL) 2 %; MONOCYTES % (MANUAL) 1 %; NEUTROPHILS % (MANUAL) 97 %
--- NOTE | 2020-05-19 11:04 | Diagnostic Imaging Report ---
INDICATION: Cough, fever and dyspnea CT imaging of the thorax is performed after bolus intravenous administration of iodinated contrast. 3-D reformatted images are produced. Comparison is made to previous study of 03/04/2015. Lungs are clear, bilaterally. There is no evidence of pneumothorax or significant pleural fluid. No pericardial effusion is identified. Thoracic aorta is unremarkable. There is no evidence of pulmonary arterial filling defect to indicate embolism. Upper abdominal sections are also unremarkable. IMPRESSION: No CTA evidence of pulmonary embolism or other acute abnormality within the thorax. Dictated by: Dictated on workstation # [id number]
[2020-05-19] MEDS ORDERED: ACETAMINOPHEN 500 MG TAB (TYLENOL) PO PRN (12:00)
[2020-05-19] MEDS ORDERED: methylPREDNISolone 125 MG (Solu-MEDROL) VIAL IVP SCH (12:00)
[2020-05-19] MEDS ORDERED: ENOXAPARIN 40 MG/0.4 ML (LOVENOX) SYR SC SCH (12:00)
[2020-05-19] MEDS ORDERED: LORazepam 1 MG (ATIVAN) TAB PO PRN (12:00)
[2020-05-19] MEDS ORDERED: PRD10T PO (12:40)
[2020-05-19] MEDS ORDERED: EPIN0.3P2 IJ (12:41)
--- NOTE | 2020-05-19 12:42 | Discharge Summary ---
Discharge Summary Hospital Course Hospital Course Date of Admission: May 18, 2020 at 02:00 Admission Diagnosis : Family Physician/Provider: Lindsay Montelongo DO Date of Discharge: 05/19/20 Discharge Diagnosis: Asthma exacerbation Hospital Course: Pt admitted with severe asthma exacerbation, treated with IV steroids and supplemental oxygen and had marked improvement. She thought she may need O2 for home, but did not qualify. She is working on desensitization outpatient. Discharged with plan to complete steroid taper already prescribed (picked up) but not yet started. Labs and Pending Lab Test: Laboratory Tests 05/19/20 05:00: White Blood Count 17.9H, Red Blood Count 4.54, Hemoglobin 12.4, Hematocrit 39, Mean Corpuscular Volume 86, Mean Corpuscular Hemoglobin 27, Mean Corpuscular Hemoglobin Concent 32, Red Cell Distribution Width 17.7H, Platelet Count 486H, Mean Platelet Volume 9.8, Neutrophils (%) (Auto) 92H, Lymphocytes (%) (Auto) 5L, Monocytes (%) (Auto) 3, Eosinophils (%) (Auto) 0, Basophils (%) (Auto) 0, Ne utrophils # (Auto) 16.4H, Lymphocytes # (Auto) 0.9L, Monocytes # (Auto) 0.5, Eosinophils # (Auto) 0.0, Basophils # (Auto) 0.0, Neutrophils % (Manual) [Pending], Sodium Level 138, Potassium Level 4.7, Chloride Level 105, Carbon Dioxide Level 24, Anion Gap 9, Blood Urea Nitrogen 20H, Creatinine 0.68, Estimat Glomerular Filtration Rate > 60, BUN/Creatinine Ratio 29, Glucose Level 133H, Calcium Level 8.9 Home Meds Active Epipen (Epinephrine) 0.3 Mg/0.3 Ml Auto.injct 0.3 Mg IJ PRN PRN Reported Prednisone 10 Mg Tab 0 PO UD 6 Days Take 6 tabs (60mg) daily, decrease by 1 tab (10mg) daily. Benadryl (Diphenhydramine HCl) 25 Mg Capsule 25-50 Mg PO Q6H PRN Guaifenesin-Dm 100-10 mg/5 ml (Guaifenesin/Dextromethorphan) 5 Ml Liquid 20 Ml PO Q4H PRN Albuterol Sulfate 2.5 Mg/0.5 Ml Vial.neb 2.5 Mg INH Q4H PRN Advair 500-50 Diskus (Fluticasone/Salmeterol) 1 Each Blst.w.dev 1 Each IH BID Combivent Respimat Inhal Spring (Albuterol/Ipratropium) 4 Gm Aero 1 Puff IH QID Hydroxyzine HCl 25 Mg Tablet 25 Mg PO Q8H PRN Clonidine HCl 0.1 Mg Tablet 0.1 Mg PO DAILY PRN Assessment/Pt DC Instructions See above Discharge Diet: Regular Diet Activity as Tolerated: Yes Discharge Physical Examination Allergies: Coded Allergies: aspirin (Verified Allergy, Unknown, 05/17/20) ibuprofen (Verified Allergy, Unknown, shortness of breath, 11/22/18) naproxen (Verified Allergy, Unknown, 10/01/18) SHORTNESS OF BREATH General Appearance: No Apparent Distress, WD/WN Respiratory: Lungs Clear, Normal Breath Sounds Cardiovascular: Regular Rate, Rhythm, No Murmur Extremity: No Pedal Edema Neurologic/Psychiatric: Alert, Normal Mood/Affect TANESHA LEIVA MD May 19, 2020 12:42
--- NOTE | 2020-05-19 13:05 | NUR ---
PTS SP02 DID NOT DROP BELOW 92% ON RA, AT ANY GIVEN TIME DURING 6 MINUTE WALK. PT DOES NOT QUALIFY FOR HOME 02 ATT. Addendum: 05/19/20 at 1305 by BAILEE DAVALOS RT Amended: Links added.
[2020-05-19] MEDS ORDERED: RELABEL FOR HOME USE MC SCH ×2 (13:30)
[2020-05-19] MEDS ORDERED: ADVAIR HFA 115/21 MCG INHALER 8 GM IH SCH ×2 (13:45→21:00)
[2020-05-19 17:51] LABS: BAND NEUTROPHILS 16 %
[2020-05-19 17:52] LABS: ANISOCYTOSIS SLIGHT; BASOPHILS % (MANUAL) 0 %; CRENATED RBC SLIGHT; EOSINOPHILS % (MANUAL) 0 %; HYPOCHROMASIA SLIGHT; LYMPHOCYTES % (MANUAL) 4 %; MONOCYTES % (MANUAL) 2 %; POIKILOCYTOSIS SLIGHT; POLYCHROMASIA SLIGHT; REACTIVE LYMPHOCYTES 1 %; ROULEAUX SLIGHT; TOXIC GRANULATION/VACUOLAZATIO 1+
[2020-05-19 17:53] LABS: NEUTROPHILS % (MANUAL) 77 %
--- NOTE | 2020-05-21 00:49 | ED Respiratory ---
General Stated Complaint: ASTHMA EXCERBATION,HYPOXIA,COVID PUI Source: patient, old records History of Present Illness Date Seen by Provider: May 17, 2020 Time Seen by Provider: 22:04 Initial Comments PT ARRIVES VIA POV FROM HOME C/O SHORTNESS OF BREATH--BEGAN AN HOUR AGO NO RELIEF WITH COUGH SYRUP, BENADRYL, ADVAIR, COMBIVENT C/O CHEST TIGHTNESS C/O NON PRODUCTIVE COUGH NO FEVER PT SEEN HERE LAST PM FOR SAME--SYMPTOMS RESOLVED WITH INHALER TREATMENTS, STEROIDS AND WAS ALSO GIVEN IV MAGNESIUM--SEE THAT CHART FOR DETAILS PT STATES SHE WAS FINE ALL LAST NIGHT AND ALL DAY TODAY, UNTIL AN HOUR AGO COVID TESTING WAS PERFORMED LAST NIGHT, NO RESULTS AT THIS TIME. STATES SHE HAD "A COUPLE" OF DRINKS TONIGHT DENIES SMOKING ANY METH OR THC OR CIGARETTES TONIGHT. PCP: [facility] Allergies and Home Medications Allergies Coded Allergies: aspirin (Verified Allergy, Unknown, 05/17/20) ibuprofen (Verified Allergy, Unknown, shortness of breath, 11/22/18) naproxen (Verified Allergy, Unknown, 10/01/18) SHORTNESS OF BREATH Home Medications Albuterol Sulfate 2.5 Mg/0.5 Ml Vial.neb, 2.5 MG INH Q4H PRN for SHORTNESS OF BREATH, (Reported) Albuterol/Ipratropium 4 Gm Aero, 1 PUFF IH QID, (Reported) Clonidine HCl 0.1 Mg Tablet, 0.1 MG PO DAILY PRN for ANXIETY, (Reported) Diphenhydramine HCl 25 Mg Capsule, 25-50 MG PO Q6H PRN for ALLERGY SYMPTOMS, (Reported) Epinephrine 0.3 Mg/0.3 Ml Auto.injct, 0.3 MG IJ PRN PRN for allergy/anaphylaxis Prescribed by: TANESHA LEIVA on 05/19/20 1241 Fluticasone/Salmeterol 1 Each Blst.w.dev, 1 EACH IH BID, (Reported) Guaifenesin/Dextromethorphan 5 Ml Liquid, 20 ML PO Q4H PRN for COUGH, (Reported) Hydroxyzine HCl 25 Mg Tablet, 25 MG PO Q8H PRN for ANXIETY, (Reported) Prednisone 10 Mg Tab, 0 PO UD, (Reported) Take 6 tabs (60mg) daily, decrease by 1 tab (10mg) daily. Patient Home Medication List Home Medication List Reviewed: Yes Review of Systems Review of Systems Constitutional: no symptoms reported; No chills, No diaphoresis, No fever EENTM: no symptoms reported Respiratory: see HPI, cough, short of breath, wheezing Cardiovascular: see HPI, chest pain; No edema, No palpitations, No syncope Gastrointestinal: no symptoms reported; No abdominal pain, No nausea, No vomiting Musculoskeletal: no symptoms reported Skin: no symptoms reported Psychiatric/Neurological: Anxiety Hematologic/Lymphatic: No Symptoms Reported Immunological/Allergic: no symptoms reported Past Cpzmgut-Mexjme-Lpcjdj Hx Past Med/Social Hx: Reviewed and Corrections made Patient Social History Alcohol Use: Occasionally Uses Recreational Drug Use: Yes Drug of Choice: THC WHEN YOUNG, NONE FOR YEARS; UDS+ AMPHETAMINES 05/17/20 Smoking Status: Former Smoker Type Used: Cigarettes Former Smoker, Quit: January 28, 2018 2nd Hand Smoke Exposure: No Recent Hopitalizations: No Immunizations Up To Date Tetanus Booster (TDap): Unknown PED Vaccines UTD: Yes Date of Pneumonia Vaccine: Aug 30, 2014 Date of Influenza Vaccine: Jul 28, 2018 Seasonal Allergies Seasonal Allergies: Yes Past Medical History Surgeries: Yes (Cyst removed on eye, D&C, CS x 2) Section, Eye Surgery 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) Asthma, Sleep Apnea Cardiac: No Neurological: Yes Concussion Reproductive Disorders: Yes Female Reproductive Disorders: Ovarian Cyst, Polycystic Ovarian Dis Sexually Transmitted Disease: Yes (HSV2) HIV/AIDS: No Genitourinary: No Gastrointestinal: No Musculoskeletal: No Endocrine: Yes Diabetes, Non-Insulin dep HEENT: Yes (NASAL POLYPS) Loss of Vision: Denies Hearing Impairment: Denies Cancer: No Psychosocial: Yes Anxiety, Bipolar, Depression Integumentary: No Blood Disorders: No Adverse Reaction/Blood Tranf: No Family Medical History Diabetes mellitus 19 MOTHER Hypertension 19 MOTHER Thyroid disease 19 MOTHER No Family History of: Asthma Dementia Myocardial infarction Respiratory disorder Seizure disorder No Pertinent Family Hx SOCIAL HISTORY: -OCCASIONAL ETOH -THC, HX OF METH USE--STATES SHE SMOKED IT. UDS + FOR AMPHETAMINES 05/17/20 -QUIT SMOKING IN 2017 Physical Exam Capillary Refill : Height: 5'3.00" Weight: 160lbs. 0.0oz. [id number]; 31.00 BMI Method:Stated General Appearance: moderate distress, other (PT ANXIOUS, TALKS NON-STOP AND RAPIDLY, BUT IN SHORT SENTENCES, CONSTANT MOVEMENTS. ) Neck: normal inspection Respiratory: respiratory distress, decreased breath sounds, accessory muscle use, wheezing (DIFFUSE EXPIRATORY WHEEZING BILATERALLY), other (DECREASED AERATION IN ALL LUNG REAVES) Cardiovascular: no murmur, tachycardia Gastrointestinal: soft Neurologic/Psychiatric: no motor/sensory deficits, alert, oriented x 3 Skin: normal color, warm/dry Progress/Results/Core Measures Suspected Sepsis Infection Criteria Present: None Sepsis Screen: No Definite Risk SIRS Temperature: Pulse: 119 Respiratory Rate: 18 Blood Pressure 96 /59 Mean: 71 Results/Orders Vital Signs/I&O Capillary Refill : Blood Pressure Mean: 71 Progress Note : Progress Note PT PLACED IN ISOLATION ROOM AND PPE WORN AT ALL TIMES O2 SAT 67% ON ROOM AIR. PT PLACED ON O2, FOLLOWED BY VAPOTHERM--O2 SATS UP TO 98-99% ON ROOM AIR PT GIVEN INHALER TREATMENTS WITH COMBIVENT AND ADVAIR, SOLU-MEDROL AND IV MANGESIUM WITH INCREASED PT CONTINUED TO BE VERY ANXIOUS AND C/O CHEST TIGHTNESS--GIVEN ATIVAN WITH RESOLUTION OF THOSE SYMPTOMS--PT NOW RESTING QUIETLY AND RESPIRATIONS ARE EVEN AND UNLABORED, WITH O2 SATS UP TO 100% Diagnostic Imaging Comments CXR--NO ACUTE PROCESS, PENDING RADIOLOGIST REVIEW CT CHEST ANGIOGRAM--NO P.E. OR ACUTE PROCESS, PER [facility] VIA FAX AT [phone] Reviewed: Reviewed by Me Departure Communication (Admissions) 0203--SPOKE WITH DR. LEIVA, ACCEPTS PT FOR ADMIT. Impression Primary Impression: Asthma exacerbation Additional Impressions: Acute respiratory failure with hypoxia Person under investigation for COVID-19 Anxiety Disposition: ADMITTED INPATIENT Condition: Improved Admissions Decision to Admit Reason: Admit from ER (General) Decision to Admit/Date: May 18, 2020 Time/Decision to Admit Time: 02:00 Departure-Patient Inst. Patient Instructions: Asthma, Adult (DC) Scripts Epinephrine (Epipen) 0.3 Mg/0.3 Ml Auto.injct 0.3 MG IJ PRN PRN for allergy/anaphylaxis, #0.3 ML 0 Refills Prov: TANESHA LEIVA MD 05/19/20 SALENA MONTERO DO May 21, 2020 00:49
== END 2020-05-19 13:55 | disposition home or self-care (01) ==
LOC: EDUNIT# 22:00 → ER 22:01 → ICU 22:02 → UNDOADMIN 05-18 02:00 → 4TH 05-18 13:00 → ICU 05-18 13:00 → UNDODISIN 05-19 13:55
PROVIDERS: ADMIT Family Medicine; ATTEND Family Medicine
DX: J45.51 Severe persistent asthma with (acute) exacerbation (principal); E11.9 Type 2 diabetes mellitus without complications; F41.9 Anxiety disorder, unspecified; F32.9 Major depressive disorder, single episode, unspecified; J96.01 Acute respiratory failure with hypoxia; Z79.51 Long term (current) use of inhaled steroids; Z79.899 Other long term (current) drug therapy; Z88.5 Allergy status to narcotic agent; Z88.8 Allergy status to other drugs, medicaments and biological substances; Z87.891 Personal history of nicotine dependence
CPT/HCPCS: 71275; 80048; 80053; 82805; 83735; 84100; 85007 ×2; 85027 ×2; 87081; 94640 ×3; 94761; 96365; 96366; 96375; 99285; G0378; 36415

== ENCOUNTER 2020-10-31 02:24 | Emergency (ER) | payer MEDICAID ==
[~2020-10-31] VITALS: Ht 161 cm; Wt 74.0 kg
[~2020-10-31 02:24] MED LIST changes: +ALB0.5V INH; +CLN.1T PO; +EPIN0.3P2 IJ; +FLUT1DIS27 IH; +GUAI5LIQ11 PO; +HYDR-700 PO; -MAGNESIUM 1 GM/100 ML IVPB IV SCH; +PRD10T PO
[2020-10-31] MEDS ORDERED: ALBUTEROL/IPRATROP (COMBIVENT RESPIMAT) 4 GM INHALER ONE (02:30)
[2020-10-31] MEDS ORDERED: ADVAIR HFA 115/21 MCG INHALER 8 GM IH ONE (02:30)
[2020-10-31 03:03] LABS: BASOPHILS # (AUTO) 0.1 10^3/uL (0.0-0.1); BASOPHILS % (AUTO) 1 % (0-10); EOSINOPHILS % (AUTO) 11 % (0-10); HEMATOCRIT 42 % (35-52); HEMOGLOBIN 13.3 g/dL (11.5-16.0); LYMPHOCYTES # (AUTO) 3.6 10^3/uL (1.0-4.0); LYMPHOCYTES % (AUTO) 40 % (12-44); MEAN CORPUSCULAR HEMOGLOBIN 28 pg (25-34); MEAN CORPUSCULAR HGB CONC 32 g/dL (32-36); MEAN CORPUSCULAR VOLUME 88 fL (80-99); MEAN PLATELET VOLUME 9.7 fL (9.0-12.2); MONOCYTES # (AUTO) 0.6 10^3/uL (0.0-1.0); MONOCYTES % (AUTO) 7 % (0-12); NEUTROPHILS # (AUTO) 3.7 10^3/uL (1.8-7.8); NEUTROPHILS % (AUTO) 42 % (42-75); PLATELET COUNT 557 10^3/uL (130-400)
--- NOTE | 2020-10-31 03:04 | ED Respiratory ---
General Chief Complaint: Respiratory Problems Stated Complaint: SOB;CHEST PAIN Nursing Triage Note: patient states she was "dreaming" that she couldn't breath, states woke up having difficulty breathing. states hx of asthma Source: patient, old records History of Present Illness Date Seen by Provider: Oct 31, 2020 Time Seen by Provider: 02:28 Initial Comments PT ARRIVES VIA POV FROM HOME C/O CHEST TIGHTNESS AND SHORTNESS OF BREATH--WAS "DREAMING" THAT SHE COULDN'T BREATHE, AND WOKE UP WITH IT JUST PRIOR TO ARRIVAL PT HAS LONG HISTORY OF ASTHMA AND ALWAYS IS SHORT OF BREATH AND HAS CHEST TIGHTNESS, BUT WAS WORSE THAN NORMAL WHEN SHE WOKE UP STATES SHE HAD AN ALBUTEROL NEBULIZER TREATMENT PRIOR TO ARRIVAL AND CAME HERE FREQUENT DRY COUGH NO FEVER/SWEATS/CHILLS CHRONIC CLEAR NASAL DRAINAGE PT IS ABLE TO TALK RAPIDLY AT LENGTH IN FULL SENTENCES ON ARRIVAL. PT WITH MULTITUDE OF VISITS FOR SAME PT WITH LONG HISTORY OF SMOKING CIGARETTES AND METH AND THC-CLAIMS NO RECENT USE PT ALSO OCCASIONALLY DRINKS, CLAIMS NO RECENT USE LMP SOMETIME IN AUGUST, NO CONTROL PCP: 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 IN [place], HAS NOT BEEN THERE RECENTLY Allergies and Home Medications Allergies Coded Allergies: aspirin (Verified Allergy, Unknown, 05/17/20) ibuprofen (Verified Allergy, Unknown, shortness of breath, 11/22/18) naproxen (Verified Allergy, Unknown, 10/01/18) SHORTNESS OF BREATH Home Medications Albuterol Sulfate 2.5 Mg/0.5 Ml Vial.neb, 2.5 MG INH Q4H PRN for SHORTNESS OF BREATH, (Reported) Albuterol/Ipratropium 4 Gm Aero, 1 PUFF IH QID, (Reported) Benzonatate 100 Mg Capsule, 200 MG PO TID Prescribed by: SALENA MONTERO on 10/31/20 0346 Clonidine HCl 0.1 Mg Tablet, 0.1 MG PO DAILY PRN for ANXIETY, (Reported) Diphenhydramine HCl 25 Mg Capsule, 25-50 MG PO Q6H PRN for ALLERGY SYMPTOMS, (Reported) Epinephrine 0.3 Mg/0.3 Ml Auto.injct, 0.3 MG IJ PRN PRN for allergy/anaphylaxis Prescribed by: TANESHA LEIVA on 05/19/20 1241 Fluticasone/Salmeterol 1 Each Blst.w.dev, 1 EACH IH BID, (Reported) Guaifenesin/Dextromethorphan 5 Ml Liquid, 20 ML PO Q4H PRN for COUGH, (Reported) Hydroxyzine HCl 25 Mg Tablet, 25 MG PO Q8H PRN for ANXIETY, (Reported) Methylprednisolone 4 Mg Tab.ds.pk, 4 MG PO UD PER DOSE PACK INSTRUCTIONS Prescribed by: SALENA MONTERO on 10/31/20345 Oseltamivir Phosphate 75 Mg Cap, 75 MG PO BID Prescribed by: SALENA MONTERO on 10/31/20345 Prednisone 10 Mg Tab, 0 PO UD, (Reported) Take 6 tabs (60mg) daily, decrease by 1 tab (10mg) daily. Promethazine/Dextromethorphan 473 Ml Syrup, 5 ML PO Q4H Prescribed by: SALENA MONTERO on 10/31/20345 Patient Home Medication List Home Medication List Reviewed: Yes Review of Systems Review of Systems Constitutional: no symptoms reported; No chills, No fever EENTM: ear pain, nose congestion; No throat pain Respiratory: see HPI, cough; No phlegm; short of breath, wheezing Cardiovascular: chest pain; No edema, No palpitations, No syncope Gastrointestinal: no symptoms reported Genitourinary: no symptoms reported Musculoskeletal: no symptoms reported Skin: no symptoms reported Psychiatric/Neurological: Anxiety Hematologic/Lymphatic: No Symptoms Reported Immunological/Allergic: no symptoms reported Past Tnuxnnc-Lbalee-Pruedp Hx Past Med/Social Hx: Reviewed and Corrections made Patient Social History Alcohol Use: Occasionally Uses Drug of Choice: THC WHEN YOUNG, NONE FOR YEARS; UDS+ AMPHETAMINES 05/17/20 Smoking Status: Current Someday Smoker Type Used: Cigarettes 2nd Hand Smoke Exposure: No Recent Hopitalizations: No Immunizations Up To Date Tetanus Booster (TDap): Unknown PED Vaccines UTD: Yes Date of Pneumonia Vaccine: Aug 30, 2014 Date of Influenza Vaccine: Jul 28, 2018 Seasonal Allergies Seasonal Allergies: Yes Past Medical History Surgeries: Yes (Cyst removed on eye, D&C, CS x 2; NASAL POLYPS REMOVED) Section, Eye Surgery, Nose 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) Asthma, Sleep Apnea Cardiac: No Neurological: Yes Concussion Reproductive Disorders: Yes Female Reproductive Disorders: Ovarian Cyst, Polycystic Ovarian Dis Sexually Transmitted Disease: Yes (HSV2) HIV/AIDS: No Genitourinary: No Gastrointestinal: No Musculoskeletal: No Endocrine: Yes Diabetes, Non-Insulin dep HEENT: Yes (NASAL POLYPS) Loss of Vision: Denies Hearing Impairment: Denies Cancer: No Psychosocial: Yes (SUBSTANCE ABUSE) Anxiety, Bipolar, Depression Integumentary: No Blood Disorders: No Adverse Reaction/Blood Tranf: No Family Medical History Diabetes mellitus 19 MOTHER Hypertension 19 MOTHER Thyroid disease 19 MOTHER No Family History of: Asthma Dementia Myocardial infarction Respiratory disorder Seizure disorder No Pertinent Family Hx SOCIAL HISTORY: -OCCASIONAL ETOH -THC, HX OF METH USE--STATES SHE SMOKED IT. UDS + FOR AMPHETAMINES 05/17/20, UDS + FOR METH AND AMPHETAMINES 10/31/20 -OCCASIONALLY SMOKES CIGARETTES Physical Exam Vital Signs - First Documented 10/31/20 10/31/20 02:31 02:35 Temp 35.6 Pulse 110 Resp 24 B/P (MAP) 125/81 (96) Pulse Ox 91 O2 Delivery Room Air O2 Flow Rate 2.00 Capillary Refill : Less Than 3 Seconds Height: 5'3.00" Weight: 160lbs. 0.0oz. 72.157030jl; 28.00 BMI Method:Stated General Appearance: other (MILDLY ANXIOUS, MILDLY DYSPNEIC, BUT SMILING AND TALKING RAPIDLY AT LENGTH IN FULL SENTENCES) HEENT: PERRL/EOMI; No pharyngeal erythema; other (RIGHT TM MILDLY INFLAMED, NASAL CONGESTION. CLEAR POST NASAL DRAINAGE. ) Neck: non-tender, full range of motion, supple, normal inspection Respiratory: wheezing (MILD INSPIRATORY / EXPIRATORY WHEEZING BILATERALLY), other (MILDLY DYSPNEIC, BUT ABLE TO TALK IN FULL SENTENCES. 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, no motor/sensory deficits, alert, oriented x 3 Skin: normal color, warm/dry Focused Exam Lactate Level 10/31/20 02:45: Lactic Acid Level 1.06 Lactic Acid Level Laboratory Tests Test 10/31/20 02:45 Lactic Acid Level 1.06 MMOL/L (0.50-2.00) Progress/Results/Core Measures Suspected Sepsis Recent Fever Within 48 Hours: No Infection Criteria Present: Suspected New Infection New/Unexplained Altered Menta: No Sepsis Screen: Possible Severe Sepsis Risk SIRS Temperature: Pulse: 110 Respiratory Rate: 24 Laboratory Tests 10/31/20 02:40: White Blood Count 9.0 Blood Pressure 125 /81 Mean: 96 10/31/20 02:45: Lactic Acid Level 1.06 Laboratory Tests 10/31/20 02:40: Creatinine 0.74, INR Comment 1.3, Platelet Count 557H, Total Bilirubin 0.4 Results/Orders Lab Results Laboratory Tests Test 10/31/20 02:35 10/31/20 02:40 10/31/20 02:45 10/31/20 03:40 Range/Units Coronavirus 2019 ([facility]) Negative Negative White Blood Count 9.0 4.3-11.0 10^3/uL Red Blood Count 4.81 3.80-5.11 10^6/uL Hemoglobin 13.3 11.5-16.0 g/dL Hematocrit 42 35-52 % Mean Corpuscular Volume 88 80-99 fL Mean Corpuscular Hemoglobin 28 25-34 pg Mean Corpuscular Hemoglobin Concent 32 32-36 g/dL Red Cell Distribution Width 16.3 H 10.0-14.5 % Platelet Count 557 H 130-400 10^3/uL Mean Platelet Volume 9.7 9.0-12.2 fL Immature Granulocyte % (Auto) 0 % Neutrophils (%) (Auto) 42 42-75 % Lymphocytes (%) (Auto) 40 12-44 % Monocytes (%) (Auto) 7 0-12 % Eosinophils (%) (Auto) 11 H 0-10 % Basophils (%) (Auto) 1 0-10 % Neutrophils # (Auto) 3.7 1.8-7.8 10^3/uL Lymphocytes # (Auto) 3.6 1.0-4.0 10^3/uL Monocytes # (Auto) 0.6 0.0-1.0 10^3/uL Eosinophils # (Auto) 1.0 H 0.0-0.3 10^3/uL Basophils # (Auto) 0.1 0.0-0.1 10^3/uL Immature Granulocyte # (Auto) 0.0 0.0-0.1 10^3/uL Erythrocyte Sedimentation Rate 4 0-20 MM/HR Prothrombin Time 16.5 H 12.2-14.7 SEC INR Comment 1.3 0.8-1.4 Activated Partial Thromboplast Time 44 H 24-35 SEC D-Dimer 0.98 H 0.00-0.49 UG/ML Sodium Level 145 135-145 MMOL/L Potassium Level 4.2 3.6-5.0 MMOL/L Chloride Level 109 H 98-107 MMOL/L Carbon Dioxide Level 23 21-32 MMOL/L Anion Gap 13 5-14 MMOL/L Blood Urea Nitrogen 14 7-18 MG/DL Creatinine 0.74 0.60-1.30 MG/DL Estimat Glomerular Filtration Rate > 60 BUN/Creatinine Ratio 19 Glucose Level 99 70-105 MG/DL Calcium Level 8.9 8.5-10.1 MG/DL Corrected Calcium 8.8 8.5-10.1 MG/DL Magnesium Level 2.0 1.6-2.4 MG/DL Total Bilirubin 0.4 0.1-1.0 MG/DL Aspartate Amino Transf (AST/SGOT) 17 5-34 U/L Alanine Aminotransferase (ALT/SGPT) 25 0-55 U/L Alkaline Phosphatase 67 40-136 U/L Lactate Dehydrogenase 202 125-220 U/L Total Creatine Kinase 132 29-168 U/L Creatine Kinase MB 1.5 <6.6 NG/ML Troponin I < 0.028 <0.028 NG/ML C-Reactive Protein High Sensitivity 0.05 0.00-0.50 MG/DL B-Type Natriuretic Peptide 23.9 <100.0 PG/ML Total Protein 6.7 6.4-8.2 GM/DL Albumin 4.1 3.2-4.5 GM/DL Procalcitonin 0.02 <0.10 NG/ML Serum Test, Qualitative NEGATIVE NEGATIVE Serum Alcohol < 10 <10 MG/DL Lactic Acid Level 1.06 0.50-2.00 MMOL/L Urine Color YELLOW Urine Clarity SL CLOUDY Urine pH 5.5 5-9 Urine Specific [place] >=1.030 1.016-1.022 Urine Protein NEGATIVE NEGATIVE Urine Glucose (UA) NEGATIVE NEGATIVE Urine Ketones NEGATIVE NEGATIVE Urine Nitrite NEGATIVE NEGATIVE Urine Bilirubin NEGATIVE NEGATIVE Urine Urobilinogen 0.2 < = 1.0 MG/DL Urine Leukocyte Esterase NEGATIVE NEGATIVE Urine RBC (Auto) NEGATIVE NEGATIVE Urine RBC NONE /HPF Urine WBC 0-2 /HPF Urine Squamous Epithelial Cells 2-5 /HPF Urine Crystals NONE /LPF Urine Bacteria TRACE /HPF Urine Casts NONE /LPF Urine Mucus NEGATIVE /LPF Urine Culture Indicated NO Urine Opiates Screen NEGATIVE NEGATIVE Urine Oxycodone Screen NEGATIVE NEGATIVE Urine Methadone Screen NEGATIVE NEGATIVE Urine Propoxyphene Screen NEGATIVE NEGATIVE Urine Barbiturates Screen NEGATIVE NEGATIVE Ur Tricyclic Antidepressants Screen NEGATIVE NEGATIVE Urine Phencyclidine Screen NEGATIVE NEGATIVE Urine Amphetamines Screen POSITIVE H NEGATIVE Urine Methamphetamines Screen POSITIVE H NEGATIVE Urine Benzodiazepines Screen NEGATIVE NEGATIVE Urine Cocaine Screen NEGATIVE NEGATIVE Urine Cannabinoids Screen NEGATIVE NEGATIVE Micro Results Microbiology 10/31/20 Influenza Types A,B Antigen ([facility]) - Final, Complete My Orders Orders - SALENA MOTNERO DO Ed Iv/Invasive Line Start (10/31/20 02:29) Urine Bedside (10/31/20 02:29) Ekg Tracing (10/31/20 02:29) O2 (10/31/20 02:29) Monitor-Rhythm Ecg Trace Only (10/31/20 02:29) Chest 1 View, Ap/Pa Only (10/31/20 02:29) BNP (10/31/20 02:29) Cbc With Automated Diff (10/31/20 02:29) Comprehensive Metabolic Panel (10/31/20 02:29) Creatine Kinase (10/31/20 02:29) Creatine Kinase Mb (10/31/20 02:29) Hs C Reactive Protein (10/31/20 02:29) Fibrin Degradation Products (10/31/20 02:29) Drug Screen Stat (Urine) (10/31/20 02:29) Magnesium (10/31/20 02:29) Procalcitonin (Pct) (10/31/20 02:29) Protime With Inr (10/31/20 02:29) Partial Thromboplastin Time (10/31/20 02:29) Ua Culture If Indicated (10/31/20 02:29) Influenza A And B Antigens (10/31/20 02:29) Erythrocyte Sedimentation Rate (10/31/20 02:29) Troponin I (10/31/20 02:29) LDH (10/31/20 02:29) Coronavirus Sars-Cov-2 So 2018 (10/31/20 02:29) Covid 19 Inhouse Test (10/31/20 02:29) Dexamethasone Injection (Decadron Inje (10/31/20 02:30) Dexamethasone Injection (Decadron Inje (10/31/20 02:29) Fluticasone/Salmeterol 115/21 (Advair Hf (10/31/20 02:30) Albuterol/Ipratropium Inhaler (Combivent (10/31/20 02:30) Hcg,Qualitative Serum (10/31/20 02:36) Lactic Acid Analyzer (10/31/20 02:49) Oseltamivir 75 Mg Capsule (Tamiflu 75 (10/31/20 03:15) Oseltamivir 75 Mg Capsule (Tamiflu 75 (10/31/20 03:05) Alcohol (10/31/20 04:03) Medications Given in ED Current Medications Medications Dose Ordered Sig/Kemi Route Start Time Stop Time Status Last Admin Dose Admin Albuterol/ Ipratropium 4 gm STK-MED ONCE .ROUTE 10/31/20 02:30 10/31/20 02:34 DC 10/31/20 02:43 4 GM Dexamethasone Sodium Phosphate 10 mg ONCE ONCE IV 10/31/20 02:30 10/31/20 02:33 DC 10/31/20 02:43 10 MG Oseltamivir Phosphate 75 mg ONCE ONCE PO 10/31/20 03:15 10/31/20 03:16 DC 10/31/20 03:10 75 MG Salmeterol Xinafoate/ Fluticasone 60 puff STK-MED ONCE IH 10/31/20 02:30 10/31/20 02:34 DC 10/31/20 02:43 4 PUFF Vital Signs/I&O 10/31/20 10/31/20 10/31/20 02:31 02:35 03:40 Temp 35.6 36.3 Pulse 110 93 Resp 24 17 B/P (MAP) 125/81 (96) 125/94 (96) Pulse Ox 91 93 99 O2 Delivery Room Air Nasal Cannula Room Air O2 Flow Rate 2.00 Capillary Refill : Less Than 3 Seconds Blood Pressure Mean: 96 Progress Note : Progress Note PLACED IN ISOLATION ROOM PPE WORN AT ALL TIMES COVID-19 TESTING PERFORMED O2 SATS 89-90% ON ROOM AIR ON ARRIVAL--UP TO 98% ON O2 AT 2L/NC GIVEN IV DECADRON GIVEN ADVAIR AND COMBIVENT INHALERS SIGNIFICANT IMPROVEMENT IN SYMPTOMS --WHEEZING RESOLVED, INCREASED AERATION, DECREASED COUGH/ESSENTIALLY RESOLVED. NO DYSPNEA AND PT CALM O2 SATS 97% ON ROOM AIR PRIOR TO DISMISSAL PT FEELS COMFORTABLE GOING HOME ECG Initial ECG Impression Date: Oct 31, 2020 Initial ECG Impression Time: 02:39 Initial ECG Rate: 106 Initial ECG Rhythm: S.Tach Diagnostic Imaging Comments CXR--NO ACUTE PROCESS, PENDING RADIOLOGIST REVIEW Departure Impression Primary Impression: Influenza B Additional Impressions: Asthma exacerbation Person under investigation for COVID-19 Methamphetamine use Disposition: 01 HOME, SELF-CARE Condition: Improved Departure-Patient Inst. Referrals: RICHY SOTO DO (PCP/Family) Primary Care Physician Patient Instructions: Flu, Adult (DC), Asthma, Adult (DC), Avoiding Asthma Triggers, Coronavirus Disease 2019 (COVID-19) Overview, Asthma Action Plan ED Add. Discharge Instructions: HOME, REST LOTS OF CLEAR LIQUIDS TYLENOL NEEDED FOR PAIN OR FEVER USE YOUR COMBIVENT INHALER--2-4 PUFFS EVERY 4 HOURS NEEDED FOR WHEEZING USE ADVAIR INHALER 2-4 PUFFS TWICE A DAY EVERY DAY\\ USE SPACERS AT ALL TIMES DO NOT USE ADDITIONAL ALBUTEROL WHEN YOU ARE USING COMBIVENT FOLLOW UP WITH YOUR DR IN 1-2 DAYS IF NO BETTER, RETURN TO ER IF WORSE QUARANTINE YOURSELF AND ALL HOUSEHOLD MEMBERS FOR 2 WEEKS OR UNTIL CLEARED BY DR. All discharge instructions reviewed with patient and/or family. Voiced understanding. Scripts Promethazine/Dextromethorphan (Promethazine-Dm Syrup) 473 Ml Syrup 5 ML PO Q4H for Cough, #200 ML Prov: SALENA MONTERO DO 10/31/20 Benzonatate (TESSALON PERLES) 100 Mg Capsule 200 MG PO TID, #30 CAP Prov: SALENA MONTERO DO 10/31/20 Methylprednisolone (Medrol) 4 Mg Tab.ds.pk 4 MG PO UD for 6 Days, #21 PKG PER DOSE PACK INSTRUCTIONS Prov: SALENA MONTERO DO 10/31/20 Oseltamivir Phosphate (Tamiflu) 75 Mg Cap 75 MG PO BID for 5 Days, #10 CAP Prov: SALENA MONTERO DO 10/31/20 SALENA MONTERO DO Oct 31, 2020 03:04
[2020-10-31] MEDS ORDERED: OSELTAMIVIR 75 MG (TAMIFLU) CAPSULE ONE (03:05)
[2020-10-31 03:08] LABS: ALBUMIN 4.1 GM/DL (3.2-4.5); CHLORIDE 109 MMOL/L (98-107); POTASSIUM 4.2 MMOL/L (3.6-5.0); SODIUM 145 MMOL/L (135-145)
[2020-10-31 03:09] LABS: CALCIUM 8.9 MG/DL (8.5-10.1)
[2020-10-31 03:10] LABS: GLUCOSE 99 MG/DL (70-105); TOTAL PROTEIN 6.7 GM/DL (6.4-8.2)
[2020-10-31 03:11] LABS: CARBON DIOXIDE 23 MMOL/L (21-32)
[2020-10-31 03:12] LABS: BILIRUBIN,TOTAL 0.4 MG/DL (0.1-1.0)
[2020-10-31 03:14] LABS: ALKALINE PHOSPHATASE 67 U/L (40-136); CREATININE SERUM 0.74 MG/DL (0.60-1.30); GFR ESTIMATED > 60
[2020-10-31 03:15] LABS: BUN/CREATININE RATIO 19
[2020-10-31] MEDS ORDERED: OSELTAMIVIR 75 MG (TAMIFLU) CAPSULE PO ONE (03:15)
[2020-10-31 03:17] LABS: ALANINE AMINOTRANSFERASE 25 U/L (0-55)
[2020-10-31 03:18] LABS: CREATINE KINASE 132 U/L (29-168)
[2020-10-31 03:24] LABS: CREATINE KINASE MB 1.5 NG/ML (<6.6)
[2020-10-31 03:40] VITALS: BP 125/94
[2020-10-31] MEDS ORDERED: METH4TAB PO (03:46)
[2020-10-31] MEDS ORDERED: BENZ100C18 PO (03:46)
[2020-10-31] MEDS ORDERED: D-ME473S11 PO (03:46)
[2020-10-31] MEDS ORDERED: OSLT75C PO (03:46)
[2020-10-31 04:02] LABS: BILIRUBIN,URINE NEGATIVE (NEGATIVE); CLARITY,URINE SL CLOUDY; COLOR,URINE YELLOW; GLUCOSE, URINE (UA) NEGATIVE (NEGATIVE); KETONES,URINE NEGATIVE (NEGATIVE); LEUKOCYTE ESTERASE ,URINE NEGATIVE (NEGATIVE); NITRITE,URINE NEGATIVE (NEGATIVE); PH,URINE 5.5 (5-9); PROTEIN,URINE NEGATIVE (NEGATIVE)
[2020-10-31 04:03] LABS: ERYTHROCYTE SEDIMENTATION RATE 4 MM/HR (0-20)
[2020-10-31 04:22] LABS: AMPHETAMINE SCREEN, URINE POSITIVE (NEGATIVE); BARBITURATE SCREEN URINE NEGATIVE (NEGATIVE); BENZODIAZEPINES SCREEN URINE NEGATIVE (NEGATIVE); CANNABINOID SCREEN, URINE NEGATIVE (NEGATIVE); COCAINE SCREEN URINE NEGATIVE (NEGATIVE); METHADONE STAT NEGATIVE (NEGATIVE); METHAMPHETAMINE SCREEN URINE S POSITIVE (NEGATIVE); OPIATE SCREEN URINE NEGATIVE (NEGATIVE); OXYCODONE STAT NEGATIVE (NEGATIVE); PROPOXYPHENE STAT NEGATIVE (NEGATIVE); TRICYCLIC ANTIDEPRESSANTS SCRE NEGATIVE (NEGATIVE)
[2020-10-31 04:28] LABS: FIBRIN DEGRADATION PRODUCTS 0.98 UG/ML (0.00-0.49); INR 1.3 (0.8-1.4); PROTHROMBIN TIME PATIENT 16.5 SEC (12.2-14.7)
[2020-10-31 04:33] LABS: BACTERIA,URINE TRACE /HPF; WBC,URINE 0-2 /HPF
--- NOTE | 2020-10-31 07:04 | Diagnostic Imaging Report ---
INDICATION: Shortness of breath, cough and congestion. Comparison made with prior examination of 05/17/2020. FINDINGS: The heart size, mediastinal configuration, and pulmonary vascularity are within normal limits. There is no pleural effusion, pneumothorax, or pneumonia. The osseous structures are unremarkable. IMPRESSION: No acute cardiopulmonary abnormality. Dictated by: Dictated on workstation # [id number]
== END 2020-10-31 03:45 | disposition home or self-care (01) ==
LOC: EDUNIT# 02:24 → ER 02:25
DX: J10.1 Influenza due to other identified influenza virus with other respiratory manifestations (principal); J45.901 Unspecified asthma with (acute) exacerbation; F15.90 Other stimulant use, unspecified, uncomplicated; F41.9 Anxiety disorder, unspecified; F17.210 Nicotine dependence, cigarettes, uncomplicated; Z20.822 Contact with and (suspected) exposure to COVID-19; Z87.820 Personal history of traumatic brain injury; Z88.6 Allergy status to analgesic agent; Z88.8 Allergy status to other drugs, medicaments and biological substances; Z82.49 Family history of ischemic heart disease and other diseases of the circulatory system; Z83.3 Family history of diabetes mellitus; Z79.52 Long term (current) use of systemic steroids
CPT/HCPCS: 71045; 80053; 80306; 81000; 82550; 82553; 83605; 83615; 83735; 83880; 84145; 84484; 84703; 85025; 85379; 85610; 85652; 85730; 86141; 87804; 93005; 93041; G0480; U0002; 36415; 80320; 87635

== ENCOUNTER 2021-08-25 00:41 | Emergency (ER) | payer MEDICAID ==
[~2021-08-25 00:41] MED LIST changes: +D-ME473S11 PO; +METH4TAB PO; +OSLT75C PO
[2021-08-25] MEDS ORDERED: guaiFENesin/CODEINE (ROBITUSSIN AC) 10ML UDC PO STA (01:53)
--- NOTE | 2021-08-25 01:58 | ED Respiratory ---
General Chief Complaint: Respiratory Problems Stated Complaint: ALLERGIC RXN Source: patient Exam Limitations: no limitations History of Present Illness Date Seen by Provider: Aug 25, 2021 Time Seen by Provider: 00:54 Initial Comments Patient is a 31-year-old female who presents to the emergency department with an acute onset of shortness of breath and feeling like her throat was closing. Patient has a history of Samter's triad, asthma, nasal polyps and aspirin intolerance. She has had many exacerbations of this in the past. She is recently run out of her breathing treatments today. She states she was unsure if she was exposed to something during her Thanksgiving dinner as she says that lots of foods have think she is allergic to. She states it was an acute onset of shortness of breath. She did not feel like her throat was swelling but that it was closing. She follows with pulmonology at [facility] in [place]. She has not been on steroids in about a month. She states she feels better on them but they make her "mean". She denies any recent fevers or chills. She is complaining of little congestion and being hoarse. She has had more coughing tonight than usual and her throat is sore. She denies rashes. She has had no nausea vomiting or diarrhea. No urinary complaints. She did have a breathing treatment per EMS prior to arrival as well as an IM injection of epinephrine. All other review of systems reviewed and negative except as stated. Timing/Duration: just prior to arrival Severity: severe Prior Episodes/Possible Cause: frequent episodes Modifying Factors: Improves With Albuterol Inhaler Associated Symptoms: nasal congestion, shortness of breath, sore throat, other (cough) Allergies and Home Medications Allergies Coded Allergies: aspirin (Verified Allergy, Unknown, 05/17/20) ibuprofen (Verified Allergy, Unknown, shortness of breath, 11/22/18) naproxen (Verified Allergy, Unknown, 10/01/18) SHORTNESS OF BREATH Patient Home Medication List Home Medication List Reviewed: Yes Albuterol Sulfate (Albuterol Sulfate) 2.5 Mg/0.5 Ml Vial.neb, 2.5 MG INH Q4H PRN for SHORTNESS OF BREATH, (Reported) Entered as Reported by: MILES FONSECA on 05/19/20 0873 Albuterol Sulfate (Albuterol Sulfate) 2.5 Mg/3 Ml Vial.neb, 2.5 MG INH Q4H PRN for WHEEZING Prescribed by: YVETTE WILLINGHAM on 08/25/21223 Albuterol/Ipratropium (Combivent Respimat Inhal [place]) 4 Gm Aero, 1 PUFF IH QID, (Reported) Entered as Reported by: MILES FONSECA on 05/19/20836 Albuterol/Ipratropium (Combivent Respimat Inhal [place]) 4 Gm Aero, 2 PUFF IH Q6H Prescribed by: YVETTE WILLINGHAM on 08/25/21223 Benzonatate (Tessalon Perles) 100 Mg Capsule, 200 MG PO TID Prescribed by: SALENA MONTERO on 10/31/20 034 Clonidine HCl (Clonidine HCl) 0.1 Mg Tablet, 0.1 MG PO DAILY PRN for ANXIETY, (Reported) Entered as Reported by: MILES FONSECA on 05/19/20836 Diphenhydramine HCl (Benadryl) 25 Mg Capsule, 25-50 MG PO Q6H PRN for ALLERGY SYMPTOMS, (Reported) Entered as Reported by: MILES FONSECA on 05/19/20836 Epinephrine (Epipen) 0.3 Mg/0.3 Ml Auto.injct, 0.3 MG IJ PRN PRN for allergy/anaphylaxis Prescribed by: TANESHA LEIVA on 05/19/20 124 Fluticasone/Salmeterol (Advair 500-50 Diskus) 1 Each Blst.w.dev, 1 EACH IH BID, (Reported) Entered as Reported by: MILES FONSECA on 05/19/20836 Guaifenesin/Codeine (Robitussin Ac (Codeine) Syrup) 10 Ml Syrp, 5 ML PO Q6H PRN for cough Prescribed by: YVETTE WILLINGHAM on 08/25/21224 Guaifenesin/Dextromethorphan (Guaifenesin-Dm 100-10 mg/5 ml) 5 Ml Liquid, 20 ML PO Q4H PRN for COUGH, (Reported) Entered as Reported by: MILES FONSECA on 05/19/20 08 Hydroxyzine HCl (Hydroxyzine HCl) 25 Mg Tablet, 25 MG PO Q8H PRN for ANXIETY, (Reported) Entered as Reported by: MILES FONSECA on 05/19/20 0837 Methylprednisolone (Medrol) 4 Mg Tab.ds.pk, 4 MG PO UD Prescribed by: SALENA MONTERO on 10/31/20 0346 Oseltamivir Phosphate (Tamiflu) 75 Mg Cap, 75 MG PO BID Prescribed by: SALENA MONTERO on 10/31/20 0346 Prednisone (Prednisone) 10 Mg Tab, 0 PO UD, (Reported) Entered as Reported by: TANESHA LEIVA on 05/19/20 1240 Prednisone (Prednisone) 10 Mg Tab.ds.pk, 10 MG PO DAILY Prescribed by: YVETTE WILLINGHAM on 08/25/21 0222 Promethazine/Dextromethorphan (Promethazine-Dm Syrup) 473 Ml Syrup, 5 ML PO Q4H Prescribed by: SALENA MONTERO on 10/31/20 034 Review of Systems Review of Systems Constitutional: see HPI EENTM: throat pain Respiratory: cough, short of breath Cardiovascular: no symptoms reported Gastrointestinal: no symptoms reported Genitourinary: no symptoms reported Musculoskeletal: no symptoms reported Skin: no symptoms reported All Other Systems Reviewed Negative Unless Noted: Yes Past Osseqef-Wtoonl-Nxjyic Hx Patient Social History Smoking Status: Former Smoker Additional substance use comme: PAST HX Alcohol Use?: Yes Alcohol Frequency: Couple times a week Immunizations Up To Date Tetanus Booster (TDap): Unknown PED Vaccines UTD: Yes Seasonal Allergies Seasonal Allergies: Yes Past Medical History Surgery/Hospitalization HX: SAMTER'S TRIAD Surgeries: Yes (Cyst removed on eye, D&C, CS x 2; NASAL POLYPS REMOVED) Section, Eye Surgery, Nose 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) Asthma, Sleep Apnea Cardiac: No Neurological: Yes Concussion Reproductive Disorders: Yes Female Reproductive Disorders: Ovarian Cyst, Polycystic Ovarian Dis Sexually Transmitted Disease: Yes (HSV2) HIV/AIDS: No Genitourinary: No Gastrointestinal: No Musculoskeletal: No Endocrine: Yes Diabetes, Non-Insulin dep HEENT: Yes (NASAL POLYPS) Loss of Vision: Denies Hearing Impairment: Denies Cancer: No Psychosocial: Yes (SUBSTANCE ABUSE) Anxiety, Bipolar, Depression Integumentary: No Blood Disorders: No Adverse Reaction/Blood Tranf: No Family Medical History Diabetes mellitus 19 MOTHER Hypertension 19 MOTHER Thyroid disease 19 MOTHER No Family History of: Asthma Dementia Myocardial infarction Respiratory disorder Seizure disorder No Pertinent Family Hx SOCIAL HISTORY: -OCCASIONAL ETOH -THC, HX OF METH USE--STATES SHE SMOKED IT. UDS + FOR AMPHETAMINES 05/17/20, UDS + FOR METH AND AMPHETAMINES 10/31/20 -OCCASIONALLY SMOKES CIGARETTES Physical Exam Vital Signs - First Documented Capillary Refill : Height: 5'3.00" Weight: 160lbs. 0.0oz. [id number]; 28.00 BMI Method:Stated General Appearance: WD/WN, no apparent distress HEENT: PERRL/EOMI, pharynx normal (slightly erythematous), other (hoarse voice; no intraoral edema) Neck: full range of motion, supple, normal inspection Respiratory: lungs clear, normal breath sounds, no respiratory distress, no accessory muscle use Cardiovascular: regular rate, rhythm Gastrointestinal: soft Extremities: normal range of motion, non-tender, normal inspection Neurologic/Psychiatric: no motor/sensory deficits, alert, normal mood/affect, oriented x 3 Skin: normal color, warm/dry Progress/Results/Core Measures Suspected Sepsis SIRS Temperature: Pulse: Respiratory Rate: Blood Pressure / Mean: Results/Orders My Orders Orders - YVETTE WILLINGHAM MD Prednisone Tablet (Deltasone Tablet) (08/25/21 02:00) Guaifenesin/Codeine Syrup (Robitussin Ac (08/25/21 01:53) Medications Given in ED Current Medications Medications Dose Ordered Sig/Kemi Route Start Time Stop Time Status Last Admin Dose Admin Prednisone 50 mg ONCE ONCE PO 08/25/21 02:00 08/25/21 02:01 DC 08/25/21 02:09 50 MG Vital Signs/I&O 08/25/21 08/25/21 00:43 00:43 Temp 36.9 Pulse 116 Resp 22 B/P (MAP) 135/68 (90) Pulse Ox 95 O2 Delivery Room Air Room Air Capillary Refill : Progress Note : Time: 01:57 Progress Note Patient's oxygen saturations are 97% on room air. She exhibits no increased work of breathing/respiratory distress. She is not wheezing. No intraoral swelling is noted. Heart rate is in the mid 80s, pressure is good. We will start patient on a tapering dose of steroids as well as give her some Robitussin with codeine for her cough. 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 All questions are sought and answered. Patient stable for discharge. Departure Impression Primary Impression: Acute asthma exacerbation Qualified Codes: J45.901 - Unspecified asthma with (acute) exacerbation Disposition: 01 HOME, SELF-CARE Condition: Stable Departure-Patient Inst. Decision time for Depature: 02:19 Referrals: RICHY MONTELONGO DO (PCP/Family) Primary Care Physician Patient Instructions: Asthma, Adult (DC) Add. Discharge Instructions: Take the prednisone daily as prescribed. You will decrease by 10 mg every 3 days starting at 50 mg. Use your breathing treatments as prescribed. Follow-up with Dr. Montelongo. Please come back to the emergency room if you have any return of symptoms especially with fever, vomiting or any other emergent concerns. Scripts Guaifenesin/Codeine (ROBITUSSIN AC (CODEINE) [place]) 10 Ml Syrp 5 ML PO Q6H PRN for cough, #60 ML Prov: YVETTE WILLINGHAM MD 08/25/21 Albuterol Sulfate (Albuterol Sulfate) 2.5 Mg/3 Ml Vial.neb 2.5 MG INH Q4H PRN for WHEEZING, #50 EA 1 Refill Prov: YVETTE WILLINGHAM MD 08/25/21 Albuterol/Ipratropium (Combivent Respimat Inhal [place]) 4 Gm Aero 2 PUFF IH Q6H, #1 EA Prov: YVETTE WILLINGHAM MD 08/25/21 Prednisone (Prednisone) 10 Mg Tab.ds.pk 10 MG PO DAILY, #45 EA take 5 tablets a day for 3 days take 4 tablets a day for 3 days take 3 tablets a day for 3 days take 2 tablets a day for 3 days take 1 tablet a day for 3 days Prov: YVETTE WILLINGHAM MD 08/25/21 Copy Copies To 1: RICHY MONTELONGO KATHRYN M MD Aug 25, 2021 01:58
[2021-08-25] MEDS ORDERED: predniSONE 20 MG TAB PO ONE (02:00)
[2021-08-25] MEDS ORDERED: PRED10TA22 PO (02:22)
[2021-08-25] MEDS ORDERED: GFCD10B PO (02:24)
[2021-08-25] MEDS ORDERED: IPRA4AER IH (02:24)
[2021-08-25] MEDS ORDERED: ALBU2.5V4 INH (02:24)
[2021-08-25 02:56] VITALS: BP 121/84
== END 2021-08-25 03:04 | disposition home or self-care (01) ==
LOC: EDUNIT# 00:41 → ER 00:43
DX: J45.901 Unspecified asthma with (acute) exacerbation (principal); G47.30 Sleep apnea, unspecified; E11.9 Type 2 diabetes mellitus without complications; F41.9 Anxiety disorder, unspecified; Z87.820 Personal history of traumatic brain injury; Z87.891 Personal history of nicotine dependence; Z79.899 Other long term (current) drug therapy
CPT/HCPCS: 99285

== ENCOUNTER 2021-09-02 04:41 | Inpatient (IN) | payer MEDICAID ==
[~2021-09-02] VITALS: Ht 160 cm; Wt 78.3 kg
[~2021-09-02 04:41] MED LIST changes: +GFCD10B PO
[2021-09-02] MEDS ORDERED: RT-ALBUTEROL SULF 2.5 MG/3 ML PRE-MIX VIAL ONE (04:55)
[2021-09-02] MEDS ORDERED: RT-ALBUTEROL/IPRATROPIUM 3 ML (DUONEB) VIAL ONE (04:55)
[2021-09-02] MEDS ORDERED: RT-ALBUTEROL SULF 2.5 MG/3 ML PRE-MIX VIAL INH STA (04:56)
[2021-09-02] MEDS ORDERED: methylPREDNISolone 125 MG (Solu-MEDROL) VIAL IV STA (04:56)
[2021-09-02] MEDS ORDERED: RT-ALBUTEROL SULF 2.5 MG/3 ML PRE-MIX VIAL INH ONE ×2 (05:00→08:00)
[2021-09-02] MEDS ORDERED: RT-ALBUTEROL/IPRATROPIUM 3 ML (DUONEB) VIAL INH ONE ×2 (05:00)
[2021-09-02 05:07] LABS: BASOPHILS % (AUTO) 0 % (0-10); EOSINOPHILS # (AUTO) 0.1 10^3/uL (0.0-0.3); EOSINOPHILS % (AUTO) 1 % (0-10); HEMATOCRIT 42 % (35-52); HEMOGLOBIN 13.6 g/dL (11.5-16.0); LYMPHOCYTES # (AUTO) 3.2 10^3/uL (1.0-4.0); LYMPHOCYTES % (AUTO) 27 % (12-44); MEAN CORPUSCULAR HEMOGLOBIN 30 pg (25-34); MEAN CORPUSCULAR HGB CONC 32 g/dL (32-36); MEAN CORPUSCULAR VOLUME 93 fL (80-99); MEAN PLATELET VOLUME 9.2 fL (9.0-12.2); MONOCYTES % (AUTO) 8 % (0-12); NEUTROPHILS # (AUTO) 7.3 10^3/uL (1.8-7.8); NEUTROPHILS % (AUTO) 63 % (42-75); PLATELET COUNT 547 10^3/uL (130-400); WHITE BLOOD COUNT 11.6 10^3/uL (4.3-11.0)
[2021-09-02 05:10] LABS: ALBUMIN 4.2 GM/DL (3.2-4.5); POTASSIUM 4.1 MMOL/L (3.6-5.0)
[2021-09-02 05:11] LABS: CALCIUM 9.2 MG/DL (8.5-10.1)
[2021-09-02 05:14] LABS: BILIRUBIN,TOTAL 0.3 MG/DL (0.1-1.0)
[2021-09-02 05:16] LABS: CREATININE SERUM 0.75 MG/DL (0.60-1.30)
[2021-09-02 05:19] LABS: MAGNESIUM 1.9 MG/DL (1.6-2.4)
--- NOTE | 2021-09-02 05:49 | Diagnostic Imaging Report ---
EXAMINATION: Chest 1 view HISTORY: Asthma attack. COMPARISON: 10/31/2020. FINDINGS: The lung volumes are normal. No focal consolidation is seen. Mildly prominent interstitial markings are seen bilaterally. No large pleural effusion or pneumothorax is seen. The cardiomediastinal silhouette is normal in size and contour. No acute osseous abnormality is seen. IMPRESSION: 1. Mildly prominent interstitial markings bilaterally, consistent with a history of asthma. No focal consolidations. Dictated by: Dictated on workstation # [id number]
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
--- NOTE | 2021-09-02 06:42 | ED Respiratory ---
General Chief Complaint: Respiratory Problems Stated Complaint: ASTHMA Nursing Triage Note: TO ED VIA POV AND AMBULATORY TO ROOM 10 WITH C/O SOA. Source: patient, old records History of Present Illness Date Seen by Provider: Sep 02, 2021 Time Seen by Provider: 04:57 Initial Comments PT ARRIVES VIA POV FROM HOME PT LONGSTANDING HISTORY OF ASTHMA, WITH MULTIPLE ER VISITS AND ADMITS PT HAS BEEN DX WITH [facility] PT HAS HAD INCREASED ASTHMA SYMPTOMS FOR THE LAST 2 WEEKS, ESPECIALLY AT NIGHT SYMPTOMS MUCH WORSE SINCE LAST WEEK/GI, AND WAS SEEN HERE IN ER ON 08/25/21. PT WAS SENT HOME WITH PREDNISONE TAPER, CODEINE COUGH MEDICATION AND REFILL ON HER ALBUTEROL NEB SOLUTION WELL HER COMBIVENT INHALER PT WAS SEEN YESTERDAY AT [facility] FOR THIS SAME PROBLEM, AND HAD LAB AND CXR DONE AT THAT TIME, WHICH WERE REPORTEDLY NORMAL, PER PT, AND SHE REPORTS THAT NO ADDITIONAL MEDICATIONS/TREATMENTS WERE PRESCRIBED, AND WAS ADVISED TO CONTINUE EVERYTHING THAT WAS PRESCRIBED IN ER ON 08/25/21. SHE REPORTS SHE DID NOT HAVE A COVID TEST YESTERDAY PT STATES BREATHING HAS CONTINUED TO WORSEN TONIGHT, AND SHE FEELS LIKE SHE IS GETTING WORN OUT NO FEVER AT ANY TIME COUGH IS NON-PRODUCTIVE NO SWELLING IN LEGS/FEET OR PAIN IN CALVES NO KNOWN SICK CONTACTS PT WITH LONG HISTORY OF SMOKING METH, WELL OCCASIONALLY SMOKING CIGARETTES, AND THIS APPEARS TO CONTRIBUTE TO THESE EXACERBATIONS PCP: [facility] Allergies and Home Medications Allergies Coded Allergies: aspirin (Verified Allergy, Unknown, 05/17/20) ibuprofen (Verified Allergy, Unknown, shortness of breath, 11/22/18) naproxen (Verified Allergy, Unknown, 10/01/18) SHORTNESS OF BREATH Patient Home Medication List Home Medication List Reviewed: Yes Albuterol Sulfate (Albuterol Sulfate) 2.5 Mg/0.5 Ml Vial.neb, 2.5 MG INH Q4H PRN for SHORTNESS OF BREATH, (Reported) Entered as Reported by: MILES FONSECA on 05/19/20 0837 Albuterol Sulfate (Albuterol Sulfate) 2.5 Mg/3 Ml Vial.neb, 2.5 MG INH Q4H PRN for WHEEZING Prescribed by: YVETTE WILLINGHAM on 08/25/21 0224 Albuterol/Ipratropium (Combivent Respimat Inhal [place]) 4 Gm Aero, 1 PUFF IH QID, (Reported) Entered as Reported by: MILES FONSECA on 05/19/20 08 Albuterol/Ipratropium (Combivent Respimat Inhal [place]) 4 Gm Aero, 2 PUFF IH Q6H Prescribed by: YVETTE WILLINGHAM on 08/25/21 0224 Epinephrine (Epipen) 0.3 Mg/0.3 Ml Auto.injct, 0.3 MG IJ PRN PRN for allergy/anaphylaxis Prescribed by: TANESHA LEIVA on 05/19/20 1241 Fluticasone Propionate (Flonase Allergy Relief) 9.9 Ml [place].susp, 2 SPRAY NS DAILY Prescribed by: GURVINDER HART on 09/03/21 122 Fluticasone/Salmeterol (Advair Hfa 230-21 Mcg Inhaler) 12 Gm Hfa.aer.ad, 12 GM IH BID Prescribed by: GURVINDER HART on 09/03/21 122 Hydroxyzine HCl (Hydroxyzine HCl) 25 Mg Tablet, 25 MG PO Q8H PRN for ANXIETY, (Reported) Entered as Reported by: MILES FONSECA on 05/19/20836 Inhaler, Assist Devices (Compact Space Chamber) 1 Each Spacer, EACH MC BID, (DME) Prescribed by: GURVINDER HART on 09/03/21 122 Loratadine (Loratadine) 10 Mg Tablet, 10 MG PO DAILY Prescribed by: GURVINDER HART on 09/03/21 122 Montelukast Sodium (Montelukast Sodium) 10 Mg Tablet, 10 MG PO HS Prescribed by: GURVINDER HART on 09/03/21 122 Prednisone (Prednisone) 10 Mg Tab.ds.pk, 10 MG PO DAILY Prescribed by: GURVINDER HART on 09/03/21 122 Discontinued Medications Benzonatate (Tessalon Perles) 100 Mg Capsule, 200 MG PO TID Prescribed by: SALENA MONTERO on 10/31/20 2896 Last Action: Discontinued Clonidine HCl (Clonidine HCl) 0.1 Mg Tablet, 0.1 MG PO DAILY PRN for ANXIETY, (Reported) Entered as Reported by: MILES FONSECA on 05/19/20836 Last Action: Discontinued Diphenhydramine HCl (Benadryl) 25 Mg Capsule, 25-50 MG PO Q6H PRN for ALLERGY SYMPTOMS, (Reported) Entered as Reported by: MILES FONSECA on 05/19/20836 Last Action: Discontinued Fluticasone/Salmeterol (Advair 500-50 Diskus) 1 Each Blst.w.dev, 1 EACH IH BID, (Reported) Entered as Reported by: MILES FONSECA on 05/19/20836 Guaifenesin/Codeine (Robitussin Ac (Codeine) Syrup) 10 Ml Syrp, 5 ML PO Q6H PRN for cough Prescribed by: YVETTE WILLINGHAM on 08/25/21224 Last Action: Discontinued Guaifenesin/Dextromethorphan (Guaifenesin-Dm 100-10 mg/5 ml) 5 Ml Liquid, 20 ML PO Q4H PRN for COUGH, (Reported) Entered as Reported by: MILES FONSECA on 05/19/20836 Last Action: Discontinued Methylprednisolone (Medrol) 4 Mg Tab.ds.pk, 4 MG PO UD Prescribed by: SALENA MONTERO on 10/31/20345 Last Action: Discontinued Oseltamivir Phosphate (Tamiflu) 75 Mg Cap, 75 MG PO BID Prescribed by: SALENA MONTERO on 10/31/20345 Last Action: Discontinued Prednisone (Prednisone) 10 Mg Tab, 0 PO UD, (Reported) Entered as Reported by: TANESHA LEIVA on 05/19/20 1240 Last Action: Discontinued Prednisone (Prednisone) 10 Mg Tab.ds.pk, 10 MG PO DAILY Prescribed by: YVETTE WILLINGHAM on 08/25/21221 Last Action: Discontinued Promethazine/Dextromethorphan (Promethazine-Dm Syrup) 473 Ml Syrup, 5 ML PO Q4H Prescribed by: SALENA MONTERO on 10/31/20345 Last Action: Discontinued Review of Systems Review of Systems Constitutional: no symptoms reported; No fever EENTM: nose congestion Respiratory: see HPI, cough, dyspnea on exertion, orthopnea, short of breath Cardiovascular: other (CHEST TIGHT FROM BREATHING) Gastrointestinal: no symptoms reported Genitourinary: no symptoms reported Musculoskeletal: no symptoms reported Skin: no symptoms reported Psychiatric/Neurological: No Symptoms Reported Hematologic/Lymphatic: No Symptoms Reported Immunological/Allergic: no symptoms reported Past Bdqhqdu-Cyeucz-Brtptm Hx Patient Social History Tobacco Use?: Yes Tobacco type used: Cigarettes Smoking Status: Current Someday Smoker Substance use?: Yes Substance type: Methamphetamine, Marijuana Additional substance use comme: HX METH Substance frequency: Couple times a week Alcohol Use?: Yes Alcohol Frequency: Once in a while Immunizations Up To Date Tetanus Booster (TDap): Unknown PED Vaccines UTD: Yes Seasonal Allergies Seasonal Allergies: Yes Past Medical History Surgery/Hospitalization HX: [facility] Surgeries: Yes (Cyst removed on eye, D&C, CS x 2; NASAL POLYPS REMOVED) Section, Eye Surgery, Nose 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) Asthma, Sleep Apnea Cardiac: No Neurological: Yes Concussion Reproductive Disorders: Yes Female Reproductive Disorders: Ovarian Cyst, Polycystic Ovarian Dis Sexually Transmitted Disease: Yes (HSV2) HIV/AIDS: No Genitourinary: No Gastrointestinal: No Musculoskeletal: No Endocrine: Yes Diabetes, Non-Insulin dep HEENT: Yes (NASAL POLYPS) Loss of Vision: Denies Hearing Impairment: Denies Cancer: No Psychosocial: Yes (SUBSTANCE ABUSE) Anxiety, Bipolar, Depression Integumentary: No Blood Disorders: No Adverse Reaction/Blood Tranf: No Family Medical History Diabetes mellitus 19 MOTHER Hypertension 19 MOTHER Thyroid disease 19 MOTHER No Family History of: Asthma Dementia Myocardial infarction Respiratory disorder Seizure disorder No Pertinent Family Hx SOCIAL HISTORY: -OCCASIONAL ETOH -THC, HX OF METH USE--STATES SHE SMOKED IT. UDS + FOR AMPHETAMINES 05/17/20, UDS + FOR METH AND AMPHETAMINES 10/31/20 -OCCASIONALLY SMOKES CIGARETTES Physical Exam Vital Signs - First Documented 09/02/21 09/02/21 04:50 04:59 Temp 36.5 Pulse 100 Resp 24 B/P (MAP) 117/82 (94) Pulse Ox 95 O2 Delivery Room Air Capillary Refill : Less Than 3 Seconds Height: 5'3.00" Weight: 160lbs. 0.0oz. [id number]; 28.00 BMI Method:Stated General Appearance: WD/WN, other (MILDLY DYSPNEIC, TALKS IN 2-4 WORD SENTENCES. ) HEENT: PERRL/EOMI Neck: normal inspection Respiratory: decreased breath sounds, accessory muscle use (MILD), other (PT DYSPNEIC, WITH DECREASED AERATION IN ALL LUNG REAVES) Cardiovascular: regular rate, rhythm, no murmur Gastrointestinal: non tender, soft Extremities: no pedal edema, normal capillary refill Neurologic/Psychiatric: no motor/sensory deficits, alert, oriented x 3, other (MILDLY ANXIOUS) Skin: normal color, warm/dry Progress/Results/Core Measures Suspected Sepsis SIRS Temperature: Pulse: 100 Respiratory Rate: 24 Laboratory Tests 09/02/21 04:52: White Blood Count 11.6H Blood Pressure 117 /82 Mean: 94 Laboratory Tests 09/02/21 04:52: Creatinine 0.75, Platelet Count 547H, Total Bilirubin 0.3 Results/Orders Lab Results Laboratory Tests Test 09/02/21 04:52 09/02/21 06:35 Range/Units White Blood Count 11.6 H 4.3-11.0 10^3/uL Red Blood Count 4.51 3.80-5.11 10^6/uL Hemoglobin 13.6 11.5-16.0 g/dL Hematocrit 42 35-52 % Mean Corpuscular Volume 93 80-99 fL Mean Corpuscular Hemoglobin 30 25-34 pg Mean Corpuscular Hemoglobin Concent 32 32-36 g/dL Red Cell Distribution Width 13.9 10.0-14.5 % Platelet Count 547 H 130-400 10^3/uL Mean Platelet Volume 9.2 9.0-12.2 fL Immature Granulocyte % (Auto) 1 % Neutrophils (%) (Auto) 63 42-75 % Lymphocytes (%) (Auto) 27 12-44 % Monocytes (%) (Auto) 8 0-12 % Eosinophils (%) (Auto) 1 0-10 % Basophils (%) (Auto) 0 0-10 % Neutrophils # (Auto) 7.3 1.8-7.8 10^3/uL Lymphocytes # (Auto) 3.2 1.0-4.0 10^3/uL Monocytes # (Auto) 1.0 0.0-1.0 10^3/uL Eosinophils # (Auto) 0.1 0.0-0.3 10^3/uL Basophils # (Auto) 0.0 0.0-0.1 10^3/uL Immature Granulocyte # (Auto) 0.1 0.0-0.1 10^3/uL Sodium Level 142 135-145 MMOL/L Potassium Level 4.1 3.6-5.0 MMOL/L Chloride Level 106 98-107 MMOL/L Carbon Dioxide Level 24 21-32 MMOL/L Anion Gap 12 5-14 MMOL/L Blood Urea Nitrogen 16 7-18 MG/DL Creatinine 0.75 0.60-1.30 MG/DL Estimat Glomerular Filtration Rate 91 BUN/Creatinine Ratio 21 Glucose Level 97 70-105 MG/DL Calcium Level 9.2 8.5-10.1 MG/DL Corrected Calcium 9.0 8.5-10.1 MG/DL Magnesium Level 1.9 1.6-2.4 MG/DL Total Bilirubin 0.3 0.1-1.0 MG/DL Aspartate Amino Transf (AST/SGOT) 18 5-34 U/L Alanine Aminotransferase (ALT/SGPT) 37 0-55 U/L Alkaline Phosphatase 62 40-136 U/L B-Type Natriuretic Peptide < 10.0 <100.0 PG/ML Total Protein 7.0 6.4-8.2 GM/DL Albumin 4.2 3.2-4.5 GM/DL Serum Test, Qualitative NEGATIVE NEGATIVE Serum Alcohol < 10 <10 MG/DL Influenza Type A (RT-PCR) Not Detected Not Detecte Influenza Type B (RT-PCR) Not Detected Not Detecte SARS-CoV-2 RNA (RT-PCR) Not Detected Not Detecte Urine Opiates Screen POSITIVE H NEGATIVE Urine Oxycodone Screen NEGATIVE NEGATIVE Urine Methadone Screen NEGATIVE NEGATIVE Urine Propoxyphene Screen NEGATIVE NEGATIVE Urine Barbiturates Screen NEGATIVE NEGATIVE Ur Tricyclic Antidepressants Screen NEGATIVE NEGATIVE Urine Phencyclidine Screen NEGATIVE NEGATIVE Urine Amphetamines Screen NEGATIVE NEGATIVE Urine Methamphetamines Screen NEGATIVE NEGATIVE Urine Benzodiazepines Screen NEGATIVE NEGATIVE Urine Cocaine Screen NEGATIVE NEGATIVE Urine Cannabinoids Screen NEGATIVE NEGATIVE My Orders Orders - SALENA MONTERO DO Albuterol/Ipra Inhalation Soln (Duoneb I (09/02/21 04:55) Albuterol Pre-Mix Nebs (Rt) (Proventil (09/02/21 04:55) Albuterol Pre-Mix Nebs (Rt) (Proventil (09/02/21 05:00) Albuterol/Ipra Inhalation Soln (Duoneb I (09/02/21 05:00) Ed Iv/Invasive Line Start (09/02/21 04:56) Ekg Tracing (09/02/21 04:56) O2 (09/02/21 04:56) Monitor-Rhythm Ecg Trace Only (09/02/21 04:56) Bnp [place] (09/02/21 04:56) Cbc With Automated Diff (09/02/21 04:56) Comprehensive Metabolic Panel (09/02/21 04:56) Hcg,Qualitative Serum (09/02/21 04:56) Magnesium (09/02/21 04:56) Influenza A And B By Pcr (09/02/21 04:56) Chest 1 View, Ap/Pa Only (09/02/21 04:56) Albuterol Pre-Mix Nebs (Rt) (Proventil (09/02/21 04:56) Albuterol/Ipra Inhalation Soln (Duoneb I (09/02/21 05:00) Dexamethasone Injection (Decadron Injec (09/02/21 05:00) Methylprednisolone Sod Succ (Solu-Medrol (09/02/21 04:56) Covid 19 Inhouse Test (09/02/21 04:56) Alcohol (09/02/21 05:16) Drug Screen Stat (Urine) (09/02/21 05:16) Ed Admission (Communication) (09/02/21 06:56) Vital Signs/I&O 09/02/21 09/02/21 09/02/21 04:50 04:59 05:12 Temp 36.5 Pulse 100 Resp 24 B/P (MAP) 117/82 (94) Pulse Ox 95 99 O2 Delivery Room Air Room Air Capillary Refill : Less Than 3 Seconds Blood Pressure Mean: 94 Progress Note : Progress Note PLACED IN ISOLATION ROOM PPE WORN COVID-19 TESTING PERFORMED HOUR LONG NEB TREATMENT AND IV SOLU-MEDROL GIVEN O2 SATS REMAIN 95-97% BUT PT IS STILL DYSPNEIC. NO DETERIORATION IN PT'S CONDITION DURING ER STAY ECG Initial ECG Impression Date: Sep 02, 2021 Initial ECG Impression Time: 05:14 Initial ECG Rate: 93 Initial ECG Rhythm: Normal Sinus Diagnostic Imaging Comments CXR--PER RADIOLOGIST REPORT AT 0556 FINDINGS: The lung volumes are normal. No focal consolidation is seen. Mildly prominent interstitial markings are seen bilaterally. No large pleural effusion or pneumothorax is seen. The cardiomediastinal silhouette is normal in size and contour. No acute osseous abnormality is seen. IMPRESSION: 1. Mildly prominent interstitial markings bilaterally, consistent with a history of asthma. No focal consolidations. Reviewed: Reviewed by Me Departure Communication (Admissions) 0600--SPOKE WITH DR. HART, HOSPITALIST FOR [facility], ACCEPTS PT FOR ADMIT AND SHE WILL PUT IN ALL ADMIT ORDERS. Impression Primary Impression: Status asthmaticus Additional Impressions: Acute asthma exacerbation Failure of outpatient treatment Disposition: ADMITTED INPATIENT Condition: Stable Admissions Decision to Admit Reason: Admit from ER (General) Decision to Admit/Date: Sep 02, 2021 Time/Decision to Admit Time: 06:00 Departure-Patient Inst. Referrals: RICHY SOTO DO (PCP/Family) Primary Care Physician Scripts Fluticasone Propionate (Flonase Allergy Relief) 9.9 Ml [place].susp 2 SPRAY NS DAILY, #1 EACH 2 SPRAYS PER [place]STRIL DAILY X 2 DAYS THEN 1 SPRAY DAILY Prov: GURVINDER HART DO 09/03/21 Prednisone (Prednisone) 10 Mg Tab.ds.pk 10 MG PO DAILY, #42 EA Take 6 tabs(60mg)daily,decrease by 1 tab(10mg)every other day. Prov: GURVINDER HART DO 09/03/21 Inhaler, Assist Devices (Compact Space Chamber) 1 Each Spacer EACH MC BID for asthma, #1 Prov: GURVINDER HART DO 09/03/21 Fluticasone/Salmeterol (Advair Hfa 230-21 Mcg Inhaler) 12 Gm Hfa.aer.ad 12 GM IH BID, #1 GM Prov: GURVINDER HART DO 09/03/21 Loratadine (Loratadine) 10 Mg Tablet 10 MG PO DAILY, #90 TAB Prov: GURVINDER HART DO 09/03/21 Montelukast Sodium (Montelukast Sodium) 10 Mg Tablet 10 MG PO HS, #90 TAB Prov: GURVINDER HART DO 09/03/21 SALENA MONTERO DO Sep 02, 2021 06:42
[2021-09-02 07:06] LABS: AMPHETAMINE SCREEN, URINE NEGATIVE (NEGATIVE); BARBITURATE SCREEN URINE NEGATIVE (NEGATIVE); BENZODIAZEPINES SCREEN URINE NEGATIVE (NEGATIVE); CANNABINOID SCREEN, URINE NEGATIVE (NEGATIVE); COCAINE SCREEN URINE NEGATIVE (NEGATIVE); METHADONE STAT NEGATIVE (NEGATIVE); METHAMPHETAMINE SCREEN URINE S NEGATIVE (NEGATIVE); OPIATE SCREEN URINE POSITIVE (NEGATIVE); OXYCODONE STAT NEGATIVE (NEGATIVE); PROPOXYPHENE STAT NEGATIVE (NEGATIVE); TRICYCLIC ANTIDEPRESSANTS SCRE NEGATIVE (NEGATIVE)
[2021-09-02 07:39] VITALS: BP 121/94
[2021-09-02] MEDS ORDERED: CALCIUM CARBONATE 500 MG (TUMS) TAB.CHEW PO PRN (08:00)
[2021-09-02] MEDS ORDERED: DOCUSATE SODIUM 100 MG (COLACE) CAP PO PRN (08:00)
[2021-09-02] MEDS ORDERED: diphenhydrAMINE 25 MG TAB (BENADRYL) PO PRN (08:00)
[2021-09-02] MEDS ORDERED: morphine INJ 10 MG/ML 1ML (SYR OR VIAL) IVP PRN (08:00)
[2021-09-02] MEDS ORDERED: HYDROcodone/APAP 5 MG/325 MG (LORTAB) TAB PO PRN (08:00)
[2021-09-02] MEDS ORDERED: ALPRAZolam 0.25 MG (XANAX) TAB PO PRN (08:00)
[2021-09-02] MEDS ORDERED: ONDANSETRON 4 MG (ZOFRAN) ORAL DISSOLVE TAB PO PRN (08:00)
[2021-09-02] MEDS ORDERED: ONDANSETRON 4 MG/2 ML (SDV) Z0FRAN IVP PRN (08:00)
[2021-09-02] MEDS ORDERED: LOPERAMIDE 2 MG (IMODIUM) TABLET PO PRN (08:00)
[2021-09-02] MEDS ORDERED: MELATONIN 3 MG TABLET PO PRN (08:00)
[2021-09-02] MEDS ORDERED: ACETAMINOPHEN 325 MG TABLET PO PRN (08:15)
[2021-09-02] MEDS: LORATADINE (CLARITIN) 10 MG TAB PO SCH (09:47)
[2021-09-02] MEDS: ENOXAPARIN 40 MG/0.4 ML (LOVENOX) SYR SC SCH (09:48)
[2021-09-02] MEDS: polyethylene glycoL POWDER 17 GM (MIRALAX) PACK PO SCH ×2 (09:54→21:00)
[2021-09-02] MEDS: SENNA W/DOCUSATE (SENOKOT S) TABLET PO SCH ×2 (09:54→21:00)
[2021-09-02 10:11] VITALS: BP 121/94
[2021-09-02] MEDS ORDERED: RT-ALBUTEROL/IPRATROPIUM 3 ML (DUONEB) VIAL INH PRN (10:30)
[2021-09-02] MEDS: methylPREDNISolone 40 MG/ML (Solu-MEDROL) VIAL IV SCH ×3 (11:46→23:16)
[2021-09-02 12:00] VITALS: BP 119/77
[2021-09-02] MEDS: RT-BUDESONIDE NEBS 0.5 MG/2ML (PULMICORT) AMP INH SCH ×2 (13:21→20:46)
[2021-09-02] MEDS: RT-ALBUTEROL/IPRATROPIUM 3 ML (DUONEB) VIAL INH SCH ×2 (15:46→20:46)
[2021-09-02 16:07] VITALS: BP 110/51
[2021-09-02 20:09] VITALS: BP 124/76
[2021-09-02] MEDS ORDERED: MONTELUKAST 10 MG (SINGULAIR) TAB PO SCH (21:00)
[2021-09-03] VITALS: BP 104/61
[2021-09-03] MEDS: RT-ALBUTEROL/IPRATROPIUM 3 ML (DUONEB) VIAL INH SCH ×2 (02:55→07:35)
[2021-09-03 04:00] VITALS: BP 106/67
[2021-09-03] MEDS: methylPREDNISolone 40 MG/ML (Solu-MEDROL) VIAL IV SCH ×2 (05:53→11:30)
[2021-09-03 06:23] LABS: BASOPHILS % (AUTO) 0 % (0-10); EOSINOPHILS % (AUTO) 0 % (0-10); HEMATOCRIT 41 % (35-52); HEMOGLOBIN 13.2 g/dL (11.5-16.0); LYMPHOCYTES % (AUTO) 6 % (12-44); MEAN CORPUSCULAR HEMOGLOBIN 30 pg (25-34); MEAN CORPUSCULAR HGB CONC 32 g/dL (32-36); MEAN CORPUSCULAR VOLUME 92 fL (80-99); MEAN PLATELET VOLUME 9.4 fL (9.0-12.2); MONOCYTES # (AUTO) 0.6 10^3/uL (0.0-1.0); MONOCYTES % (AUTO) 3 % (0-12); NEUTROPHILS # (AUTO) 14.2 10^3/uL (1.8-7.8); NEUTROPHILS % (AUTO) 89 % (42-75); PLATELET COUNT 519 10^3/uL (130-400)
[2021-09-03 06:30] LABS: ALBUMIN 3.9 GM/DL (3.2-4.5); POTASSIUM 4.4 MMOL/L (3.6-5.0)
[2021-09-03 06:31] LABS: CALCIUM 9.3 MG/DL (8.5-10.1)
[2021-09-03 06:32] LABS: TOTAL PROTEIN 6.5 GM/DL (6.4-8.2)
[2021-09-03 06:34] LABS: BILIRUBIN,TOTAL 0.4 MG/DL (0.1-1.0)
[2021-09-03 06:36] LABS: CREATININE SERUM 0.65 MG/DL (0.60-1.30)
[2021-09-03 07:06] LABS: LYMPHOCYTES % (MANUAL) 6 %; MONOCYTES % (MANUAL) 4 %; NEUTROPHILS % (MANUAL) 90 %
[2021-09-03 07:41] VITALS: BP 126/68
[2021-09-03] MEDS: SENNA W/DOCUSATE (SENOKOT S) TABLET PO SCH (09:15)
[2021-09-03] MEDS: polyethylene glycoL POWDER 17 GM (MIRALAX) PACK PO SCH (09:15)
[2021-09-03] MEDS: ENOXAPARIN 40 MG/0.4 ML (LOVENOX) SYR SC SCH (09:34)
[2021-09-03] MEDS: LORATADINE (CLARITIN) 10 MG TAB PO SCH (09:34)
[2021-09-03 11:13] VITALS: BP 130/76
[2021-09-03] MEDS ORDERED: INHA1SPA32 MC (12:25)
[2021-09-03] MEDS ORDERED: LORA10TA7 PO (12:25)
[2021-09-03] MEDS ORDERED: MONT-40 PO (12:25)
[2021-09-03] MEDS ORDERED: PRED10TA22 PO (12:25)
[2021-09-03] MEDS ORDERED: FLUT9.9S NS (12:25)
[2021-09-03] MEDS ORDERED: FLUT12AE6 IH (12:25)
--- NOTE | 2021-09-03 12:25 | Discharge Summary ---
Discharge Summary Hospital Course Was the Problem List Reviewed?: Yes Problems/Dx: (1) Status asthmaticus (2) Failure of outpatient treatment Status: Acute Hospital Course Date of Admission: Sep 02, 2021 at 06:58 Admission Diagnosis : Family Physician/Provider: Lindsay Montelongo DO Date of Discharge: 09/03/21 Discharge Diagnosis: Status asthmaticus Hospital Course: Short course after admitted for status asthmaticus. IV steroids initiated. Patient resolved and was deemed stable for discharge on long taper steroids. Singulair and Claritin and Flonase and Advair with spacer initiated. Labs and Pending Lab Test: Laboratory Tests 09/03/21 05:52: White Blood Count 16.0H, Red Blood Count 4.45, Hemoglobin 13.2, Hematocrit 41, Mean Corpuscular Volume 92, Mean Corpuscular Hemoglobin 30, Mean Corpuscular Hemoglobin Concent 32, Red Cell Distribution Width 13.9, Platelet Count 519H, Mean Platelet Volume 9.4, Immature Granulocyte % (Auto) 1, Neutrophils (%) (Auto) 89H, Lymphocytes (%) (Auto) 6L, Monocytes (%) (Auto) 3, Eosinophils (%) (Auto) 0, Basophils (%) (Auto) 0, Neutrophils # (Auto) 14.2H, Lymphocytes # (Auto) 1.0, Monocytes # (Auto) 0.6, Eosinophils # (Auto) 0.0, Basophils # (Auto) 0.0, Immature Granulocyte # (Auto) 0.2H, Neutrophils % (Manual) 90, Lymphocytes % (Manual) 6, Monocytes % (Manual) 4, Sodium Level 140, Potassium Level 4.4, Chloride Level 104, Carbon Dioxide Level 21, Anion Gap 15H, Blood Urea Nitrogen 16, Creatinine 0.65, Estimat Glomerular Filtration Rate 107, BUN/Creatinine Ratio 25, Glucose Level 134H, Calcium Level 9.3, Corrected Calcium 9.4, Total Bilirubin 0.4, Aspartate Amino Transf (AST/SGOT) 11, Alanine Aminotransferase (ALT/SGPT) 30, Alkaline Phosphatase 57, Total Protein 6.5, Albumin 3.9 Home Meds Active Flonase Allergy Relief (Fluticasone Propionate) 9.9 Ml [place].susp 2 [place] NS DAILY 2 SPRAYS PER NOSTRIL DAILY X 2 DAYS THEN 1 SPRAY DAILY Prednisone 10 Mg Tab.ds.pk 10 Mg PO DAILY Take 6 tabs(60mg)daily,decrease by 1 tab(10mg)every other day. Compact Space Chamber (Inhaler, Assist Devices) 1 Each Spacer Each MC BID Advair Hfa 230-21 Mcg Inhaler (Fluticasone/Salmeterol) 12 Gm Hfa.aer.ad 12 Gm IH BID Loratadine 10 Mg Tablet 10 Mg PO DAILY Montelukast Sodium 10 Mg Tablet 10 Mg PO HS Albuterol Sulfate 2.5 Mg/3 Ml Vial.neb 2.5 Mg INH Q4H PRN Combivent Respimat Inhal [place] (Albuterol/Ipratropium) 4 Gm Aero 2 Puff IH Q6H Epipen (Epinephrine) 0.3 Mg/0.3 Ml Auto.injct 0.3 Mg IJ PRN PRN Reported Albuterol Sulfate 2.5 Mg/0.5 Ml Vial.neb 2.5 Mg INH Q4H PRN Advair 500-50 Diskus (Fluticasone/Salmeterol) 1 Each Blst.w.dev 1 Each IH BID Combivent Respimat Inhal [place] (Albuterol/Ipratropium) 4 Gm Aero 1 Puff IH QID Hydroxyzine HCl 25 Mg Tablet 25 Mg PO Q8H PRN Assessment/Pt Instructions PCP this week Discharge Planning: <30 minutes discharge planning Discharge Instructions Discharge Diet: No Restrictions Activity as Tolerated: Yes Discharge Physical Examination Vital Signs Vital Signs Date Time Temp Pulse Resp B/P (MAP) Pulse Ox O2 Delivery O2 Flow Rate FiO2 09/03/21 11:13 36.7 116 18 130/76 (94) 96 Room Air General Appearance: No Apparent Distress, WD/WN, Chronically ill Allergies: Coded Allergies: aspirin (Verified Allergy, Unknown, 05/17/20) ibuprofen (Verified Allergy, Unknown, shortness of breath, 11/22/18) naproxen (Verified Allergy, Unknown, 10/01/18) SHORTNESS OF BREATH Discharge Summary Date of Admission Sep 02, 2021 at 06:58 Date of Discharge Discharge Date: Sep 03, 2021 Admission Diagnosis Assessment: Status asthmaticus History of illicit drug use Plan: Moved to fourth floor IV steroids Nebulizers Monitor closely Discharge Diagnosis (1) Status asthmaticus (2) Failure of outpatient treatment Status: Acute GURVINDER HART DO Sep 03, 2021 12:25
== END 2021-09-03 13:00 | disposition home or self-care (01) | DRG 203 ==
LOC: EDUNIT# 04:41 → ER 04:45 → CSD 06:58 → 4TH 14:22
PROVIDERS: ADMIT Internal Medicine; ATTEND Internal Medicine
DX: J45.902 Unspecified asthma with status asthmaticus (principal); J70.8 Respiratory conditions due to other specified external agents; F17.210 Nicotine dependence, cigarettes, uncomplicated; E11.9 Type 2 diabetes mellitus without complications; G47.30 Sleep apnea, unspecified; F41.9 Anxiety disorder, unspecified; F31.9 Bipolar disorder, unspecified; A60.00 Herpesviral infection of urogenital system, unspecified; F15.90 Other stimulant use, unspecified, uncomplicated; Z88.6 Allergy status to analgesic agent; Z79.899 Other long term (current) drug therapy; Z79.52 Long term (current) use of systemic steroids; T39.015A Adverse effect of aspirin, initial encounter
CPT/HCPCS: 36415; 71045; 80053; 80306; 80320; 83735; 83880; 84703; 85007; 85025; 85027; 87636; 93005; 93041; 94640; 94760

== ENCOUNTER 2021-11-02 22:17 | Emergency (ER) | payer MEDICAID ==
[~2021-11-02] VITALS: Ht 160 cm; Wt 73.9 kg
[~2021-11-02 22:17] MED LIST changes: +FLUT12AE6 IH; +FLUT9.9S NS; +INHA1SPA32 MC; +LORA10TA7 PO; +MONT-40 PO
[2021-11-02 22:20] VITALS: BP 144/102
--- NOTE | 2021-11-02 22:29 | ED Cough/URI ---
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) STATES SHE HAS BEEN HAVING SYMPTOMS FOR THE LAST 3 DAYS PT HAS HAD KNOWN CLOSE EXPOSURE TO COVID IN THE LAST WEEK--WAS AT A FAMILY GATHERING AND NIECE WAS SICK AND TESTED + FOR COVID PT HAS NOT HAD COVID OR FLU VACCINES PT HAS ASTHMA AND "SAMTER'S TRAID" C/O NON-PRODUCTIVE COUGH C/O SHORTNESS OF BREATH C/O HEADACHE C/O BODY ACHES HAD NAUSEA AND VOMITED JUST PRIOR TO ARRIVAL HAS NOT CHECKED TEMP HAS CHRONIC DECREASED TASTE AND 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 DOES NOT HAVE A SPACER, DID NOT ATTEMPT TO GET IT REFILLED TODAY USED ALBUTEROL NEBULIZER X1 TODAY JUST PRIOR TO ARRIVAL--STATES IT MADE IT WORSE HAS NOT TAKEN ANYTHING ELSE FOR SYMPTOMS PT IS A SMOKER OF CIGARETTES, AND SMOKES METH ON A REGULAR BASIS PT WITH MULTIPLE VISITS FOR RESPIRATORY COMPLAINTS BOYFRIEND IS ALSO ILL WITH SAME SYMPTOMS, HE IS NOT VACCINATED FOR COVID OR FLU EITHER DOES NOT KNOW WHEN LMP WAS--THINKS WAS SOMETIME IN AUGUST, DOES NOT REMEMBER IF SHE HAD ONE IN SEPTEMBER. NO CONTROL. PCP:BRENDAN-IRENA Allergies and Home Medications Allergies Coded Allergies: aspirin (Verified Allergy, Unknown, 05/17/20) ibuprofen (Verified Allergy, Unknown, shortness of breath, 11/22/18) naproxen (Verified Allergy, Unknown, 10/01/18) SHORTNESS OF BREATH Patient Home Medication List Home Medication List Reviewed: Yes Albuterol Sulfate (Albuterol Sulfate) 2.5 Mg/0.5 Ml Vial.neb, 2.5 MG INH Q4H PRN for SHORTNESS OF BREATH, (Reported) Entered as Reported by: MILES FONSECA on 05/19/20 0837 Albuterol Sulfate (Albuterol Sulfate) 2.5 Mg/3 Ml Vial.neb, 2.5 MG INH Q4H PRN for WHEEZING Prescribed by: YVETTE WILLINGHAM on 08/25/21 0224 Albuterol/Ipratropium (Combivent Respimat Inhal [place]) 4 Gm Aero, 1 PUFF IH QID, (Reported) Entered as Reported by: MILES FONSECA on 05/19/20 0837 Albuterol/Ipratropium (Combivent Respimat Inhal [place]) 4 Gm Aero, 2 PUFF IH Q6H Prescribed by: YVETTE WILLINGHAM on 08/25/21 022 Budesonide (Pulmicort) 1 Mg/2 Ml Ampul.neb, 1 MG IH BID Prescribed by: SALENA MONTERO on 11/02/212326 Epinephrine (Epipen) 0.3 Mg/0.3 Ml Auto.injct, 0.3 MG IJ PRN PRN for allergy/anaphylaxis Prescribed by: TANESHA LEIVA on 05/19/20 1241 Fluticasone Propionate (Flonase Allergy Relief) 9.9 Ml [place].susp, 2 SPRAY NS DAILY Prescribed by: GURVINDER HART on 09/03/21 1225 Fluticasone/Salmeterol (Advair Hfa 230-21 Mcg Inhaler) 12 Gm Hfa.aer.ad, 12 GM IH BID Prescribed by: GURVINDER HART on 09/03/21 1225 Hydroxyzine HCl (Hydroxyzine HCl) 25 Mg Tablet, 25 MG PO Q8H PRN for ANXIETY, (Reported) Entered as Reported by: MILES FONSECA on 05/19/20836 Inhaler, Assist Devices (Compact Space Chamber) 1 Each Spacer, EACH MC BID, (DME) Prescribed by: GURVINDER HART on 09/03/21 1225 Ipratropium/Albuterol Sulfate (Iprat-Albut 0.5-3(2.5) mg/3 ml) 3 Ml Ampul.neb, 3 ML IH Q4H PRN for SHORTNESS OF BREATH Prescribed by: SALENA MONTERO on 11/02/212326 Loratadine (Loratadine) 10 Mg Tablet, 10 MG PO DAILY Prescribed by: GURVINDER HART on 09/03/21 1225 Montelukast Sodium (Montelukast Sodium) 10 Mg Tablet, 10 MG PO HS Prescribed by: GURVINDER HART on 09/03/21 1225 Prednisone (Prednisone) 10 Mg Tab.ds.pk, 10 MG PO DAILY Prescribed by: GURVINDER HART on 09/03/21 1225 Prednisone (Prednisone) 10 Mg Tab.ds.pk, 10 MG PO DAILY Prescribed by: SALENA MONTERO on 11/02/21 2356 Review of Systems Review of Systems Constitutional: no symptoms reported EENTM: nose congestion; No throat pain Respiratory: see HPI, cough, short of breath Cardiovascular: no symptoms reported Gastrointestinal: no symptoms reported Genitourinary: no symptoms reported Musculoskeletal: no symptoms reported Skin: no symptoms reported Psychiatric/Neurological: See HPI, Headache Past Yjgpfji-Gfjgre-Vxejfe Hx Patient Social History Tobacco Use?: Yes Tobacco type used: Cigarettes Substance use?: Yes Substance type: Methamphetamine Substance frequency: Once in a while Alcohol Use?: Yes Immunizations Up To Date Tetanus Booster (TDap): Unknown PED Vaccines UTD: Yes Seasonal Allergies Seasonal Allergies: Yes Past Medical History Surgery/Hospitalization HX: csection, cyst removed off eye, nasal polyps removed Surgeries: Yes (Cyst removed on eye, D&C, CS x 2; NASAL POLYPS REMOVED) Section, Eye Surgery, Nose 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) Asthma, Sleep Apnea Cardiac: No Neurological: Yes Concussion Reproductive Disorders: Yes Female Reproductive Disorders: Ovarian Cyst, Polycystic Ovarian Dis Sexually Transmitted Disease: Yes (HSV2) HIV/AIDS: No Genitourinary: No Gastrointestinal: No Musculoskeletal: No Endocrine: Yes Diabetes, Non-Insulin dep HEENT: Yes (NASAL POLYPS) Loss of Vision: Denies Hearing Impairment: Denies Cancer: No Psychosocial: Yes (SUBSTANCE ABUSE) Anxiety, Bipolar, Depression Integumentary: No Blood Disorders: No Adverse Reaction/Blood Tranf: No Family Medical History Diabetes mellitus 19 MOTHER Hypertension 19 MOTHER Thyroid disease 19 MOTHER No Family History of: Asthma Dementia Myocardial infarction Respiratory disorder Seizure disorder No Pertinent Family Hx SOCIAL HISTORY: -OCCASIONAL ETOH -THC, HX OF METH USE--STATES SHE SMOKED IT. UDS + FOR AMPHETAMINES 05/17/20, UDS + FOR METH AND AMPHETAMINES 10/31/20, 11/02/21 -OCCASIONALLY SMOKES CIGARETTES Physical Exam Vital Signs - First Documented 11/02/21 22:20 Temp 36.2 Pulse 100 Resp 22 B/P (MAP) 144/102 (116) Pulse Ox 95 O2 Delivery Room Air Capillary Refill : Height: 5'3.00" Weight: 160lbs. 0.0oz. [id number]; 30.58 BMI Method:Stated General Appearance: WD/WN, other (SLIGHTLY DYSPNEIC, BUT TALKS RAPDILY IN FULL SENTENCES AT LENGTH. REEKS OF CIGARETTES) HEENT: PERRL/EOMI, normal ENT inspection, TMs normal, pharynx normal, other (EXCEPT NASAL CONGESTION, CLEAR POST NASAL DRAINAGE. ) Neck: normal inspection Respiratory: normal breath sounds, no accessory muscle use; No wheezing; other (SLIGHTLY DYSPNEIC) Cardiovascular: normal peripheral pulses, regular rate, rhythm, no edema, no JVD, no murmur Gastrointestinal: soft Extremities: no pedal edema, normal capillary refill Neurologic/Psychiatric: no motor/sensory deficits, alert, normal mood/affect, oriented x 3 Skin: normal color, warm/dry Progress/Results/Core Measures Suspected Sepsis SIRS Temperature: Pulse: Respiratory Rate: Blood Pressure / Mean: Results/Orders Lab Results Laboratory Tests Test 11/02/21 22:27 11/02/21 22:44 Range/Units Influenza Type A Antigen NEGATIVE NEGATIVE Influenza Type B Antigen NEGATIVE NEGATIVE SARS-CoV-2 RNA (RT-PCR) Not Detected Negative Urine Test NEGATIVE NEGATIVE Urine Opiates Screen NEGATIVE NEGATIVE Urine Oxycodone Screen NEGATIVE NEGATIVE Urine Methadone Screen NEGATIVE NEGATIVE Urine Propoxyphene Screen NEGATIVE NEGATIVE Urine Barbiturates Screen NEGATIVE NEGATIVE Ur Tricyclic Antidepressants Screen NEGATIVE NEGATIVE Urine Phencyclidine Screen NEGATIVE NEGATIVE Urine Amphetamines Screen POSITIVE H NEGATIVE Urine Methamphetamines Screen POSITIVE H NEGATIVE Urine Benzodiazepines Screen NEGATIVE NEGATIVE Urine Cocaine Screen NEGATIVE NEGATIVE Urine Cannabinoids Screen NEGATIVE NEGATIVE My Orders Orders - SALENA MONTERO DO Covid 19 Inhouse Test (11/02/21 22:20) Chest 1 View, Ap/Pa Only (11/02/21 22:20) Isolation Central Supply Req (11/02/21 22:20) Prednisone Tablet (Deltasone Tablet) (11/02/21 22:42) Drug Screen Stat (Urine) (11/02/21 22:52) Hcg,Qualitative Urine (11/02/21 22:52) Prednisone Tablet (Deltasone Tablet) (11/02/21 23:00) Influenza A & B Antigens (11/02/21 22:27) Coronavirus Sars-Cov-2 So 2019 (11/02/21 22:27) Albuterol/Ipra Inhalation Soln (Duoneb I (11/02/21 23:45) Budesonide Inhalation Solution (Pulmicor (11/03/21 08:00) Budesonide Inhalation Solution (Pulmicor (11/02/21 23:31) Albuterol/Ipra Inhalation Soln (Duoneb I (11/02/21 23:31) Medications Given in ED Current Medications Medications Dose Ordered Sig/Kemi Route Start Time Stop Time Status Last Admin Dose Admin Albuterol/ Ipratropium 6 ml ONCE ONCE INH 11/02/21 23:45 11/02/21 23:41 DC 11/02/21 23:34 6 ML Prednisone 60 mg ONCE ONCE PO 11/02/21 23:00 11/02/21 23:01 DC 11/02/21 22:56 60 MG Vital Signs/I&O 11/02/21 11/02/21 11/02/21 22:20 22:39 23:39 Temp 36.2 Pulse 100 98 Resp 22 18 B/P (MAP) 144/102 (116) Pulse Ox 95 95 O2 Delivery Room Air Room Air Room Air Capillary Refill : Progress Note : Progress Note PLACED IN ISOLATION ROOM PPE WORN COVID AND FLU TESTING DONE O2 SAT 95% ON ROOM AIR. GIVEN PREDNISONE PO NO COUGH NO HYPOXIA NO FEVER DURING ER STAY NO DETERIORATION IN PT'S CONDITION SENT HOME WITH SPACER, PULMICORT AND DUONEB AMPULES PT STATES SHE FEELS BETTER AT DISMISSAL. Diagnostic Imaging Comments CXR--NO ACUTE PROCESS, PER RADIOLOGIST REPORT AT 2304 Reviewed: Reviewed by Me Departure Impression Primary Impression: Acute asthma exacerbation Additional Impressions: Person under investigation for COVID-19 Close exposure to 2019 novel coronavirus Methamphetamine use Disposition: HOME, SELF-CARE Condition: Improved Departure-Patient Inst. Decision time for Depature: 23:24 Referrals: [facility] Patient Instructions: Avoiding Asthma Triggers, Rescue vs Controller Inhalers, COVID-19 Overview, Asthma, Adult ED Add. Discharge Instructions: NO SMOKING OF ANY KIND TYLENOL NEEDED FOR PAIN OR FEVER MUCINEX DM FOR COUGH AND CONGESTION USE FLONASE OR NASACORT NASAL SPRAY FOR NASAL CONGESTION USE DUO NEB SOLUTION IN NEBULIZER EVERY 4 HOURS NEEDED USE PULMICORT IN NEBULIZER TWICE A DAY EVERY DAY COOL MIST VAPORIZER FOLLOW UP WITH [facility] IN 2-3 DAYS FOR FURTHER CARE AND POSSIBLE RETESTING FOR COVID AND FLU QUARANTINE FOR 5 DAYS, AND THEN IF YOUR SYMPTOMS ARE IMPROVING, YOU WILL NEED TO WEAR A MASK AT TIMES WHEN YOU LEAVE THE HOUSE FOR AN ADDITIONAL 5 DAYS Scripts Budesonide (Pulmicort) 1 Mg/2 Ml Ampul.neb 1 MG IH BID, #1 EA Prov: SALENA MONTERO DO 11/02/21 Ipratropium/Albuterol Sulfate (Iprat-Albut 0.5-3(2.5) mg/3 ml) 3 Ml Ampul.neb 3 ML IH Q4H PRN for SHORTNESS OF BREATH, #1 EACH Prov: SALENA MONTERO DO 11/02/21 Prednisone (Prednisone) 10 Mg Tab.ds.pk 10 MG PO DAILY, #42 EA Take 6 tabs(60mg)daily,decrease by 1 tab(10mg)every other day. Prov: SALENA MONTERO DO 11/02/21 SALENA MONTERO DO Nov 02, 2021 22:29
[2021-11-02] MEDS ORDERED: predniSONE 20 MG TAB ONE (22:42)
[2021-11-02] MEDS ORDERED: predniSONE 20 MG TAB PO ONE (23:00)
--- NOTE | 2021-11-02 23:01 | Diagnostic Imaging Report ---
INDICATION: COUGH,DYSPNEA. TECHNIQUE: Single view chest 10:51 PM. CORRELATION STUDY: 09/02/2021 FINDINGS: The heart size, mediastinal configuration and pulmonary vascularity are within normal limits. The lungs are clear with no consolidating infiltrate. There is no significant effusion or pneumothorax. IMPRESSION: 1. Negative for acute abnormality of the chest. Dictated by: Dictated on workstation # [id number]
[2021-11-02 23:16] LABS: AMPHETAMINE SCREEN, URINE POSITIVE (NEGATIVE); BARBITURATE SCREEN URINE NEGATIVE (NEGATIVE); BENZODIAZEPINES SCREEN URINE NEGATIVE (NEGATIVE); CANNABINOID SCREEN, URINE NEGATIVE (NEGATIVE); COCAINE SCREEN URINE NEGATIVE (NEGATIVE); HCG,QUALITATIVE URINE NEGATIVE (NEGATIVE); METHADONE STAT NEGATIVE (NEGATIVE); METHAMPHETAMINE SCREEN URINE S POSITIVE (NEGATIVE); OPIATE SCREEN URINE NEGATIVE (NEGATIVE); OXYCODONE STAT NEGATIVE (NEGATIVE); PROPOXYPHENE STAT NEGATIVE (NEGATIVE); TRICYCLIC ANTIDEPRESSANTS SCRE NEGATIVE (NEGATIVE)
[2021-11-02] MEDS ORDERED: PRED10TA22 PO (23:27)
[2021-11-02] MEDS ORDERED: IPRA3AMP31 IH (23:27)
[2021-11-02] MEDS ORDERED: BUDE1AMP IH (23:27)
[2021-11-02] MEDS ORDERED: RT-BUDESONIDE NEBS 0.5 MG/2ML (PULMICORT) AMP ONE (23:31)
[2021-11-02] MEDS ORDERED: RT-ALBUTEROL/IPRATROPIUM 3 ML (DUONEB) VIAL ONE (23:31)
[2021-11-02] MEDS ORDERED: RT-ALBUTEROL/IPRATROPIUM 3 ML (DUONEB) VIAL INH ONE (23:45)
[2021-11-03] MEDS ORDERED: RT-BUDESONIDE NEBS 0.5 MG/2ML (PULMICORT) AMP INH SCH (08:00)
== END 2021-11-02 23:40 | disposition home or self-care (01) ==
LOC: EDUNIT# 22:17 → ER 22:18
DX: J45.901 Unspecified asthma with (acute) exacerbation (principal); F15.90 Other stimulant use, unspecified, uncomplicated; G47.30 Sleep apnea, unspecified; E11.9 Type 2 diabetes mellitus without complications; F41.9 Anxiety disorder, unspecified; Z20.822 Contact with and (suspected) exposure to COVID-19; Z72.0 Tobacco use; Z87.820 Personal history of traumatic brain injury; Z79.899 Other long term (current) drug therapy
CPT/HCPCS: 71045; 80306; 84703; 87635; 87636; 87804

== ENCOUNTER 2021-11-03 23:31 | Emergency (ER) | payer MEDICAID ==
[~2021-11-03] VITALS: Ht 160 cm; Wt 74.0 kg
[~2021-11-03 23:31] MED LIST changes: +BUDE1AMP IH; +IPRA3AMP31 IH
--- NOTE | 2021-11-03 23:54 | ED Respiratory ---
General Chief Complaint: Respiratory Problems Stated Complaint: SOB Nursing Triage Note: INCREASED SOA X30 MIN Source: patient Exam Limitations: no limitations History of Present Illness Date Seen by Provider: Nov 03, 2021 Time Seen by Provider: 23:45 Initial Comments Patient is a 31-year-old female who presents to the emergency department with a chief complaint of shortness of breath, "asthma". 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 She was here yesterday evening with similar complaints. Received prescriptions for a prednisone taper, Pulmicort and albuterol. Patient states her insurance will not fill her rescue inhaler for another month. She follows with pulmonology clinic in [place], the last visit she had was about 3 or 4 months ago. She states she has missed 1 appointment. Patient denies smoking any cigarettes today. She thinks maybe her house might be the trigger for her asthma. She did have to walk partly here. She is quite dyspneic speaking in 4-5 word sentences. She does endorse a productive cough of clear sputum that she reports is "stringy". No fevers or chills. She tested negative for Covid yesterday. No other complaints of chest pain, abdominal pain, nausea vomiting, diarrhea or urinary complaints. Urine test was negative as well yesterday. She did not take her oral prednisone today. All other review of systems reviewed and negative except as stated. Timing/Duration: this evening, getting worse Severity: moderate Prior Episodes/Possible Cause: frequent episodes Associated Symptoms: nasal congestion, shortness of breath Allergies and Home Medications Allergies Coded Allergies: aspirin (Verified Allergy, Unknown, 05/17/20) ibuprofen (Verified Allergy, Unknown, shortness of breath, 11/22/18) naproxen (Verified Allergy, Unknown, 10/01/18) SHORTNESS OF BREATH Patient Home Medication List Home Medication List Reviewed: Yes Albuterol Sulfate (Albuterol Sulfate) 2.5 Mg/0.5 Ml Vial.neb, 2.5 MG INH Q4H PRN for SHORTNESS OF BREATH, (Reported) Entered as Reported by: MILES FONSECA on 05/19/20 0882 Albuterol Sulfate (Albuterol Sulfate) 2.5 Mg/3 Ml Vial.neb, 2.5 MG INH Q4H PRN for WHEEZING Prescribed by: YVETTE WILLINGHAM on 08/25/21 022 Albuterol/Ipratropium (Combivent Respimat Inhal [place]) 4 Gm Aero, 1 PUFF IH QID, (Reported) Entered as Reported by: MILES FONSECA on 05/19/20 0837 Albuterol/Ipratropium (Combivent Respimat Inhal [place]) 4 Gm Aero, 2 PUFF IH Q6H Prescribed by: YVETTE WILLINGHAM on 08/25/21 0224 Budesonide (Pulmicort) 1 Mg/2 Ml Ampul.neb, 1 MG IH BID Prescribed by: SALENA MONTERO on 11/02/212326 Epinephrine (Epipen) 0.3 Mg/0.3 Ml Auto.injct, 0.3 MG IJ PRN PRN for allergy/anaphylaxis Prescribed by: TANESHA LEIVA on 05/19/20 1241 Fluticasone Propionate (Flonase Allergy Relief) 9.9 Ml [place].susp, 2 SPRAY NS DAILY Prescribed by: GURVINDER HART on 09/03/21 1225 Fluticasone/Salmeterol (Advair Hfa 230-21 Mcg Inhaler) 12 Gm Hfa.aer.ad, 12 GM IH BID Prescribed by: GURVINDER HART on 09/03/21 1225 Guaifenesin/Codeine (Robitussin Ac (Codeine) Syrup) 10 Ml Syrp, 10 ML PO Q8H PRN for cough Prescribed by: YVETTE WILLINGHAM on 11/04/21 0230 Hydroxyzine HCl (Hydroxyzine HCl) 25 Mg Tablet, 25 MG PO Q8H PRN for ANXIETY, (Reported) Entered as Reported by: MILES FONSECA on 05/19/20 0837 Inhaler, Assist Devices (Compact Space Chamber) 1 Each Spacer, EACH MC BID, (DME) Prescribed by: GURVINDER HART on 09/03/21 1225 Ipratropium/Albuterol Sulfate (Iprat-Albut 0.5-3(2.5) mg/3 ml) 3 Ml Ampul.neb, 3 ML IH Q4H PRN for SHORTNESS OF BREATH Prescribed by: SALENA MONTERO on 11/02/212326 Loratadine (Loratadine) 10 Mg Tablet, 10 MG PO DAILY Prescribed by: GURVINEDR HART on 09/03/21 1225 Montelukast Sodium (Montelukast Sodium) 10 Mg Tablet, 10 MG PO HS Prescribed by: GURVINDER HART on 09/03/21 1225 Prednisone (Prednisone) 10 Mg Tab.ds.pk, 10 MG PO DAILY Prescribed by: GURVINDER HART on 09/03/21 1225 Prednisone (Prednisone) 10 Mg Tab.ds.pk, 10 MG PO DAILY Prescribed by: SALENA MONTERO on 11/02/21 2011 Review of Systems Review of Systems Constitutional: see HPI EENTM: nose congestion Respiratory: cough, dyspnea on exertion, phlegm, short of breath Cardiovascular: no symptoms reported Gastrointestinal: no symptoms reported Genitourinary: no symptoms reported : No Musculoskeletal: no symptoms reported Skin: no symptoms reported All Other Systems Reviewed Negative Unless Noted: Yes Past Cquueqr-Nynqsj-Diqnat Hx Patient Social History Tobacco Use?: Yes Substance use?: Yes Substance type: Methamphetamine Alcohol Use?: Yes Immunizations Up To Date Tetanus Booster (TDap): Unknown PED Vaccines UTD: Yes Seasonal Allergies Seasonal Allergies: Yes Past Medical History Surgery/Hospitalization HX: Asthma history, 3 c-sections, D&C, NIDDM, ANX/DEP, BIPOLAR, NASAL POLYPS Surgeries: Yes (Cyst removed on eye, D&C, CS x 2; NASAL POLYPS REMOVED) Section, Eye Surgery, Nose 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) Asthma, Sleep Apnea Cardiac: No Neurological: Yes Concussion Reproductive Disorders: Yes Female Reproductive Disorders: Ovarian Cyst, Polycystic Ovarian Dis Sexually Transmitted Disease: Yes (HSV2) HIV/AIDS: No Genitourinary: No Gastrointestinal: No Musculoskeletal: No Endocrine: Yes Diabetes, Non-Insulin dep HEENT: Yes (NASAL POLYPS) Loss of Vision: Denies Hearing Impairment: Denies Cancer: No Psychosocial: Yes (SUBSTANCE ABUSE) Anxiety, Bipolar, Depression Integumentary: No Blood Disorders: No Adverse Reaction/Blood Tranf: No Family Medical History Diabetes mellitus 19 MOTHER Hypertension 19 MOTHER Thyroid disease 19 MOTHER No Family History of: Asthma Dementia Myocardial infarction Respiratory disorder Seizure disorder No Pertinent Family Hx SOCIAL HISTORY: -OCCASIONAL ETOH -THC, HX OF METH USE--STATES SHE SMOKED IT. UDS + FOR AMPHETAMINES 05/17/20, UDS + FOR METH AND AMPHETAMINES 10/31/20, 11/02/21 -OCCASIONALLY SMOKES CIGARETTES Physical Exam Vital Signs - First Documented 11/03/21 23:37 Temp 36.1 Pulse 123 Resp 16 B/P (MAP) 135/89 (104) Pulse Ox 91 O2 Delivery Room Air Capillary Refill : Less Than 3 Seconds Height: 5'3.00" Weight: 160lbs. 0.0oz. 72.208015va; 28.00 BMI Method:Stated General Appearance: WD/WN, moderate distress Eyes: Bilateral Eye Normal Inspection, Bilateral Eye PERRL, Bilateral Eye EOMI HEENT: PERRL/EOMI Neck: normal inspection Respiratory: wheezing (Tight expiratory wheezes with overall poor air movement throughout), other (Oxygen saturations 89 to 91% on room air. Patient states she normally sits at about 91%; increased work of breathing without significant distress) Cardiovascular: regular rate, rhythm (Tachycardic 120) Gastrointestinal: non tender, soft Extremities: normal range of motion, normal inspection Neurologic/Psychiatric: alert, normal mood/affect, oriented x 3 Skin: normal color, warm/dry Progress/Results/Core Measures Suspected Sepsis SIRS Temperature: Pulse: 123 Respiratory Rate: 16 Blood Pressure 135 /89 Mean: 104 Results/Orders My Orders Orders - YVETTE WILLINGHAM MD Albuterol Pre-Mix Nebs (Rt) (Proventil (11/04/21 00:00) Magnesium 1 Gm/100 Ml Ivpb (Magnesium [place] (11/04/21 00:00) Methylprednisolone Sod Succ (Solu-Medrol (11/04/21 00:00) Svn Small Volume Nebulizer (11/03/21 23:49) Communication For Respiratory (11/03/21 23:49) Albuterol Pre-Mix Nebs (Rt) (Proventil (11/04/21 00:30) Svn Small Volume Nebulizer (11/04/21 00:30) Albuterol/Ipra Inhalation Soln (Duoneb I (11/04/21 00:30) Svn Small Volume Nebulizer (11/04/21 00:30) Guaifenesin/Codeine Syrup (Robitussin Ac (11/04/21 01:47) Medications Given in ED Current Medications Medications Dose Ordered Sig/Kemi Route Start Time Stop Time Status Last Admin Dose Admin Albuterol Sulfate 2.5 mg ONCE ONCE INH 11/04/21 00:00 11/04/21 00:01 DC 11/03/21 23:58 2.5 MG Albuterol Sulfate 10 mg ONCE ONCE INH 11/04/21 00:30 11/04/21 00:31 DC 11/04/21 00:47 10 MG Albuterol/ Ipratropium 3 ml ONCE ONCE INH 11/04/21 00:30 11/04/21 00:31 DC 11/04/21 00:47 3 ML Magnesium Sulfate/ Dextrose 100 ml @ 100 mls/hr ONCE ONCE IV 11/04/21 00:00 11/04/21 00:59 DC 11/03/21 23:58 100 MLS/HR Methylprednisolone Sodium Succinate 125 mg ONCE ONCE IVP 11/04/21 00:00 11/04/21 00:01 DC 11/03/21 23:58 125 MG Vital Signs/I&O 11/03/21 11/04/21 23:37 00:47 Temp 36.1 Pulse 123 Resp 16 B/P (MAP) 135/89 (104) Pulse Ox 91 93 O2 Delivery Room Air Room Air Capillary Refill : Less Than 3 Seconds Blood Pressure Mean: 104 Progress Note #1: Time: 23:54 Progress Note Chest x-ray reviewed from yesterday, no infiltrates or other significant pathology. Progress Note #2: Time: 01:48 Progress Note Patient reassessed, almost done with her hour-long albuterol with Atrovent. She is moving much more air not quite as wheezy. Has persistent cough. Quite tachycardic in the 130s most likely secondary to the albuterol. Oxygen saturations are up to 93 to 94%. She has about 10 minutes left. We will give her a little Robitussin with codeine cough syrup. I would anticipate after she is finished I will hold onto her for another 30 minutes and make sure she does not rebound back into wheezing. I have encouraged her to be compliant with her prednisone, use her inhalers as directed. Avoid tobacco smoke. She verbalized understanding. I have advised her to call the pulmonology clinic on Saturday for follow-up. She verbalized understanding, all questions are sought and answered. Progress Note #3: Time: 02:57 Progress Note resting comfortably. HR = 115. Sats sleeping 90-91%. no distress. Will send home with return precautions. Departure Impression Primary Impression: Acute asthma exacerbation Qualified Codes: J45.901 - Unspecified asthma with (acute) exacerbation Disposition: HOME, SELF-CARE Condition: Stable Departure-Patient Inst. Decision time for Depature: 02:27 Referrals: RICHY SOTO DO (PCP/Family) Primary Care Physician Patient Instructions: Asthma, Adult (DC) Add. Discharge Instructions: Continue your inhalers as prescribed. Be sure and keep taking your prednisone as prescribed previously. Avoid tobacco smoke. Follow up with the Pulmonology Clinic in [place]. Call your family doctor for a follow up appointment as well. Robitussin with Codeine syrup for cough as needed. Return to the Emergency Department for any new concerning or emergent complaints. Scripts Guaifenesin/Codeine (ROBITUSSIN AC (CODEINE) SYRUP) 10 Ml Syrp 10 ML PO Q8H PRN for cough, #120 ML Prov: YVETTE WILLINGHAM MD 11/04/21 Copy Copies To 1: IRCHY SOTO KATHRYN M MD Nov 03, 2021 23:54
[2021-11-04] MEDS ORDERED: MAGNESIUM 1 GM/100 ML IVPB 100 ML IV ONE
[2021-11-04] MEDS ORDERED: methylPREDNISolone 125 MG (Solu-MEDROL) VIAL IVP ONE
[2021-11-04] MEDS ORDERED: RT-ALBUTEROL SULF 2.5 MG/3 ML PRE-MIX VIAL INH ONE ×2 (00:30)
[2021-11-04] MEDS ORDERED: RT-ALBUTEROL/IPRATROPIUM 3 ML (DUONEB) VIAL INH ONE (00:30)
[2021-11-04] MEDS ORDERED: guaiFENesin/CODEINE (ROBITUSSIN AC) 10ML UDC PO STA (01:47)
[2021-11-04] MEDS ORDERED: GFCD10B PO (02:30)
[2021-11-04 03:00] VITALS: BP 107/51
== END 2021-11-04 03:02 | disposition home or self-care (01) ==
LOC: EDUNIT# 23:31 → ER 23:34
DX: J45.901 Unspecified asthma with (acute) exacerbation (principal); G47.30 Sleep apnea, unspecified; E11.9 Type 2 diabetes mellitus without complications; F41.9 Anxiety disorder, unspecified; Z87.820 Personal history of traumatic brain injury; Z79.899 Other long term (current) drug therapy
CPT/HCPCS: 94640; 94644

== ENCOUNTER 2022-02-08 03:42 | Emergency (ER) | payer MEDICAID ==
[~2022-02-08] VITALS: Ht 160 cm; Wt 76.3 kg
[2022-02-08] MEDS ORDERED: methylPREDNISolone 125 MG (Solu-MEDROL) VIAL IVP ONE (04:00)
[2022-02-08] MEDS ORDERED: MAGNESIUM 1 GM/100 ML IVPB 100 ML IV ONE (04:00)
[2022-02-08] MEDS ORDERED: RT-ALBUTEROL SULF 2.5 MG/3 ML PRE-MIX VIAL INH ONE (04:00)
--- NOTE | 2022-02-08 04:02 | ED Respiratory ---
General Chief Complaint: Respiratory Problems Stated Complaint: SOB Source: patient, family (mother) Exam Limitations: no limitations History of Present Illness Date Seen by Provider: February 08, 2022 Time Seen by Provider: 03:50 Initial Comments Patient is a 32-year-old female who presents to the emergency department today with a chief complaint of acute exacerbation of asthma/severe shortness of breath. Her symptoms have been coming on for about a week. Significantly worse the last 3 days. Up all night coughing. She has a history of "Samter's triad". She has not really been able to take any yrbw-phh-mfupckt medications for her cough. She states her cough is productive of "foamy sputum". No fevers or chills. Chronic sinus issues. No chest pain, abdominal pain, nausea vomiting or diarrhea. No sick contacts. She is not COVID vaccinated. She does see a chain testing machine operator in [place]. She is out of her albuterol nebulizer medication as of this evening. She has been out of her budesonide and has been unable to get it refilled. She is currently not on oral steroids. She presents in moderate respiratory distress. Sats are about 90% on room air. She smokes off and on. No history of intubation All other review of systems reviewed and negative except as stated Timing/Duration: week, getting worse Severity: moderate Prior Episodes/Possible Cause: frequent episodes Modifying Factors: Improves With Albuterol Inhaler, Improves With Albuterol Nebulizer; Worse With Coughing Associated Symptoms: cough, nasal congestion (chronic), shortness of breath, wheezing Allergies and Home Medications Allergies Coded Allergies: aspirin (Verified Allergy, Unknown, 05/17/20) ibuprofen (Verified Allergy, Unknown, shortness of breath, 11/22/18) naproxen (Verified Allergy, Unknown, 10/01/18) SHORTNESS OF BREATH Patient Home Medication List Home Medication List Reviewed: Yes Albuterol Sulfate (Albuterol Sulfate) 2.5 Mg/0.5 Ml Vial.neb, 2.5 MG INH Q4H PRN for SHORTNESS OF BREATH, (Reported) Entered as Reported by: MILES FONSECA on 05/19/20 0837 Albuterol Sulfate (Albuterol Sulfate) 2.5 Mg/3 Ml Vial.neb, 2.5 MG INH Q4H PRN for WHEEZING Prescribed by: YVETTE WILLINGHAM on 08/25/21 022 Albuterol/Ipratropium (Combivent Respimat Inhal [place]) 4 Gm Aero, 1 PUFF IH QID, (Reported) Entered as Reported by: MILES FONSECA on 05/19/20 0837 Albuterol/Ipratropium (Combivent Respimat Inhal [place]) 4 Gm Aero, 2 PUFF IH Q6H Prescribed by: YVETTE WILLINGHAM on 08/25/21 022 Budesonide (Pulmicort) 1 Mg/2 Ml Ampul.neb, 1 MG IH BID Prescribed by: SALENA MONTERO on 11/02/212326 Epinephrine (Epipen) 0.3 Mg/0.3 Ml Auto.injct, 0.3 MG IJ PRN PRN for allergy/anaphylaxis Prescribed by: TANESHA LEIVA on 05/19/20 1241 Fluticasone Propionate (Flonase Allergy Relief) 9.9 Ml [place].susp, 2 SPRAY NS DAILY Prescribed by: GURVINDER HART on 09/03/21 1225 Fluticasone/Salmeterol (Advair Hfa 230-21 Mcg Inhaler) 12 Gm Hfa.aer.ad, 12 GM IH BID Prescribed by: GURVINDER HART on 09/03/21 1225 Guaifenesin/Codeine (Robitussin Ac (Codeine) Syrup) 10 Ml Syrp, 10 ML PO Q8H PRN for cough Prescribed by: YVETTE WILLINGHAM on 11/04/21 0230 Hydroxyzine HCl (Hydroxyzine HCl) 25 Mg Tablet, 25 MG PO Q8H PRN for ANXIETY, (Reported) Entered as Reported by: MILES FONSECA on 05/19/20 08 Inhaler, Assist Devices (Compact Space Chamber) 1 Each Spacer, EACH MC BID, ( DME) Prescribed by: GURVINDER HART on 09/03/21 1225 Ipratropium/Albuterol Sulfate (Iprat-Albut 0.5-3(2.5) mg/3 ml) 3 Ml Ampul.neb, 3 ML IH Q4H PRN for SHORTNESS OF BREATH Prescribed by: SALENA MONTERO on 11/02/212326 Loratadine (Loratadine) 10 Mg Tablet, 10 MG PO DAILY Prescribed by: GURVINDER HART on 09/03/21 1225 Montelukast Sodium (Montelukast Sodium) 10 Mg Tablet, 10 MG PO HS Prescribed by: GURVINDER HART on 09/03/21 1225 Prednisone (Prednisone) 10 Mg Tab.ds.pk, 10 MG PO DAILY Prescribed by: GURVINDER HART on 09/03/21 1225 Prednisone (Prednisone) 10 Mg Tab.ds.pk, 10 MG PO DAILY Prescribed by: SALENA MONTERO on 11/02/21 8535 Review of Systems Review of Systems Constitutional: see HPI EENTM: nose congestion (chronic) Respiratory: cough, dyspnea on exertion, phlegm ("foamy"), short of breath, wheezing Cardiovascular: no symptoms reported Gastrointestinal: no symptoms reported Genitourinary: no symptoms reported Musculoskeletal: no symptoms reported Psychiatric/Neurological: Anxiety All Other Systems Reviewed Negative Unless Noted: Yes Past Vdooxxm-Ukpjml-Dijbib Hx Immunizations Up To Date Tetanus Booster (TDap): Unknown PED Vaccines UTD: Yes Seasonal Allergies Seasonal Allergies: Yes Past Medical History Surgery/Hospitalization HX: Asthma history, 3 c-sections, D&C, NIDDM, ANX/DEP, BIPOLAR, NASAL POLYPS Surgeries: Yes (Cyst removed on eye, D&C, CS x 2; NASAL POLYPS REMOVED) Section, Eye Surgery, Nose 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) Asthma, Sleep Apnea Cardiac: No Neurological: Yes Concussion Reproductive Disorders: Yes Female Reproductive Disorders: Ovarian Cyst, Polycystic Ovarian Dis Sexually Transmitted Disease: Yes (HSV2) HIV/AIDS: No Genitourinary: No Gastrointestinal: No Musculoskeletal: No Endocrine: Yes Diabetes, Non-Insulin dep HEENT: Yes (NASAL POLYPS) Loss of Vision: Denies Hearing Impairment: Denies Cancer: No Psychosocial: Yes (SUBSTANCE ABUSE) Anxiety, Bipolar, Depression Integumentary: No Blood Disorders: No Adverse Reaction/Blood Tranf: No Family Medical History Diabetes mellitus 19 MOTHER Hypertension 19 MOTHER Thyroid disease 19 MOTHER No Family History of: Asthma Dementia Myocardial infarction Respiratory disorder Seizure disorder No Pertinent Family Hx SOCIAL HISTORY: -OCCASIONAL ETOH -THC, HX OF METH USE--STATES SHE SMOKED IT. UDS + FOR AMPHETAMINES 05/17/20, UDS + FOR METH AND AMPHETAMINES 10/31/20, 11/02/21 -OCCASIONALLY SMOKES CIGARETTES Physical Exam Vital Signs - First Documented 02/08/22 03:57 Temp 36.8 Pulse 105 Resp 30 B/P (MAP) 130/96 (107) Pulse Ox 91 O2 Delivery Room Air Capillary Refill : Height: 5'3.00" Weight: 160lbs. 0.0oz. 72.489486xb; 28.00 BMI Method:Stated General Appearance: WD/WN, mild distress Eyes: Bilateral Eye Normal Inspection, Bilateral Eye PERRL, Bilateral Eye EOMI HEENT: PERRL/EOMI, other (moist mucous membranes) Neck: supple, normal inspection Respiratory: respiratory distress, decreased breath sounds, accessory muscle use, wheezing, other (sats 90% on RA) Cardiovascular: regular rate, rhythm Gastrointestinal: non tender, soft Extremities: non-tender, normal inspection, no pedal edema, no calf tenderness, normal capillary refill Neurologic/Psychiatric: alert, normal mood/affect, oriented x 3 Skin: normal color, warm/dry Progress/Results/Core Measures Suspected Sepsis SIRS Temperature: Pulse: Respiratory Rate: Blood Pressure / Mean: Results/Orders My Orders Orders - YVETTE WILLINGHAM MD Ed Iv/Invasive Line Start (02/08/22 03:56) Magnesium 1 Gm/100 Ml Ivpb (Magnesium [place] (02/08/22 04:00) Methylprednisolone Sod Succ (Solu-Medrol (02/08/22 04:00) Albuterol Pre-Mix Nebs (Rt) (Proventil (02/08/22 04:00) Svn Small Volume Nebulizer (02/08/22 03:56) Ipratropium Inhaler (Atrovent Inhaler) (02/08/22 07:00) Medications Given in ED Current Medications Medications Dose Ordered Sig/Kemi Route Start Time Stop Time Status Last Admin Dose Admin Albuterol Sulfate 10 mg ONCE ONCE INH 02/08/22 04:00 02/08/22 04:01 DC 02/08/22 04:03 10 MG Magnesium Sulfate/ Dextrose 100 ml @ 100 mls/hr ONCE ONCE IV 02/08/22 04:00 02/08/22 04:59 DC 02/08/22 04:11 100 MLS/HR Methylprednisolone Sodium Succinate 125 mg ONCE ONCE IVP 02/08/22 04:00 02/08/22 04:01 DC 02/08/22 04:11 125 MG Vital Signs/I&O 02/08/22 02/08/22 02/08/22 03:57 03:57 04:04 Temp 36.8 Pulse 105 Resp 30 B/P (MAP) 130/96 (107) Pulse Ox 91 92 O2 Delivery Room Air Room Air Room Air Capillary Refill : Progress Note : Time: 05:00 Progress Note Feeling much much better. No longer coughing. Completed her hour-long treatment. She has minimal wheeze. No increased work of breathing. Oxygen saturations are 94 to 96%. She is finishing up her gram of magnesium. She is scheduled to see her chain testing machine operator as well as an physician internist in the coming weeks. I have encouraged her to not smoke. She verbalized understanding. We will send her out on a prednisone taper. Departure Impression Primary Impression: Acute asthma exacerbation Qualified Codes: J45.901 - Unspecified asthma with (acute) exacerbation Disposition: HOME, SELF-CARE Condition: Improved Departure-Patient Inst. Decision time for Depature: 05:23 Referrals: [facility] (PCP) Primary Care Physician SARINA CHERY (Family) Primary Care Physician Add. Discharge Instructions: Drink plenty of fluids to stay well-hydrated. Prednisone taper over the next several days. Decrease by 1 tablet every day. Continue using your breathing treatments every 4-6 hours as previously instructed. Tylenol as needed for fever over 100.4. Try and avoid smoking. Return to the emergency department for any new, concerning or worsening complaints. Please keep your follow-up appointments for the lung doctor as well as the physician internist. Scripts Fexofenadine HCl (Delaney Allergy) 180 Mg Tablet 180 MG PO DAILY for 30 Days, #30 TAB Prov: YVETTE WILLINGHAM MD 02/08/22 Guaifenesin/Codeine (ROBITUSSIN AC (CODEINE) SYRUP) 10 Ml Syrp 10 ML PO Q8H PRN for cough, #120 ML Prov: YVETTE WILLINGHAM MD 02/08/22 Albuterol Sulfate (Albuterol Sulfate) 2.5 Mg/3 Ml (0.083 %) Vial.neb 2.5 MG INH Q4H PRN for WHEEZING, #50 EA 1 Refill Prov: YVETTE WILLINGHAM MD 02/08/22 Budesonide (Budesonide) 0.25 Mg/2 Ml Ampul.neb 0.25 MG IH Q6H, #60 EA Prov: YVETTE WILLINGHAM MD 02/08/22 Albuterol/Ipratropium (Combivent Respimat Inhal [place]) 20 Mcg-100 Mcg/Actuation Aero 1 PUFF IH Q6H, #1 EA Prov: YVETTE WILLINGHAM MD 02/08/22 Prednisone (Prednisone) 10 Mg Tab.ds.pk 10 MG PO DAILY, #21 EA Take 6 tabs(60mg)daily,decrease by 1 tab(10MG)daily. Prov: YVETTE WILLINGHAM MD 02/08/22 Copy Copies To 1: KATIE MOSS KATHRYN M MD February 08, 2022 04:02
[2022-02-08] MEDS ORDERED: PRED10TA22 PO (05:23)
[2022-02-08] MEDS ORDERED: ALBU2.5V4 INH (05:31)
[2022-02-08] MEDS ORDERED: GFCD10B PO (05:31)
[2022-02-08] MEDS ORDERED: IPRA4AER IH (05:31)
[2022-02-08] MEDS ORDERED: BUDE0.256 IH (05:31)
[2022-02-08] MEDS ORDERED: FEXO180T84 PO (05:31)
[2022-02-08] MEDS ORDERED: RX-ALBUTEROL INHALER 8.5 GM HFA (PROAIR) IH STA (05:51)
[2022-02-08] MEDS ORDERED: RX-ALBUTEROL INHALER 8.5 GM HFA (PROAIR) IH ONE (05:52)
[2022-02-08 05:56] VITALS: BP 131/88
[2022-02-08] MEDS ORDERED: IPRATROPIUM INHALER (ATROVENT) 12.9 GM INH SCH (07:00)
== END 2022-02-08 05:55 | disposition home or self-care (01) ==
LOC: EDUNIT# 03:42 → ER 03:44
DX: J45.901 Unspecified asthma with (acute) exacerbation (principal); F17.210 Nicotine dependence, cigarettes, uncomplicated; Z79.899 Other long term (current) drug therapy; Z28.310 Unvaccinated for COVID-19
CPT/HCPCS: 94640

== ENCOUNTER 2022-04-11 21:52 | Inpatient (IN) | payer MEDICAID ==
[~2022-04-11] VITALS: Ht 160 cm; Wt 85.0 kg
[~2022-04-11 21:52] MED LIST changes: +BUDE0.256 IH; +FEXO180T84 PO
[2022-04-11 22:42] LABS: BASOPHILS # (AUTO) 0.1 10^3/uL (0.0-0.1); BASOPHILS % (AUTO) 1 % (0-10); EOSINOPHILS # (AUTO) 0.6 10^3/uL (0.0-0.3); EOSINOPHILS % (AUTO) 5 % (0-10); HEMATOCRIT 41 % (35-52); HEMOGLOBIN 13.3 g/dL (11.5-16.0); LYMPHOCYTES # (AUTO) 3.4 10^3/uL (1.0-4.0); LYMPHOCYTES % (AUTO) 32 % (12-44); MEAN CORPUSCULAR HEMOGLOBIN 29 pg (25-34); MEAN CORPUSCULAR HGB CONC 32 g/dL (32-36); MEAN CORPUSCULAR VOLUME 89 fL (80-99); MEAN PLATELET VOLUME 9.4 fL (9.0-12.2); MONOCYTES # (AUTO) 0.5 10^3/uL (0.0-1.0); MONOCYTES % (AUTO) 5 % (0-12); NEUTROPHILS # (AUTO) 6.2 10^3/uL (1.8-7.8); NEUTROPHILS % (AUTO) 57 % (42-75); PLATELET COUNT 457 10^3/uL (130-400); WHITE BLOOD COUNT 10.7 10^3/uL (4.3-11.0)
[2022-04-11] MEDS ORDERED: RT-ALBUTEROL/IPRATROPIUM 3 ML (DUONEB) VIAL INH ONE (22:45)
[2022-04-11 22:47] LABS: ALBUMIN 4.1 GM/DL (3.2-4.5); POTASSIUM 3.4 MMOL/L (3.6-5.0)
[2022-04-11 22:50] LABS: TOTAL PROTEIN 6.4 GM/DL (6.4-8.2)
[2022-04-11 22:51] LABS: BILIRUBIN,TOTAL 0.4 MG/DL (0.1-1.0)
--- NOTE | 2022-04-11 22:51 | ED Respiratory ---
General Chief Complaint: Respiratory Problems Stated Complaint: SOB Source: patient Exam Limitations: no limitations History of Present Illness Date Seen by Provider: Apr 11, 2022 Time Seen by Provider: 22:04 Initial Comments This 32-year-old woman with severe asthma presents to the emergency room with complaints of cough, wheezing, chest and back tightness, and feeling ill for about 2 days. She has history of severe asthma which has required admissions in the past. She is extremely sensitive to some medications including NSAIDs and aspirin. She has used her inhaled medications at home without resolution. She is extremely wheezy with poor air movement on initial exam and in mild to moderate respiratory distress. Allergies and Home Medications Allergies Coded Allergies: aspirin (Verified Allergy, Unknown, 05/17/20) ibuprofen (Verified Allergy, Unknown, shortness of breath, 11/22/18) naproxen (Verified Allergy, Unknown, 10/01/18) SHORTNESS OF BREATH Patient Home Medication List Home Medication List Reviewed: Yes Albuterol Sulfate (Albuterol Sulfate) 2.5 Mg/0.5 Ml Vial.neb, 2.5 MG INH Q4H PRN for SHORTNESS OF BREATH, (Reported) Entered as Reported by: MILES FONSECA on 05/19/2037 Albuterol Sulfate (Albuterol Sulfate) 2.5 Mg/3 Ml Vial.neb, 2.5 MG INH Q4H PRN for WHEEZING Prescribed by: YVETTE WILLINGHAM on 08/25/21223 Albuterol Sulfate (Albuterol Sulfate) 2.5 Mg/3 Ml (0.083 %) Vial.neb, 2.5 MG INH Q4H PRN for WHEEZING Prescribed by: YVETTE WILLINGHAM on 02/08/22 0531 Albuterol/Ipratropium (Combivent Respimat Inhal [place]) 4 Gm Aero, 1 PUFF IH QID, (Reported) Entered as Reported by: MILES FONSECA on 05/19/20 0837 Albuterol/Ipratropium (Combivent Respimat Inhal [place]) 4 Gm Aero, 2 PUFF IH Q6H Prescribed by: YVETTE WILLINGHAM on 08/25/21223 Albuterol/Ipratropium (Combivent Respimat Inhal [place]) 20 Mcg-100 Mcg/Actuation Aero, 1 PUFF IH Q6H Prescribed by: YVETTE WILLINGHAM on 02/08/22 0531 Budesonide (Pulmicort) 1 Mg/2 Ml Ampul.neb, 1 MG IH BID Prescribed by: SALENA MONTERO on 11/02/21 2327 Budesonide (Budesonide) 0.25 Mg/2 Ml Ampul.neb, 0.25 MG IH Q6H Prescribed by: YVETTE WILLINGHAM on 02/08/22 05 Epinephrine (Epipen) 0.3 Mg/0.3 Ml Auto.injct, 0.3 MG IJ PRN PRN for allergy/anaphylaxis Prescribed by: TANESHA LEIVA on 05/19/20 1241 Fexofenadine HCl (Delaney Allergy) 180 Mg Tablet, 180 MG PO DAILY Prescribed by: YVETTE WILLINGHAM on 02/08/22530 Fluticasone Propionate (Flonase Allergy Relief) 9.9 Ml [place].susp, 2 SPRAY NS DAILY Prescribed by: GURVINDER HART on 09/03/21 1225 Fluticasone/Salmeterol (Advair Hfa 230-21 Mcg Inhaler) 12 Gm Hfa.aer.ad, 12 GM IH BID Prescribed by: GURVINDER HART on 09/03/21 1225 Guaifenesin/Codeine (Robitussin Ac (Codeine) Syrup) 10 Ml Syrp, 10 ML PO Q8H PRN for cough Prescribed by: YVETTE WILLINGHAM on 11/04/21 0230 Guaifenesin/Codeine (Robitussin Ac (Codeine) Syrup) 10 Ml Syrp, 10 ML PO Q8H PRN for cough Prescribed by: YVETTE WILLINGHAM on 02/08/22 05 Hydroxyzine HCl (Hydroxyzine HCl) 25 Mg Tablet, 25 MG PO Q8H PRN for ANXIETY, (Reported) Entered as Reported by: MILES FONSECA on 05/19/20 0837 Inhaler, Assist Devices (Compact Space Chamber) 1 Each Spacer, EACH MC BID, (DME) Prescribed by: GURVINDER HART on 09/03/21 1225 Ipratropium/Albuterol Sulfate (Iprat-Albut 0.5-3(2.5) mg/3 ml) 3 Ml Ampul.neb, 3 ML IH Q4H PRN for SHORTNESS OF BREATH Prescribed by: SALENA MONTERO on 11/02/212326 Loratadine (Loratadine) 10 Mg Tablet, 10 MG PO DAILY Prescribed by: GURVINDER HART on 09/03/211224 Montelukast Sodium (Montelukast Sodium) 10 Mg Tablet, 10 MG PO HS Prescribed by: GURVINDER HART on 09/03/211224 Prednisone (Prednisone) 10 Mg Tab.ds.pk, 10 MG PO DAILY Prescribed by: GURVINDER HART on 09/03/211224 Prednisone (Prednisone) 10 Mg Tab.ds.pk, 10 MG PO DAILY Prescribed by: SALENA MONTERO on 11/02/212326 Prednisone (Prednisone) 10 Mg Tab.ds.pk, 10 MG PO DAILY Prescribed by: YVETTE WILLINGHAM on 02/08/22 0523 Review of Systems Review of Systems Constitutional: no symptoms reported EENTM: other (History of nasal polyp) Respiratory: see HPI Cardiovascular: no symptoms reported Gastrointestinal: no symptoms reported Genitourinary: no symptoms reported : Yes LMP: Mar 13, 2022 Musculoskeletal: no symptoms reported Skin: no symptoms reported Psychiatric/Neurological: No Symptoms Reported Hematologic/Lymphatic: No Symptoms Reported Past Uiibwzg-Dxizat-Phdqpn Hx Immunizations Up To Date Tetanus Booster (TDap): Unknown PED Vaccines UTD: Yes Seasonal Allergies Seasonal Allergies: Yes Past Medical History Surgery/Hospitalization HX: Asthma history, 3 c-sections, D&C, NIDDM, ANX/DEP, BIPOLAR, NASAL POLYPS Surgeries: Yes (Cyst removed on eye, D&C, CS x 2; NASAL POLYPS REMOVED) Section, Eye Surgery, Nose 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) Asthma, Sleep Apnea Cardiac: No Neurological: Yes Concussion Reproductive Disorders: Yes Female Reproductive Disorders: Ovarian Cyst, Polycystic Ovarian Dis Sexually Transmitted Disease: Yes (HSV2) HIV/AIDS: No Genitourinary: No Gastrointestinal: No Musculoskeletal: No Endocrine: Yes Diabetes, Non-Insulin dep HEENT: Yes (NASAL POLYPS) Loss of Vision: Denies Hearing Impairment: Denies Cancer: No Psychosocial: Yes (SUBSTANCE ABUSE) Anxiety, Bipolar, Depression Integumentary: No Blood Disorders: No Adverse Reaction/Blood Tranf: No Family Medical History Diabetes mellitus 19 MOTHER Hypertension 19 MOTHER Thyroid disease 19 MOTHER No Family History of: Asthma Dementia Myocardial infarction Respiratory disorder Seizure disorder No Pertinent Family Hx SOCIAL HISTORY: -OCCASIONAL ETOH -THC, HX OF METH USE--STATES SHE SMOKED IT. UDS + FOR AMPHETAMINES 05/17/20, UDS + FOR METH AND AMPHETAMINES 10/31/20, 11/02/21 -OCCASIONALLY SMOKES CIGARETTES Physical Exam Vital Signs - First Documented 04/11/22 22:09 Temp 36.7 Pulse 104 Resp 24 B/P (MAP) 151/58 (89) Pulse Ox 91 O2 Delivery Room Air Capillary Refill : Height: 5'3.00" Weight: 160lbs. 0.0oz. 72.904321lo; 29.00 BMI Method:Stated General Appearance: WD/WN, mild distress HEENT: PERRL/EOMI, normal ENT inspection Neck: normal inspection Respiratory: respiratory distress, wheezing (Extremely tight wheezing with significantly decreased air movement) Cardiovascular: regular rate, rhythm, no edema, no murmur Gastrointestinal: non tender, soft Extremities: normal inspection, no pedal edema Neurologic/Psychiatric: no motor/sensory deficits, alert, normal mood/affect, oriented x 3 Skin: normal color, warm/dry Progress/Results/Core Measures Suspected Sepsis SIRS Temperature: Pulse: Respiratory Rate: Laboratory Tests 04/11/22 22:17: White Blood Count 10.7 Blood Pressure / Mean: Laboratory Tests 04/11/22 22:17: Creatinine 0.74, Platelet Count 457H, Total Bilirubin 0.4 Results/Orders Lab Results Laboratory Tests Test 04/11/22 22:13 04/11/22 22:17 04/11/22 22:36 Range/Units Influenza Type A (RT-PCR) Not Detected Not Detecte Influenza Type B (RT-PCR) Not Detected Not Detecte SARS-CoV-2 RNA (RT-PCR) Detected H Not Detecte White Blood Count 10.7 4.3-11.0 10^3/uL Red Blood Count 4.61 3.80-5.11 10^6/uL Hemoglobin 13.3 11.5-16.0 g/dL Hematocrit 41 35-52 % Mean Corpuscular Volume 89 80-99 fL Mean Corpuscular Hemoglobin 29 25-34 pg Mean Corpuscular Hemoglobin Concent 32 32-36 g/dL Red Cell Distribution Width 15.6 H 10.0-14.5 % Platelet Count 457 H 130-400 10^3/uL Mean Platelet Volume 9.4 9.0-12.2 fL Immature Granulocyte % (Auto) 0 % Neutrophils (%) (Auto) 57 42-75 % Lymphocytes (%) (Auto) 32 12-44 % Monocytes (%) (Auto) 5 0-12 % Eosinophils (%) (Auto) 5 0-10 % Basophils (%) (Auto) 1 0-10 % Neutrophils # (Auto) 6.2 1.8-7.8 10^3/uL Lymphocytes # (Auto) 3.4 1.0-4.0 10^3/uL Monocytes # (Auto) 0.5 0.0-1.0 10^3/uL Eosinophils # (Auto) 0.6 H 0.0-0.3 10^3/uL Basophils # (Auto) 0.1 0.0-0.1 10^3/uL Immature Granulocyte # (Auto) 0.0 0.0-0.1 10^3/uL Sodium Level 138 135-145 MMOL/L Potassium Level 3.4 L 3.6-5.0 MMOL/L Chloride Level 105 98-107 MMOL/L Carbon Dioxide Level 20 L 21-32 MMOL/L Anion Gap 13 5-14 MMOL/L Blood Urea Nitrogen 13 7-18 MG/DL Creatinine 0.74 0.60-1.30 MG/DL Estimat Glomerular Filtration Rate 111 BUN/Creatinine Ratio 18 Glucose Level 91 70-105 MG/DL Calcium Level 9.0 8.5-10.1 MG/DL Corrected Calcium 8.9 8.5-10.1 MG/DL Total Bilirubin 0.4 0.1-1.0 MG/DL Aspartate Amino Transf (AST/SGOT) 14 5-34 U/L Alanine Aminotransferase (ALT/SGPT) 21 0-55 U/L Alkaline Phosphatase 53 40-136 U/L C-Reactive Protein High Sensitivity 0.15 0.00-0.50 MG/DL Total Protein 6.4 6.4-8.2 GM/DL Albumin 4.1 3.2-4.5 GM/DL Human Chorionic Gonadotropin, Quant 81382 H <5 MIU/ML Serum Test, Qualitative POSITIVE NEGATIVE Magnesium Level 1.6 1.6-2.4 MG/DL My Orders Orders - BRUEGGEMANN,NINI T MD Covid 19 Inhouse Test (04/11/22 22:04) Influenza A And B By Pcr (04/11/22 22:04) Chest 1 View, Ap/Pa Only (04/11/22 22:36) Ed Iv/Invasive Line Start (04/11/22 22:36) Cbc With Automated Diff (04/11/22 22:36) Comprehensive Metabolic Panel (04/11/22 22:36) Hs C Reactive Protein (04/11/22 22:36) Albuterol/Ipra Inhalation Soln (Duoneb I (04/11/22 22:45) Svn Small Volume Nebulizer (04/11/22 22:36) Ns Iv 1000 Ml (Sodium Chloride 0.9%) (04/11/22 23:00) Magnesium 1 Gm/100 Ml Ivpb (Magnesium [place] (04/11/22 23:00) Dexamethasone Injection (Decadron Inje (04/11/22 23:00) Ns Iv 1000 Ml (Sodium Chloride 0.9%) (04/11/22 23:00) Magnesium (04/11/22 22:49) Hcg,Qualitative Serum (04/11/22 22:52) Albuterol Pre-Mix Nebs (Rt) (Proventil (04/11/22 23:51) Albuterol/Ipra Inhalation Soln (Duoneb I (04/12/22 00:00) Svn Small Volume Nebulizer (04/11/22 23:51) Svn Small Volume Nebulizer (04/11/22 23:51) Hcg,Quantitative (04/12/22 00:02) Magnesium 1 Gm/100 Ml Ivpb (Magnesium [place] (04/12/22 00:15) Diphenhydramine Injection (Benadryl Inje (04/12/22 00:15) Medications Given in ED Current Medications Medications Dose Ordered Sig/Kemi Route Start Time Stop Time Status Last Admin Dose Admin Albuterol/ Ipratropium 3 ml ONCE ONCE INH 04/11/22 22:45 04/11/22 22:46 DC 04/11/22 22:42 3 ML Dexamethasone Sodium Phosphate 10 mg ONCE ONCE IV 04/11/22 23:00 04/11/22 23:01 DC 04/11/22 23:13 10 MG Magnesium Sulfate/ Dextrose 100 ml @ 100 mls/hr ONCE ONCE IV 04/11/22 23:00 04/11/22 23:59 DC 04/11/22 23:16 100 MLS/HR Sodium Chloride 1,000 ml @ 0 mls/hr Q0M ONCE IV 04/11/22 23:00 04/11/22 23:01 DC 04/12/22 00:35 999 MLS/HR Vital Signs/I&O 04/11/22 22:09 Temp 36.7 Pulse 104 Resp 24 B/P (MAP) 151/58 (89) Pulse Ox 91 O2 Delivery Room Air 04/12/22 00:00 Intake Total 1000 ml Balance 1000 ml Capillary Refill : Progress Note : Time: 00:20 Progress Note Patient was treated with dexamethasone 10 mg IV, magnesium oxide 1 g IV, a liter of normal saline, and a DuoNeb treatment. She has had some improvement in air movement and is breathing in a more relaxed fashion. She still feels tightness in her back and has significant wheezing on exam. An hour-long nebulizer treatment has been ordered with BiPAP as needed. A second gram of magnesium has been ordered as well. Patient was notified of her positive serum test. A quant level has been ordered to help date the . She states her LMP was about a month ago. Diagnostic Imaging Diagonstic Imaging: Xray Plain Films/CT/US/NM/MRI: chest Comments Chest x-ray viewed by me. Radiology report not yet available. Some increased interstitial markings consistent with COVID-19. No focal consolidation or pneumothorax. Departure Communication (Admissions) Time/Spoke to Admitting Phy: 00:05 Dr. Hart Impression Primary Impression: COVID-19 Additional Impressions: Acute asthma exacerbation Qualified Codes: J45.901 - Unspecified asthma with (acute) exacerbation Respiratory distress Disposition: ADMITTED INPATIENT Condition: Stable Admissions Decision to Admit Reason: Admit from ER (General) Decision to Admit/Date: Apr 12, 2022 Time/Decision to Admit Time: 00:05 Departure-Patient Inst. Referrals: [facility] (PCP) Primary Care Physician SARINA CHERY (Family) Primary Care Physician NINI COUCH MD Apr 11, 2022 22:51
[2022-04-11 22:53] LABS: CREATININE SERUM 0.74 MG/DL (0.60-1.30)
[2022-04-11] MEDS ORDERED: NS IV 1000 ML 1,000 ML IV ONE (23:00)
[2022-04-11] MEDS ORDERED: MAGNESIUM 1 GM/100 ML IVPB 100 ML IV ONE (23:00)
[2022-04-11] MEDS ORDERED: NS IV 1000 ML 1,000 ML IV SCH (23:00)
[2022-04-11] MEDS ORDERED: RT-ALBUTEROL SULF 2.5 MG/3 ML PRE-MIX VIAL INH STA (23:51)
[2022-04-12] MEDS ORDERED: RT-ALBUTEROL/IPRATROPIUM 3 ML (DUONEB) VIAL INH ONE
[2022-04-12] MEDS ORDERED: diphenhydrAMINE 50 MG/ML INJ (BENADRYL) IVP ONE (00:15)
[2022-04-12] MEDS ORDERED: MAGNESIUM 1 GM/100 ML IVPB 100 ML IV ONE (00:15)
[2022-04-12] MEDS ORDERED: LACTATED RINGERS 1,000 ML IV ONE (01:28)
[2022-04-12] MEDS ORDERED: LACTATED RINGERS 1,000 ML IV SCH (02:00)
--- NOTE | 2022-04-12 02:02 | Tele-ICU Progress Note ---
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 Last chniedu 09/19 but has been to the ER 3 times without admit since then. Today had progressive dyspnea and wheezing refractory to nebs. - asthma exacerbation: improved in ED with steroids, nebs, mag. Continue steroids, scheduled and PRN nebs. PRN BiPap ordered but not requiring at this time. - COVID - - substance abuse Focused Exam Height, Weight, BMI Height: 5'3.00" Weight: 160lbs. 0.0oz. 72.699751yr; 29.00 BMI Method:Stated AGATA ROY MD Apr 12, 2022 02:02
[2022-04-12 02:51] VITALS: BP 136/88
[2022-04-12] MEDS ORDERED: RT-ALBUTEROL HFA 8.5 GM INHALER IH PRN (03:15)
[2022-04-12] MEDS ORDERED: ONDANSETRON 4 MG/2 ML (SDV) Z0FRAN IV PRN (03:15)
[2022-04-12 05:37] LABS: BASOPHILS % (AUTO) 0 % (0-10); EOSINOPHILS % (AUTO) 0 % (0-10); HEMATOCRIT 40 % (35-52); HEMOGLOBIN 12.8 g/dL (11.5-16.0); LYMPHOCYTES # (AUTO) 1.2 10^3/uL (1.0-4.0); LYMPHOCYTES % (AUTO) 8 % (12-44); MEAN CORPUSCULAR HEMOGLOBIN 29 pg (25-34); MEAN CORPUSCULAR HGB CONC 32 g/dL (32-36); MEAN CORPUSCULAR VOLUME 90 fL (80-99); MEAN PLATELET VOLUME 9.7 fL (9.0-12.2); MONOCYTES # (AUTO) 0.1 10^3/uL (0.0-1.0); MONOCYTES % (AUTO) 1 % (0-12); NEUTROPHILS % (AUTO) 91 % (42-75); PLATELET COUNT 412 10^3/uL (130-400); WHITE BLOOD COUNT 15.4 10^3/uL (4.3-11.0)
[2022-04-12 05:53] LABS: ALBUMIN 3.6 GM/DL (3.2-4.5)
[2022-04-12 05:54] LABS: CALCIUM 8.1 MG/DL (8.5-10.1)
[2022-04-12 05:55] LABS: TOTAL PROTEIN 5.7 GM/DL (6.4-8.2)
[2022-04-12 05:57] LABS: BILIRUBIN,TOTAL 0.8 MG/DL (0.1-1.0)
[2022-04-12 05:58] LABS: PHOSPHORUS 2.8 MG/DL (2.3-4.7)
[2022-04-12 05:59] LABS: CREATININE SERUM 0.69 MG/DL (0.60-1.30)
[2022-04-12] MEDS ORDERED: POTASSIUM CL 10MEQ/50ML IVPB 50 ML IV SCH (06:00)
[2022-04-12] MEDS ORDERED: KCL 20 MEQ TAB (K-DUR) PO SCH (06:00)
[2022-04-12] MEDS ORDERED: MAGNESIUM 1 GM/100 ML IVPB 100 ML IV SCH (06:00)
[2022-04-12 06:01] LABS: MAGNESIUM 1.8 MG/DL (1.6-2.4)
[2022-04-12 06:11] LABS: LYMPHOCYTES % (MANUAL) 10 %; MONOCYTES % (MANUAL) 2 %; NEUTROPHILS % (MANUAL) 88 %; RBC MORPH NORMAL
[2022-04-12] MEDS ORDERED: PRENATAL VITAMIN 1 EA TAB PO SCH (07:00)
[2022-04-12] MEDS: RT-ALBUTEROL HFA 8.5 GM INHALER IH SCH ×2 (07:00→09:49)
--- NOTE | 2022-04-12 07:57 | Diagnostic Imaging Report ---
Indication: Dyspnea AP view of chest is obtained. Since 11/02/2021 there has been increase in central pulmonary opacity in the perihilar regions. There is no pneumothorax. No significant pleural fluid is seen. IMPRESSION: Developing bilateral perihilar density likely due to edema or pneumonitis. No consolidation is identified. Dictated by: Dictated on workstation # [id number]
[2022-04-12] MEDS ORDERED: LORATADINE (CLARITIN) 10 MG TAB PO SCH (09:00)
--- NOTE | 2022-04-12 09:20 | Tele-ICU Progress Note ---
Subjective Date Seen by a Provider: Apr 12, 2022 Time Seen by a Provider: 09:15 Subjective/Events-last exam 32-year-old female with past medical history of bronchial asthma for quite a few years has been on albuterol nebulizer treatment and a as needed Combivent inhaler and occasional steroid nebulizer treatment. She does not take steroid nebulizer treatment on a regular basis. Apparently she has been having shortness of breath and wheezing for couple of days prior to the admission when the weather is hot and humid. She denies smoking recently. No history of smoking any marijuana but she has a history of amphetamine use in the past. Currently she is and also COVID-positive. She is started on dexamethasone yesterday. She was hypoxic yesterday requiring 3 L of oxygen and she is currently on room air. She is anxious to go home. She states that she is feeling much better now. I made a video visit and discussed with the patient and visual assessment done and she is not in any acute respiratory distress. She denies any history of intubation but she was admitted to the hospital for n ebulizer treatment for asthma Review of Systems ros per rn Sepsis Event Evaluation Height, Weight, BMI Height: 5'3.00" Weight: 160lbs. 0.0oz. 72.737365cn; 33.20 BMI Method:Stated Exam Exam Patient acknowledged, consented, and participated in this virtual visit which was conducted using real time audio/video Vital Signs Date Time Temp Pulse Resp B/P (MAP) Pulse Ox O2 Delivery O2 Flow Rate FiO2 04/12/22 08:43 36.0 Room Air 04/12/22 07:01 96 Room Air 04/12/22 06:00 95 17 106/61 97 Room Air 04/12/22 05:00 86 17 126/69 97 Room Air 04/12/22 04:03 Nasal Cannula 3.00 04/12/22 04:01 91 18 112/71 98 Nasal Cannula 3.00 04/12/22 03:00 86 21 115/72 97 Nasal Cannula 3.00 04/12/22 02:51 36.7 87 96 04/12/22 02:04 Nasal Cannula 3.00 04/12/22 01:53 37.0 87 19 136/88 96 Nasal Cannula 3.00 04/12/22 01:38 90 04/12/22 01:26 36.7 92 18 141/89 99 Nasal Cannula 3.00 04/11/22 22:09 36.7 104 24 151/58 (89) 91 Room Air I & O 04/12/22 06:59 Intake Total 3100 ml Output Total 0 ml Balance 3100 ml Height & Weight Height: 5'3.00" Weight: 160lbs. 0.0oz. 72.468875lp; 33.20 BMI Method:Stated General Appearance: Obese Capillary Refill: Less Than 3 Seconds Gastrointestinal: non tender, soft Other comments PE PER RN Results Lab Laboratory Tests 04/11/22 22:17 04/12/22 05:00 Assessment/Plan Assessment/Plan 1. Acute exacerbation of bronchial asthma secondary to weather change and hu midity. 2. COVID19 infection. 3. Moderate obesity 4. History of substance abuse. Recommendations 1. Continue dexamethasone and wean as tolerated 2. Suggest maintenance medication for asthma such as SHANIKA Outpatient management 3. Strongly advised to quit substance abuse 4. Suggest to monitor her with peak flows twice a day 5. From critical care point of view she may be transferred to medical floor. 6. Continue Delaney as an outpatient for seasonal allergies. 7. care per primary care physician.. 8. SCD's for dvt prophylaxis Critical Care: Critically Ill Patient Time spent with patient (mins): 25 KATHI HEATH MD Apr 12, 2022 09:20
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
[2022-04-12] MEDS ORDERED: IPRA4AER IH (10:46)
[2022-04-12] MEDS ORDERED: PNV1TABL9 PO (10:46)
[2022-04-12] MEDS ORDERED: PRED10TA22 PO (10:46)
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
[2022-04-12] MEDS ORDERED: RT--FLUTICASONE/SALMETEROL 232-14 (AIRDUO RespiCLICK) IH SCH (21:00)
== END 2022-04-12 12:15 | disposition home or self-care (01) | DRG 831 ==
LOC: EDUNIT# 21:52 → ER 21:54 → ICU 04-12 00:10
PROVIDERS: ADMIT Internal Medicine; ATTEND Internal Medicine
DX: O98.511 Other viral diseases complicating pregnancy, first trimester (principal); U07.1 COVID-19; J45.901 Unspecified asthma with (acute) exacerbation; O99.321 Drug use complicating pregnancy, first trimester; O24.111 Pre-existing type 2 diabetes mellitus, in pregnancy, first trimester; F15.10 Other stimulant abuse, uncomplicated; O99.511 Diseases of the respiratory system complicating pregnancy, first trimester; Z87.891 Personal history of nicotine dependence; O99.341 Other mental disorders complicating pregnancy, first trimester; F41.9 Anxiety disorder, unspecified; F31.9 Bipolar disorder, unspecified; O99.211 Obesity complicating pregnancy, first trimester; E66.9 Obesity, unspecified; G47.30 Sleep apnea, unspecified
CPT/HCPCS: 36415; 71045; 80053; 82947; 83735; 84100; 84702; 84703; 85007; 85025; 85027; 86141; 87081; 87636; 94640; G0378

== ENCOUNTER 2022-05-25 14:30 | Emergency (ER) | payer MEDICAID ==
[~2022-05-25] VITALS: Ht 160 cm; Wt 79.0 kg
[~2022-05-25 14:30] MED LIST changes: -GUAI5LIQ11 PO; +GUAI5LIQ14 PO; +PNV1TABL9 PO
--- NOTE | 2022-05-25 15:26 | ED General ---
General Chief Complaint: COVID19 Suspect/Confirmed Stated Complaint: COUGH,CONGESTION,SOB Source of Information: Patient Exam Limitations: No Limitations (SHAWNEE GROSS APRN) History of Present Illness Date Seen by Provider: May 25, 2022 Time Seen by Provider: 15:26 Initial Comments cough, shortness of breath, nasal congestion starting 2 or 3 days ago. She has asthma. She has a nebulizer at home. No fevers or chills. She is 12 weeks gestation. She had COVID last month. Timing/Duration: 1-2 Days Severity: Moderate Associated Systoms: Cough (SHAWNEE GROSS APRN) Allergies and Home Medications Allergies Coded Allergies: aspirin (Verified Allergy, Unknown, 05/17/20) ibuprofen (Verified Allergy, Unknown, shortness of breath, 11/22/18) naproxen (Verified Allergy, Unknown, 10/01/18) SHORTNESS OF BREATH Patient Home Medication List Home Medication List Reviewed: Yes (SHAWNEE GROSS APRN) Albuterol/Ipratropium (Combivent Respimat Inhal [place]) 20 Mcg-100 Mcg/Actuation Aero, 1 PUFF IH QID Prescribed by: GURVINDER HART on 04/12/22 1046 Methylprednisolone (Methylprednisolone Dose Pack) 4 Mg Tab.ds.pk, 4 MG PO UD Prescribed by: SHAWNEE GROSS on 05/25/22 1707 Pnv Cmb#21/Iron/Folic Acid ( Complete [place]let) 14 Mg Iron-400 Mcg Tablet, 1 EACH PO DAILY Prescribed by: GURVINDER HART on 04/12/22 1046 Prednisone (Prednisone) 10 Mg Tab.ds.pk, 10 MG PO DAILY Prescribed by: GURVINDER HART on 04/12/22 1046 Review of Systems Review of Systems Constitutional: see HPI; No chills, No fever EENTM: see HPI Respiratory: see HPI, cough, short of breath, wheezing Cardiovascular: no symptoms reported Genitourinary: no symptoms reported Musculoskeletal: no symptoms reported Skin: no symptoms reported Psychiatric/Neurological: No Symptoms Reported Hematologic/Lymphatic: No Symptoms Reported (SHAWNEE GROSS APRN) Past Oxdqgrq-Ycvuaj-Fmyncy Hx Immunizations Up To Date Tetanus Booster (TDap): Unknown PED Vaccines UTD: Yes (SHAWNEE GROSS APRN) Seasonal Allergies Seasonal Allergies: Yes (SHAWNEE GROSS APRN) Past Medical History Surgery/Hospitalization HX: Asthma history, 3 c-sections, D&C, NIDDM, ANX/DEP, BIPOLAR, NASAL POLYPS Surgeries: Yes (Cyst removed on eye, D&C, CS x 2; NASAL POLYPS REMOVED) Section, Eye Surgery, Nose 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) Asthma, Sleep Apnea Cardiac: No Neurological: Yes Concussion Reproductive Disorders: Yes Female Reproductive Disorders: Ovarian Cyst, Polycystic Ovarian Dis Sexually Transmitted Disease: Yes (HSV2) HIV/AIDS: No Genitourinary: No Gastrointestinal: No Musculoskeletal: No Endocrine: Yes Diabetes, Non-Insulin dep HEENT: Yes (NASAL POLYPS) Loss of Vision: Denies Hearing Impairment: Denies Cancer: No Psychosocial: Yes (SUBSTANCE ABUSE) Anxiety, Bipolar, Depression Integumentary: No Blood Disorders: No Adverse Reaction/Blood Tranf: No (SHAWNEE GROSS APRN) Family Medical History Diabetes mellitus 19 MOTHER Hypertension 19 MOTHER Thyroid disease 19 MOTHER No Family History of: Asthma Dementia Myocardial infarction Respiratory disorder Seizure disorder No Pertinent Family Hx SOCIAL HISTORY: -OCCASIONAL ETOH -THC, HX OF METH USE--STATES SHE SMOKED IT. UDS + FOR AMPHETAMINES 05/17/20, UDS + FOR METH AND AMPHETAMINES 10/31/20, 11/02/21 -OCCASIONALLY SMOKES CIGARETTES (SHAWNEE GROSS APRN) Physical Exam Vital Signs Vital Signs - First Documented 05/25/22 15:08 Temp 36.9 Pulse 89 Resp 18 B/P (MAP) 118/73 (88) Pulse Ox 97 O2 Delivery Room Air (NINI COUCH MD) Vital Signs Capillary Refill : (SHAWNEE GROSS APRN) Height, Weight, BMI Height: 5'3.00" Weight: 160lbs. 0.0oz. 72.992146oj; 33.20 BMI Method:Stated General Appearance: No Apparent Distress, WD/WN, Other (Slightly tachycardic heart rate around 100, oxygen saturation 97% room air. No distress no accessory muscle use. Lungs are clear without wheezing though she states she was wheezing earlier.) Eyes: Bilateral Eye Normal Inspection, Bilateral Eye PERRL, Bilateral Eye EOMI HEENT: PERRL/EOMI, TMs Normal Neck: Full Range of Motion, Normal Inspection Respiratory: No Accessory Muscle Use, No Respiratory Distress Cardiovascular: Regular Rate, Rhythm, Normal Peripheral Pulses Gastrointestinal: Normal Bowel Sounds, Non Tender, Soft Extremity: Normal Capillary Refill, Normal Inspection Neurologic/Psychiatric: Alert, Oriented x3 Skin: Normal Color, Warm/Dry (SHAWNEE GROSS APRN) Progress/Results/Core Measures Suspected Sepsis SIRS Temperature: Pulse: Respiratory Rate: Laboratory Tests 05/25/22 15:50: White Blood Count 10.5 Blood Pressure / Mean: Laboratory Tests 05/25/22 15:50: Creatinine 0.68, Platelet Count 324, Total Bilirubin 0.2 (SHAWNEE GROSS APRN) Results/Orders Lab Results Laboratory Tests Test 05/25/22 15:12 05/25/22 15:43 05/25/22 15:50 Range/Units Influenza Type A (RT-PCR) Not Detected Not Detecte Influenza Type B (RT-PCR) Not Detected Not Detecte SARS-CoV-2 RNA (RT-PCR) Not Detected Not Detecte Urine Color YELLOW Urine Clarity CLEAR Urine pH 6.0 5-9 Urine Specific [place] 1.025 H 1.016-1.022 Urine Protein NEGATIVE NEGATIVE Urine Glucose (UA) 1+ H NEGATIVE Urine Ketones NEGATIVE NEGATIVE Urine Nitrite NEGATIVE NEGATIVE Urine Bilirubin NEGATIVE NEGATIVE Urine Urobilinogen 1.0 < = 1.0 MG/DL Urine Leukocyte Esterase NEGATIVE NEGATIVE Urine RBC (Auto) NEGATIVE NEGATIVE Urine RBC NONE /HPF Urine WBC RARE /HPF Urine Squamous Epithelial Cells 25-50 H /HPF Urine Crystals NONE /LPF Urine Bacteria FEW H /HPF Urine Casts NONE /LPF Urine Mucus NEGATIVE /LPF Urine Culture Indicated NO Urine Opiates Screen NEGATIVE NEGATIVE Urine Oxycodone Screen NEGATIVE NEGATIVE Urine Methadone Screen NEGATIVE NEGATIVE Urine Propoxyphene Screen NEGATIVE NEGATIVE Urine Barbiturates Screen NEGATIVE NEGATIVE Ur Tricyclic Antidepressants Screen NEGATIVE NEGATIVE Urine Phencyclidine Screen NEGATIVE NEGATIVE Urine Amphetamines Screen NEGATIVE NEGATIVE Urine Methamphetamines Screen NEGATIVE NEGATIVE Urine Benzodiazepines Screen NEGATIVE NEGATIVE Urine Cocaine Screen NEGATIVE NEGATIVE Urine Cannabinoids Screen NEGATIVE NEGATIVE White Blood Count 10.5 4.3-11.0 10^3/uL Red Blood Count 4.47 3.80-5.11 10^6/uL Hemoglobin 13.4 11.5-16.0 g/dL Hematocrit 40 35-52 % Mean Corpuscular Volume 89 80-99 fL Mean Corpuscular Hemoglobin 30 25-34 pg Mean Corpuscular Hemoglobin Concent 34 32-36 g/dL Red Cell Distribution Width 14.6 H 10.0-14.5 % Platelet Count 324 130-400 10^3/uL Mean Platelet Volume 10.0 9.0-12.2 fL Immature Granulocyte % (Auto) 0 % Neutrophils (%) (Auto) 74 42-75 % Lymphocytes (%) (Auto) 16 12-44 % Monocytes (%) (Auto) 6 0-12 % Eosinophils (%) (Auto) 4 0-10 % Basophils (%) (Auto) 0 0-10 % Neutrophils # (Auto) 7.8 1.8-7.8 10^3/uL Lymphocytes # (Auto) 1.7 1.0-4.0 10^3/uL Monocytes # (Auto) 0.6 0.0-1.0 10^3/uL Eosinophils # (Auto) 0.4 H 0.0-0.3 10^3/uL Basophils # (Auto) 0.0 0.0-0.1 10^3/uL Immature Granulocyte # (Auto) 0.0 0.0-0.1 10^3/uL D-Dimer 0.42 0.00-0.49 UG/ML Sodium Level 138 135-145 MMOL/L Potassium Level 3.8 3.6-5.0 MMOL/L Chloride Level 107 98-107 MMOL/L Carbon Dioxide Level 23 21-32 MMOL/L Anion Gap 8 5-14 MMOL/L Blood Urea Nitrogen 9 7-18 MG/DL Creatinine 0.68 0.60-1.30 MG/DL Estimat Glomerular Filtration Rate 119 BUN/Creatinine Ratio 13 Glucose Level 77 70-105 MG/DL Calcium Level 9.4 8.5-10.1 MG/DL Corrected Calcium 9.6 8.5-10.1 MG/DL Total Bilirubin 0.2 0.1-1.0 MG/DL Aspartate Amino Transf (AST/SGOT) 14 5-34 U/L Alanine Aminotransferase (ALT/SGPT) 24 0-55 U/L Alkaline Phosphatase 46 40-136 U/L Total Protein 6.3 L 6.4-8.2 GM/DL Albumin 3.8 3.2-4.5 GM/DL (NINI COUCH MD) My Orders Orders - NINI COUCH MD Covid 19 Inhouse Test (05/25/22 14:43) Influenza A And B By Pcr (05/25/22 14:43) (NINI COUCH MD) Medications Given in ED Current Medications Medications Dose Ordered Sig/Kemi Route Start Time Stop Time Status Last Admin Dose Admin Albuterol/ Ipratropium 3 ml ONCE ONCE INH 05/25/22 16:45 05/25/22 16:46 DC 05/25/22 16:46 3 ML (NINI COUCH MD) Vital Signs/I&O 05/25/22 05/25/22 15:08 16:46 Temp 36.9 Pulse 89 Resp 18 B/P (MAP) 118/73 (88) Pulse Ox 97 97 O2 Delivery Room Air Room Air (NINI COUCH MD) Vital Signs/I&O Capillary Refill : (SHAWNEE GROSS APRN) Departure Communication (Admissions) NAME: JITENDRA GOMEZ [facility] REC#: [id number] PT STATUS: REG ER : 1990 PHYSICIAN: SHAWNEE GROSS APRN ADMIT DATE: 05/25/22/ER Draft Date of Exam:05/25/22 CHEST 1 VIEW, AP/PA ONLY EXAMINATION: Chest 1 view. HISTORY: Cough. Congestion. COMPARISON: 04/11/2022. FINDINGS: The lung volumes are normal. No focal consolidation is seen. No large pleural effusion or pneumothorax is seen. The cardiomediastinal silhouette is normal in size and contour. No acute osseous abnormality is seen. IMPRESSION: No acute pleuroparenchymal process. Dictated on workstation # [id number] Dict: 05/25/22 1526 Trans: 05/25/22 1528 [facility] [id number] Interpreted by: СВЕТЛАНА HAIRSTON DO Electronically signed by: (SHAWNEE GROSS APRN) Impression Primary Impression: Asthma exacerbation Disposition: 01 HOME, SELF-CARE Condition: Stable Departure-Patient Inst. Decision time for Depature: 16:39 (SHAWNEE GROSS APRN) Referrals: [facility] (PCP) Primary Care Physician SARINA CHERY (Family) Primary Care Physician Patient Instructions: Asthma in Adults Add. Discharge Instructions: 1. Return to ER for any concerns. Steroids as directed. Breathing treatments every 4 hours. All discharge instructions reviewed with patient and/or family. Voiced understanding. Scripts Methylprednisolone (Methylprednisolone Dose Pack) 4 Mg Tab.ds.pk 4 MG PO UD for 6 Days, #21 PKG PER DOSE PACK INSTRUCTIONS Prov: SHAWNEE GROSS APRN 05/25/22 ATTENDING PHYSICIAN NOTE: I was physically present as attending physician in the emergency department during the care of this patient, but I was not directly involved in the decision making or delivery of care for this patient. (NINI COUCH MD) SHAWNEE GROSS APRN May 25, 2022 15:26 NINI COUCH MD May 25, 2022 20:45
[2022-05-25 15:55] LABS: BILIRUBIN,URINE NEGATIVE (NEGATIVE); CLARITY,URINE CLEAR; COLOR,URINE YELLOW; GLUCOSE, URINE (UA) 1+ (NEGATIVE); KETONES,URINE NEGATIVE (NEGATIVE); LEUKOCYTE ESTERASE ,URINE NEGATIVE (NEGATIVE); NITRITE,URINE NEGATIVE (NEGATIVE); PROTEIN,URINE NEGATIVE (NEGATIVE)
[2022-05-25 16:04] LABS: BACTERIA,URINE FEW /HPF; SQUAMOUS EPITHELIAL CELL,UR 25-50 /HPF; WBC,URINE RARE /HPF
[2022-05-25 16:05] LABS: BASOPHILS % (AUTO) 0 % (0-10); EOSINOPHILS # (AUTO) 0.4 10^3/uL (0.0-0.3); EOSINOPHILS % (AUTO) 4 % (0-10); HEMATOCRIT 40 % (35-52); HEMOGLOBIN 13.4 g/dL (11.5-16.0); LYMPHOCYTES # (AUTO) 1.7 10^3/uL (1.0-4.0); LYMPHOCYTES % (AUTO) 16 % (12-44); MEAN CORPUSCULAR HEMOGLOBIN 30 pg (25-34); MEAN CORPUSCULAR HGB CONC 34 g/dL (32-36); MEAN CORPUSCULAR VOLUME 89 fL (80-99); MONOCYTES # (AUTO) 0.6 10^3/uL (0.0-1.0); MONOCYTES % (AUTO) 6 % (0-12); NEUTROPHILS # (AUTO) 7.8 10^3/uL (1.8-7.8); NEUTROPHILS % (AUTO) 74 % (42-75); PLATELET COUNT 324 10^3/uL (130-400); WHITE BLOOD COUNT 10.5 10^3/uL (4.3-11.0)
[2022-05-25 16:07] LABS: AMPHETAMINE SCREEN, URINE NEGATIVE (NEGATIVE); BARBITURATE SCREEN URINE NEGATIVE (NEGATIVE); BENZODIAZEPINES SCREEN URINE NEGATIVE (NEGATIVE); CANNABINOID SCREEN, URINE NEGATIVE (NEGATIVE); COCAINE SCREEN URINE NEGATIVE (NEGATIVE); METHADONE STAT NEGATIVE (NEGATIVE); OPIATE SCREEN URINE NEGATIVE (NEGATIVE); OXYCODONE STAT NEGATIVE (NEGATIVE); PROPOXYPHENE STAT NEGATIVE (NEGATIVE); TRICYCLIC ANTIDEPRESSANTS SCRE NEGATIVE (NEGATIVE)
[2022-05-25 16:14] LABS: ALBUMIN 3.8 GM/DL (3.2-4.5); POTASSIUM 3.8 MMOL/L (3.6-5.0)
[2022-05-25 16:15] LABS: CALCIUM 9.4 MG/DL (8.5-10.1)
[2022-05-25 16:16] LABS: TOTAL PROTEIN 6.3 GM/DL (6.4-8.2)
[2022-05-25 16:18] LABS: BILIRUBIN,TOTAL 0.2 MG/DL (0.1-1.0)
[2022-05-25 16:20] LABS: CREATININE SERUM 0.68 MG/DL (0.60-1.30)
[2022-05-25] MEDS ORDERED: RT-ALBUTEROL/IPRATROPIUM 3 ML (DUONEB) VIAL INH ONE (16:45)
[2022-05-25] MEDS ORDERED: METH4TAB10 PO (17:07)
[2022-05-25 17:15] VITALS: BP 114/73
== END 2022-05-25 17:15 | disposition home or self-care (01) ==
LOC: EDUNIT# 14:30 → ER 14:31
DX: O99.511 Diseases of the respiratory system complicating pregnancy, first trimester (principal); J45.901 Unspecified asthma with (acute) exacerbation; O99.331 Smoking (tobacco) complicating pregnancy, first trimester; F17.210 Nicotine dependence, cigarettes, uncomplicated; Z3A.12 12 weeks gestation of pregnancy; Z20.822 Contact with and (suspected) exposure to COVID-19; Z28.310 Unvaccinated for COVID-19
CPT/HCPCS: 36415; 71045; 80053; 80306; 81000; 85025; 85379; 87636; 94640

== ENCOUNTER 2022-05-28 12:34 | Emergency (ER) | payer MEDICAID ==
[~2022-05-28] VITALS: Ht 160 cm; Wt 79.0 kg
[~2022-05-28 12:34] MED LIST changes: +METH4TAB10 PO
[2022-05-28 13:11] LABS: BASOPHILS % (AUTO) 0 % (0-10); EOSINOPHILS # (AUTO) 0.3 10^3/uL (0.0-0.3); EOSINOPHILS % (AUTO) 3 % (0-10); HEMATOCRIT 36 % (35-52); HEMOGLOBIN 12.3 g/dL (11.5-16.0); LYMPHOCYTES # (AUTO) 0.9 10^3/uL (1.0-4.0); LYMPHOCYTES % (AUTO) 8 % (12-44); MEAN CORPUSCULAR HEMOGLOBIN 30 pg (25-34); MEAN CORPUSCULAR HGB CONC 35 g/dL (32-36); MEAN CORPUSCULAR VOLUME 88 fL (80-99); MEAN PLATELET VOLUME 10.7 fL (9.0-12.2); MONOCYTES # (AUTO) 0.6 10^3/uL (0.0-1.0); MONOCYTES % (AUTO) 6 % (0-12); NEUTROPHILS # (AUTO) 8.7 10^3/uL (1.8-7.8); NEUTROPHILS % (AUTO) 82 % (42-75); PLATELET COUNT 281 10^3/uL (130-400); WHITE BLOOD COUNT 10.6 10^3/uL (4.3-11.0)
--- NOTE | 2022-05-28 13:28 | ED Cough/URI ---
General Chief Complaint: COVID19 Suspect/Confirmed Stated Complaint: SOB,BODY ACHES, ABD PAIN, 13 WKS PREG Nursing Triage Note: ARRIVES TO ROOM 10 WITH A C/O SOB, FREQUENT COUGH, NASAL ADN CHEST CONGESTION AND ABDOMINAL MUSCLE PAIN FROM COUGHING. Source: patient Exam Limitations: no limitations History of Present Illness Date Seen by Provider: May 28, 2022 Time Seen by Provider: 13:28 Allergies and Home Medications Allergies Coded Allergies: aspirin (Verified Allergy, Unknown, 05/28/22) ibuprofen (Verified Allergy, Unknown, shortness of breath, 05/28/22) naproxen (Verified Allergy, Unknown, 05/28/22) SHORTNESS OF BREATH Patient Home Medication List Albuterol/Ipratropium (Combivent Respimat Inhal [place]) 20 Mcg-100 Mcg/Actuation Aero, 1 PUFF IH QID Prescribed by: GURVINDER HART on 04/12/22 1046 Methylprednisolone (Methylprednisolone Dose Pack) 4 Mg Tab.ds.pk, 4 MG PO UD Prescribed by: SHAWNEE GROSS on 05/25/22 1707 Pnv Cmb#21/Iron/Folic Acid ( Complete Caplet) 14 Mg Iron-400 Mcg Tablet, 1 EACH PO DAILY Prescribed by: GURVINDER HART on 04/12/22 104 Prednisone (Prednisone) 10 Mg Tab.ds.pk, 10 MG PO DAILY Prescribed by: GURVINDER HART on 04/12/22 1046 Review of Systems Review of Systems Expected Date of Delivery: Nov 23, 2022 Past Mdfpivp-Otajla-Qftevi Hx Patient Social History Tobacco Use?: No Use of E-Cig and/or Vaping dev: No Substance use?: No Alcohol Use?: No Immunizations Up To Date Tetanus Booster (TDap): Unknown PED Vaccines UTD: Yes Influenza Vaccine Up-to-Date: Yes; Up-to-Date First/Initial COVID19 Vaccinat: DECLINED Seasonal Allergies Seasonal Allergies: Yes Past Medical History Surgery/Hospitalization HX: Asthma history, 3 c-sections, D&C, NIDDM, ANX/DEP, BIPOLAR, NASAL POLYPS Surgeries: Yes (Cyst removed on eye, D&C, CS x 2; NASAL POLYPS REMOVED) Section, Eye Surgery, Nose 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) Asthma, Sleep Apnea Cardiac: No Neurological: Yes Concussion Expected Date of Delivery: Nov 23, 2022 Last Menstrual Period: February 11, 2022 Reproductive Disorders: Yes Female Reproductive Disorders: Ovarian Cyst, Polycystic Ovarian Dis Sexually Transmitted Disease: Yes (HSV2) HIV/AIDS: No Genitourinary: No Gastrointestinal: No Musculoskeletal: No Endocrine: Yes Diabetes, Non-Insulin dep HEENT: Yes (NASAL POLYPS) Loss of Vision: Denies Hearing Impairment: Denies Cancer: No Psychosocial: Yes (SUBSTANCE ABUSE) Anxiety, Bipolar, Depression Integumentary: No Blood Disorders: No Adverse Reaction/Blood Tranf: No Family Medical History Diabetes mellitus 19 MOTHER Hypertension 19 MOTHER Thyroid disease 19 MOTHER No Family History of: Asthma Dementia Myocardial infarction Respiratory disorder Seizure disorder No Pertinent Family Hx SOCIAL HISTORY: -OCCASIONAL ETOH -THC, HX OF METH USE--STATES SHE SMOKED IT. UDS + FOR AMPHETAMINES 05/17/20, UDS + FOR METH AND AMPHETAMINES 10/31/20, 11/02/21 -OCCASIONALLY SMOKES CIGARETTES Physical Exam Vital Signs - First Documented 05/28/22 12:48 Temp 37.0 Pulse 103 Resp 20 B/P (MAP) 120/67 (84) Pulse Ox 94 O2 Delivery Room Air Capillary Refill : Less Than 3 Seconds Height: 5'3.00" Weight: 160lbs. 0.0oz. 72.294675ml; 30.00 BMI Method:Stated Progress/Results/Core Measures Suspected Sepsis SIRS Temperature: Pulse: 103 Respiratory Rate: 20 Laboratory Tests 05/28/22 13:00: White Blood Count 10.6 Blood Pressure 120 /67 Mean: 84 Laboratory Tests 05/28/22 13:00: Creatinine 0.72, Platelet Count 281, Total Bilirubin 0.2 Results/Orders Lab Results Laboratory Tests Test 05/28/22 12:48 05/28/22 13:00 05/28/22 13:10 Range/Units Influenza Type A (RT-PCR) Not Detected Not Detecte Influenza Type B (RT-PCR) Not Detected Not Detecte SARS-CoV-2 RNA (RT-PCR) Not Detected Not Detecte White Blood Count 10.6 4.3-11.0 10^3/uL Red Blood Count 4.05 3.80-5.11 10^6/uL Hemoglobin 12.3 11.5-16.0 g/dL Hematocrit 36 35-52 % Mean Corpuscular Volume 88 80-99 fL Mean Corpuscular Hemoglobin 30 25-34 pg Mean Corpuscular Hemoglobin Concent 35 32-36 g/dL Red Cell Distribution Width 14.9 H 10.0-14.5 % Platelet Count 281 130-400 10^3/uL Mean Platelet Volume 10.7 9.0-12.2 fL Immature Granulocyte % (Auto) 0 % Neutrophils (%) (Auto) 82 H 42-75 % Lymphocytes (%) (Auto) 8 L 12-44 % Monocytes (%) (Auto) 6 0-12 % Eosinophils (%) (Auto) 3 0-10 % Basophils (%) (Auto) 0 0-10 % Neutrophils # (Auto) 8.7 H 1.8-7.8 10^3/uL Lymphocytes # (Auto) 0.9 L 1.0-4.0 10^3/uL Monocytes # (Auto) 0.6 0.0-1.0 10^3/uL Eosinophils # (Auto) 0.3 0.0-0.3 10^3/uL Basophils # (Auto) 0.0 0.0-0.1 10^3/uL Immature Granulocyte # (Auto) 0.0 0.0-0.1 10^3/uL Sodium Level 139 135-145 MMOL/L Potassium Level 4.3 3.6-5.0 MMOL/L Chloride Level 106 98-107 MMOL/L Carbon Dioxide Level 19 L 21-32 MMOL/L Anion Gap 14 5-14 MMOL/L Blood Urea Nitrogen 9 7-18 MG/DL Creatinine 0.72 0.60-1.30 MG/DL Estimat Glomerular Filtration Rate 115 BUN/Creatinine Ratio 13 Glucose Level 121 H 70-105 MG/DL Calcium Level 8.6 8.5-10.1 MG/DL Corrected Calcium 8.9 8.5-10.1 MG/DL Total Bilirubin 0.2 0.1-1.0 MG/DL Aspartate Amino Transf (AST/SGOT) 19 5-34 U/L Alanine Aminotransferase (ALT/SGPT) 22 0-55 U/L Alkaline Phosphatase 47 40-136 U/L Total Protein 5.9 L 6.4-8.2 GM/DL Albumin 3.6 3.2-4.5 GM/DL Human Chorionic Gonadotropin, Quant 75815 H <5 MIU/ML Urine Color YELLOW Urine Clarity CLEAR Urine pH 5.5 5-9 Urine Specific [place] >=1.030 1.016-1.022 Urine Protein NEGATIVE NEGATIVE Urine Glucose (UA) 2+ H NEGATIVE Urine Ketones TRACE H NEGATIVE Urine Nitrite NEGATIVE NEGATIVE Urine Bilirubin NEGATIVE NEGATIVE Urine Urobilinogen 1.0 < = 1.0 MG/DL Urine Leukocyte Esterase NEGATIVE NEGATIVE Urine RBC (Auto) NEGATIVE NEGATIVE Urine RBC NONE /HPF Urine WBC NONE /HPF Urine Squamous Epithelial Cells 2-5 /HPF Urine Crystals NONE /LPF Urine Bacteria NEGATIVE /HPF Urine Casts NONE /LPF Urine Mucus NEGATIVE /LPF Urine Culture Indicated NO My Orders Orders - BAKARI ALCARAZ ROUTE SERVICE MANAGER Cbc With Automated Diff (05/28/22 12:53) Comprehensive Metabolic Panel (05/28/22 12:53) Hcg,Quantitative (05/28/22 12:53) Ua Culture If Indicated (05/28/22 12:53) Covid 19 Inhouse Test (05/28/22 13:28) Influenza A And B By Pcr (05/28/22 13:28) Vital Signs/I&O 05/28/22 05/28/22 12:48 12:48 Temp 37.0 Pulse 103 Resp 20 B/P (MAP) 120/67 (84) Pulse Ox 94 O2 Delivery Room Air Room Air Capillary Refill : Less Than 3 Seconds Blood Pressure Mean: 84 Departure Impression Primary Impression: Asthma exacerbation Disposition: 01 HOME, SELF-CARE Condition: Stable Departure-Patient Inst. Referrals: [facility] (PCP) Primary Care Physician ASRINA CHERY (Family) Primary Care Physician Patient Instructions: Asthma Action Plan ED Add. Discharge Instructions: Plan: 1. Follow up with your doctor later this week. 2. Continue steroids as previously directed. 3. Use your Albuterol nebs every 3 hours PRN and continue your inhaled cortico rsteroid twice a day. 4. Return to ER for any worsening symptoms. All discharge instructions reviewed with patient and/or family. Voiced understanding. BAKARI ALCARAZ ROUTE SERVICE MANAGER May 28, 2022 13:28
[2022-05-28 13:34] LABS: BILIRUBIN,URINE NEGATIVE (NEGATIVE); CLARITY,URINE CLEAR; COLOR,URINE YELLOW; GLUCOSE, URINE (UA) 2+ (NEGATIVE); KETONES,URINE TRACE (NEGATIVE); LEUKOCYTE ESTERASE ,URINE NEGATIVE (NEGATIVE); NITRITE,URINE NEGATIVE (NEGATIVE); PH,URINE 5.5 (5-9); PROTEIN,URINE NEGATIVE (NEGATIVE)
[2022-05-28 13:34] LABS: ALBUMIN 3.6 GM/DL (3.2-4.5); POTASSIUM 4.3 MMOL/L (3.6-5.0)
[2022-05-28 13:35] LABS: CALCIUM 8.6 MG/DL (8.5-10.1)
[2022-05-28 13:37] LABS: TOTAL PROTEIN 5.9 GM/DL (6.4-8.2)
[2022-05-28 13:39] LABS: BILIRUBIN,TOTAL 0.2 MG/DL (0.1-1.0)
[2022-05-28 13:40] LABS: CREATININE SERUM 0.72 MG/DL (0.60-1.30)
[2022-05-28 14:06] LABS: BACTERIA,URINE NEGATIVE /HPF
[2022-05-28 14:49] VITALS: BP 103/70
== END 2022-05-28 14:58 | disposition home or self-care (01) ==
LOC: EDUNIT# 12:34 → ER 12:35
DX: O99.511 Diseases of the respiratory system complicating pregnancy, first trimester (principal); J45.901 Unspecified asthma with (acute) exacerbation; F17.210 Nicotine dependence, cigarettes, uncomplicated; Z28.310 Unvaccinated for COVID-19; Z20.822 Contact with and (suspected) exposure to COVID-19; Z3A.13 13 weeks gestation of pregnancy
CPT/HCPCS: 36415; 80053; 81000; 84702; 85025; 87636

== ENCOUNTER → 2022-07-24 | Outpatient (CLI) | payer MEDICAID ==
--- NOTE | 2022-07-24 18:23 | Diagnostic Imaging Report ---
INDICATION: patient, survey. TECHNIQUE: Multiple real-time grayscale images were obtained over the gravid uterus. COMPARISON: None during this . FINDINGS: A single live intrauterine fetus is seen measuring 20 weeks 4 days in size by composite measurements. The fetus is in breech presentation at this time. Amniotic fluid is qualitatively normal. Placenta is anterior with no evidence of previa. heart rate is 155 bpm. Cervical length is 4.9 cm. Distance from the placental tip to the internal cervical os was 4.97 cm. survey demonstrates normal-appearing kidneys and bladder. Normal-appearing stomach was seen. Intracranial ventricles appear normal. Three-vessel cord and cord insertion appeared normal. Four-chamber heart view appeared normal. spine appeared normal. There is no free fluid. Maternal adnexa are not well visualized. Biometrical measurements are as follows: Biparietal 4.62 cm, age 20 weeks 0 days. Head circumference 18.32 cm, age 20 weeks 5 days. Abdominal circumference 16.06 cm, age 21 weeks 2 days. Femur length 3.22 cm, age 20 weeks 1 days. Sonographic estimate age: 20 weeks 4 days. Sonographic estimated date of delivery: 12/07/2022. Estimated Weight: 366 gm (+/- 54 gm). LMP percentile: 48%. heart rate: 155 beats per minute. number: 1 of 1. IMPRESSION: Single live intrauterine fetus measuring 20 weeks 4 days in size in breech presentation. There are no detectable abnormalities otherwise seen. Dictated by: Dictated on workstation # [id number]
== END ==
LOC: RAD 09:24
PROVIDERS: ATTEND Nurse Practitioner Women's Health
DX: Z34.02 Encounter for supervision of normal first pregnancy, second trimester (principal); Z3A.20 20 weeks gestation of pregnancy
CPT/HCPCS: 76805

== ENCOUNTER 2022-10-01 22:44 | Outpatient (CLI) | payer MEDICAID ==
[~2022-10-01] VITALS: Ht 160 cm; Wt 82.5 kg
[~2022-10-01 22:44] MED LIST changes: +ALBU8.5H6 IH; -RT-ALBUINH IH
[2022-10-01 23:13] VITALS: BP 118/71
[2022-10-01 23:20] LABS: BILIRUBIN,URINE NEGATIVE (NEGATIVE); CLARITY,URINE CLEAR; COLOR,URINE YELLOW; GLUCOSE, URINE (UA) NEGATIVE (NEGATIVE); KETONES,URINE 2+ (NEGATIVE); LEUKOCYTE ESTERASE ,URINE NEGATIVE (NEGATIVE); NITRITE,URINE NEGATIVE (NEGATIVE); PROTEIN,URINE TRACE (NEGATIVE)
[2022-10-01 23:31] LABS: BACTERIA,URINE MODERATE /HPF; SQUAMOUS EPITHELIAL CELL,UR 25-50 /HPF; WBC,URINE 0-2 /HPF
[2022-10-02] MEDS ORDERED: HYDR473S61 PO (00:05)
--- NOTE | 2022-10-02 08:34 | Physician Query-Final Dx ---
PAPITO,10/02/22 0834: Clinic Account Progress/Dx Physician Query: Please give diagnosis Please include # weeks gestation Date of Service Oct 01, 2022 at 22:44 KATARINA BURTON MD 10/03/22 1402: Clinic Account Progress/Dx DIAGNOSIS: Diagnosis 30 weeks gestation with false labor PAPITO,SepOct 02, 2022 08:34 KATARINA BURTON MD Oct 03, 2022 14:02
== END 2022-10-01 23:20 ==
LOC: WSo 22:44 → LDRP 22:45 → WSo 23:20
PROVIDERS: ATTEND Obstetrics & Gynecology
DX: O26.893 Other specified pregnancy related conditions, third trimester (principal); R10.9 Unspecified abdominal pain; Z3A.30 30 weeks gestation of pregnancy
CPT/HCPCS: 81000; 99212

== ENCOUNTER 2022-10-01 23:26 | Emergency (ER) | payer MEDICAID ==
[2022-10-01 23:35] VITALS: BP 117/67
--- NOTE | 2022-10-02 00:01 | ED General ---
General Chief Complaint: General Problems/Pain Stated Complaint: COUGH Nursing Triage Note: Pt presents with c/o LUQ abdominal pain secondary to cough. Pt states that 2 night ago she coughed and she believes she felt something tear in her LUQ. She is approx 30 weeks . Pt has already been evaluated by OB and cleared. Pt states she is in so much pain she urinates when she coughs. Pt states she has asthma which is why she is coughing. Source of Information: Patient Exam Limitations: No Limitations History of Present Illness Date Seen by Provider: Oct 01, 2022 Time Seen by Provider: 23:45 Initial Comments Patient is a 32-year-old female chief complaint of left upper quadrant muscular abdominal pain. She is approximately 29 to 30 weeks , patient of Dr. Zepeda. Fourth . She states she has been coughing uncontrollably the last couple of days, occasionally productive. She takes multiple inhalers for her asthma. Non-smoker. She was initially up in OB for a nonstress test which she states was unremarkable. She has been taking Tylenol without relief of symptoms last dose was earlier today. No fevers or chills. No COVID concerns. She has had a flu shot. No burning with urination and or vaginal bleeding. All other review of systems reviewed and negative except as stated. Timing/Duration: 1-2 Days Severity: Moderate Associated Systoms: Cough, Other (coughing; vomiting due to pain) Allergies and Home Medications Allergies Coded Allergies: aspirin (Verified Allergy, Unknown, 05/28/22) ibuprofen (Verified Allergy, Unknown, shortness of breath, 05/28/22) naproxen (Verified Allergy, Unknown, 05/28/22) SHORTNESS OF BREATH Patient Home Medication List Home Medication List Reviewed: Yes Albuterol/Ipratropium (Combivent Respimat Inhal [place]) 20 Mcg-100 Mcg/Actuation Aero, 1 PUFF IH QID Prescribed by: GURVINDER HART on 04/12/22 1046 Methylprednisolone (Methylprednisolone Dose Pack) 4 Mg Tab.ds.pk, 4 MG PO UD Prescribed by: SHAWNEE GROSS on 05/25/22 1707 Pnv Cmb#21/Iron/Folic Acid ( Complete Caplet) 14 Mg Iron-400 Mcg Tablet, 1 EACH PO DAILY Prescribed by: GURVINDER HART on 04/12/22 1046 Prednisone (Prednisone) 10 Mg Tab.ds.pk, 10 MG PO DAILY Prescribed by: GURVINDER HART on 04/12/22 1046 Review of Systems Review of Systems Constitutional: see HPI EENTM: nose congestion Respiratory: cough Cardiovascular: no symptoms reported Gastrointestinal: abdominal pain (LUQ) Genitourinary: no symptoms reported : Yes Musculoskeletal: no symptoms reported Skin: no symptoms reported All Other Systems Reviewed Negative Unless Noted: Yes Past Lomovpa-Ypvjvb-Ugiqph Hx Immunizations Up To Date Tetanus Booster (TDap): Unknown PED Vaccines UTD: Yes Influenza Vaccine Up-to-Date: Yes; Up-to-Date First/Initial COVID19 Vaccinat: DECLINED Second COVID19 Vaccination Naeem: DECLINED Third COVID19 Vaccination Date: DECLINED Seasonal Allergies Seasonal Allergies: Yes Past Medical History Surgery/Hospitalization HX: Asthma history, 3 c-sections, D&C, NIDDM, ANX/DEP, BIPOLAR, NASAL POLYPS Surgeries: Yes (Cyst removed on eye, D&C, CS x 2; NASAL POLYPS REMOVED) Section, Eye Surgery, Nose 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) Asthma, Sleep Apnea Cardiac: No Neurological: Yes Concussion Reproductive Disorders: Yes Female Reproductive Disorders: Ovarian Cyst, Polycystic Ovarian Dis Sexually Transmitted Disease: Yes (HSV2) HIV/AIDS: No Genitourinary: No Gastrointestinal: No Musculoskeletal: No Endocrine: Yes Diabetes, Non-Insulin dep HEENT: Yes (NASAL POLYPS) Loss of Vision: Denies Hearing Impairment: Denies Cancer: No Psychosocial: Yes (SUBSTANCE ABUSE) Anxiety, Bipolar, Depression Integumentary: No Blood Disorders: No Adverse Reaction/Blood Tranf: No Family Medical History Diabetes mellitus 19 MOTHER Hypertension 19 MOTHER Thyroid disease 19 MOTHER No Family History of: Asthma Dementia Myocardial infarction Respiratory disorder Seizure disorder No Pertinent Family Hx SOCIAL HISTORY: -OCCASIONAL ETOH -THC, HX OF METH USE--STATES SHE SMOKED IT. UDS + FOR AMPHETAMINES 05/17/20, UDS + FOR METH AND AMPHETAMINES 10/31/20, 11/02/21 -OCCASIONALLY SMOKES CIGARETTES Physical Exam Vital Signs Vital Signs - First Documented 10/01/22 23:35 Temp 36.7 Pulse 87 Resp 18 B/P (MAP) 117/67 (84) Capillary Refill : Less Than 3 Seconds Height, Weight, BMI Height: 5'3.00" Weight: 160lbs. 0.0oz. 72.993561ja; 32.22 BMI Method:Stated General Appearance: No Apparent Distress, WD/WN Eyes: Bilateral Eye Normal Inspection, Bilateral Eye PERRL, Bilateral Eye EOMI HEENT: PERRL/EOMI, TMs Normal, Pharynx Normal, Moist Mucous Membranes Neck: Normal Inspection Respiratory: Lungs Clear, Normal Breath Sounds, No Accessory Muscle Use, No Respiratory Distress; No Crackles, No Decreased Breath Sounds, No Expiration, No Respiratory Distress, No Stridor, No Wheezing Cardiovascular: Regular Rate, Rhythm, Tachycardia (97bpm) Gastrointestinal: Soft, Other (gravid; tenderness to palpation LUQ abdomen. no overlying rashes.) Extremity: Normal Inspection, Normal Range of Motion Neurologic/Psychiatric: Alert, Oriented x3, No Motor/Sensory Deficits, Normal Mood/Affect Skin: Normal Color, Warm/Dry Progress/Results/Core Measures Suspected Sepsis SIRS Temperature: Pulse: 87 Respiratory Rate: 18 Blood Pressure 117 /67 Mean: 84 Results/Orders My Orders Orders - YVETTE WILLINGHAM MD Hydrocodone/Chlorphen Susp (Tussionex [place] (10/02/22 00:15) Vital Signs/I&O 10/01/22 23:35 Temp 36.7 Pulse 87 Resp 18 B/P (MAP) 117/67 (84) Capillary Refill : Less Than 3 Seconds Blood Pressure Mean: 84 Departure Impression Primary Impression: Cough Qualified Codes: R05.2 - Subacute cough Additional Impressions: History of asthma Muscular abdominal pain in left upper quadrant Disposition: 01 HOME, SELF-CARE Condition: Stable Departure-Patient Inst. Decision time for Depature: 00:00 Referrals: [facility]/ (PCP) Primary Care Physician SARINA CHERY (Family) Primary Care Physician SHARYN ZEPEDA DO Patient Instructions: Cough, Adult ED Add. Discharge Instructions: Continue your asthma medications as instructed. You can use honey as needed for cough. I have given you some tussionex for cough as well. Use this sparingly and please follow up with Dr Zepeda for further management of your pain during . Return to the Emergency Department for any new, concerning or emergent complaints. Scripts Hydrocodone/Chlorphen P-Stirex (Hydrocodone-Chlorphen ER Susp) 10 Mg-8 Mg/5 Ml Flores.er.12h 5 ML PO BID PRN for cough/pain, #30 ML Prov: YVETTE WILLINGHAM MD 10/02/22 Copy Copies To 1: SHARYN ZEPEDA DO Copies To 2: KATIE MOSS KATHRYN M MD Oct 02, 2022 00:00
[2022-10-02] MEDS ORDERED: HYDR473S61 PO (00:05)
[2022-10-02] MEDS ORDERED: HYDROcodone/Chlorpen 10MG/5 ML (TUSSIONEX) 5ML UDC PO ONE (00:15)
== END 2022-10-02 00:30 | disposition home or self-care (01) ==
LOC: EDUNIT# 23:26 → ER 23:32
DX: R05.2 Subacute cough (principal); R10.12 Left upper quadrant pain; Z87.09 Personal history of other diseases of the respiratory system
CPT/HCPCS: 99283

== ENCOUNTER 2022-10-04 21:59 | Inpatient (IN) | payer MEDICAID ==
[~2022-10-04] VITALS: Ht 160 cm; Wt 82.5 kg
[~2022-10-04 21:59] MED LIST changes: +HYDR473S61 PO
[2022-10-04] MEDS ORDERED: methylPREDNISolone 125 MG (Solu-MEDROL) VIAL IV STA (22:13)
[2022-10-04] MEDS ORDERED: RT-ALBUTEROL/IPRATROPIUM 3 ML (DUONEB) VIAL INH ONE (22:15)
[2022-10-04 22:31] LABS: BASOPHILS % (AUTO) 0 % (0-10); EOSINOPHILS # (AUTO) 0.5 10^3/uL (0.0-0.3); EOSINOPHILS % (AUTO) 4 % (0-10); HEMATOCRIT 36 % (35-52); HEMOGLOBIN 12.1 g/dL (11.5-16.0); LYMPHOCYTES # (AUTO) 1.9 10^3/uL (1.0-4.0); LYMPHOCYTES % (AUTO) 17 % (12-44); MEAN CORPUSCULAR HEMOGLOBIN 30 pg (25-34); MEAN CORPUSCULAR HGB CONC 33 g/dL (32-36); MEAN CORPUSCULAR VOLUME 89 fL (80-99); MEAN PLATELET VOLUME 9.6 fL (9.0-12.2); MONOCYTES # (AUTO) 0.6 10^3/uL (0.0-1.0); MONOCYTES % (AUTO) 6 % (0-12); NEUTROPHILS % (AUTO) 72 % (42-75); PLATELET COUNT 357 10^3/uL (130-400); WHITE BLOOD COUNT 11.1 10^3/uL (4.3-11.0)
[2022-10-04 22:48] LABS: ALBUMIN 3.7 GM/DL (3.2-4.5); BILIRUBIN,TOTAL 0.7 MG/DL (0.1-1.0); CALCIUM 8.9 MG/DL (8.5-10.1); CREATININE SERUM 0.66 MG/DL (0.60-1.30); MAGNESIUM 1.7 MG/DL (1.6-2.4); POTASSIUM 3.7 MMOL/L (3.6-5.0); TOTAL PROTEIN 6.8 GM/DL (6.4-8.2)
[2022-10-04 22:55] LABS: BILIRUBIN,URINE 2+ (NEGATIVE); CLARITY,URINE CLOUDY; COLOR,URINE DARK YELLOW; GLUCOSE, URINE (UA) NEGATIVE (NEGATIVE); KETONES,URINE NEGATIVE (NEGATIVE); LEUKOCYTE ESTERASE ,URINE NEGATIVE (NEGATIVE); NITRITE,URINE NEGATIVE (NEGATIVE); PH,URINE 5.5 (5-9); PROTEIN,URINE TRACE (NEGATIVE)
[2022-10-04] MEDS ORDERED: LACTATED RINGERS 1,000 ML IV ONE (23:00)
[2022-10-04] MEDS ORDERED: AZITHROMYCIN INJECTION 500 MG in NS (IVPB) 250 ML IV ONE (23:00)
[2022-10-04] MEDS ORDERED: cefTRIAXone 1 GM PRE-MIX 50 ML IV ONE (23:00)
[2022-10-04 23:06] LABS: BACTERIA,URINE MODERATE /HPF
[2022-10-04 23:08] LABS: TSH (THYROID ANALYZER) 2.24 UIU/ML (0.35-4.94)
[2022-10-04 23:17] LABS: AMPHETAMINE SCREEN, URINE NEGATIVE (NEGATIVE); BARBITURATE SCREEN URINE NEGATIVE (NEGATIVE); BENZODIAZEPINES SCREEN URINE NEGATIVE (NEGATIVE); CANNABINOID SCREEN, URINE NEGATIVE (NEGATIVE); COCAINE SCREEN URINE NEGATIVE (NEGATIVE); METHADONE STAT NEGATIVE (NEGATIVE); OPIATE SCREEN URINE POSITIVE (NEGATIVE); OXYCODONE STAT NEGATIVE (NEGATIVE); PROPOXYPHENE STAT NEGATIVE (NEGATIVE); TRICYCLIC ANTIDEPRESSANTS SCRE NEGATIVE (NEGATIVE)
[2022-10-04 23:25] LABS: INR 0.9 (0.8-1.4); PROTHROMBIN TIME PATIENT 12.3 SEC (12.2-14.7)
--- NOTE | 2022-10-04 23:32 | ED Respiratory ---
General Chief Complaint: Respiratory Problems Stated Complaint: SOA,ASTHMA,29 WKS PREG Source: patient History of Present Illness Date Seen by Provider: Oct 04, 2022 Time Seen by Provider: 22:13 Initial Comments PT ARRIVES VIA POV FROM HOME PT WITH LONGSTANDING HISTORY OF ASTHMA STATES SHE HAS BEEN SICK FOR THE LAST WEEK WITH INCREASED COUGH--CLEAR SPUTUM, INCREASED SHORTNESS OF BREATH AND WHEEZING SHE HAS "FELT HOT" BUT STATES NO FEVER NO SWELLING IN HER LEGS/ FEET PT HAS COMBIVENT AND ALBUTEROL INHALERS--NO SPACERS STATES SHE IS USING THEM ALL THE TIME AND THEY ARE NOT HELPING--STATES THAT SHE IS ALMOST OUT AND THE PHARMACY WILL NOT REFILL THEM WAS SEEN HERE 10/01/21 FOR THIS PROBLEM AND GIVEN RX FOR TUSSIONEX COUGH SYRUP. NO TESTS WERE DONE AT THAT TIME. SHE HAS NOT ATTEMPTED TO FOLLOW UP WITH ANYONE SINCE THAT VISIT. PT IS 29 WEEKS , WITH EDC 11/23/22 SHE HAS NOT HAD ANY PROBLEMS WITH THIS SHE SEES DR. MENDEZ FOR OB CARE PT IS AB 1 PT SMOKES CIGARETTES, SHE ALSO HAS HISTORY OF METH USE-SMOKES IT. SHE HAS NOT HAD COVID VACCINE, BUT HAD COVID IN MARCH 2022 SHE HAS HAD FLU VACCINE FOR THIS SEASON PT WITH A MULTITUDE OF VISITS, NEARLY ALL FOR THIS SAME COMPLAINT PCP: [facility] [place]: DR. MENDEZ Allergies and Home Medications Allergies Coded Allergies: aspirin (Verified Allergy, Unknown, 05/28/22) ibuprofen (Verified Allergy, Unknown, shortness of breath, 05/28/22) naproxen (Verified Allergy, Unknown, 05/28/22) SHORTNESS OF BREATH Patient Home Medication List Home Medication List Reviewed: Yes Albuterol/Ipratropium (Combivent Respimat Inhal [place]) 20 Mcg-100 Mcg/Actuation Aero, 1 PUFF IH QID Prescribed by: GURVINDER HART on 04/12/22 1046 Hydrocodone/Chlorphen P-Stirex (Hydrocodone-Chlorphen ER Susp) 10 Mg-8 Mg/5 Ml Flores.er.12h, 5 ML PO BID PRN for cough/pain Prescribed by: YVETTE WILLINGHAM on 10/02/22 0006 Methylprednisolone (Methylprednisolone Dose Pack) 4 Mg Tab.ds.pk, 4 MG PO UD Prescribed by: SHAWNEE GROSS on 05/25/22 1707 Pnv Cmb#21/Iron/Folic Acid ( Complete Caplet) 14 Mg Iron-400 Mcg Tablet, 1 EACH PO DAILY Prescribed by: GURVINDER HART on 04/12/22 104 Prednisone (Prednisone) 10 Mg Tab.ds.pk, 10 MG PO DAILY Prescribed by: GURVINDER HART on 04/12/22 1046 Review of Systems Review of Systems Constitutional: see HPI EENTM: see HPI, nose congestion Respiratory: see HPI, cough, short of breath, wheezing Cardiovascular: No edema; other (CHEST TIGHTNESS DUE TO BREATHING) Gastrointestinal: no symptoms reported Genitourinary: see HPI : Yes Expected Date of Delivery: Nov 23, 2022 Musculoskeletal: no symptoms reported Skin: no symptoms reported Psychiatric/Neurological: Anxiety Hematologic/Lymphatic: No Symptoms Reported Immunological/Allergic: no symptoms reported Past Skxrcst-Kvfhnw-Ejzour Hx Patient Social History Tobacco Use?: Yes Tobacco type used: Cigarettes Smoking Status: Current Everyday Smoker Substance use?: Yes Substance type: Amphetamines, Methamphetamine Alcohol Frequency: Rarely Immunizations Up To Date Tetanus Booster (TDap): Unknown PED Vaccines UTD: Yes Influenza Vaccine Up-to-Date: No; Not Current First/Initial COVID19 Vaccinat: DECLINED Second COVID19 Vaccination Naeem: DECLINED Third COVID19 Vaccination Date: DECLINED Seasonal Allergies Seasonal Allergies: Yes Past Medical History Surgery/Hospitalization HX: Asthma history, 3 c-sections, D&C, NIDDM, ANX/DEP, BIPOLAR, NASAL POLYPS Surgeries: Yes (Cyst removed on eye, D&C, CS x 3; NASAL POLYPS REMOVED) Section, Eye Surgery, Nose 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; COVID 03/2022) Asthma, Sleep Apnea Cardiac: No Neurological: Yes Concussion : Yes Hx : 5 Hx Para: 3 Hx Total # of Abortions (Sp): 1 Reproductive Disorders: Yes Female Reproductive Disorders: Ovarian Cyst, Polycystic Ovarian Dis Sexually Transmitted Disease: Yes (HSV2) HIV/AIDS: No Genitourinary: No Gastrointestinal: No Musculoskeletal: No Endocrine: Yes Diabetes, Non-Insulin dep HEENT: Yes (NASAL POLYPS) Loss of Vision: Denies Hearing Impairment: Denies Cancer: No Psychosocial: Yes (SUBSTANCE ABUSE) Anxiety, Bipolar, Depression Integumentary: No Blood Disorders: No Adverse Reaction/Blood Tranf: No Family Medical History Diabetes mellitus 19 MOTHER Hypertension 19 MOTHER Thyroid disease 19 MOTHER No Family History of: Asthma Dementia Myocardial infarction Respiratory disorder Seizure disorder No Pertinent Family Hx SOCIAL HISTORY: -OCCASIONAL ETOH -THC, HX OF METH USE--STATES SHE SMOKED IT. UDS + FOR AMPHETAMINES 05/17/20, UDS + FOR METH AND/OR AMPHETAMINES 10/31/20, 11/02/21, 10/04/22 -OCCASIONALLY SMOKES CIGARETTES Physical Exam Vital Signs - First Documented 10/04/22 10/04/22 22:06 22:13 Temp 36.7 Pulse 108 Resp 26 B/P (MAP) 122/104 (110) Pulse Ox 92 O2 Delivery Room Air O2 Flow Rate 2.00 Capillary Refill : Height: 5'3.00" Weight: 160lbs. 0.0oz. [id number]; 32.22 BMI Method:Stated General Appearance: WD/WN, other (ANXIOUS, TALKS VERY RAPIDLY NON-STOP AT GREAT LENGTH, MILDLY DYSPNEIC. REEKS OF CIGARETTES. OCCASIONAL DRY COUGH) HEENT: PERRL/EOMI, normal ENT inspection, pharynx normal Neck: normal inspection Respiratory: wheezing, other (TACHYPNEIC, MILDLY DYSPNEIC. DECREASED AERATION IN ALL LUNG REAVES, WITH MILD BILATERAL EXPIRATORY WHEEZING ) Cardiovascular: no murmur, tachycardia Gastrointestinal: soft, other (GRAVID UTERUS) Extremities: normal inspection, no pedal edema, no calf tenderness, normal capillary refill Neurologic/Psychiatric: lining setter II-XII nml as tested, no motor/sensory deficits, alert, oriented x 3 Skin: normal color, warm/dry Focused Exam Sepsis Stage: Ruled Out Reason for ruling out sepsis: DOES NOT MEET CRITERIA Possible Source: Pulmonary Lactate Level 10/04/22 23:05: Lactic Acid Level 0.90 Time of Focused Exam: 23:00 Respiratory: Normal Breath Sounds, No Accessory Muscle Use, No Respiratory Distress Cardiovascular: Regular Rate, Rhythm Capillary Refill: Less Than 3 Seconds Lactic Acid Level Laboratory Tests Test 10/04/22 23:05 Lactic Acid Level 0.90 MMOL/L (0.50-2.00) Within 3hrs of presentation: Admin fluids, Admin ABX, Blood cultures prior to ABX's, Focus exam, Lactate level Progress/Results/Core Measures Suspected Sepsis SIRS Temperature: Pulse: Respiratory Rate: Laboratory Tests 10/04/22 22:18: White Blood Count 11.1H Blood Pressure / Mean: 10/04/22 23:05: Lactic Acid Level 0.90 Laboratory Tests 10/04/22 22:18: Creatinine 0.66, INR Comment 0.9, Platelet Count 357, Total Bilirubin 0.7 Results/Orders Lab Results Laboratory Tests Test 10/04/22 22:18 10/04/22 22:23 10/04/22 22:45 10/04/22 23:05 Range/Units White Blood Count 11.1 H 4.3-11.0 10^3/uL Red Blood Count 4.09 3.80-5.11 10^6/uL Hemoglobin 12.1 11.5-16.0 g/dL Hematocrit 36 35-52 % Mean Corpuscular Volume 89 80-99 fL Mean Corpuscular Hemoglobin 30 25-34 pg Mean Corpuscular Hemoglobin Concent 33 32-36 g/dL Red Cell Distribution Width 13.4 10.0-14.5 % Platelet Count 357 130-400 10^3/uL Mean Platelet Volume 9.6 9.0-12.2 fL Immature Granulocyte % (Auto) 0 % Neutrophils (%) (Auto) 72 42-75 % Lymphocytes (%) (Auto) 17 12-44 % Monocytes (%) (Auto) 6 0-12 % Eosinophils (%) (Auto) 4 0-10 % Basophils (%) (Auto) 0 0-10 % Neutrophils # (Auto) 8.0 H 1.8-7.8 10^3/uL Lymphocytes # (Auto) 1.9 1.0-4.0 10^3/uL Monocytes # (Auto) 0.6 0.0-1.0 10^3/uL Eosinophils # (Auto) 0.5 H 0.0-0.3 10^3/uL Basophils # (Auto) 0.0 0.0-0.1 10^3/uL Immature Granulocyte # (Auto) 0.0 0.0-0.1 10^3/uL Prothrombin Time 12.3 12.2-14.7 SEC INR Comment 0.9 0.8-1.4 Activated Partial Thromboplast Time 26 24-35 SEC Sodium Level 137 135-145 MMOL/L Potassium Level 3.7 3.6-5.0 MMOL/L Chloride Level 108 H 98-107 MMOL/L Carbon Dioxide Level 18 L 21-32 MMOL/L Anion Gap 11 5-14 MMOL/L Blood Urea Nitrogen 7 7-18 MG/DL Creatinine 0.66 0.60-1.30 MG/DL Estimat Glomerular Filtration Rate 120 BUN/Creatinine Ratio 11 Glucose Level 91 70-105 MG/DL Calcium Level 8.9 8.5-10.1 MG/DL Corrected Calcium 9.1 8.5-10.1 MG/DL Magnesium Level 1.7 1.6-2.4 MG/DL Total Bilirubin 0.7 0.1-1.0 MG/DL Aspartate Amino Transf (AST/SGOT) 37 H 5-34 U/L Alanine Aminotransferase (ALT/SGPT) 65 H 0-55 U/L Alkaline Phosphatase 98 40-136 U/L B-Type Natriuretic Peptide < 10.0 <100.0 PG/ML Total Protein 6.8 6.4-8.2 GM/DL Albumin 3.7 3.2-4.5 GM/DL Procalcitonin 0.03 <0.10 NG/ML TSH Gregory Testing 2.24 0.35-4.94 UIU/ML Influenza Type A (RT-PCR) Not Detected Not Detecte Influenza Type B (RT-PCR) Not Detected Not Detecte SARS-CoV-2 RNA (RT-PCR) Not Detected Not Detecte Urine Color DARK YELLOW Urine Clarity CLOUDY Urine pH 5.5 5-9 Urine Specific [place] >=1.030 1.016-1.022 Urine Protein TRACE H NEGATIVE Urine Glucose (UA) NEGATIVE NEGATIVE Urine Ketones NEGATIVE NEGATIVE Urine Nitrite NEGATIVE NEGATIVE Urine Bilirubin 2+ H NEGATIVE Urine Urobilinogen 2.0 < = 1.0 MG/DL Urine Leukocyte Esterase NEGATIVE NEGATIVE Urine RBC (Auto) NEGATIVE NEGATIVE Urine RBC NONE /HPF Urine WBC NONE /HPF Urine Squamous Epithelial Cells 10-25 H /HPF Urine Crystals NONE /LPF Urine Bacteria MODERATE H /HPF Urine Casts NONE /LPF Urine Mucus MODERATE H /LPF Urine Culture Indicated NO Urine Opiates Screen POSITIVE H NEGATIVE Urine Oxycodone Screen NEGATIVE NEGATIVE Urine Methadone Screen NEGATIVE NEGATIVE Urine Propoxyphene Screen NEGATIVE NEGATIVE Urine Barbiturates Screen NEGATIVE NEGATIVE Ur Tricyclic Antidepressants Screen NEGATIVE NEGATIVE Urine Phencyclidine Screen NEGATIVE NEGATIVE Urine Amphetamines Screen NEGATIVE NEGATIVE Urine Methamphetamines Screen POSITIVE H NEGATIVE Urine Benzodiazepines Screen NEGATIVE NEGATIVE Urine Cocaine Screen NEGATIVE NEGATIVE Urine Cannabinoids Screen NEGATIVE NEGATIVE Lactic Acid Level 0.90 0.50-2.00 MMOL/L My Orders Orders - SALENA MONTERO DO Ed Iv/Invasive Line Start (10/04/22 22:13) Heart Tones (10/04/22 22:13) Monitor-Rhythm Ecg Trace Only (10/04/22 22:13) Chest 1 View, Ap/Pa Only (10/04/22 22:13) Bnp Fannin (10/04/22 22:13) Cbc With Automated Diff (10/04/22 22:13) Comprehensive Metabolic Panel (10/04/22 22:13) Magnesium (10/04/22 22:13) Covid 19 Inhouse Test (10/04/22 22:13) Influenza A And B By Pcr (10/04/22 22:13) Isolation Central Supply Req (10/04/22 22:13) O2 (10/04/22 22:13) Albuterol/Ipra Inhalation Soln (Duoneb I (10/04/22 22:15) Dexamethasone Injection (Decadron Injec (10/04/22 22:15) Rt Request For Service (10/04/22 22:13) Methylprednisolone Sod Succ (Solu-Medrol (10/04/22 22:13) Svn Small Volume Nebulizer (10/04/22 22:13) Drug Screen Stat (Urine) (10/04/22 22:22) Thyroid Analyzer (10/04/22 22:22) Ua Culture If Indicated (10/04/22 22:22) Ceftriaxone 1 Gm Pre-Mix (Rocephin 1 Gm (10/04/22 23:00) Azithromycin Injection (Zithromax Inject (10/04/22 23:00) Lactic Acid Analyzer (10/04/22 22:50) Procalcitonin (Pct) (10/04/22 22:50) Blood Culture (10/04/22 22:50) Sputum Culture (10/04/22 22:50) Protime With Inr (10/04/22 22:50) Partial Thromboplastin Time (10/04/22 22:50) Ed Iv/Invasive Line Start (10/04/22 22:50) O2 (10/04/22 22:50) Ed Iv/Invasive Line Start (10/04/22 22:50) Lactated Ringers (Lr 1000 Ml Iv Solution (10/04/22 23:00) Ed Admission (Communication) (10/04/22 23:50) Medications Given in ED Current Medications Medications Dose Ordered Sig/Kemi Route Start Time Stop Time Status Last Admin Dose Admin Albuterol/ Ipratropium 3 ml ONCE ONCE INH 10/04/22 22:15 10/04/22 22:23 DC 10/04/22 23:16 3 ML Azithromycin 500 mg/Sodium Chloride 250 ml @ 250 mls/hr ONCE ONCE IV 10/04/22 23:00 10/04/22 23:59 DC 10/04/22 23:38 250 MLS/HR Ceftriaxone Sodium/Dextrose 50 ml @ 100 mls/hr ONCE ONCE IV 10/04/22 23:00 10/04/22 23:29 DC 10/04/22 23:32 100 MLS/HR Dexamethasone Sodium Phosphate 20 mg ONCE ONCE IH 10/04/22 22:15 10/04/22 22:23 DC 10/04/22 23:16 20 MG Lactated Ringer's 1,000 ml @ 0 mls/hr Q0M ONCE IV 10/04/22 23:00 10/04/22 23:01 DC 10/04/22 23:38 999 MLS/HR Vital Signs/I&O 10/04/22 10/04/22 10/04/22 10/05/22 22:06 22:13 23:16 00:28 Temp 36.7 36.7 Pulse 108 89 Resp 26 19 B/P (MAP) 122/104 (110) 112/62 Pulse Ox 92 95 100 O2 Delivery Room Air Nasal Cannula Nasal Cannula Nasal Cannula O2 Flow Rate 2.00 4.00 4.00 10/05/22 00:00 Intake Total 50 ml Balance 50 ml Capillary Refill : Progress Note : Progress Note PPE WORN COVID AND FLU TESTING DONE SEPSIS PROTOCOL INITIATED AFTER REVIEWING CXR, SHOWING POSSIBLE RLL INFILTRATE. RT FOR NEBULIZER TREATMENT, AND SPACER GIVEN TO PT AND RT DID SPACER TEACHING. O2 SATS 90% ON ROOM AIR. PLACED ON O2 AT 4L/NC, AND O2 SATS UP TO 95% GIVEN: -IV FLUIDS -SOLU-MEDROL -ANTIBIOTICS NO DETERIORATION IN PT'S CONDITION DURING ER STAY PT STATES SHE FEELS MUCH BETTER PT IS CALMER, RESPIRATIONS EVEN AND UNLABORED, COUGH IS IMPROVED, INCREASED AERATION AND NO WHEEZING AT TIME OF ADMIT. O2 SATS 100% ON 4L/NC. O2 RATE DECREASED TO 2L/NC AND PT MAINTAINED O2 SATS IN MID 90'S NO FEVER VITALS STABLE. FHR 148 REVIEWED ALL TEST RESULTS, NEED FOR ADMIT, AND PT IS AGREEABLE TO PLAN OF CARE. Diagnostic Imaging Comments CXR--RLL INFILTRATE, PENDING RADIOLOGIST REVIEW Reviewed: Reviewed by Me Departure Communication (Admissions) [id number]--CALLED DR. LEIVA, MESSAGE LEFT ON CELL PHONE [phone]--SPOKE WITH DR. LEIVA, ACCEPTS PT FOR ADMIT. SHE WILL DO ADMIT ORDERS. Impression Primary Impression: Acute asthma exacerbation Additional Impressions: Methamphetamine use Smoker 29 to 30 weeks gestation of RLL pneumonia Disposition: ADMITTED INPATIENT Condition: Improved Admissions Decision to Admit Reason: Admit from ER (General) Decision to Admit/Date: Oct 04, 2022 Time/Decision to Admit Time: 23:30 Departure-Patient Inst. Referrals: [facility] (PCP) Primary Care Physician SARINA CHERY (Family) Primary Care Physician SALENA MONTERO DO Oct 04, 2022 23:32
[2022-10-05] VITALS (19 sets, daily range): BP systolic 102–126; BP diastolic 54–104
[2022-10-05] MEDS ORDERED: AZITHROMYCIN INJECTION 500 MG in NS (IVPB) 250 ML IV ONE (01:30)
[2022-10-05] MEDS ORDERED: RT-ALBUTEROL/IPRATROPIUM 3 ML (DUONEB) VIAL INH SCH ×2 (02:00→02:15)
[2022-10-05] MEDS ORDERED: predniSONE 20 MG TAB PO SCH (07:00)
[2022-10-05 07:56] LABS: HEMATOCRIT 32 % (35-52); HEMOGLOBIN 10.8 g/dL (11.5-16.0); MEAN CORPUSCULAR HEMOGLOBIN 30 pg (25-34); MEAN CORPUSCULAR HGB CONC 33 g/dL (32-36); MEAN CORPUSCULAR VOLUME 89 fL (80-99); MEAN PLATELET VOLUME 9.6 fL (9.0-12.2); PLATELET COUNT 302 10^3/uL (130-400); WHITE BLOOD COUNT 7.9 10^3/uL (4.3-11.0)
[2022-10-05] MEDS: RT-ALBUTEROL/IPRATROPIUM 3 ML (DUONEB) VIAL INH SCH ×5 (07:56→23:07)
[2022-10-05 08:15] LABS: ALBUMIN 3.2 GM/DL (3.2-4.5); BILIRUBIN,TOTAL 0.7 MG/DL (0.1-1.0); CALCIUM 8.6 MG/DL (8.5-10.1); CREATININE SERUM 0.6 MG/DL (0.60-1.30); POTASSIUM 3.9 MMOL/L (3.6-5.0); TOTAL PROTEIN 5.9 GM/DL (6.4-8.2)
--- NOTE | 2022-10-05 08:22 | Diagnostic Imaging Report ---
EXAMINATION: Chest 1 view HISTORY: COUGH, DYSPNEA COMPARISON: 05/25/2022 FINDINGS: Heart size and pulmonary vasculature are normal. The lungs are clear without consolidation, pleural effusion, or pneumothorax. The osseous structures are intact. IMPRESSION: 1. No acute radiographic abnormality in the chest. Dictated by: Dictated on workstation # [id number]
[2022-10-05] MEDS: RT-ALBUTEROL/IPRATROPIUM 3 ML (DUONEB) VIAL INH PRN ×2 (11:43→16:35)
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
[2022-10-05] MEDS ORDERED: diphenhydrAMINE 25 MG TAB (BENADRYL) PO ONE (16:12)
[2022-10-05] MEDS ORDERED: methylPREDNISolone 40 MG/ML (Solu-MEDROL) VIAL ONE (16:12)
[2022-10-05] MEDS ORDERED: RT-BUDESONIDE NEBS 0.5 MG/2ML (PULMICORT) AMP INH SCH ×2 (16:15→21:00)
[2022-10-05] MEDS ORDERED: diphenhydrAMINE 25 MG TAB (BENADRYL) PO NR (16:15)
[2022-10-05] MEDS ORDERED: methylPREDNISolone 125 MG (Solu-MEDROL) VIAL IVP NR (16:15)
[2022-10-05] MEDS ORDERED: RT-ALBUTEROL SULF 2.5 MG/3 ML PRE-MIX VIAL ONE (16:57)
[2022-10-05] MEDS ORDERED: RT-ALBUTEROL SULF 2.5 MG/3 ML PRE-MIX VIAL INH ONE (17:00)
[2022-10-05] MEDS ORDERED: MAGNESIUM 2 GM/50 ML IVPB 50 ML IV ONE (18:15)
--- NOTE | 2022-10-05 18:46 | Progress Note ---
Subjective Subjective/Events-last exam Pt had worsening hypoxia late in the afternoon. While I was in a delivery, she continued to have increasing supplemental oxygen up to 6 lpm in spite of repeat dose of IV solumedrol 125 mg, benadryl 50 mg PO and budesonide nebulized treatment. She is now receiving an hour long duonebs and is on 4 lpm. She is spe aking easily at this time, but does feel anxious. Focused Exam Lactate Level 10/04/22 23:05: Lactic Acid Level 0.90 Time of Focused Exam: 23:00 Objective Exam Last Set of Vital Signs Vital Signs Date Time Temp Pulse Resp B/P (MAP) Pulse Ox O2 Delivery O2 Flow Rate FiO2 10/05/22 17:02 95 4.00 10/05/22 16:35 Nasal Cannula 10/05/22 13:02 106 18 102/54 (70) 10/05/22 08:23 36.4 10/05/22 02:00 28 Capillary Refill : Less Than 3 Seconds I&O Intake and Output 10/04/22 23:59 Intake Total 50 ml Balance 50 ml IV Total 50 ml General: Alert, Mild Distress Lungs: Other (good air movement, but diffuse inspiratory and expiratory wheezing) Heart: Regular Rate Psych/Mental Status: Mental Status NL, Mood NL Other physical findings FHTs 140s, moderate variability, no decels Results/Procedures Lab Laboratory Tests 10/04/22 22:18: White Blood Count 11.1H, Red Blood Count 4.09, Hemoglobin 12.1, Hematocrit 36, Mean Corpuscular Volume 89, Mean Corpuscular Hemoglobin 30, Mean Corpuscular Hemoglobin Concent 33, Red Cell Distribution Width 13.4, Platelet Count 357, Mean Platelet Volume 9.6, Immature Granulocyte % (Auto) 0, Neutrophils (%) (Auto) 72, Lymphocytes (%) (Auto) 17, Monocytes (%) (Auto) 6, Eosinophils (%) (Auto) 4, Basophils (%) (Auto) 0, Neutrophils # (Auto) 8.0H, Lymphocytes # (Auto) 1.9, Monocytes # (Auto) 0.6, Eosinophils # (Auto) 0.5H, Basophils # (Auto) 0.0, Immature Granulocyte # (Auto) 0.0, Prothrombin Time 12.3, INR Comment 0.9, Activated Partial Thromboplast Time 26, Sodium Level 137, Potassium Level 3.7, Chloride Level 108H, Carbon Dioxide Level 18L, Anion Gap 11, Blood Urea Nitrogen 7, Creatinine 0.66, Estimat Glomerular Filtration Rate 120, BUN/Creatinine Ratio 11, Glucose Level 91, Calcium Level 8.9, Corrected Calcium 9.1, Magnesium Level 1.7, Total Bilirubin 0.7, Aspartate Amino Transf (AST/SGOT) 37H, Alanine Aminotransferase (ALT/SGPT) 65H, Alkaline Phosphatase 98, B-Type Natriuretic Peptide < 10.0, Total Protein 6.8, Albumin 3.7, Procalcitonin 0.03, TSH Storey Testing 2.24 10/04/22 22:23: Influenza Type A (RT-PCR) Not Detected, Influenza Type B (RT-PCR) Not Detected, SARS-CoV-2 RNA (RT-PCR) Not Detected 10/04/22 22:45: Urine Color DARK YELLOW, Urine Clarity CLOUDY, Urine pH 5.5, Urine Specific [place] >=1.030, Urine Protein TRACEH, Urine Glucose (UA) NEGATIVE, Urine Ketones NEGATIVE, Urine Nitrite NEGATIVE, Urine Bilirubin 2+H, Urine Urobi linogen 2.0, Urine Leukocyte Esterase NEGATIVE, Urine RBC (Auto) NEGATIVE, Urine RBC NONE, Urine WBC NONE, Urine Squamous Epithelial Cells 10-25H, Urine Crystals NONE, Urine Bacteria MODERATEH, Urine Casts NONE, Urine Mucus MODERATEH, Urine Culture Indicated NO, Urine Opiates Screen POSITIVEH, Urine Oxycodone Screen NEGATIVE, Urine Methadone Screen NEGATIVE, Urine Propoxyphene Screen NEGATIVE, Urine Barbiturates Screen NEGATIVE, Ur Tricyclic Antidepressants Screen NEGATIVE, Urine Phencyclidine Screen NEGATIVE, Urine Amphetamines Screen NEGATIVE, Urine Methamphetamines Screen POSITIVEH, Urine Benzodiazepines Screen NEGATIVE, Urine Cocaine Screen NEGATIVE, Urine Cannabinoids Screen NEGATIVE 10/04/22 23:05: Lactic Acid Level 0.90 10/05/22 07:47: White Blood Count 7.9, Red Blood Count 3.65L, Hemoglobin 10.8L, Hematocrit 32L, Mean Corpuscular Volume 89, Mean Corpuscular Hemoglobin 30, Mean Corpuscular Hemoglobin Concent 33, Red Cell Distribution Width 13.4, Platelet Count 302, Mean Platelet Volume 9.6, Sodium Level 136, Potassium Level 3.9, Chloride Level 108H, Carbon Dioxide Level 21, Anion Gap 7, Blood Urea Nitrogen 6L, Creatinine 0.60, Estimat Glomerular Filtration Rate 123, BUN/Creatinine Ratio 10, Glucose Level 115H, Calcium Level 8.6, Corrected Calcium 9.2, Total Bilirubin 0.7, Aspartate Amino Transf (AST/SGOT) 34, Alanine Aminotransferase (ALT/SGPT) 67H, Alkaline Phosphatase 87, Total Protein 5.9L, Albumin 3.2 Microbiology 10/04/22 Blood Culture - Preliminary, Resulted No growth Radiology CXR 10/04/22: IMPRESSION: 1. No acute radiographic abnormality in the chest. Assessment/Plan Assessment/Plan (1) Acute asthma exacerbation Status: Acute Assessment & Plan: Plan at admit: Encouraged to use inhaled steroid regularly at home, will resume inpatient. Continue Duonebs. Started prednisone and reporting significant improvement. Will use supplemental oxygen to keep SpO2 above 95% given . On room air, may d/c after lunch if still doing well. 1800- pt worsening over last 2 hours in particular, given 32 weeks gestation and concern that she may need ICU, discussed with her consideration for transfer to facility with NICU availability and she is in agreement. Magnesium 2 grams IV ordered given persistent wheezing in spite of 125 mg solumedrol, budesonide and hour long duonebs. Called [facility], they have no ICU beds, so Ob provider was not comfortable transferring due to concern for need for ICU. Called [facility] in [place], they are at capacity as well. Called [facility] in [place] and they are also at capacity. Transfer form initiated and patient care handed off to Dr. Rivero at this time. Qualifiers: Qualified Codes: J45.41 - Moderate persistent asthma with (acute) exacerbation (2) Elevated liver enzymes Status: Acute Assessment & Plan: History of acute fatty liver of in Sep 2018, with resolution of LFTs . Trending down with normal AST today and minimally elevated ALT. Hepatitis panel pending. (3) Status: Acute Assessment & Plan: Continuous monitoring. Reassuring so far. Qualifiers: Qualified Codes: Z3A.32 - 32 weeks gestation of (4) 32 weeks gestation of Status: Acute (5) Methamphetamine use Status: Chronic Assessment & Plan: History of, reports distant past use. Urine pos on admit, will send for confirmation given she adamantly denies recent use. director financial services aware. TANESHA LEIVA MD Oct 05, 2022 18:46
[2022-10-05] MEDS ORDERED: cefTRIAXone 1 GM PRE-MIX 50 ML IV SCH (21:00)
[2022-10-05 21:12] LABS: HEPATITIS C ANTIBODY C Non-Reactive (Non-Reactive)
[2022-10-05 21:50] LABS: AMPHETAMINES URINE QUAL DS Negative (Negative); BARBITURATES URINE QUAL DS Negative (Negative); BENZODIAZEPINE URINE QUAL DS Negative (Negative)
[2022-10-06] MEDS ORDERED: LORATADINE (CLARITIN) 10 MG TAB PO SCH (09:00)
[2022-10-06] MEDS ORDERED: AZITHROMYCIN 250 MG TAB (ZITHROMAX) PO SCH (21:00)
== END 2022-10-05 20:47 | disposition short-term general hospital (02) | DRG 832 ==
LOC: EDUNIT# 21:59 → ER 22:00 → 4TH 10-05 00:30 → LDRP 10-05 08:08
PROVIDERS: ADMIT Family Medicine; ATTEND Family Medicine
DX: O99.513 Diseases of the respiratory system complicating pregnancy, third trimester (principal); J45.901 Unspecified asthma with (acute) exacerbation; O99.323 Drug use complicating pregnancy, third trimester; O99.333 Smoking (tobacco) complicating pregnancy, third trimester; Z3A.32 32 weeks gestation of pregnancy; F15.99 Other stimulant use, unspecified with unspecified stimulant-induced disorder; Z20.822 Contact with and (suspected) exposure to COVID-19; R09.02 Hypoxemia
CPT/HCPCS: 36415; 71045; 80053; 80074; 80306; 80307; 81000; 83605; 83735; 83880; 84145; 84443; 85027; 85610; 85730; 87040; 87636; 93041; 94640; 94664; 94760; G0378

== ENCOUNTER → 2022-10-18 | Outpatient (CLI) | payer MEDICAID ==
--- NOTE | 2022-10-18 16:15 | Diagnostic Imaging Report ---
INDICATION: Cholestasis of . BPD and growth. TECHNIQUE: Multiple Real-time grayscale images were obtained over the gravid uterus. COMPARISON: 07/24/2022. FINDINGS: There is a single live intrauterine gestation in cephalic presentation. The cervix is obscured by the head but estimated to be about 4.9 cm in length. heart rate measures 140 BPM. The placenta is anterior without evidence of previa. The amniotic fluid index measures 14.6 cm. The biophysical profile score measures 8 out of 8. Biometrical measurements are as follows: Biparietal 8.43 cm, age 34 weeks 0 days. Head circumference 30.99 cm, age 34 weeks 5 days. Abdominal circumference 30.23 cm, age 34 weeks 2 days. Femur length 6.20 cm, age 32 weeks 1 days. Sonographic estimate age: 33 weeks 6 days. Sonographic estimated date of delivery: 11/30/2022. Estimated Weight: 2241 gm (+/- 327 gm). LMP percentile: 66%. heart rate: 140 beats per minute. number: 1 of 1. IMPRESSION: 1. Single live intrauterine gestation measuring at 33 weeks and 6 days which is within range of the clinical dates. 2. Biophysical profile score of 8 out of 8. Dictated by: Dictated on workstation # [id number]
== END ==
LOC: RAD 12:25
PROVIDERS: ATTEND Nurse Practitioner Women's Health
DX: O26.613 Liver and biliary tract disorders in pregnancy, third trimester (principal); Z3A.33 33 weeks gestation of pregnancy
CPT/HCPCS: 76805; 76819

== ENCOUNTER 2022-11-19 05:46 | Inpatient (IN) | payer MEDICAID ==
[~2022-11-19] VITALS: Ht 160 cm; Wt 89.0 kg
[2022-11-19] VITALS (8 sets, daily range): BP systolic 94–129; BP diastolic 56–74
[2022-11-19] MEDS ORDERED: LACTATED RINGERS 1,000 ML IV PRN ×2 (06:00)
[2022-11-19] MEDS ORDERED: METOCLOPRAMIDE INJ 10 MG/2 ML (REGLAN) IV ONE (06:00)
[2022-11-19] MEDS ORDERED: MINERAL OIL 30 ML UDC TOP PRN (06:00)
[2022-11-19] MEDS ORDERED: FAMOTIDINE 20MG/2ML IV (PEPCID) IV ONE (06:00)
[2022-11-19] MEDS ORDERED: CATHETER FLUSH 10 ML SYR IV PRN (06:00)
[2022-11-19] MEDS ORDERED: CITRIC ACID/SOB CIT (BICITRA) 30 ML UDC PO ONE (06:00)
[2022-11-19] MEDS ORDERED: ceFAZolin INJECTION 2,000 MG in NS (IVPB) 50 ML IV SCH (06:01)
[2022-11-19] MEDS ORDERED: ceFAZolin INJECTION 2,000 MG ONE (06:04)
[2022-11-19] MEDS ORDERED: NS (IVPB) 50 ML ONE (06:05)
[2022-11-19 06:36] LABS: BASOPHILS % (AUTO) 0 % (0-10); EOSINOPHILS # (AUTO) 0.4 10^3/uL (0.0-0.3); EOSINOPHILS % (AUTO) 4 % (0-10); HEMATOCRIT 33 % (35-52); HEMOGLOBIN 10.9 g/dL (11.5-16.0); LYMPHOCYTES # (AUTO) 2.1 10^3/uL (1.0-4.0); LYMPHOCYTES % (AUTO) 23 % (12-44); MEAN CORPUSCULAR HEMOGLOBIN 28 pg (25-34); MEAN CORPUSCULAR HGB CONC 33 g/dL (32-36); MEAN CORPUSCULAR VOLUME 87 fL (80-99); MEAN PLATELET VOLUME 10.1 fL (9.0-12.2); MONOCYTES # (AUTO) 0.6 10^3/uL (0.0-1.0); MONOCYTES % (AUTO) 7 % (0-12); NEUTROPHILS # (AUTO) 5.9 10^3/uL (1.8-7.8); NEUTROPHILS % (AUTO) 65 % (42-75); PLATELET COUNT 297 10^3/uL (130-400); WHITE BLOOD COUNT 9.1 10^3/uL (4.3-11.0)
[2022-11-19] MEDS ORDERED: ALBU2.5V4 INH (06:48)
[2022-11-19] MEDS ORDERED: BUDE10.7 IH (06:48)
[2022-11-19] MEDS ORDERED: fentaNYL INJ 100 MCG/2 ML AMP ONE (07:06)
[2022-11-19] MEDS ORDERED: PHENYLEPHRINE 100 MCG/ML 10 ML (ANESTHESIA) SYR ONE (07:08)
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
[2022-11-19] MEDS ORDERED: DOCU100C37 PO (07:23)
[2022-11-19] MEDS ORDERED: HYDR-3817 PO (07:23)
--- NOTE | 2022-11-19 07:23 | Discharge Inst-Women's Service ---
Discharge Inst-Women's Serv Depart Medication/Instructions New, Converted or Re-Newed RX: Transmitted to Pharmacy Final Diagnosis POD 2 RLTCS Problems Reviewed?: Yes Consults/Follow Up Additional Follow Up: Yes Orders/Referrals Dr. Zepeda in 7-10 days and in 6 weeks Activity Activity: Activity as Tolerated Driving Instructions: No Driving for 1 Week NO SMOKING: NO SMOKING Nothing Inside Vagina: No Douching, No [place], No Tampons Diet Discharge Diet: No Restrictions Symptoms to Report to : Bleeding Excessive, Pain Increased, Fever Over 101 Degrees F, Vaginal Bleeding Increase, Questions/Concerns For Any Problems or Questions: Contact Your Physician Skin/Wound Care Infection Signs and Symptoms: Increased Redness, Foul Odor of Wound, Increased Drainage, Skin Itchy or Has a Rash, Increased Swelling, Temperature Above 101 F Operative Area Clean and Dry: Keep Incision Clean/Dry Stitches/[place]/Dermabond: Dermabond, Care of Stitches Bathing Instructions: SHARYN Miranda DO Nov 19, 2022 07:23
[2022-11-19 07:25] LABS: BILIRUBIN,URINE NEGATIVE (NEGATIVE); CLARITY,URINE SL CLOUDY; COLOR,URINE YELLOW; GLUCOSE, URINE (UA) NEGATIVE (NEGATIVE); KETONES,URINE NEGATIVE (NEGATIVE); LEUKOCYTE ESTERASE ,URINE NEGATIVE (NEGATIVE); NITRITE,URINE NEGATIVE (NEGATIVE); PH,URINE 5.5 (5-9); PROTEIN,URINE NEGATIVE (NEGATIVE)
[2022-11-19 07:30] LABS: BENZODIAZEPINES SCREEN URINE NEGATIVE (NEGATIVE); COCAINE SCREEN URINE NEGATIVE (NEGATIVE)
[2022-11-19] MEDS ORDERED: OXYTOCIN PRE-MIX DRIP 500 ML IV SCH (07:30)
[2022-11-19] MEDS ORDERED: KETOROLAC 30 MG/ML VIAL IV SCH (07:30)
[2022-11-19] MEDS ORDERED: ONDANSETRON 4 MG/2 ML (SDV) Z0FRAN IVP PRN (07:30)
[2022-11-19] MEDS ORDERED: NALOXONE 0.4 MG/ML 1 ML (NARCAN) VIAL IV PRN (07:30)
[2022-11-19] MEDS ORDERED: TETANUS,DIPTH,PERTUSS P/F (BOOSTRIX) 0.5 ML VIAL IM SCH (07:30)
[2022-11-19] MEDS ORDERED: MEASLES,MUMPS,RUBELLA 1 EA INJ SC SCH (07:30)
[2022-11-19 07:31] LABS: AMPHETAMINE SCREEN, URINE NEGATIVE (NEGATIVE); BARBITURATE SCREEN URINE NEGATIVE (NEGATIVE); CANNABINOID SCREEN, URINE NEGATIVE (NEGATIVE); METHADONE STAT NEGATIVE (NEGATIVE); OPIATE SCREEN URINE NEGATIVE (NEGATIVE); OXYCODONE STAT NEGATIVE (NEGATIVE); PROPOXYPHENE STAT NEGATIVE (NEGATIVE); TRICYCLIC ANTIDEPRESSANTS SCRE NEGATIVE (NEGATIVE)
[2022-11-19 07:33] LABS: BACTERIA,URINE MODERATE /HPF; RBC,URINE RARE /HPF; WBC,URINE 0-2 /HPF
[2022-11-19] MEDS ORDERED: OXYTOCIN PRE-MIX DRIP 500 ML IV ONE (07:51)
[2022-11-19] MEDS ORDERED: ONDANSETRON 4 MG/2 ML (SDV) Z0FRAN ONE (07:51)
[2022-11-19] MEDS ORDERED: BUPIVACAINE 0.5% 30 ML (SENSORCAINE) VIAL ONE (08:07)
[2022-11-19] MEDS ORDERED: diphenhydrAMINE 50 MG/ML INJ (BENADRYL) ONE (08:19)
[2022-11-19] MEDS: CATHETER FLUSH 10 ML SYR IV SCH (08:49)
[2022-11-19] MEDS: HYDROcodone/APAP 7.5 MG/325 MG (LORTAB, LORCET PLUS) TABLET PO PRN ×3 (15:44→21:33)
--- NOTE | 2022-11-19 16:17 | OPERATIVE REPORT ---
PREOPERATIVE DIAGNOSES: 1. A 32-year-old G5, P3 at 37 weeks and 3 days gestation. 2. Cholestasis of . 3. History of moderate asthma. 4. Previous section x3. POSTOPERATIVE DIAGNOSES: 1. A 32-year-old G5, P3 at 37 weeks and 3 days gestation. 2. Cholestasis of . 3. History of moderate asthma. 4. Previous section x3. PROCEDURE: Repeat low transverse section. SURGEON: Rj Mendez DO ANESTHESIA: Spinal. ESTIMATED BLOOD LOSS: 400 mL URINE OUTPUT: 30 mL, clear at the end of the procedure. FLUIDS: 1500 mL lactated Ringer's solution. FINDINGS: A live female infant, weight pending, Apgars of 8 and 9. Grossly normal appearing uterus, bilateral fallopian tubes and ovaries. SPECIMENS SENT: Placenta and intrauterine debris. INDICATIONS FOR PROCEDURE: A 32-year-old female. The patient had sought care in my office. Her care was complicated by asthma exacerbation in the mid trimester as well as a finding of intrahepatic cholestasis of . She was undergoing surveillance and determined to be delivered at 37 weeks due to her history of 3 prior cesareans. I discussed with the patient proceeding with repeat . After all of her questions were answered, she was agreeable to proceed. Consent was obtained. The patient was taken to the operating room. DESCRIPTION IN DETAIL: Once in the operating room, anesthesia was found to be adequate. She was placed in the supine position with leftward tilt, prepped and draped in normal sterile fashion. A timeout was performed. Anesthesia was tested. I then made a Pfannenstiel skin incision through the previously existing scar using a knife and carried down to the fascia using Bovie cautery. The fascial incision extended laterally using Bovie cautery. The superior aspect of fascial incision was then grasped with Kanu clamps and sharply dissected off the rectus muscles. The inferior aspect of the fascial incision was then grasped with Kanu clamps and sharply dissected off the underlying rectus muscles. The rectus muscles were dissected sharply down the midline, which exposed the peritoneum, which entered bluntly and extended using blunt traction. Roderick ring retractor was placed in the peritoneal incision, which offers excellent lateral sidewall retraction. I identified lower segment and was found to be thinned out and made a low transverse incision in the vesicouterine peritoneum and bluntly dissected off the lower uterine segment, creating a bladder flap. I then proceeded my myotomy until membranes were visualized, at which point I extended the uterine incision laterally and superiorly using bandage scissors. Amniotomy was then performed using Allis clamp. Clear fluid was noted. The was found in vertex presentation. With gentle fundal pressure, the 's head elevated up to the incision where the nares and oropharynx were bulb suctioned. Anterior and posterior shoulders were delivered. The was brought to the operative field where cords were clamped and cut and was handed off to waiting nurses in attendance. Cord blood was collected. Three-vessel cord with intact placenta was delivered spontaneously thereafter. IV Pitocin was initiated to facilitate uterine contraction. Uterine fundus confirmed by manual massage. The uterus was exteriorized and cleared of all endometrial clots and debris. There was a large piece of intrauterine debris, possible muscular component to it and it was sent as anterior uterine debris; however, after that point, I proceeded with closing the uterine incision using 0 Vicryl suture in a running locked fashion. Second layer of imbricating 0 Monocryl was placed. Excellent hemostasis was noted after doing this, I then placed the uterus back in the pelvis and copiously irrigated the pelvis with normal saline. Once again, there was no active bleeding noted from any dissection planes. I placed Interceed antiadhesive over my low transverse incision, I removed the Roderick retractor and then proceeded with closing the peritoneum using 3-0 Vicryl suture in a running fashion. The rectus muscles were reapproximated using 3-0 Vicryl suture in interrupted fashion. The fascia was reapproximated using 0 Vicryl suture in a running fashion. Subcutaneous tissue was reapproximated using 3-0 plain interrupted subcutaneous stitch and the skin was reapproximated using 4-0 Monocryl running subcuticular. Dermabond was applied to incision, sterile dressing with adhesive white tape. The patient tolerated the procedure well and was taken to recovery area in stable condition. Lap and sponge counts were correct at the end of the procedure. Instrument counts correct as well. Two grams of Ancef given preoperatively for infection prophylaxis. Job ID: [id number] DocumentID: [id number] Dictated Date: 11/19/2022 09:14:39 Technical Report Writer Date: 11/19/2022 16:15:00 Dictated By: RJ MENDEZ DO
[2022-11-19] MEDS: DOCUSATE SODIUM 100 MG (COLACE) CAP PO SCH ×2 (19:51→21:00)
[2022-11-19] MEDS ORDERED: HYDROmorphone 2 MG/ML VIAL (DILAUDID) IV PRN (21:45)
[2022-11-20 00:13] VITALS: BP 115/60
[2022-11-20] MEDS: HYDROcodone/APAP 7.5 MG/325 MG (LORTAB, LORCET PLUS) TABLET PO PRN ×3 (04:06→20:22)
[2022-11-20 04:08] VITALS: BP 91/61
[2022-11-20 05:51] LABS: BASOPHILS # (AUTO) 0.1 10^3/uL (0.0-0.1); BASOPHILS % (AUTO) 0 % (0-10); EOSINOPHILS # (AUTO) 0.3 10^3/uL (0.0-0.3); EOSINOPHILS % (AUTO) 2 % (0-10); HEMATOCRIT 34 % (35-52); LYMPHOCYTES # (AUTO) 1.9 10^3/uL (1.0-4.0); LYMPHOCYTES % (AUTO) 15 % (12-44); MEAN CORPUSCULAR HEMOGLOBIN 28 pg (25-34); MEAN CORPUSCULAR HGB CONC 33 g/dL (32-36); MEAN CORPUSCULAR VOLUME 86 fL (80-99); MEAN PLATELET VOLUME 10.1 fL (9.0-12.2); MONOCYTES # (AUTO) 0.6 10^3/uL (0.0-1.0); MONOCYTES % (AUTO) 5 % (0-12); NEUTROPHILS # (AUTO) 9.8 10^3/uL (1.8-7.8); NEUTROPHILS % (AUTO) 76 % (42-75); PLATELET COUNT 273 10^3/uL (130-400); WHITE BLOOD COUNT 12.8 10^3/uL (4.3-11.0)
[2022-11-20] MEDS ORDERED: AMPICILLIN FOR IV USE 2,000 MG in NS (IVPB) 50 ML IV ONE (05:52)
--- NOTE | 2022-11-20 07:30 | Postpartum Progress Note ---
Note Note Day # 1 Subjective: Patient is without complaints. Ambulating, voiding. Tolerating a regular diet without nausea or vomiting. Normal lochia. Pain is difficult to control, due to limitations with allergies. Objective: Physical Exam: General - Alert and oriented, no apparent distress Abdomen - Soft, appropriately tender to palpation, non-distended, fundus firm at umbilicus Extremities - no edema, negative Karma's bilaterally Incision- c/d/i Assessment: POD 1 RLTCS Plan: Routine care. Encourage breast feeding. Encourage ambulation. Ferrous sulfate supplementation. Plan for discharge tomorrow Vitals - Labs Vital Signs - I&O Vital Signs Date Time Temp Pulse Resp B/P (MAP) Pulse Ox O2 Delivery O2 Flow Rate FiO2 11/20/22 04:08 36.2 87 18 91/61 (71) 97 Room Air 11/20/22 00:13 36.2 75 18 115/60 (78) 98 Room Air 11/19/22 19:42 36.9 83 18 119/61 (80) 97 Room Air 11/19/22 15:00 36.1 69 18 129/63 (85) 99 Room Air 11/19/22 14:48 Room Air 11/19/22 09:10 36.3 20 113/74 (87) 100 Room Air 11/19/22 09:10 Room Air 11/19/22 08:54 36.2 20 96/63 (74) 99 Room Air 11/19/22 08:54 Room Air 11/19/22 08:35 36.4 20 94/56 (69) 99 Room Air 11/19/22 08:35 Room Air 11/19/22 08:21 36.0 20 117/74 (88) 96 Room Air 11/19/22 08:21 Room Air I & O 11/20/22 07:00 Intake Total 1850 ml Output Total 1210 ml Balance 640 ml Labs Laboratory Tests 11/20/22 05:18: White Blood Count 12.8H, Red Blood Count 3.94, Hemoglobin 11.0L, Hematocrit 34L, Mean Corpuscular Volume 86, Mean Corpuscular Hemoglobin 28, Mean Corpuscular Hemoglobin Concent 33, Red Cell Distribution Width 14.4, Platelet Count 273, Mean Platelet Volume 10.1, Immature Granulocyte % (Auto) 1, Neutrophils (%) (Auto) 76H, Lymphocytes (%) (Auto) 15, Monocytes (%) (Auto) 5, Eosinophils (%) (Auto) 2, Basophils (%) (Auto) 0, Neutrophils # (Auto) 9.8H, Lymphocytes # (Auto) 1.9, Monocytes # (Auto) 0.6, Eosinophils # (Auto) 0.3, Basophils # (Auto) 0.1, Immature Granulocyte # (Auto) 0.1 SHARYN MENDEZ DO Nov 20, 2022 07:30
[2022-11-20 08:49] VITALS: BP 127/71
[2022-11-20] MEDS: DOCUSATE SODIUM 100 MG (COLACE) CAP PO SCH ×2 (08:49→20:22)
--- NOTE | 2022-11-20 12:18 | Anesthesia-Regional Post-Op ---
Regional Patient Condition Mental Status: Alert, Oriented x3 Circulation: Same as Pre-Op Headache: Absent Sensation: Full Recovery Motor Block: Absent Post Op Complications Complications None Follow Up Care/Instructions Patient Instructions None needed. Anesthesia/Patient Condition Patient is doing well, no complaints, stable vital signs, no apparent adverse anesthesia problems. No complications reported per nursing. ISIDRO,ANGELA Hdz CRNA Nov 20, 2022 12:18
[2022-11-20 13:18] VITALS: BP 119/75
[2022-11-20 17:06] VITALS: BP 113/66
[2022-11-20 21:00] VITALS: BP 120/66
[2022-11-20] MEDS: CATHETER FLUSH 10 ML SYR IV SCH ×2 (23:44)
[2022-11-21] MEDS: HYDROcodone/APAP 7.5 MG/325 MG (LORTAB, LORCET PLUS) TABLET PO PRN ×2 (03:53→10:39)
[2022-11-21 04:10] VITALS: BP 129/69
[2022-11-21] MEDS: CATHETER FLUSH 10 ML SYR IV SCH ×4 (06:05→06:21)
--- NOTE | 2022-11-21 07:18 | Postpartum Progress Note ---
Note Note Day # 2 Subjective: Patient is without complaints. Ambulating, voiding. Tolerating a regular diet without nausea or vomiting. Normal lochia. Pain is well controlled with oral pain medications. Objective: Physical Exam: General - Alert and oriented, no apparent distress Abdomen - Soft, appropriately tender to palpation, non-distended, fundus firm at umbilicus Extremities - no edema, negative Karma's bilaterally Assessment: POD 2 RLTCS Plan: Routine care. Encourage breast feeding. Encourage ambulation. Ferrous sulfate supplementation. Plan for discharge today Vitals - Labs Vital Signs - I&O Vital Signs Date Time Temp Pulse Resp B/P (MAP) Pulse Ox O2 Delivery O2 Flow Rate FiO2 11/21/22 04:10 36.0 84 18 129/69 (89) 99 Room Air 11/20/22 21:00 37.0 80 18 120/66 (84) 95 Room Air 11/20/22 17:06 36.4 79 18 113/66 (82) 100 Room Air 11/20/22 13:18 36.0 86 18 119/75 (90) 100 Room Air 11/20/22 08:49 36.0 73 18 127/71 (89) 99 Room Air I & O 11/21/22 06:59 Intake Total 1300 ml Balance 1300 ml SHARYN MENDEZ DO Nov 21, 2022 07:18
[2022-11-21 09:00] VITALS: BP 113/59
[2022-11-21] MEDS: DOCUSATE SODIUM 100 MG (COLACE) CAP PO SCH (10:39)
== END 2022-11-21 12:25 | disposition home or self-care (01) | DRG 786 ==
LOC: LDRP 05:46
PROVIDERS: ADMIT Obstetrics & Gynecology; ATTEND Obstetrics & Gynecology
PROC: 10D00Z1 Extraction of Products of Conception, Low, Open Approach (ICD-10-PCS; principal; 2022-11-20)
DX: O34.211 Maternal care for low transverse scar from previous cesarean delivery (principal); K83.1 Obstruction of bile duct; O26.62 Liver and biliary tract disorders in childbirth; O98.32 Other infections with a predominantly sexual mode of transmission complicating childbirth; Z3A.37 37 weeks gestation of pregnancy; Z37.0 Single live birth; O99.52 Diseases of the respiratory system complicating childbirth; J45.40 Moderate persistent asthma, uncomplicated; Z87.891 Personal history of nicotine dependence; A60.09 Herpesviral infection of other urogenital tract; Z28.310 Unvaccinated for COVID-19
CPT/HCPCS: 36415; 80306; 81000; 83033; 85025; 86780; 86850; 86900; 86901; 94664

== ENCOUNTER 2023-02-15 17:17 | Emergency (ER) | payer MEDICAID ==
[~2023-02-15] VITALS: Ht 160 cm; Wt 80.0 kg
[~2023-02-15 17:17] MED LIST changes: +BUDE10.7 IH; -D-ME473S11 PO; +HYDR-3817 PO; +PROM473S15 PO
--- NOTE | 2023-02-15 17:41 | ED Respiratory ---
General Chief Complaint: Respiratory Problems Stated Complaint: SOA Nursing Triage Note: PT ARRIVED PER EMS, PT SENT TO ED BY [facility], PT HAS ASTHMA, SAT 86% AT CLINIC, CURRENTL SAT 95% ON RM AIR. PT STATES HAD BEEN OUT OF MEDS FOR A MONTH. PT HAS OCC COUGH. DENIES FEVERS. PT HAS SL IN R AC #18 JELCO. PT HAS HAD SOLUMEDROL 125MG IV. PT IS CURRENTLY ON AN ANTIBIOTIC AND BREATHING TX. (YVETTE WILLINGHAM MD) History of Present Illness Date Seen by Provider: February 15, 2023 Time Seen by Provider: 17:27 Initial Comments Chun is a 33-year-old female with a history of "Samter's triad" - significant asthma. She is not oxygen dependent. She does use budesonide, Combivent and albuterol. She has been having worsening shortness of breath over the course of the last several days. Has been out of her medications for about a month. Has cough that is mostly nonproductive. No fevers or chills or URI symptoms. Was at [facility] yesterday and had medications refilled was advised to return to the emergency room if she had worsening. She lives close to [facility], and as she was going to get formula for her 3-month-old baby became increasingly more short of breath. Room air sats in the mid 80s when EMS arrived at [facility] to bring her to the emergency department. She had Solu-Medrol 125 mg prior to transport. She tells me that she has had 7 or 8 breathing treatments today. She has never been intubated for her asthma. Currently on 3 to 4 L of oxygen per nasal cannula satting 92 to 94%. Mildly conversationally dyspneic. No swelling in her legs. No other complaints of recent illness. Non-smoker. Lives with her mom and boyfriend who do not smoke. Timing/Duration: getting worse Severity: severe Prior Episodes/Possible Cause: occasional episodes Modifying Factors: Improves With Albuterol Inhaler, Improves With Albuterol Nebulizer, Improves With Oxygen Associated Symptoms: chest pain/soreness, cough, shortness of breath, wheezing (YVETTE WILLINGHAM MD) Allergies and Home Medications Allergies Coded Allergies: aspirin (Verified Allergy, Unknown, 05/28/22) ibuprofen (Verified Allergy, Unknown, shortness of breath; pt tolerated toradol in past, 11/19/22) naproxen (Verified Allergy, Unknown, shortness of breath; pt tolerated toradol in past, 11/19/22) SHORTNESS OF BREATH Patient Home Medication List Home Medication List Reviewed: Yes (YVETTE WILLINGHAM MD) Albuterol Sulfate (Albuterol Sulfate) 2.5 Mg/3 Ml (0.083 %) Vial.neb, 2.5 MG INH, (Reported) Entered as Reported by: Latoya Gordillo on 11/19/22 0648 Albuterol/Ipratropium (Combivent Respimat Inhal [place]) 20 Mcg-100 Mcg/Actuation Aero, 1 PUFF IH QID Prescribed by: GURVINDER HART on 04/12/22 1046 Budesonide/Glycopyr/Formoterol (Breztri Aerosphere Inhaler) 160 Mcg-9 Mcg-4.8 Mcg/Actuation Hfa.aer.ad, 10.7 GM IH BID, (Reported) Entered as Reported by: Latoya Gordillo on 11/19/22 0648 Docusate Sodium (Docusate Sodium) 100 Mg Capsule, 100 MG PO BID PRN for CONSTIPATION-1ST LINE Prescribed by: SHARYN MENDEZ on 11/19/22 07 Doxycycline Hyclate (Doxycycline Hyclate) 100 Mg Tablet, 100 MG PO BID Prescribed by: SALENA MONTERO on 02/15/232027 Hydrocodone/Acetaminophen (Hydrocodone-Acetamin 7.5-325) 7.5 Mg-325 Mg Tablet, 2 EACH PO Q6H PRN for PAIN Prescribed by: SHARYN MENDEZ on 11/19/22 07 Review of Systems Review of Systems Constitutional: see HPI EENTM: no symptoms reported Respiratory: cough, short of breath Cardiovascular: chest pain (Soreness with cough) Gastrointestinal: no symptoms reported Genitourinary: no symptoms reported Musculoskeletal: no symptoms reported Skin: no symptoms reported Psychiatric/Neurological: No Symptoms Reported (YVETTE WILLINGHAM MD) Past Aqindnx-Knxewq-Vcqlsl Hx Patient Social History Tobacco Use?: No Substance use?: No Alcohol Use?: No Pt feels they are or have been: No (YVETTE WILLINGHAM MD) Immunizations Up To Date Tetanus Booster (TDap): Unknown PED Vaccines UTD: Yes First/Initial COVID19 Vaccinat: DECLINED Second COVID19 Vaccination Naeem: DECLINED Third COVID19 Vaccination Date: DECLINED (YVETTE WILLINGHAM MD) Seasonal Allergies Seasonal Allergies: Yes (YVETTE WILLINGHAM MD) Past Medical History Surgery/Hospitalization HX: Asthma history, 3 c-sections, D&C, NIDDM, ANX/DEP, BIPOLAR, NASAL POLYPS Surgeries: Yes (Cyst removed on eye, D&C, CS x 3; NASAL POLYPS REMOVED) Section, Eye Surgery, Nose 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; COVID 03/2022) Asthma, Sleep Apnea Currently Using CPAP: No Currently Using BIPAP: No Cardiac: No Neurological: Yes Concussion Reproductive Disorders: Yes Female Reproductive Disorders: Ovarian Cyst, Polycystic Ovarian Dis Sexually Transmitted Disease: Yes (HSV2) HIV/AIDS: No Genitourinary: No Gastrointestinal: No Musculoskeletal: No Endocrine: Yes Diabetes, Non-Insulin dep HEENT: Yes (NASAL POLYPS) Loss of Vision: Denies Hearing Impairment: Denies Cancer: No Psychosocial: Yes (SUBSTANCE ABUSE) Anxiety, Bipolar, Depression Integumentary: No Blood Disorders: No Adverse Reaction/Blood Tranf: No (YVETTE WILLINGHAM MD) Family Medical History Diabetes mellitus 19 MOTHER Hypertension 19 MOTHER Thyroid disease 19 MOTHER No Family History of: Asthma Dementia Myocardial infarction Respiratory disorder Seizure disorder No Pertinent Family Hx SOCIAL HISTORY: -OCCASIONAL ETOH -THC, HX OF METH USE--STATES SHE SMOKED IT. UDS + FOR AMPHETAMINES 05/17/20, UDS + FOR METH AND/OR AMPHETAMINES 10/31/20, 11/02/21, 10/04/22 -OCCASIONALLY SMOKES CIGARETTES (YVETTE WILLINGHAM MD) Physical Exam Vital Signs - First Documented 02/15/23 17:18 Temp 36.2 Pulse 110 Resp 19 B/P (MAP) 132/80 (97) Pulse Ox 95 (WINSTONSALENA Nam DO) Capillary Refill : Less Than 3 Seconds (YVETTE WILLINGHAM MD) Height: 5'3.00" Weight: 160lbs. 0.0oz. 72.987251wc; 31.00 BMI Method:Stated General Appearance: WD/WN, mild distress Eyes: Bilateral Eye Normal Inspection, Bilateral Eye PERRL, Bilateral Eye EOMI HEENT: PERRL/EOMI, pharynx normal Neck: normal inspection Respiratory: no accessory muscle use, other (Overall poor air movement, tight expiratory wheezes noted at the bases posteriorly bilaterally no crackles or rhonchi; mild distress) Cardiovascular: regular rate, rhythm Gastrointestinal: non tender, soft Extremities: normal range of motion, non-tender, normal inspection, no pedal edema, no calf tenderness Neurologic/Psychiatric: alert, normal mood/affect, oriented x 3 Skin: normal color, warm/dry (YVETTE WILLINGHAM MD) Focused Exam Sepsis Stage: Sepsis (POSSIBLE) (SALENA MONTERO DO) Time of Focused Exam: 18:15 Respiratory: No Accessory Muscle Use, No Respiratory Distress, Wheezing Cardiovascular: Regular Rate, Rhythm, No Murmur Capillary Refill: Less Than 3 Seconds Skin: normal color, warm/dry (SALENA MONTERO DO) Within 3hrs of presentation: Admin fluids, Admin ABX, Blood cultures prior to ABX's, Focus exam, Lactate level (SALENA MONTERO DO) Progress/Results/Core Measures Suspected Sepsis SIRS Temperature: Pulse: 110 Respiratory Rate: 19 Blood Pressure 132 /80 Mean: 97 (YVETTE WILLINGHAM MD) Results/Orders Lab Results Laboratory Tests Test 02/15/23 17:20 02/15/23 17:54 02/15/23 18:26 Range/Units White Blood Count 14.5 H 4.3-11.0 10^3/uL Red Blood Count 4.52 3.80-5.11 10^6/uL Hemoglobin 12.9 11.5-16.0 g/dL Hematocrit 40 35-52 % Mean Corpuscular Volume 88 80-99 fL Mean Corpuscular Hemoglobin 29 25-34 pg Mean Corpuscular Hemoglobin Concent 32 32-36 g/dL Red Cell Distribution Width 15.3 H 10.0-14.5 % Platelet Count 466 H 130-400 10^3/uL Mean Platelet Volume 10.1 9.0-12.2 fL Immature Granulocyte % (Auto) 1 % Neutrophils (%) (Auto) 76 H 42-75 % Lymphocytes (%) (Auto) 17 12-44 % Monocytes (%) (Auto) 5 0-12 % Eosinophils (%) (Auto) 1 0-10 % Basophils (%) (Auto) 0 0-10 % Neutrophils # (Auto) 11.0 H 1.8-7.8 10^3/uL Lymphocytes # (Auto) 2.5 1.0-4.0 10^3/uL Monocytes # (Auto) 0.8 0.0-1.0 10^3/uL Eosinophils # (Auto) 0.2 0.0-0.3 10^3/uL Basophils # (Auto) 0.1 0.0-0.1 10^3/uL Immature Granulocyte # (Auto) 0.1 0.0-0.1 10^3/uL Neutrophils % (Manual) 76 % Lymphocytes % (Manual) 18 % Monocytes % (Manual) 5 % Eosinophils % (Manual) 0 % Basophils % (Manual) 1 % Band Neutrophils 0 % Blood Morphology Comment NORMAL Sodium Level 141 135-145 MMOL/L Potassium Level 3.8 3.6-5.0 MMOL/L Chloride Level 109 H 98-107 MMOL/L Carbon Dioxide Level 20 L 21-32 MMOL/L Anion Gap 12 5-14 MMOL/L Blood Urea Nitrogen 14 7-18 MG/DL Creatinine 0.77 0.60-1.30 MG/DL Estimat Glomerular Filtration Rate 105 BUN/Creatinine Ratio 18 Glucose Level 115 H 70-105 MG/DL Calcium Level 9.2 8.5-10.1 MG/DL Magnesium Level 1.9 1.6-2.4 MG/DL Serum Test, Qualitative NEGATIVE NEGATIVE Serum Alcohol < 10 <10 MG/DL Blood Gas Puncture Site LR Blood Gas Patient Temperature 36.2 Arterial Blood pH 7.34 *L 7.37-7.43 Arterial Blood Partial Pressure CO2 38 35-45 MMHG Arterial Blood Partial Pressure O2 90 79-93 MMHG Arterial Blood HCO3 21 L 23-27 MMOL/L Arterial Blood Total CO2 21.7 21.0-31.0 MMOL/L Arterial Blood Oxygen Saturation 98 94-100 % Arterial Blood Base Excess -4.4 L -2.5-2.5 MMOL/L Ralph Test YES-POS Blood Gas Ventilator Setting NO Blood Gas Inspired Oxygen 4 Urine Color YELLOW Urine Clarity CLEAR Urine pH 5.5 5-9 Urine Specific [place] 1.015 L 1.016-1.022 Urine Protein NEGATIVE NEGATIVE Urine Glucose (UA) NEGATIVE NEGATIVE Urine Ketones NEGATIVE NEGATIVE Urine Nitrite NEGATIVE NEGATIVE Urine Bilirubin NEGATIVE NEGATIVE Urine Urobilinogen 0.2 < = 1.0 MG/DL Urine Leukocyte Esterase NEGATIVE NEGATIVE Urine RBC (Auto) 3+ H NEGATIVE Urine RBC 50-100 H /HPF Urine WBC NONE /HPF Urine Squamous Epithelial Cells 0-2 /HPF Urine Crystals NONE /LPF Urine Bacteria NEGATIVE /HPF Urine Casts NONE /LPF Urine Mucus NEGATIVE /LPF Urine Culture Indicated NO Urine Opiates Screen NEGATIVE NEGATIVE Urine Oxycodone Screen NEGATIVE NEGATIVE Urine Methadone Screen NEGATIVE NEGATIVE Urine Propoxyphene Screen NEGATIVE NEGATIVE Urine Barbiturates Screen NEGATIVE NEGATIVE Ur Tricyclic Antidepressants Screen NEGATIVE NEGATIVE Urine Phencyclidine Screen NEGATIVE NEGATIVE Urine Amphetamines Screen POSITIVE H NEGATIVE Urine Methamphetamines Screen POSITIVE H NEGATIVE Urine Benzodiazepines Screen NEGATIVE NEGATIVE Urine Cocaine Screen NEGATIVE NEGATIVE Urine Cannabinoids Screen NEGATIVE NEGATIVE Influenza Type A (RT-PCR) Not Detected Not Detecte Influenza Type B (RT-PCR) Not Detected Not Detecte SARS-CoV-2 RNA (RT-PCR) Not Detected Not Detecte (SALENA MONTERO DO) My Orders Orders - SALENA MONTERO DO O2 (02/15/23 18:14) Monitor-Rhythm Ecg Trace Only (02/15/23 18:14) Chest 1 View, Ap/Pa Only (02/15/23 18:14) Drug Screen Stat (Urine) (02/15/23 18:14) Ua Culture If Indicated (02/15/23 18:14) Dexamethasone Injection (Decadron Inje (02/15/23 18:15) Covid 19 Inhouse Test (02/15/23 18:22) Influenza A And B By Pcr (02/15/23 18:22) Isolation Central Supply Req (02/15/23 18:22) Cefepime Injection (Maxipime Injection) (02/15/23 18:30) Alcohol (02/15/23 18:57) (SALENA MONTERO DO) Medications Given in ED Current Medications Medications Dose Ordered Sig/Kemi Route Start Time Stop Time Status Last Admin Dose Admin Cefepime HCl 1000 mg/Sodium Chloride 50 ml @ 100 mls/hr ONCE ONCE IV 02/15/23 18:30 02/15/23 18:59 DC 02/15/23 18:39 100 MLS/HR Dexamethasone Sodium Phosphate 20 mg ONCE ONCE IV 02/15/23 18:15 02/15/23 18:16 DC 02/15/23 18:27 20 MG (SALENA MONTERO DO) Vital Signs/I&O 02/15/23 02/15/23 02/15/23 02/15/23 17:17 17:17 17:18 20:29 Temp 36.2 Pulse 110 105 Resp 19 B/P (MAP) 132/80 (97) 118/80 Pulse Ox 95 96 O2 Delivery Nasal Cannula Nasal Cannula Room Air Room Air O2 Flow Rate 4.00 4.00 02/16/23 00:00 Intake Total 250 ml Balance 250 ml (SALENA MONTERO DO) Vital Signs/I&O Capillary Refill : Less Than 3 Seconds (YVETTE WILLINGHAM MD) Blood Pressure Mean: 97 Progress Note : Progress Note 1800--ASSUMED CARE OF PT AT SHIFT CHANGE. PT HAS RECEIVED NEB TREATMENT AND IS CURRENTLY GETTING IV MAGNESIUM. SHE STATES SHE IS FEELING BETTER, SHE IS IN NO DISTRESS AT THIS TIME. O2 SATS IN MID 90'S ON O2 AT 3L/NC. ADDITIONAL TESTS AND MEDICATIONS ORDERED. PT DELIVERED 3 MONTHS AGO, IS NOT . PT WEANED OFF O2, AND SATS 92-93% ON ROOM AIR. LUNGS ARE CLEAR, WITH GOOD AERATION. NO LABORED BREATHING, TALKS IN FULL SENTENCES PT STATES SHE FEELS MUCH BETTER. OFFERED ADMIT AND PT DECLINES DISCUSSED TEST RESULTS, ANTICIPATED COURSE, SYMPTOMATIC TREATMENT, MEDICATIONS, NEED FOR FOLLOW UP AND RETURN PRECAUTIONS. VERIFIED THAT PT HAS NEBULIZER WELL MEDICATIONS FOR IT--INCLUDING ALBUTEROL AND A STEROID INHALATION SOLUTION SHE STATES SHE IS ON A 5 DAY COURSE OF PREDNISONE 40 MG NOW. DISCUSSED IMPORTANCE OF PERMANENTLY STOPPING METHAMPHETAMINE USE, AND INFORMATION FOR ADDICTION TREATMENT THROUGH [facility]. REVIEWED PRIOR RECORDS, INCLUDING ER VISITS, ADMITS/ H&P'S /CONSULTS/ DISCHARGE SUMMARIES, TESTS/ PROCEDURES (SALENA MONTERO DO) Diagnostic Imaging Comments CXR--PER RADIOLOGIST REPORT AT 1939 FINDINGS: The cardiac silhouette is within normal limits in size. No significant pulmonary vascular congestion. The lungs are clear of focal pulmonary opacity. No pleural effusion. No pneumothorax. No acute osseous abnormality. IMPRESSION: Similar-appearing examination without acute cardiopulmonary abnormality. Reviewed: Reviewed by Me (SALENA MONTERO DO) Departure Impression Primary Impression: Acute asthma exacerbation Additional Impressions: Hypoxia POSSIBLE SEPSIS Methamphetamine use Methamphetamine addiction Disposition: HOME, SELF-CARE Condition: Improved Departure-Patient Inst. Decision time for Depature: 20:25 (SALENA MONTERO DO) Referrals: [facility] (PCP) Primary Care Physician SARINA CHERY (Family) Primary Care Physician Patient Instructions: Asthma, Adult (DC), Drug Misuse and Addiction (DC), Methamphetamine Add. Discharge Instructions: USE YOUR NEBULIZER MEDICATIONS PRESCRIBED FINISH YOUR PREDNISONE PRESCRIBED NO SMOKING OR DRUG OR ALCOHOL USE FOLLOW UP WITH [facility] IN 1-2 DAYS FOR FURTHER CARE, RETURN TO ER IF SYMPTOMS WORSEN All discharge instructions reviewed with patient and/or family. Voiced understanding. Scripts Doxycycline Hyclate (Doxycycline Hyclate) 100 Mg Tablet 100 MG PO BID, #20 TAB 0 Refills Prov: SALENA MONTERO DO 02/15/23 YVETTE WILLINGHAM MD February 15, 2023 17:41 SALENA MONTERO DO February 15, 2023 18:27
[2023-02-15 17:45] LABS: POTASSIUM 3.8 MMOL/L (3.6-5.0)
[2023-02-15 17:46] LABS: CALCIUM 9.2 MG/DL (8.5-10.1)
[2023-02-15] MEDS: MAGNESIUM 1 GM/100 ML IVPB 100 ML IV SCH ×2 (17:47→18:46)
[2023-02-15 17:50] LABS: CREATININE SERUM 0.77 MG/DL (0.60-1.30)
[2023-02-15 17:51] LABS: BASOPHILS # (AUTO) 0.1 10^3/uL (0.0-0.1); BASOPHILS % (AUTO) 0 % (0-10); EOSINOPHILS # (AUTO) 0.2 10^3/uL (0.0-0.3); EOSINOPHILS % (AUTO) 1 % (0-10); HEMATOCRIT 40 % (35-52); HEMOGLOBIN 12.9 g/dL (11.5-16.0); LYMPHOCYTES # (AUTO) 2.5 10^3/uL (1.0-4.0); LYMPHOCYTES % (AUTO) 17 % (12-44); MEAN CORPUSCULAR HEMOGLOBIN 29 pg (25-34); MEAN CORPUSCULAR HGB CONC 32 g/dL (32-36); MEAN CORPUSCULAR VOLUME 88 fL (80-99); MEAN PLATELET VOLUME 10.1 fL (9.0-12.2); MONOCYTES # (AUTO) 0.8 10^3/uL (0.0-1.0); MONOCYTES % (AUTO) 5 % (0-12); NEUTROPHILS % (AUTO) 76 % (42-75); PLATELET COUNT 466 10^3/uL (130-400); WHITE BLOOD COUNT 14.5 10^3/uL (4.3-11.0)
[2023-02-15 17:52] LABS: MAGNESIUM 1.9 MG/DL (1.6-2.4)
[2023-02-15 18:06] LABS: ABG BASE EXCESS -4.4 MMOL/L (-2.5-2.5); ABG OXYGEN SATURATION 98 % (94-100); ABG PCO2 38 MMHG (35-45); ABG PO2 90 MMHG (79-93); ABG TCO2 21.7 MMOL/L (21.0-31.0)
[2023-02-15 18:08] LABS: ABG PH 7.34 (7.37-7.43); ALLENS TEST YES-POS; INSPIRED O2 4; PATIENT TEMP 36.2; VENTILATOR NO
[2023-02-15 18:09] LABS: BAND NEUTROPHILS 0 %; BASOPHILS % (MANUAL) 1 %; EOSINOPHILS % (MANUAL) 0 %; LYMPHOCYTES % (MANUAL) 18 %; MONOCYTES % (MANUAL) 5 %; NEUTROPHILS % (MANUAL) 76 %; RBC MORPH NORMAL
[2023-02-15] MEDS ORDERED: CEFEPIME INJECTION 1,000 MG in NS (IVPB) 50 ML IV ONE (18:30)
[2023-02-15 18:34] LABS: BILIRUBIN,URINE NEGATIVE (NEGATIVE); CLARITY,URINE CLEAR; COLOR,URINE YELLOW; GLUCOSE, URINE (UA) NEGATIVE (NEGATIVE); KETONES,URINE NEGATIVE (NEGATIVE); LEUKOCYTE ESTERASE ,URINE NEGATIVE (NEGATIVE); NITRITE,URINE NEGATIVE (NEGATIVE); PH,URINE 5.5 (5-9); PROTEIN,URINE NEGATIVE (NEGATIVE)
[2023-02-15 18:47] LABS: BACTERIA,URINE NEGATIVE /HPF; RBC,URINE 50-100 /HPF; SQUAMOUS EPITHELIAL CELL,UR 0-2 /HPF
[2023-02-15 18:55] LABS: AMPHETAMINE SCREEN, URINE POSITIVE (NEGATIVE); BARBITURATE SCREEN URINE NEGATIVE (NEGATIVE); BENZODIAZEPINES SCREEN URINE NEGATIVE (NEGATIVE); CANNABINOID SCREEN, URINE NEGATIVE (NEGATIVE); COCAINE SCREEN URINE NEGATIVE (NEGATIVE); METHADONE STAT NEGATIVE (NEGATIVE); OPIATE SCREEN URINE NEGATIVE (NEGATIVE); OXYCODONE STAT NEGATIVE (NEGATIVE); PROPOXYPHENE STAT NEGATIVE (NEGATIVE); TRICYCLIC ANTIDEPRESSANTS SCRE NEGATIVE (NEGATIVE)
--- NOTE | 2023-02-15 19:17 | Diagnostic Imaging Report ---
INDICATION: Dyspnea, hypoxia COMPARISON: 10/04/2022 TECHNIQUE: Single radiograph of the chest dated 02/15/2023. FINDINGS: The cardiac silhouette is within normal limits in size. No significant pulmonary vascular congestion. The lungs are clear of focal pulmonary opacity. No pleural effusion. No pneumothorax. No acute osseous abnormality. IMPRESSION: Similar-appearing examination without acute cardiopulmonary abnormality. Dictated by: Dictated on workstation # [id number]
[2023-02-15] MEDS ORDERED: DOXY100T2 PO (20:28)
[2023-02-15 20:29] VITALS: BP 118/80
[2023-02-18] MEDS ORDERED: PRED10TA22 PO (10:59)
[2023-02-18] MEDS ORDERED: FLUT1AER5 IH (10:59)
[2023-02-18] MEDS ORDERED: PRD10T PO (15:06)
== END 2023-02-15 20:33 | disposition home or self-care (01) ==
LOC: EDUNIT# 17:17 → ER 17:18
DX: J45.901 Unspecified asthma with (acute) exacerbation (principal); F15.20 Other stimulant dependence, uncomplicated; R09.02 Hypoxemia; F17.210 Nicotine dependence, cigarettes, uncomplicated; Z86.16 Personal history of COVID-19; Z28.310 Unvaccinated for COVID-19; Z79.51 Long term (current) use of inhaled steroids; Z20.822 Contact with and (suspected) exposure to COVID-19
CPT/HCPCS: 36415; 71045; 80048; 80306; 80320; 81000; 82805; 83735; 84703; 85007; 85027; 87636; 93041

== ENCOUNTER 2023-02-16 08:05 | Inpatient (IN) | payer MEDICAID ==
[~2023-02-16] VITALS: Ht 160 cm; Wt 82.5 kg
[~2023-02-16 08:05] MED LIST changes: +DOXY100T2 PO
[2023-02-16] MEDS ORDERED: RT-ALBUTEROL/IPRATROPIUM 3 ML (DUONEB) VIAL INH ONE (08:30)
[2023-02-16] MEDS ORDERED: MAGNESIUM 1 GM/100 ML IVPB 100 ML IV ONE ×2 (08:30→08:45)
[2023-02-16] MEDS ORDERED: methylPREDNISolone 125 MG (Solu-MEDROL) VIAL IVP ONE (08:30)
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
[2023-02-16 09:17] LABS: POTASSIUM 4.3 MMOL/L (3.6-5.0)
[2023-02-16 09:18] LABS: CALCIUM 9.4 MG/DL (8.5-10.1)
[2023-02-16 09:23] LABS: CREATININE SERUM 0.76 MG/DL (0.60-1.30)
[2023-02-16 09:25] LABS: MAGNESIUM 2.1 MG/DL (1.6-2.4)
[2023-02-16 09:33] VITALS: BP 125/75
[2023-02-16] MEDS ORDERED: ONDANSETRON 4 MG/2 ML (SDV) Z0FRAN IV PRN (09:45)
[2023-02-16 09:53] VITALS: BP 125/75
[2023-02-16] MEDS ORDERED: RT-ALBUTEROL SULF 2.5 MG/3 ML PRE-MIX VIAL INH PRN (10:00)
[2023-02-16] MEDS: LACTATED RINGERS 1,000 ML IV SCH ×2 (10:01→17:38)
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
[2023-02-16 12:18] VITALS: BP 130/59
[2023-02-16] MEDS: RT-ALBUTEROL SULF 2.5 MG/3 ML PRE-MIX VIAL INH SCH ×3 (14:58→21:51)
[2023-02-16] MEDS: methylPREDNISolone 40 MG/ML (Solu-MEDROL) VIAL IV SCH ×2 (15:32→20:49)
[2023-02-16 15:34] VITALS: BP 130/61
[2023-02-16 20:44] VITALS: BP 117/64
[2023-02-16 23:50] VITALS: BP 130/58
[2023-02-17] MEDS: RT-ALBUTEROL SULF 2.5 MG/3 ML PRE-MIX VIAL INH SCH ×2 (02:24→07:01)
[2023-02-17] MEDS: LACTATED RINGERS 1,000 ML IV SCH ×3 (02:28→17:19)
[2023-02-17 03:54] VITALS: BP 116/64
[2023-02-17] MEDS: methylPREDNISolone 40 MG/ML (Solu-MEDROL) VIAL IV SCH ×4 (03:54→19:56)
[2023-02-17 07:41] VITALS: BP 133/82
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
[2023-02-17 11:59] VITALS: BP 133/71
[2023-02-17] MEDS: RT-ALBUTEROL/IPRATROPIUM 3 ML (DUONEB) VIAL INH SCH ×3 (14:36→21:45)
[2023-02-17 15:33] VITALS: BP 151/67
[2023-02-17 19:58] VITALS: BP 130/74
[2023-02-17] MEDS: RT--FLUTICASONE/SALMETEROL 232-14 (AIRDUO RespiCLICK) IH SCH (21:45)
[2023-02-18] VITALS: BP 138/84
[2023-02-18] MEDS: methylPREDNISolone 40 MG/ML (Solu-MEDROL) VIAL IV SCH ×2 (02:40→08:20)
[2023-02-18] MEDS: RT-ALBUTEROL/IPRATROPIUM 3 ML (DUONEB) VIAL INH SCH ×3 (03:12→11:18)
[2023-02-18] MEDS: RT--FLUTICASONE/SALMETEROL 232-14 (AIRDUO RespiCLICK) IH SCH (06:42)
[2023-02-18 07:14] VITALS: BP 131/77
[2023-02-18] MEDS ORDERED: BUDE1AMP2 IH (10:15)
[2023-02-18] MEDS ORDERED: IPRA4AER IH (10:16)
[2023-02-18] MEDS ORDERED: PRED10TA22 PO (10:59)
[2023-02-18] MEDS ORDERED: FLUT1AER5 IH (10:59)
[2023-02-18 13:20] VITALS: BP 131/77
[2023-02-18] MEDS ORDERED: PRD10T PO (15:06)
--- NOTE | 2023-02-18 15:07 | Discharge Summary ---
Discharge Summary Hospital Course Hospital Course Date of Admission: February 16, 2023 at 09:31 Admission Diagnosis : Asthma exacerbation Family Physician/Provider: [facility] Date of Discharge: 02/18/23 Discharge Diagnosis: Asthma exacerbation Hospital Course: Pt with severe persistent asthma admitted after multiple outpatient visits for asthma exacerbation, had been out of inhalers for a month. Doing well at d/c, no hypoxia with exercise. Added Advair to home Combivent and also has home nebulized budesonide if needed. Prednisone long taper prescribed on d/c. Labs and Pending Lab Test: Home Meds Active Prednisone 10 Mg Tab.ds.pk 0 PO UD Take 6 tabs(60mg)daily,decrease by 1 tab(10mg)every other day. Fluticasone-Salmeterol 232-14 (Fluticasone/Salmeterol) 232 Mcg-14 Mcg/Actuation Aer.pow.ba 1 Each IH BID Reported Combivent Respimat Inhal [place] (Albuterol/Ipratropium) 20 Mcg-100 Mcg/Actuation Aero 2 Puff IH Q6H PRN Budesonide 1 Mg/2 Ml Ampul.neb 1 Mg IH BID PRN Albuterol Sulfate 2.5 Mg/3 Ml (0.083 %) Vial.neb 1 Vial INH Q6H PRN Assessment/Pt DC Instructions Follow up with primary within a week of discharge. Discharge Diet: No Restrictions Activity as Tolerated: Yes Discharge Physical Examination Allergies: Coded Allergies: aspirin (Verified Allergy, Unknown, 05/28/22) ibuprofen (Verified Allergy, Unknown, shortness of breath; pt tolerated toradol in past, 11/19/22) naproxen (Verified Allergy, Unknown, shortness of breath; pt tolerated toradol in past, 11/19/22) SHORTNESS OF BREATH General Appearance: No Apparent Distress, WD/WN Respiratory: Lungs Clear, Normal Breath Sounds Cardiovascular: Regular Rate, Rhythm, No Murmur Extremity: No Pedal Edema Skin: Normal Color, Warm/Dry Neurologic/Psychiatric: Alert, Normal Mood/Affect TANESHA LEIVA MD February 18, 2023 15:07
== END 2023-02-18 13:20 | disposition home or self-care (01) | DRG 202 ==
LOC: EDUNIT# 08:05 → ER 08:06 → 4TH 09:31
PROVIDERS: ADMIT Internal Medicine; ATTEND Family Medicine
DX: J45.51 Severe persistent asthma with (acute) exacerbation (principal); J96.01 Acute respiratory failure with hypoxia; F15.10 Other stimulant abuse, uncomplicated; R06.1 Stridor; T14.90XS Injury, unspecified, sequela; X58.XXXS Exposure to other specified factors, sequela; F17.210 Nicotine dependence, cigarettes, uncomplicated; E11.9 Type 2 diabetes mellitus without complications; G47.30 Sleep apnea, unspecified; F41.9 Anxiety disorder, unspecified; F31.9 Bipolar disorder, unspecified; Z87.820 Personal history of traumatic brain injury; Z88.6 Allergy status to analgesic agent
CPT/HCPCS: 36415; 80048; 83735; 94640; 94760; 94761; G0378

== ENCOUNTER 2023-06-08 15:43 | Emergency (ER) | payer MEDICAID ==
[~2023-06-08] VITALS: Ht 160 cm; Wt 81.4 kg
[~2023-06-08 15:43] MED LIST changes: +BUDE1AMP2 IH; +FLUT1AER5 IH
--- NOTE | 2023-06-08 16:27 | ED Respiratory ---
General Chief Complaint: Respiratory Problems Stated Complaint: SOA, VAGINAL BLEEDING +PREG TEST Nursing Triage Note: Patient c/o difficulty breathing x 3 days with congestion. Patient states she has a Hx. of asthma and states she is out of her combivent and Albuterol inh. Patient c/o vaginal bleeding with positive test. Patient states she had intercourse on the 06 of June and states she started spotting after. Patient states she increased in bleeding yesterday. Patient denies any Abd. cramping with the bleeding or spotting. Patient denies any bleeding today. Patient states she had a positive blood test 1 week ago Saturday. Source: patient Exam Limitations: no limitations History of Present Illness Date Seen by Provider: Jun 08, 2023 Time Seen by Provider: 15:52 Initial Comments 33-year-old female presents to the ER with reports of shortness of air for the last week. Patient has a history of Samter's asthma. She states that she frequently has to come here for asthma exacerbations. Usually receives prednisone, albuterol, and IV magnesium. Denies fevers, chest pain, abdominal pain, nausea, vomiting, diarrhea. Patient reports positive test last week. She gave in October, and was on control, so she has not had a normal menstrual cycle since then. She is uncertain how far along she may be. She reports that a couple days ago she had some vaginal spotting. States she has not had any bleeding today or yesterday. She denies vaginal discharge. Does report some mild dysuria. Denies abdominal cramping. Allergies and Home Medications Allergies Coded Allergies: aspirin (Verified Allergy, Unknown, 05/28/22) ibuprofen (Verified Allergy, Unknown, shortness of breath; pt tolerated toradol in past, 11/19/22) naproxen (Verified Allergy, Unknown, shortness of breath; pt tolerated toradol in past, 11/19/22) SHORTNESS OF BREATH Patient Home Medication List Home Medication List Reviewed: Yes Albuterol Sulfate (Albuterol Sulfate) 2.5 Mg/3 Ml (0.083 %) Vial.neb, 1 VIAL INH Q6H PRN for SHORTNESS OF BREATH, (Reported) Entered as Reported by: Latoya Gordillo on 11/19/22 0648 Albuterol/Ipratropium (Combivent Respimat Inhal [place]) 20 Mcg-100 Mcg/Actuation Aero, 2 PUFF IH Q6H PRN for SHORTNESS OF BREATH, (Reported) Entered as Reported by: MARCUS BEAL on 02/18/23 1016 Budesonide (Budesonide) 1 Mg/2 Ml Ampul.neb, 1 MG IH BID PRN for SHORTNESS OF BREATH, (Reported) Entered as Reported by: MARCUS BEAL on 02/18/23 1015 Fluticasone/Salmeterol (Fluticasone-Salmeterol 232-14) 232 Mcg-14 Mcg/Actuation Aer.pow.ba, 1 EACH IH BID Prescribed by: TANESHA LEIVA on 02/18/23 1059 Prednisone (Prednisone) 10 Mg Tab.ds.pk, 0 PO UD Prescribed by: TANESHA LEIVA on 02/18/23 1059 Prednisone (Prednisone) 10 Mg Tab, 0 PO UD Prescribed by: TANESHA LEIVA on 02/18/23 1506 Prednisone (Prednisone) 50 Mg Tab, 50 MG PO DAILY Prescribed by: Nydia Sheehan on 06/08/23 180 Review of Systems Review of Systems Constitutional: see HPI Past Ztfxanx-Finoxc-Ornfih Hx Patient Social History Tobacco Use?: No Use of E-Cig and/or Vaping dev: No Substance use?: No Alcohol Use?: Yes Alcohol Frequency: Once in a while Immunizations Up To Date Tetanus Booster (TDap): Unknown PED Vaccines UTD: Yes Influenza Vaccine Up-to-Date: No; Not Current First/Initial COVID19 Vaccinat: DECLINED Second COVID19 Vaccination Naeem: DECLINED Third COVID19 Vaccination Date: DECLINED Seasonal Allergies Seasonal Allergies: Yes Past Medical History Surgery/Hospitalization HX: Asthma Surgeries: Yes (Cyst removed on eye, D&C, CS x 3; NASAL POLYPS REMOVED) Section, Eye Surgery, Nose 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; COVID 03/2022) Asthma, Sleep Apnea Currently Using CPAP: No Currently Using BIPAP: No Cardiac: No Neurological: Yes Concussion Reproductive Disorders: Yes Female Reproductive Disorders: Ovarian Cyst, Polycystic Ovarian Dis Sexually Transmitted Disease: Yes (HSV2) HIV/AIDS: No Genitourinary: No Gastrointestinal: No Musculoskeletal: No Endocrine: Yes Diabetes, Non-Insulin dep HEENT: Yes (NASAL POLYPS) Loss of Vision: Denies Hearing Impairment: Denies Cancer: No Psychosocial: Yes (SUBSTANCE ABUSE) Anxiety, Bipolar, Depression Integumentary: No Blood Disorders: No Adverse Reaction/Blood Tranf: No Family Medical History Diabetes mellitus 19 MOTHER Hypertension 19 MOTHER Thyroid disease 19 MOTHER No Family History of: Asthma Dementia Myocardial infarction Respiratory disorder Seizure disorder No Pertinent Family Hx SOCIAL HISTORY: -OCCASIONAL ETOH -THC, HX OF METH USE--STATES SHE SMOKED IT. UDS + FOR AMPHETAMINES 05/17/20, UDS + FOR METH AND/OR AMPHETAMINES 10/31/20, 11/02/21, 10/04/22 -OCCASIONALLY SMOKES CIGARETTES Physical Exam Vital Signs - First Documented 06/08/23 06/08/23 06/08/23 15:50 16:59 18:26 Temp 36.5 Pulse 116 Resp 18 B/P (MAP) 119/75 Pulse Ox 94 O2 Delivery Room Air Capillary Refill : Height: 5'3.00" Weight: 160lbs. 0.0oz. 72.160385uv; 31.00 BMI Method:Stated General Appearance: WD/WN, mild distress Neck: supple, normal inspection Respiratory: no respiratory distress, no accessory muscle use, wheezing Cardiovascular: regular rate, rhythm Extremities: normal range of motion, normal inspection Neurologic/Psychiatric: alert, normal mood/affect Skin: normal color, warm/dry Progress/Results/Core Measures Suspected Sepsis SIRS Temperature: Pulse: 116 Respiratory Rate: 18 Laboratory Tests 06/08/23 16:42: White Blood Count 10.8 Blood Pressure / Mean: Laboratory Tests 06/08/23 16:42: Creatinine 0.71, Platelet Count 307, Total Bilirubin 0.3 Results/Orders Lab Results Laboratory Tests Test 06/08/23 16:35 06/08/23 16:42 Range/Units Urine Color YELLOW Urine Clarity CLEAR Urine pH 5.5 5-9 Urine Specific [place] >=1.030 1.016-1.022 Urine Protein NEGATIVE NEGATIVE Urine Glucose (UA) 3+ H NEGATIVE Urine Ketones TRACE H NEGATIVE Urine Nitrite NEGATIVE NEGATIVE Urine Bilirubin NEGATIVE NEGATIVE Urine Urobilinogen 0.2 < = 1.0 MG/DL Urine Leukocyte Esterase NEGATIVE NEGATIVE Urine RBC (Auto) 1+ H NEGATIVE Urine RBC 0-2 /HPF Urine WBC RARE /HPF Urine Squamous Epithelial Cells 10-25 H /HPF Urine Crystals NONE /LPF Urine Bacteria MODERATE H /HPF Urine Casts NONE /LPF Urine Mucus NEGATIVE /LPF Urine Culture Indicated YES White Blood Count 10.8 4.3-11.0 10^3/uL Red Blood Count 4.08 3.80-5.11 10^6/uL Hemoglobin 12.1 11.5-16.0 g/dL Hematocrit 38 35-52 % Mean Corpuscular Volume 92 80-99 fL Mean Corpuscular Hemoglobin 30 25-34 pg Mean Corpuscular Hemoglobin Concent 32 32-36 g/dL Red Cell Distribution Width 15.6 H 10.0-14.5 % Platelet Count 307 130-400 10^3/uL Mean Platelet Volume 9.8 9.0-12.2 fL Immature Granulocyte % (Auto) 1 % Neutrophils (%) (Auto) 80 H 42-75 % Lymphocytes (%) (Auto) 11 L 12-44 % Monocytes (%) (Auto) 5 0-12 % Eosinophils (%) (Auto) 3 0-10 % Basophils (%) (Auto) 0 0-10 % Neutrophils # (Auto) 8.6 H 1.8-7.8 10^3/uL Lymphocytes # (Auto) 1.2 1.0-4.0 10^3/uL Monocytes # (Auto) 0.5 0.0-1.0 10^3/uL Eosinophils # (Auto) 0.4 H 0.0-0.3 10^3/uL Basophils # (Auto) 0.0 0.0-0.1 10^3/uL Immature Granulocyte # (Auto) 0.1 0.0-0.1 10^3/uL Sodium Level 138 135-145 MMOL/L Potassium Level 3.3 L 3.6-5.0 MMOL/L Chloride Level 107 98-107 MMOL/L Carbon Dioxide Level 21 21-32 MMOL/L Anion Gap 10 5-14 MMOL/L Blood Urea Nitrogen 9 7-18 MG/DL Creatinine 0.71 0.60-1.30 MG/DL Estimat Glomerular Filtration Rate 116 BUN/Creatinine Ratio 13 Glucose Level 128 H 70-105 MG/DL Calcium Level 9.1 8.5-10.1 MG/DL Corrected Calcium 9.4 8.5-10.1 MG/DL Total Bilirubin 0.3 0.1-1.0 MG/DL Aspartate Amino Transf (AST/SGOT) 11 5-34 U/L Alanine Aminotransferase (ALT/SGPT) 15 0-55 U/L Alkaline Phosphatase 66 40-136 U/L Total Protein 6.1 L 6.4-8.2 GM/DL Albumin 3.6 3.2-4.5 GM/DL Human Chorionic Gonadotropin, Quant 52950 H <5 MIU/ML My Orders Orders - NYDIA JUSTIN APRN Ua Culture If Indicated (06/08/23 15:52) Urine Bedside (06/08/23 15:52) Cbc With Automated Diff (06/08/23 16:17) Hcg,Quantitative (06/08/23 16:17) Ed Iv/Invasive Line Start (06/08/23 16:17) Comprehensive Metabolic Panel (06/08/23 16:17) Rho(D) Immune Globulin (Rho(D) Immune Gl (06/08/23 16:30) Albuterol Pre-Mix Nebs (Rt) (Albuterol (06/08/23 16:30) Svn Small Volume Nebulizer (06/08/23 16:17) Methylprednisolone Sod Succ (Methylpredn (06/08/23 16:30) Covid 19 Inhouse Test (06/08/23 17:12) Influenza A And B By Pcr (06/08/23 17:12) Urine Culture (06/08/23 16:35) Rx-Albuterol Inhaler (Rx-Ventolin Hfa In (06/08/23 18:06) Medications Given in ED Current Medications Medications Dose Ordered Sig/Kemi Route Start Time Stop Time Status Last Admin Dose Admin Albuterol Sulfate 2.5 mg ONCE ONCE INH 06/08/23 16:30 06/08/23 16:31 DC 06/08/23 16:57 2.5 MG Methylprednisolone Sodium Succinate 125 mg ONCE ONCE IVP 06/08/23 16:30 06/08/23 16:31 DC 06/08/23 16:43 125 MG Rho Immune Globulin 300 mcg ONCE ONCE IM/IV 06/08/23 16:30 06/08/23 16:31 DC 06/08/23 16:48 300 MCG Vital Signs/I&O 06/08/23 06/08/23 06/08/23 15:50 16:59 18:26 Temp 36.5 Pulse 116 96 Resp 18 B/P (MAP) 119/75 Pulse Ox 94 98 O2 Delivery Room Air Room Air Room Air Capillary Refill : Progress Note : Progress Note Patient seen and evaluated, resting in bed, mild distress, able to speak in complete sentences. Based on exam and symptoms, work-up initiated including CBC, CMP, hCG, UA, urine . Patient is Rh negative. RhoGAM ordered. Albuterol and Solu-Medrol ordered. 1802 Labs reviewed. CBC grossly normal, neutrophil percentage slightly elevated 80. CMP shows slightly decreased potassium 3.3. hCG quant 62,874. Urinalysis shows 3+ glucose, trace ketones, 1+ RBCs, rare WBCs, 10-25 squamous epithelial cells, moderate bacteria. Specimen likely contaminated, will wait for culture. Patient reports she is feeling much better and is ready to go home. Will d ischarge with prescription for albuterol and prednisone. Patient has an appointment with Dr. Zepeda next Saturday, but I instructed patient to call on Saturday to see if they can get a sooner appointment for her. Discharge instructions and return precautions provided. Departure Impression Primary Impression: Acute asthma exacerbation Additional Impression: Vaginal bleeding in Disposition: HOME, SELF-CARE Condition: Stable Departure-Patient Inst. Decision time for Depature: 18:02 Referrals: [facility] [place] Primary Care Physician Patient Instructions: Asthma and Add. Discharge Instructions: Use your inhalers as prescribed. Follow-up with your cigar packer and sorter and primary care provider. Take prednisone once a day for the next [address] Zepeda on Saturday to see if they want to see you sooner. Return for significant vaginal bleeding, severe abdominal pain, severe shortness of breath, or any other new, concerning, or worsening symptoms. All discharge instructions reviewed with patient and/or family. Voiced understanding. Scripts Prednisone (Prednisone) 50 Mg Tab 50 MG PO DAILY for 4 Days, #4 TAB 0 Refills Prov: NYDIA JUSTIN APRN 06/08/23 NYDIA JUSTIN APRN Jun 08, 2023 16:27
[2023-06-08] MEDS ORDERED: methylPREDNISolone INJ 125 MG VIAL IVP ONE (16:30)
[2023-06-08] MEDS ORDERED: RT-ALBUTEROL SULF 2.5 MG/3 ML PRE-MIX VIAL INH ONE (16:30)
[2023-06-08] MEDS ORDERED: RHO(D) IMMUNE GLOBULIN 300 MCG/2 ML SYRINGE IM/IV ONE (16:30)
[2023-06-08 16:58] LABS: BASOPHILS % (AUTO) 0 % (0-10); EOSINOPHILS # (AUTO) 0.4 10^3/uL (0.0-0.3); EOSINOPHILS % (AUTO) 3 % (0-10); HEMATOCRIT 38 % (35-52); HEMOGLOBIN 12.1 g/dL (11.5-16.0); LYMPHOCYTES # (AUTO) 1.2 10^3/uL (1.0-4.0); LYMPHOCYTES % (AUTO) 11 % (12-44); MEAN CORPUSCULAR HEMOGLOBIN 30 pg (25-34); MEAN CORPUSCULAR HGB CONC 32 g/dL (32-36); MEAN CORPUSCULAR VOLUME 92 fL (80-99); MEAN PLATELET VOLUME 9.8 fL (9.0-12.2); MONOCYTES # (AUTO) 0.5 10^3/uL (0.0-1.0); MONOCYTES % (AUTO) 5 % (0-12); NEUTROPHILS # (AUTO) 8.6 10^3/uL (1.8-7.8); NEUTROPHILS % (AUTO) 80 % (42-75); PLATELET COUNT 307 10^3/uL (130-400); WHITE BLOOD COUNT 10.8 10^3/uL (4.3-11.0)
[2023-06-08 17:12] LABS: BILIRUBIN,URINE NEGATIVE (NEGATIVE); CLARITY,URINE CLEAR; COLOR,URINE YELLOW; GLUCOSE, URINE (UA) 3+ (NEGATIVE); KETONES,URINE TRACE (NEGATIVE); NITRITE,URINE NEGATIVE (NEGATIVE); PH,URINE 5.5 (5-9); PROTEIN,URINE NEGATIVE (NEGATIVE)
[2023-06-08 17:13] LABS: BACTERIA,URINE MODERATE /HPF; LEUKOCYTE ESTERASE ,URINE NEGATIVE (NEGATIVE); RBC,URINE 0-2 /HPF; WBC,URINE RARE /HPF
[2023-06-08 17:13] LABS: ALBUMIN 3.6 GM/DL (3.2-4.5); POTASSIUM 3.3 MMOL/L (3.6-5.0)
[2023-06-08 17:14] LABS: CALCIUM 9.1 MG/DL (8.5-10.1)
[2023-06-08 17:15] LABS: TOTAL PROTEIN 6.1 GM/DL (6.4-8.2)
[2023-06-08 17:17] LABS: BILIRUBIN,TOTAL 0.3 MG/DL (0.1-1.0)
[2023-06-08 17:19] LABS: CREATININE SERUM 0.71 MG/DL (0.60-1.30)
[2023-06-08] MEDS ORDERED: RX-ALBUTEROL INHALER 8.5 GM HFA (PROAIR) IH STA (18:06)
[2023-06-08] MEDS ORDERED: PRD50T PO (18:07)
[2023-06-08 18:26] VITALS: BP 119/75
== END 2023-06-08 18:26 | disposition home or self-care (01) ==
LOC: EDUNIT# 15:43 → ER 15:46
DX: O20.9 Hemorrhage in early pregnancy, unspecified (principal); O99.511 Diseases of the respiratory system complicating pregnancy, first trimester; J45.901 Unspecified asthma with (acute) exacerbation; O99.331 Smoking (tobacco) complicating pregnancy, first trimester; F17.210 Nicotine dependence, cigarettes, uncomplicated; Z28.310 Unvaccinated for COVID-19
CPT/HCPCS: 36415; 80053; 81000; 84702; 84703; 85025; 87088; 94640

== ENCOUNTER → 2023-07-02 | Outpatient (CLI) | payer MEDICAID ==
[~2023-07-02] MED LIST changes: +PRD50T PO
--- NOTE | 2023-07-02 09:41 | Diagnostic Imaging Report ---
INDICATION: patient, late care. TECHNIQUE: Multiple real-time grayscale images were obtained over the gravid uterus. COMPARISON: None during this . FINDINGS: A single live intrauterine fetus is seen measuring 19 weeks 1 day by composite measurements. The fetus is in variable orientation, changing from breech to transverse during the examination. Amniotic fluid appeared normal with amniotic fluid index 13.23 cm. Placenta is posterior and fundal with no evidence of previa. Gestational sac normal-appearing shape. heart rate is 138 bpm. Cervical length was 4.0 cm. survey showed normal-appearing kidneys and bladder. Normal variant stomach was seen. Intracranial ventricles appear normal. Four-chamber heart view appeared normal. Views of the spine were normal. Three-vessel cord and cord insertion appear normal. Maternal adnexa were not well seen. Biometrical measurements are as follows: Biparietal 4.22 cm, age 18 weeks 6 days. Head circumference 15.13 cm, age 18 weeks 2 days. Abdominal circumference 14.15 cm, age 19 weeks 4 days. Femur length 3.16 cm, age 19 weeks 6 days. Sonographic estimate age: 19 weeks 1 days. Sonographic estimated date of delivery: 11/25/2023. Estimated Weight: 295 gm (+/- 43 gm). LMP percentile: 40%. heart rate: 138 beats per minute. number: 1 of 1. IMPRESSION: Single live intrauterine fetus measuring 19 weeks 1 day in size with no detectable abnormalities. Dictated by: Dictated on workstation # [id number]
== END ==
LOC: RAD 07:00
PROVIDERS: ATTEND Obstetrics & Gynecology
DX: O09.32 Supervision of pregnancy with insufficient antenatal care, second trimester (principal); Z3A.19 19 weeks gestation of pregnancy
CPT/HCPCS: 76805

== ENCOUNTER 2023-08-24 02:23 | Emergency (ER) | payer MEDICAID ==
[~2023-08-24] VITALS: Ht 160 cm; Wt 84.0 kg
--- NOTE | 2023-08-24 02:36 | ED Dyspnea ---
General Chief Complaint: Respiratory Problems Stated Complaint: SOB Source of Information: Patient Exam Limitations: No Limitations History of Present Illness Date Seen by Provider: Aug 24, 2023 Time Seen by Provider: 02:26 Initial Comments 33-year-old female with persistent asthma presents emergency department today for shortness of breath. Symptoms started a couple hours prior to arrival and have been persistent. She has been using breathing treatments without any relief. No fevers or chills. She has had a cough during her asthma exacerbation but none before that. She is 6 months . All other systems reviewed and negative except documented per HPI. Voice recognition software was used to help create this chart Allergies and Home Medications Allergies Coded Allergies: aspirin (Verified Allergy, Unknown, 05/28/22) ibuprofen (Verified Allergy, Unknown, shortness of breath; pt tolerated toradol in past, 11/19/22) naproxen (Verified Allergy, Unknown, shortness of breath; pt tolerated toradol in past, 11/19/22) SHORTNESS OF BREATH Patient Home Medication List Home Medication List Reviewed: Yes Albuterol Sulfate (Albuterol Sulfate) 2.5 Mg/3 Ml (0.083 %) Vial.neb, 1 VIAL INH Q6H PRN for SHORTNESS OF BREATH, (Reported) Entered as Reported by: Latoya Gordillo on 11/19/22 0648 Albuterol/Ipratropium (Combivent Respimat Inhal [place]) 20 Mcg-100 Mcg/Actuation Aero, 2 PUFF IH Q6H PRN for SHORTNESS OF BREATH, (Reported) Entered as Reported by: MARCUS BEAL on 02/18/23 1016 Budesonide (Budesonide) 1 Mg/2 Ml Ampul.neb, 1 MG IH BID PRN for SHORTNESS OF BREATH, (Reported) Entered as Reported by: MARCUS BEAL on 02/18/23 1015 Fluticasone/Salmeterol (Fluticasone-Salmeterol 232-14) 232 Mcg-14 Mcg/Actuation Aer.pow.ba, 1 EACH IH BID Prescribed by: TANESHA LEIVA on 02/18/23 1059 Prednisone (Prednisone) 10 Mg Tab.ds.pk, 0 PO UD Prescribed by: TANESHA LEIVA on 02/18/23 1059 Prednisone (Prednisone) 10 Mg Tab, 0 PO UD Prescribed by: TANESHA LEIVA on 02/18/23 1506 Prednisone (Prednisone) 50 Mg Tab, 50 MG PO DAILY Prescribed by: Nydia Sheehan on 06/08/23 1807 Review of Systems Review of Systems Constitutional: see HPI Past Ehfzovv-Eitxqb-Znktnz Hx Patient Social History Tobacco Use?: No Use of E-Cig and/or Vaping dev: No Substance use?: No Alcohol Use?: No Immunizations Up To Date Tetanus Booster (TDap): Unknown PED Vaccines UTD: Yes First/Initial COVID19 Vaccinat: DECLINED Second COVID19 Vaccination Naeem: DECLINED Third COVID19 Vaccination Date: DECLINED Seasonal Allergies Seasonal Allergies: Yes Past Medical History Surgery/Hospitalization HX: Asthma Surgeries: Yes (Cyst removed on eye, D&C, CS x 3; NASAL POLYPS REMOVED) Section, Eye Surgery, Nose 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; COVID 03/2022) Asthma, Sleep Apnea Currently Using CPAP: No Currently Using BIPAP: No Cardiac: No Neurological: Yes Concussion Reproductive Disorders: Yes Female Reproductive Disorders: Ovarian Cyst, Polycystic Ovarian Dis Sexually Transmitted Disease: Yes (HSV2) HIV/AIDS: No Genitourinary: No Gastrointestinal: No Musculoskeletal: No Endocrine: Yes Diabetes, Non-Insulin dep HEENT: Yes (NASAL POLYPS) Loss of Vision: Denies Hearing Impairment: Denies Cancer: No Psychosocial: Yes (SUBSTANCE ABUSE) Anxiety, Bipolar, Depression Integumentary: No Blood Disorders: No Adverse Reaction/Blood Tranf: No Family Medical History Diabetes mellitus 19 MOTHER Hypertension 19 MOTHER Thyroid disease 19 MOTHER No Family History of: Asthma Dementia Myocardial infarction Respiratory disorder Seizure disorder No Pertinent Family Hx SOCIAL HISTORY: -OCCASIONAL ETOH -THC, HX OF METH USE--STATES SHE SMOKED IT. UDS + FOR AMPHETAMINES 05/17/20, UDS + FOR METH AND/OR AMPHETAMINES 10/31/20, 11/02/21, 10/04/22 -OCCASIONALLY SMOKES CIGARETTES Physical Exam Vital Signs Vital Signs - First Documented 08/24/23 02:29 Temp 36.5 Pulse 101 Resp 24 B/P (MAP) 130/64 (86) Pulse Ox 91 O2 Delivery Room Air Capillary Refill : Height, Weight, BMI Height: 5'3.00" Weight: 160lbs. 0.0oz. [id number]; 31.00 BMI Method:Stated General Appearance: No Apparent Distress, WD/WN HEENT: Normal ENT Inspection, Pharynx Normal Neck: Normal Inspection, Non Tender, Supple Respiratory: Chest Non Tender, No Accessory Muscle Use, Wheezing (Scant expiratory wheezing bilaterally) Cardiovascular: Regular Rate, Rhythm, No Murmur Gastrointestinal: No Organomegaly, Non Tender, Soft Neurologic/Psychiatric: Alert, Oriented x3, Normal Mood/Affect Skin: Normal Color, Warm/Dry Progress/Results/Core Measures Results/Orders My Orders Orders - MOSHE DALTON DO Ipratropium/Albuterol Inh Soln (Ipratrop (08/24/23 02:45) Svn Small Volume Nebulizer (08/24/23 02:34) Prednisone Tablet (Prednisone Tablet) (08/24/23 03:00) Medications Given in ED Current Medications Medications Dose Ordered Sig/Kemi Route Start Time Stop Time Status Last Admin Dose Admin Albuterol/ Ipratropium 3 ml ONCE ONCE INH 08/24/23 02:45 08/24/23 02:46 DC 08/24/23 02:43 3 ML Prednisone 50 mg ONCE ONCE PO 08/24/23 03:00 08/24/23 03:01 DC 08/24/23 03:10 50 MG Vital Signs/I&O 08/24/23 08/24/23 02:29 02:29 Temp 36.5 Pulse 101 Resp 24 B/P (MAP) 130/64 (86) Pulse Ox 91 O2 Delivery Room Air Room Air Departure Communication (Admissions) Patient is feeling much better after DuoNeb treatment here in the emergency department. I also given her p.o. prednisone. Oxygen saturation 95 to 96% on room air and she is no longer wheezing on exam, able to lie flat without difficulty. Discharged home with 3 days of prednisone, try to minimize secondary to . She states she is out of her rescue inhaler so we will go ahead and prescribe this as well and provide her spacer from the emergency department to use with rescue inhaler. Impression Primary Impression: Acute asthma exacerbation Qualified Codes: J45.41 - Moderate persistent asthma with (acute) exacerbation Disposition: HOME, SELF-CARE Condition: Stable Departure-Patient Inst. Referrals: [facility]/ (PCP) Primary Care Physician FREEMAN VICENTE MD (Family) Primary Care Physician Patient Instructions: Asthma, Adult (DC) Add. Discharge Instructions: Take the steroids as prescribed until they are gone. Use your rescue inhaler with the spacer as needed as well as your nebulizer at home. Return to the em ergency department for any severe concerns. All discharge instructions reviewed with patient and/or family. Voiced understanding. Scripts Albuterol Sulfate (VENTOLIN HFA) 1 Puff Puff 2 PUFF INH Q4H for Wheezing for 30 Days, #1 EA 1 PUFF = 90 MCG Prov: MOSHE DALTON DO 08/24/23 Prednisone (Prednisone) 50 Mg Tab 50 MG PO DAILY for 3 Days, #3 TAB Prov: MOSHE DALTON DO 08/24/23 MOSHE DALTON DO Aug 24, 2023 02:36
[2023-08-24] MEDS ORDERED: RT-Ipratropium/Albuterol NEB 3 ML VIAL INH ONE (02:45)
[2023-08-24] MEDS ORDERED: predniSONE 20 MG TABLET PO ONE (03:00)
[2023-08-24] MEDS ORDERED: PRD50T PO (03:18)
[2023-08-24] MEDS ORDERED: RT-ALBUINH INH (03:18)
[2023-08-24 03:21] VITALS: BP 104/61
[2023-08-25] MEDS ORDERED: IPRA3AMP31 IH (05:06)
== END 2023-08-24 03:24 | disposition home or self-care (01) ==
LOC: EDUNIT# 02:23 → ER 02:25
DX: O99.512 Diseases of the respiratory system complicating pregnancy, second trimester (principal); J45.901 Unspecified asthma with (acute) exacerbation; F17.210 Nicotine dependence, cigarettes, uncomplicated; Z3A.00 Weeks of gestation of pregnancy not specified
CPT/HCPCS: 94640; 99283

== ENCOUNTER 2023-08-25 03:05 | Emergency (ER) | payer MEDICAID ==
[~2023-08-25] VITALS: Ht 160 cm; Wt 83.0 kg
[~2023-08-25 03:05] MED LIST changes: +RT-ALBUINH INH
[2023-08-25] MEDS ORDERED: methylPREDNISolone INJ 125 MG VIAL IV STA (03:14)
[2023-08-25] MEDS ORDERED: RT-BUDESONIDE NEBS 0.5 MG/2ML VIAL INH ONE (03:15)
[2023-08-25] MEDS ORDERED: RT-Ipratropium/Albuterol NEB 3 ML VIAL INH ONE ×2 (03:15→04:15)
[2023-08-25 03:16] VITALS: BP 120/78
[2023-08-25 03:40] LABS: BASOPHILS % (AUTO) 0 % (0-10); EOSINOPHILS % (AUTO) 0 % (0-10); HEMATOCRIT 35 % (35-52); HEMOGLOBIN 11.2 g/dL (11.5-16.0); LYMPHOCYTES # (AUTO) 1.4 10^3/uL (1.0-4.0); LYMPHOCYTES % (AUTO) 12 % (12-44); MEAN CORPUSCULAR HEMOGLOBIN 28 pg (25-34); MEAN CORPUSCULAR HGB CONC 32 g/dL (32-36); MEAN CORPUSCULAR VOLUME 88 fL (80-99); MEAN PLATELET VOLUME 10.1 fL (9.0-12.2); MONOCYTES # (AUTO) 0.6 10^3/uL (0.0-1.0); MONOCYTES % (AUTO) 5 % (0-12); NEUTROPHILS % (AUTO) 82 % (42-75); PLATELET COUNT 381 10^3/uL (130-400); WHITE BLOOD COUNT 12.1 10^3/uL (4.3-11.0)
[2023-08-25 03:47] LABS: ALBUMIN 3.6 GM/DL (3.2-4.5)
[2023-08-25 03:48] LABS: POTASSIUM 3.9 MMOL/L (3.6-5.0)
[2023-08-25 03:49] LABS: CALCIUM 9.8 MG/DL (8.5-10.1)
[2023-08-25 03:50] LABS: TOTAL PROTEIN 6.7 GM/DL (6.4-8.2)
[2023-08-25 03:52] LABS: BILIRUBIN,TOTAL 0.5 MG/DL (0.1-1.0)
[2023-08-25 03:53] LABS: CREATININE SERUM 0.65 MG/DL (0.60-1.30)
[2023-08-25 03:56] LABS: MAGNESIUM 1.9 MG/DL (1.6-2.4)
--- NOTE | 2023-08-25 04:02 | ED Respiratory ---
General Chief Complaint: Respiratory Problems Stated Complaint: SOB Nursing Triage Note: pt presents with c/o sob, she states she was seen yesterday and received albuterol and steroids, unable to get inhaler Rx picked up today, has taken albuterol and steroids today. Pt reports she has fatty liver during and has numbness in hands and feet. Source: patient, old records History of Present Illness Date Seen by Provider: Aug 25, 2023 Time Seen by Provider: 03:12 Initial Comments PT ARRIVES VIA POV FROM HOME C/O COUGH AND ASTHMA FLARE UP WITH SHORTNESS OF BREATH--SYMPTOMS BEGAN YESTERDAY PT WAS SEEN HERE AROUND THIS SAME TIME LAST NIGHT FOR SAME. NO TESTS WERE DONE, BUT WAS GIVEN DUO NEB TREATMENT AND PREDNISONE AND SYMPTOMS IMPROVED. PT HAD RAN OUT OF HER ALBUTEROL INHALER, AND WAS PRESCRIBED A NEW INHALER AND PREDNISONE. PT STATES THAT SHE DID NOT GET ALBUTEROL INHALER FILLED, BUT DID GET STEROID PRESCRIPTION AND HAS TAKEN A DOSE TODAY SHE HAS ALBUTEROL AND BUDESONIDE NEBULIZER AND SHE USED ALBUTEROL NEBULIZER JUST PRIOR TO ARRIVAL, WITHOUT RELIEF. NO KNOWN FEVER--STATES SHE HAS FELT HOT AND HAS HAD WINDOWS OPEN--TEMP IS IN 20'S TONIGHT AND IT IS SNOWING OUTSIDE. SHE HAS NOT CHECKED HER TEMPERATURE SHE STATES HER HANDS AND FEET FEEL NUMB AND TINGLY NO CHEST PAIN, BUT CHEST FEELS TIGHT WITH BREATHING NO SWELLING IN LEGS/FEET OR PAIN IN CALVES PT IS 6 MONTHS , WITH EDC 11/22/23. PT IS SHE SEES DR. MENDEZ FOR OB CARE SHE GOES TO [facility] FOR MEDICAL CARE, BUT HAS NOT BEEN THERE RECENTLY PT DELIVERED HER LAST CHILD ON 11/19/22 VIA REPEAT . SHE HAS HISTORY OF FATTY LIVER DISEASE WITH PREGNANCIES ADDITIONALLY PT HAS TYPE 2 DIABETES, HAS BEEN PRESCRIBED METFORMIN IN THE PAST, BUT SHE NEVER TOOK IT. STATES SINCE BEING , SHE JUST CHECKS HER BLOOD SUGAR 4 TIMES A DAY. NO COMPLAINTS. PT IS NOT COVID VACCINATED, BUT IS FLU AND PNEUMONIA VACCINATED. SHE STATES SHE HAD COVID A COUPLE OF MONTHS AGO. NO HOSPITALIZATION PT IS ACTIVE SMOKER, HX OF METH USE, AND ALCOHOL ABUSE PCP: [facility], SANDRA POLLOCK MEDICAL OFFICER PSYCHIATRY: DR. MENDEZ Allergies and Home Medications Allergies Coded Allergies: aspirin (Verified Allergy, Unknown, 05/28/22) ibuprofen (Verified Allergy, Unknown, shortness of breath; pt tolerated toradol in past, 11/19/22) naproxen (Verified Allergy, Unknown, shortness of breath; pt tolerated toradol in past, 11/19/22) SHORTNESS OF BREATH Patient Home Medication List Home Medication List Reviewed: Yes Albuterol Sulfate (Albuterol Sulfate) 2.5 Mg/3 Ml (0.083 %) Vial.neb, 1 VIAL INH Q6H PRN for SHORTNESS OF BREATH, (Reported) Entered as Reported by: Latoya Gordillo on 11/19/22 0648 Albuterol Sulfate (Ventolin Hfa) 1 Puff Puff, 2 PUFF INH Q4H Prescribed by: MOSHE DALTON MD on 08/24/23 0318 Albuterol/Ipratropium (Combivent Respimat Inhal [place]) 20 Mcg-100 Mcg/Actuation Aero, 2 PUFF IH Q6H PRN for SHORTNESS OF BREATH, (Reported) Entered as Reported by: MARCUS BEAL on 02/18/23 1016 Budesonide (Budesonide) 1 Mg/2 Ml Ampul.neb, 1 MG IH BID PRN for SHORTNESS OF BREATH, (Reported) Entered as Reported by: MARCUS BEAL on 02/18/23 1015 Fluticasone/Salmeterol (Fluticasone-Salmeterol 232-14) 232 Mcg-14 Mcg/Actuation Aer.pow.ba, 1 EACH IH BID Prescribed by: TANESHA LEIVA on 02/18/23 1059 Ipratropium/Albuterol Sulfate (Iprat-Albut 0.5-3(2.5) mg/3 ml) 0.5 Mg-3 Mg (2.5 Mg Base)/3 Ml Ampul.neb, 3 ML IH Q4H PRN for SHORTNESS OF BREATH Prescribed by: SALENA MONTERO on 08/25/23 0506 Prednisone (Prednisone) 10 Mg Tab.ds.pk, 0 PO UD Prescribed by: TANESHA LEIVA on 02/18/23 1059 Prednisone (Prednisone) 10 Mg Tab, 0 PO UD Prescribed by: TANESHA LEIVA on 02/18/23 1506 Prednisone (Prednisone) 50 Mg Tab, 50 MG PO DAILY Prescribed by: Nydia Sheehan on 06/08/23 180 Prednisone (Prednisone) 50 Mg Tab, 50 MG PO DAILY Prescribed by: MOSHE DALTON MD on 08/24/23 0318 Review of Systems Review of Systems Constitutional: see HPI EENTM: no symptoms reported Respiratory: see HPI, cough, short of breath Cardiovascular: see HPI Gastrointestinal: no symptoms reported : Yes Expected Date of Delivery: Nov 22, 2023 Musculoskeletal: no symptoms reported Skin: no symptoms reported Psychiatric/Neurological: No Symptoms Reported Past Hxvjsoe-Tnepts-Msbjll Hx Patient Social History Tobacco Use?: Yes Tobacco type used: Cigarettes Substance use?: Yes Substance type: Amphetamines, Methamphetamine, Opiates/Opioids Alcohol Use?: Yes Immunizations Up To Date Tetanus Booster (TDap): Unknown PED Vaccines UTD: Yes Influenza Vaccine Up-to-Date: Yes; Up-to-Date First/Initial COVID19 Vaccinat: unknown Second COVID19 Vaccination Naeem: DECLINED Third COVID19 Vaccination Date: DECLINED Seasonal Allergies Seasonal Allergies: Yes Past Medical History Surgery/Hospitalization HX: Asthma Surgeries: Yes (Cyst removed on eye, D&C, CS x 4; NASAL POLYPS REMOVED) Section, Eye Surgery, Nose 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; COVID 03/2022) Asthma, Sleep Apnea Currently Using CPAP: No Currently Using BIPAP: No Cardiac: No Neurological: Yes Concussion Expected Date of Delivery: Nov 22, 2023 Reproductive Disorders: Yes Female Reproductive Disorders: Ovarian Cyst, Polycystic Ovarian Dis Sexually Transmitted Disease: Yes (HSV2) HIV/AIDS: No Genitourinary: No Gastrointestinal: No Musculoskeletal: No Endocrine: Yes Diabetes, Non-Insulin dep HEENT: Yes (NASAL POLYPS) Loss of Vision: Denies Hearing Impairment: Denies Cancer: No Psychosocial: Yes (SUBSTANCE ABUSE) Anxiety, Bipolar, Depression Integumentary: No Blood Disorders: No Adverse Reaction/Blood Tranf: No Family Medical History Diabetes mellitus 19 MOTHER Hypertension 19 MOTHER Thyroid disease 19 MOTHER No Family History of: Asthma Dementia Myocardial infarction Respiratory disorder Seizure disorder No Pertinent Family Hx SOCIAL HISTORY: -OCCASIONAL ETOH -THC, HX OF METH USE--STATES SHE SMOKED IT. UDS + FOR AMPHETAMINES 05/17/20, UDS + FOR METH AND/OR AMPHETAMINES 10/31/20, 11/02/21, 10/04/22 -OCCASIONALLY SMOKES CIGARETTES Physical Exam Vital Signs - First Documented 08/25/23 08/25/23 08/25/23 03:16 03:30 03:34 Temp 36.6 Pulse 108 Resp 26 B/P (MAP) 120/78 (92) Pulse Ox 94 O2 Delivery Nasal Cannula O2 Flow Rate 2.00 Capillary Refill : Height: 5'3.00" Weight: 160lbs. 0.0oz. [id number]; 32.00 BMI Method:Stated General Appearance: WD/WN, no apparent distress, other (TALKS NON-STOP IN FULL SENTENCES, BUT IS MILDLY DYSPNEIC WITH TALKING, SHE IS ALSO COUGHING CONSTANTLY--HARSH, DRY COUGH; MALODOROUS) HEENT: PERRL/EOMI, normal ENT inspection Neck: normal inspection Respiratory: no respiratory distress, no accessory muscle use, decreased breath sounds (DECREASED AERATION IN ALL LUNG REAVES); No rales, No stridor, No wheezing Cardiovascular: no edema, no JVD, no murmur, tachycardia Gastrointestinal: non tender, soft, other (GRAVID UTERUS) Extremities: normal inspection, no pedal edema, normal capillary refill Neurologic/Psychiatric: no motor/sensory deficits, alert, normal mood/affect, oriented x 3 Skin: normal color, warm/dry Progress/Results/Core Measures Suspected Sepsis SIRS Temperature: Pulse: 108 Respiratory Rate: 26 Laboratory Tests 08/25/23 03:24: White Blood Count 12.1H Blood Pressure 120 /78 Mean: 92 Laboratory Tests 08/25/23 03:24: Creatinine 0.65, Platelet Count 381, Total Bilirubin 0.5 Results/Orders Lab Results Laboratory Tests Test 08/25/23 03:24 08/25/23 03:25 08/25/23 04:00 Range/Units White Blood Count 12.1 H 4.3-11.0 10^3/uL Red Blood Count 3.99 3.80-5.11 10^6/uL Hemoglobin 11.2 L 11.5-16.0 g/dL Hematocrit 35 35-52 % Mean Corpuscular Volume 88 80-99 fL Mean Corpuscular Hemoglobin 28 25-34 pg Mean Corpuscular Hemoglobin Concent 32 32-36 g/dL Red Cell Distribution Width 14.9 H 10.0-14.5 % Platelet Count 381 130-400 10^3/uL Mean Platelet Volume 10.1 9.0-12.2 fL Immature Granulocyte % (Auto) 1 % Neutrophils (%) (Auto) 82 H 42-75 % Lymphocytes (%) (Auto) 12 12-44 % Monocytes (%) (Auto) 5 0-12 % Eosinophils (%) (Auto) 0 0-10 % Basophils (%) (Auto) 0 0-10 % Neutrophils # (Auto) 10.0 H 1.8-7.8 10^3/uL Lymphocytes # (Auto) 1.4 1.0-4.0 10^3/uL Monocytes # (Auto) 0.6 0.0-1.0 10^3/uL Eosinophils # (Auto) 0.0 0.0-0.3 10^3/uL Basophils # (Auto) 0.0 0.0-0.1 10^3/uL Immature Granulocyte # (Auto) 0.1 0.0-0.1 10^3/uL Sodium Level 142 135-145 MMOL/L Potassium Level 3.9 3.6-5.0 MMOL/L Chloride Level 113 H 98-107 MMOL/L Carbon Dioxide Level 16 L 21-32 MMOL/L Anion Gap 13 5-14 MMOL/L Blood Urea Nitrogen 10 7-18 MG/DL Creatinine 0.65 0.60-1.30 MG/DL Estimat Glomerular Filtration Rate 120 BUN/Creatinine Ratio 15 Glucose Level 109 H 70-105 MG/DL Calcium Level 9.8 8.5-10.1 MG/DL Corrected Calcium 10.1 8.5-10.1 MG/DL Magnesium Level 1.9 1.6-2.4 MG/DL Total Bilirubin 0.5 0.1-1.0 MG/DL Aspartate Amino Transf (AST/SGOT) 22 5-34 U/L Alanine Aminotransferase (ALT/SGPT) 53 0-55 U/L Alkaline Phosphatase 69 40-136 U/L Total Protein 6.7 6.4-8.2 GM/DL Albumin 3.6 3.2-4.5 GM/DL Influenza Type A (RT-PCR) Not Detected Not Detecte Influenza Type B (RT-PCR) Not Detected Not Detecte SARS-CoV-2 RNA (RT-PCR) Not Detected Not Detecte Urine Opiates Screen NEGATIVE NEGATIVE Urine Oxycodone Screen NEGATIVE NEGATIVE Urine Methadone Screen NEGATIVE NEGATIVE Urine Barbiturates Screen NEGATIVE NEGATIVE Ur Tricyclic Antidepressants Screen NEGATIVE NEGATIVE Urine Phencyclidine Screen NEGATIVE NEGATIVE Urine Amphetamines Screen NEGATIVE NEGATIVE Urine Methamphetamines Screen NEGATIVE NEGATIVE Urine Benzodiazepines Screen NEGATIVE NEGATIVE Urine Cocaine Screen NEGATIVE NEGATIVE Urine Cannabinoids Screen NEGATIVE NEGATIVE My Orders Orders - SALENA MONTERO DO Ed Iv/Invasive Line Start (08/25/23 03:14) Heart Tones (08/25/23 03:14) Monitor-Rhythm Ecg Trace Only (08/25/23 03:14) Cbc And Automated Diff (08/25/23 03:14) Comprehensive Metabolic Panel (08/25/23 03:14) Drug Screen Stat (Urine) (08/25/23 03:14) Magnesium (08/25/23 03:14) Ua Culture If Indicated (08/25/23 03:14) Covid 19 Inhouse Test (08/25/23 03:14) Influenza A And B By Pcr (08/25/23 03:14) Ipratropium/Albuterol Inh Soln (Ipratrop (08/25/23 03:15) Budesonide Inhalation Solution (Budesoni (08/25/23 03:15) Rt Request For Service (08/25/23 03:14) Methylprednisolone Sod Succ (Methylpredn (08/25/23 03:14) Svn Small Volume Nebulizer (08/25/23 03:14) Svn Small Volume Nebulizer (08/25/23 03:14) Ipratropium/Albuterol Inh Soln (Ipratrop (08/25/23 04:15) Svn Small Volume Nebulizer (08/25/23 04:13) Medications Given in ED Current Medications Medications Dose Ordered Sig/Kemi Route Start Time Stop Time Status Last Admin Dose Admin Albuterol/ Ipratropium 3 ml ONCE ONCE INH 08/25/23 03:15 08/25/23 03:17 DC 08/25/23 03:33 3 ML Albuterol/ Ipratropium 3 ml ONCE ONCE INH 08/25/23 04:15 08/25/23 04:17 DC 08/25/23 04:35 3 ML Budesonide 0.5 mg ONCE ONCE INH 08/25/23 03:15 08/25/23 03:17 DC 08/25/23 03:33 0.5 MG Vital Signs/I&O 08/25/23 08/25/23 08/25/23 08/25/23 03:16 03:30 03:34 04:35 Temp 36.6 Pulse 108 Resp 26 B/P (MAP) 120/78 (92) Pulse Ox 94 93 O2 Delivery Nasal Cannula Nasal Cannula Room Air O2 Flow Rate 2.00 2.00 Capillary Refill : Blood Pressure Mean: 92 Progress Note : Progress Note VITALS ON ARRIVAL: TEMP 36.6=97.8, HR 108, RR 26, BP 120/78, O2 SAT 91% ON ROOM AIR--UP TO 94% ON 2L/NC FHT'S 159 GIVEN: -NEB TREATMENT WITH DUO NEB X 2 + BUDESONIDE -SOLU-MEDROL LABS: -CBC NORMAL -CMP NORMAL -COVID/FLU NEGATIVE -UA --UNABLE TO PERFORM TEST -UDS NEGATIVE COUGHING RESOLVED AND NO DYSPNEA OR HYPOXIA AFTER NEB TREATMENTS--STATES SHE FEELS MUCH BETTER, AND HAS INCREASED AERATION. O2 SATS 94-95% ON ROOM AIR AT DISMISSAL. PT FEELS COMFORTABLE GOING HOME DISCUSSED TEST RESULTS, ANTICIPATED COURSE, SYMPTOMATIC TREATMENT, MEDICATIONS, NEED FOR FOLLOW UP AND RETURN PRECAUTIONS REVIEWED PRIOR RECORDS--PT WITH MULTITUDE OF VISITS AND ADMITS. Departure Impression Primary Impression: Acute asthma exacerbation Additional Impression: Second trimester Disposition: 01 HOME, SELF-CARE Condition: Improved Departure-Patient Inst. Decision time for Depature: 05:00 Referrals: [facility] (PCP) Primary Care Physician KIRK POLLOCK APRN (Family) Primary Care Physician Patient Instructions: Asthma, Adult (DC) Add. Discharge Instructions: COMPLETE PREDNISONE PRESCRIBED CALL PHARMACY TODAY REGARDING GETTING YOUR PRESCRIPTION FOR RESCUE INHALER REFILLED CONTINUE BUDESONIDE NEBULIZER TREATMENT TWICE A DAY EVERY DAY USE THE NEW DUO-NEB MEDICATION IN PLACE OF PLAIN ALBUTEROL NEBULIZER SOLUTION FOLLOW UP WITH [facility] TOMORROW RETURN TO ER IF SYMPTOMS WORSEN All discharge instructions reviewed with patient and/or family. Voiced understanding. Scripts Ipratropium/Albuterol Sulfate (Iprat-Albut 0.5-3(2.5) mg/3 ml) 0.5 Mg-3 Mg (2.5 Mg Base)/3 Ml Ampul.neb 3 ML IH Q4H PRN for SHORTNESS OF BREATH, #1 EACH Prov: SALENA MONTERO DO 08/25/23 SALENA MONTERO DO Aug 25, 2023 04:02
[2023-08-25 04:42] LABS: AMPHETAMINE SCREEN, URINE NEGATIVE (NEGATIVE); BARBITURATE SCREEN URINE NEGATIVE (NEGATIVE); CANNABINOID SCREEN, URINE NEGATIVE (NEGATIVE); COCAINE SCREEN URINE NEGATIVE (NEGATIVE); METHADONE STAT NEGATIVE (NEGATIVE); OPIATE SCREEN URINE NEGATIVE (NEGATIVE); OXYCODONE STAT NEGATIVE (NEGATIVE); TRICYCLIC ANTIDEPRESSANTS SCRE NEGATIVE (NEGATIVE)
[2023-08-25] MEDS ORDERED: IPRA3AMP31 IH (05:06)
[2023-08-26] MEDS ORDERED: RT-ALBUINH INH (08:48)
[2023-08-26] MEDS ORDERED: FLUT15.845 NSEACH (08:49)
[2023-08-26] MEDS ORDERED: LORA10TA76 PO (08:49)
[2023-08-26] MEDS ORDERED: PREN-142 PO (08:50)
== END 2023-08-25 05:16 | disposition home or self-care (01) ==
LOC: EDUNIT# 03:05 → ER 03:08
DX: O99.512 Diseases of the respiratory system complicating pregnancy, second trimester (principal); O99.332 Smoking (tobacco) complicating pregnancy, second trimester; J45.901 Unspecified asthma with (acute) exacerbation; F17.210 Nicotine dependence, cigarettes, uncomplicated; Z28.311 Partially vaccinated for COVID-19; Z3A.00 Weeks of gestation of pregnancy not specified
CPT/HCPCS: 36415; 80053; 80306; 83735; 85025; 87636; 94640

== ENCOUNTER 2023-08-25 18:34 | Inpatient (IN) | payer MEDICAID ==
[~2023-08-25] VITALS: Ht 160 cm; Wt 85.5 kg
[2023-08-25] MEDS ORDERED: RT-Ipratropium/Albuterol NEB 3 ML VIAL INH ONE (18:45)
[2023-08-25] MEDS ORDERED: RT-BUDESONIDE NEBS 0.5 MG/2ML VIAL INH ONE (18:45)
[2023-08-25] MEDS ORDERED: RT-ALBUTEROL SULF 2.5 MG/3 ML PRE-MIX VIAL INH STA (18:47)
[2023-08-25] MEDS ORDERED: methylPREDNISolone INJ 125 MG VIAL IV STA (18:47)
[2023-08-25 19:16] LABS: BASOPHILS % (AUTO) 0 % (0-10); EOSINOPHILS % (AUTO) 0 % (0-10); HEMATOCRIT 34 % (35-52); HEMOGLOBIN 11.1 g/dL (11.5-16.0); LYMPHOCYTES # (AUTO) 0.9 10^3/uL (1.0-4.0); LYMPHOCYTES % (AUTO) 6 % (12-44); MEAN CORPUSCULAR HEMOGLOBIN 29 pg (25-34); MEAN CORPUSCULAR HGB CONC 32 g/dL (32-36); MEAN CORPUSCULAR VOLUME 88 fL (80-99); MEAN PLATELET VOLUME 10.3 fL (9.0-12.2); MONOCYTES # (AUTO) 0.7 10^3/uL (0.0-1.0); MONOCYTES % (AUTO) 5 % (0-12); NEUTROPHILS # (AUTO) 11.9 10^3/uL (1.8-7.8); NEUTROPHILS % (AUTO) 88 % (42-75); PLATELET COUNT 389 10^3/uL (130-400); WHITE BLOOD COUNT 13.6 10^3/uL (4.3-11.0)
[2023-08-25 19:23] LABS: CLARITY,URINE CLEAR; COLOR,URINE YELLOW
[2023-08-25 19:24] LABS: BACTERIA,URINE FEW /HPF; BILIRUBIN,URINE NEGATIVE (NEGATIVE); GLUCOSE, URINE (UA) 1+ (NEGATIVE); KETONES,URINE NEGATIVE (NEGATIVE); LEUKOCYTE ESTERASE ,URINE NEGATIVE (NEGATIVE); NITRITE,URINE NEGATIVE (NEGATIVE); PROTEIN,URINE 1+ (NEGATIVE)
[2023-08-25 19:27] LABS: AMPHETAMINE SCREEN, URINE NEGATIVE (NEGATIVE); BARBITURATE SCREEN URINE NEGATIVE (NEGATIVE); CANNABINOID SCREEN, URINE NEGATIVE (NEGATIVE); COCAINE SCREEN URINE NEGATIVE (NEGATIVE); METHADONE STAT NEGATIVE (NEGATIVE); OPIATE SCREEN URINE NEGATIVE (NEGATIVE); OXYCODONE STAT NEGATIVE (NEGATIVE); TRICYCLIC ANTIDEPRESSANTS SCRE NEGATIVE (NEGATIVE)
[2023-08-25 19:32] LABS: BAND NEUTROPHILS 3 %; LYMPHOCYTES % (MANUAL) 4 %; MONOCYTES % (MANUAL) 5 %; NEUTROPHILS % (MANUAL) 88 %; PLATELET ESTIMATE INCREASED; RBC MORPH OK; TOXIC GRANULATION/VACUOLAZATIO 1+
[2023-08-25 19:33] LABS: ALBUMIN 3.8 GM/DL (3.2-4.5); CALCIUM 9.1 MG/DL (8.5-10.1); CREATININE SERUM 0.69 MG/DL (0.60-1.30); POTASSIUM 4.1 MMOL/L (3.6-5.0); TOTAL PROTEIN 6.6 GM/DL (6.4-8.2)
--- NOTE | 2023-08-25 19:39 | ED Respiratory ---
General Chief Complaint: Respiratory Problems Stated Complaint: SOA Nursing Triage Note: PT STATES SOB FOR ABOUT AN HOUR, HAS BEEN SEEN HERE THE LAST 2 DAYS FOR THE SAME, 6 MONTHS , LABORED BREATHING ON ARRIVAL O2 OF 92%, OXY MASK APPLIED Source: patient, old records History of Present Illness Date Seen by Provider: Aug 25, 2023 Time Seen by Provider: 18:40 Initial Comments PT ARRIVES VIA POV FROM HOME PT WITH ASTHMA, AND THIS IS PT'S 3RD ER VISIT IN THE LAST 2 DAYS FOR THIS PROBLEM--SHE HAD IMPROVED / SYMPTOMS RESOLVED PRIOR TO BEING DISMISSED BOTH TIMES. SHE C/O INCREASED SHORTNESS OF BREATH IN THE LAST HOUR. HER LAST NEB TREATMENT WAS AT 1700. SHE HAS BEEN BUDESONIDE NEB TREATMENTS TWICE A DAY LAST NIGHT/EARLY THIS AM VISIT, SHE WAS PRESCRIBED DUO NEB TO REPLACE PLAIN ALBUTEROL NEB TREATMENTS. SHE WAS GIVEN SOLU-MEDROL DURING THAT VISIT. SHE WAS PRESCRIBED PREDNISONE ON 08/24. SHE STATES SHE DID TAKE THAT THIS MORNING SHE STATES SHE WAS SEEN AT [facility] TODAY ALSO FOR FOLLOW UP, NO TREATMENT OR ADDITIONAL RECOMMENDATIONS. NO FEVER AT ANY TIME HAS NON-PRODUCTIVE COUGH WITH THE SHORTNESS OF BREATH AND WHEEZING--THIS RESOLVES WHEN OTHER SYMPTOMS IMPROVE NO SWELLING IN LEGS/FEET OR PAIN IN CAL[place]ES PT IS 6 MONTHS , WITH EDC 11/22/23. PT IS SHE SEES DR. MENDEZ FOR OB CARE SHE GOES TO [facility] FOR MEDICAL CARE, BUT HAS NOT BEEN THERE RECENTLY PT DELIVERED HER LAST CHILD ON 11/19/22 VIA REPEAT . SHE HAS HISTORY OF FATTY LIVER DISEASE WITH PREGNANCIES ADDITIONALLY PT HAS TYPE 2 DIABETES, HAS BEEN PRESCRIBED METFORMIN IN THE PAST, BUT SHE NEVER TOOK IT. STATES SINCE BEING , SHE JUST CHECKS HER BLOOD SUGAR 4 TIMES A DAY. SHE STATES HER BLOOD SUGARS WERE IN THE 300'S TODAY. NO COMPLAINTS. PT IS NOT COVID VACCINATED, BUT IS FLU AND PNEUMONIA VACCINATED. SHE STATES SHE HAD COVID A COUPLE OF MONTHS AGO. NO HOSPITALIZATION PT IS ACTIVE SMOKER, HX OF METH USE, AND ALCOHOL ABUSE PCP: [facility] Allergies and Home Medications Allergies Coded Allergies: aspirin (Verified Allergy, Unknown, 05/28/22) ibuprofen (Verified Allergy, Unknown, shortness of breath; pt tolerated toradol in past, 11/19/22) naproxen (Verified Allergy, Unknown, shortness of breath; pt tolerated toradol in past, 11/19/22) SHORTNESS OF BREATH Patient Home Medication List Home Medication List Reviewed: Yes Albuterol Sulfate (Albuterol Sulfate) 2.5 Mg/3 Ml (0.083 %) Vial.neb, 1 VIAL INH Q6H PRN for SHORTNESS OF BREATH, (Reported) Entered as Reported by: Latoya Gordillo on 11/19/22 0648 Albuterol Sulfate (Ventolin Hfa) 1 Puff Puff, 2 PUFF INH Q4H Prescribed by: MOSHE DALTON MD on 08/24/23317 Albuterol/Ipratropium (Combivent Respimat Inhal [place]) 20 Mcg-100 Mcg/Actuation Aero, 2 PUFF IH Q6H PRN for SHORTNESS OF BREATH, (Reported) Entered as Reported by: MARCUS BEAL on 02/18/23 1016 Budesonide (Budesonide) 1 Mg/2 Ml Ampul.neb, 1 MG IH BID PRN for SHORTNESS OF BREATH, (Reported) Entered as Reported by: MARCUS BEAL on 02/18/23 1015 Fluticasone/Salmeterol (Fluticasone-Salmeterol 232-14) 232 Mcg-14 Mcg/Actuation Aer.pow.ba, 1 EACH IH BID Prescribed by: TANESHA LEIVA on 02/18/23 1059 Ipratropium/Albuterol Sulfate (Iprat-Albut 0.5-3(2.5) mg/3 ml) 0.5 Mg-3 Mg (2.5 Mg Base)/3 Ml Ampul.neb, 3 ML IH Q4H PRN for SHORTNESS OF BREATH Prescribed by: SALENA MONTERO on 08/25/23 0506 Prednisone (Prednisone) 10 Mg Tab.ds.pk, 0 PO UD Prescribed by: TANESHA LEIVA on 02/18/23 1059 Prednisone (Prednisone) 10 Mg Tab, 0 PO UD Prescribed by: TANESHA LEIVA on 02/18/23 1506 Prednisone (Prednisone) 50 Mg Tab, 50 MG PO DAILY Prescribed by: Nydia Sheehan on 06/08/23 1807 Prednisone (Prednisone) 50 Mg Tab, 50 MG PO DAILY Prescribed by: MOSHE DALTON MD on 08/24/23317 Review of Systems Review of Systems Constitutional: no symptoms reported EENTM: see HPI, nose congestion Respiratory: see HPI, cough, short of breath, wheezing Cardiovascular: see HPI, other (CHEST TIGHTNESS DUE TO COUGHING AND ASTHMA) Gastrointestinal: no symptoms reported Genitourinary: no symptoms reported : Yes Expected Date of Delivery: Nov 22, 2023 Musculoskeletal: no symptoms reported Skin: no symptoms reported Psychiatric/Neurological: No Symptoms Reported Hematologic/Lymphatic: No Symptoms Reported Immunological/Allergic: no symptoms reported Past Gltolwm-Hyuymz-Wydrkr Hx Patient Social History Tobacco Use?: Yes Tobacco type used: Cigarettes Use of E-Cig and/or Vaping dev: Yes Substance use?: Yes Alcohol Use?: Yes Immunizations Up To Date Tetanus Booster (TDap): Unknown PED Vaccines UTD: Yes First/Initial COVID19 Vaccinat: unknown Second COVID19 Vaccination Naeem: unknown Third COVID19 Vaccination Date: unknown Seasonal Allergies Seasonal Allergies: Yes Past Medical History Surgery/Hospitalization HX: Asthma Surgeries: Yes (Cyst removed on eye, D&C, CS x 4; NASAL POLYPS REMOVED) Section, Eye Surgery, Nose 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; COVID 2021) Asthma, Sleep Apnea Currently Using CPAP: No Currently Using BIPAP: No Cardiac: No Neurological: Yes Concussion Expected Date of Delivery: Nov 22, 2023 Reproductive Disorders: Yes Female Reproductive Disorders: Ovarian Cyst, Polycystic Ovarian Dis Sexually Transmitted Disease: Yes (HSV2) HIV/AIDS: No Genitourinary: No Gastrointestinal: No Musculoskeletal: No Endocrine: Yes Diabetes, Non-Insulin dep HEENT: Yes (NASAL POLYPS) Loss of Vision: Denies Hearing Impairment: Denies Cancer: No Psychosocial: Yes (SUBSTANCE ABUSE) Anxiety, Bipolar, Depression Integumentary: No Blood Disorders: No Adverse Reaction/Blood Tranf: No Family Medical History Diabetes mellitus 19 MOTHER Hypertension 19 MOTHER Thyroid disease 19 MOTHER No Family History of: Asthma Dementia Myocardial infarction Respiratory disorder Seizure disorder No Pertinent Family Hx SOCIAL HISTORY: -OCCASIONAL ETOH -THC, HX OF METH USE--STATES SHE SMOKED IT. UDS + FOR AMPHETAMINES 05/17/20, UDS + FOR METH AND/OR AMPHETAMINES 10/31/20, 11/02/21, 10/04/22 -OCCASIONALLY SMOKES CIGARETTES Physical Exam Vital Signs - First Documented 08/25/23 08/25/23 18:45 18:53 Temp 36.9 Pulse 93 Resp 24 B/P (MAP) 116/88 (97) Pulse Ox 97 O2 Delivery OxyMask O2 Flow Rate 5.00 Capillary Refill : Less Than 3 Seconds Height: 5'3.00" Weight: 160lbs. 0.0oz. 72.337608sx; 32.00 BMI Method:Stated General Appearance: WD/WN, other (PT DYSPNEIC, BUT ABLE TO TALK IN FULL SENTENCES. ) HEENT: PERRL/EOMI Neck: normal inspection Respiratory: other (BILATERAL EXPIRATORY WHEEZING, DECREASED AERATION IN ALL LUNG REAVES. ) Cardiovascular: no murmur, tachycardia Gastrointestinal: other (GRAVID UTERUS, NON-TENDER) Extremities: no pedal edema Neurologic/Psychiatric: no motor/sensory deficits, alert, normal mood/affect, oriented x 3 Skin: normal color, warm/dry Progress/Results/Core Measures Suspected Sepsis SIRS Temperature: Pulse: 93 Respiratory Rate: 24 Laboratory Tests 08/25/23 19:00: White Blood Count 13.6H Blood Pressure 116 /88 Mean: 97 Laboratory Tests 08/25/23 19:00: Creatinine 0.69, Platelet Count 389, Total Bilirubin 0.4 Results/Orders Lab Results Laboratory Tests Test 08/25/23 18:55 08/25/23 19:00 08/25/23 19:02 Range/Units Urine Color YELLOW Urine Clarity CLEAR Urine pH 5.0 5-9 Urine Specific [place] >=1.030 1.016-1.022 Urine Protein 1+ H NEGATIVE Urine Glucose (UA) 1+ H NEGATIVE Urine Ketones NEGATIVE NEGATIVE Urine Nitrite NEGATIVE NEGATIVE Urine Bilirubin NEGATIVE NEGATIVE Urine Urobilinogen 0.2 < = 1.0 MG/DL Urine Leukocyte Esterase NEGATIVE NEGATIVE Urine RBC (Auto) NEGATIVE NEGATIVE Urine RBC NONE /HPF Urine WBC NONE /HPF Urine Squamous Epithelial Cells 10-25 H /HPF Urine Crystals NONE /LPF Urine Bacteria FEW H /HPF Urine Casts NONE /LPF Urine Mucus NEGATIVE /LPF Urine Culture Indicated NO Urine Opiates Screen NEGATIVE NEGATIVE Urine Oxycodone Screen NEGATIVE NEGATIVE Urine Methadone Screen NEGATIVE NEGATIVE Urine Barbiturates Screen NEGATIVE NEGATIVE Ur Tricyclic Antidepressants Screen NEGATIVE NEGATIVE Urine Phencyclidine Screen NEGATIVE NEGATIVE Urine Amphetamines Screen NEGATIVE NEGATIVE Urine Methamphetamines Screen NEGATIVE NEGATIVE Urine Benzodiazepines Screen NEGATIVE NEGATIVE Urine Cocaine Screen NEGATIVE NEGATIVE Urine Cannabinoids Screen NEGATIVE NEGATIVE White Blood Count 13.6 H 4.3-11.0 10^3/uL Red Blood Count 3.90 3.80-5.11 10^6/uL Hemoglobin 11.1 L 11.5-16.0 g/dL Hematocrit 34 L 35-52 % Mean Corpuscular Volume 88 80-99 fL Mean Corpuscular Hemoglobin 29 25-34 pg Mean Corpuscular Hemoglobin Concent 32 32-36 g/dL Red Cell Distribution Width 15.2 H 10.0-14.5 % Platelet Count 389 130-400 10^3/uL Mean Platelet Volume 10.3 9.0-12.2 fL Immature Granulocyte % (Auto) 1 % Neutrophils (%) (Auto) 88 H 42-75 % Lymphocytes (%) (Auto) 6 L 12-44 % Monocytes (%) (Auto) 5 0-12 % Eosinophils (%) (Auto) 0 0-10 % Basophils (%) (Auto) 0 0-10 % Neutrophils # (Auto) 11.9 H 1.8-7.8 10^3/uL Lymphocytes # (Auto) 0.9 L 1.0-4.0 10^3/uL Monocytes # (Auto) 0.7 0.0-1.0 10^3/uL Eosinophils # (Auto) 0.0 0.0-0.3 10^3/uL Basophils # (Auto) 0.0 0.0-0.1 10^3/uL Immature Granulocyte # (Auto) 0.2 H 0.0-0.1 10^3/uL Neutrophils % (Manual) 88 % Lymphocytes % (Manual) 4 % Monocytes % (Manual) 5 % Band Neutrophils 3 % Toxic Granulation 1+ Platelet Estimate INCREASED Blood Morphology Comment OK Sodium Level 140 135-145 MMOL/L Potassium Level 4.1 3.6-5.0 MMOL/L Chloride Level 109 H 98-107 MMOL/L Carbon Dioxide Level 18 L 21-32 MMOL/L Anion Gap 13 5-14 MMOL/L Blood Urea Nitrogen 11 7-18 MG/DL Creatinine 0.69 0.60-1.30 MG/DL Estimat Glomerular Filtration Rate 118 BUN/Creatinine Ratio 16 Glucose Level 111 H 70-105 MG/DL Calcium Level 9.1 8.5-10.1 MG/DL Corrected Calcium 9.3 8.5-10.1 MG/DL Magnesium Level 2.0 1.6-2.4 MG/DL Total Bilirubin 0.4 0.1-1.0 MG/DL Aspartate Amino Transf (AST/SGOT) 37 H 5-34 U/L Alanine Aminotransferase (ALT/SGPT) 70 H 0-55 U/L Alkaline Phosphatase 65 40-136 U/L Total Protein 6.6 6.4-8.2 GM/DL Albumin 3.8 3.2-4.5 GM/DL Glucometer 104 70-110 MG/DL My Orders Orders - SALENA MONTERO DO Ed Iv/Invasive Line Start (08/25/23 18:41) O2 (08/25/23 18:41) Monitor-Rhythm Ecg Trace Only (08/25/23 18:41) Ipratropium/Albuterol Inh Soln (Ipratrop (08/25/23 18:45) Budesonide Inhalation Solution (Budesoni (08/25/23 18:45) Rt Request For Service (08/25/23 18:41) Svn Small Volume Nebulizer (08/25/23 18:41) Svn Small Volume Nebulizer (08/25/23 18:41) Accucheck Stat ONCE (08/25/23 18:47) Heart Tones (08/25/23 18:47) Cbc And Automated Diff (08/25/23 18:47) Comprehensive Metabolic Panel (08/25/23 18:47) Drug Screen Stat (Urine) (08/25/23 18:47) Magnesium (08/25/23 18:47) Ua Culture If Indicated (08/25/23 18:47) Albuterol Pre-Mix Nebs (Rt) (Albuterol (08/25/23 18:47) Methylprednisolone Sod Succ (Methylpredn (08/25/23 18:47) Svn Small Volume Nebulizer (08/25/23 18:47) Manual Differential (08/25/23 19:00) Medications Given in ED Current Medications Medications Dose Ordered Sig/Kemi Route Start Time Stop Time Status Last Admin Dose Admin Albuterol/ Ipratropium 3 ml ONCE ONCE INH 08/25/23 18:45 08/25/23 18:46 DC 08/25/23 19:02 3 ML Budesonide 0.5 mg ONCE ONCE INH 08/25/23 18:45 08/25/23 18:46 DC 08/25/23 19:02 0.5 MG Vital Signs/I&O 08/25/23 08/25/23 08/25/23 18:45 18:53 19:10 Temp 36.9 Pulse 93 Resp 24 B/P (MAP) 116/88 (97) Pulse Ox 97 97 98 O2 Delivery OxyMask OxyMask O2 Flow Rate 5.00 Capillary Refill : Less Than 3 Seconds Blood Pressure Mean: 97 Point of Care Testing Finger Stick Blood Glucose: 104 Blood Glucose Action Taken: INFORMED Progress Note : Progress Note VITALS ON ARRIVAL: TEMP 36.9=98.4, HR 93, RR 24, BP 116/88, O2 SAT 93% ON ROOM AIR--UP TO 97% ON OXIMASK FHR 152 GIVEN: -SOLU-MEDROL -HOUR LONG DUO NEB TX + BUDESONIDE SIGNIFICANT IMPROVEMENT AT TIME OF ADMIT. RESPIRATIONS EVEN AND UNLABORED, INCREASED AERATION AND DECREASED WHEEZING. O2 SATS IN UPPER 90'S ON O2 VIA OXIMASK LABS: -CBC WITH WBC 13.6, HGB 11.1, PLT 389,000 -CMP UNREMARKABLE -UA WITH 1+ GLUCOSE, 1+ PROTEIN -UDS NEGATIVE NO DETERIORATION IN PT'S CONDITION DURING ER STAY DISCUSSED TEST RESULTS, AND PT IS AGREEABLE TO ADMIT REVIEWED PRIOR RECORDS, MULTIPLE ER VISITS AND ADMITS. Departure Communication (Admissions) 1847--SPOKE WITH DR. HART, HOSPITALIST FOR [facility]. DEFERS TO DR. 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 1849--SPOKE WITH DR. WARREN, ACCEPTS PT FOR ADMIT. Impression Primary Impression: Acute asthma exacerbation Additional Impressions: Failure of outpatient treatment 28 weeks gestation of Disposition: ADMITTED INPATIENT Condition: Improved Admissions Decision to Admit Reason: Admit from ER (General) Decision to Admit/Date: Aug 25, 2023 Time/Decision to Admit Time: 18:50 Departure-Patient Inst. [place]: [facility] [place] Primary Care Physician KIRK POLLOCK APRN (Family) Primary Care Physician SALENA MONTERO DO Aug 25, 2023 19:39
[2023-08-25 20:15] LABS: BILIRUBIN,TOTAL 0.4 MG/DL (0.1-1.0)
[2023-08-25 20:35] VITALS: BP 115/67
[2023-08-25] MEDS ORDERED: RT-Ipratropium/Albuterol NEB 3 ML VIAL INH PRN (21:00)
[2023-08-25] MEDS ORDERED: CATHETER FLUSH 10 ML SYR IVP PRN (21:00)
[2023-08-25] MEDS ORDERED: ACETAMINOPHEN 500 MG TABLET PO PRN (21:00)
[2023-08-25] MEDS: inSUlin ASPART 1 UNIT/0.01 ML (PER UNIT) SC SCH (21:31)
[2023-08-25] MEDS: CATHETER FLUSH 10 ML SYR IVP SCH (21:32)
[2023-08-25 23:25] VITALS: BP 108/58
[2023-08-26] MEDS: methylPREDNISolone INJ 125 MG VIAL IVP SCH ×2 (02:49→06:00)
[2023-08-26] MEDS: RT-Ipratropium/Albuterol NEB 3 ML VIAL INH SCH ×7 (02:53→22:46)
[2023-08-26 03:24] VITALS: BP 105/63
[2023-08-26] MEDS: inSUlin ASPART 1 UNIT/0.01 ML (PER UNIT) SC SCH ×4 (05:22→21:10)
[2023-08-26 05:35] LABS: BASOPHILS % (AUTO) 0 % (0-10); EOSINOPHILS % (AUTO) 0 % (0-10); HEMATOCRIT 31 % (35-52); LYMPHOCYTES # (AUTO) 0.8 10^3/uL (1.0-4.0); LYMPHOCYTES % (AUTO) 6 % (12-44); MEAN CORPUSCULAR HEMOGLOBIN 28 pg (25-34); MEAN CORPUSCULAR HGB CONC 32 g/dL (32-36); MEAN CORPUSCULAR VOLUME 88 fL (80-99); MEAN PLATELET VOLUME 10.2 fL (9.0-12.2); MONOCYTES # (AUTO) 0.3 10^3/uL (0.0-1.0); MONOCYTES % (AUTO) 2 % (0-12); NEUTROPHILS # (AUTO) 13.4 10^3/uL (1.8-7.8); NEUTROPHILS % (AUTO) 91 % (42-75); PLATELET COUNT 335 10^3/uL (130-400); WHITE BLOOD COUNT 14.7 10^3/uL (4.3-11.0)
[2023-08-26 05:48] LABS: CALCIUM 8.4 MG/DL (8.5-10.1); CREATININE SERUM 0.62 MG/DL (0.60-1.30)
[2023-08-26] MEDS: PRENATAL VITAMIN TABLET PO SCH (05:58)
[2023-08-26] MEDS: CATHETER FLUSH 10 ML SYR IVP SCH ×3 (05:58→22:05)
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
[2023-08-26] MEDS: RT-BUDESONIDE NEBS 0.5 MG/2ML VIAL INH SCH ×2 (07:14→18:47)
[2023-08-26 07:26] VITALS: BP 97/60
[2023-08-26] MEDS ORDERED: RT-ALBUINH INH (08:48)
[2023-08-26] MEDS ORDERED: FLUT15.845 NSEACH (08:49)
[2023-08-26] MEDS ORDERED: LORA10TA76 PO (08:49)
[2023-08-26] MEDS ORDERED: PREN-142 PO (08:50)
[2023-08-26 12:02] VITALS: BP 101/65
[2023-08-26] MEDS: methylPREDNISolone INJ 40 MG/ML VIAL IVP SCH ×2 (13:41→22:05)
[2023-08-26 16:49] VITALS: BP 119/66
[2023-08-26 19:51] VITALS: BP 110/64
[2023-08-26 23:23] VITALS: BP 95/56
[2023-08-27] MEDS: RT-Ipratropium/Albuterol NEB 3 ML VIAL INH SCH ×6 (02:12→22:25)
[2023-08-27 04:17] VITALS: BP 106/57
[2023-08-27] MEDS: inSUlin ASPART 1 UNIT/0.01 ML (PER UNIT) SC SCH ×4 (05:14→20:57)
[2023-08-27] MEDS: PRENATAL VITAMIN TABLET PO SCH (06:09)
[2023-08-27] MEDS: methylPREDNISolone INJ 40 MG/ML VIAL IVP SCH ×3 (06:09→22:31)
[2023-08-27] MEDS: CATHETER FLUSH 10 ML SYR IVP SCH ×3 (06:09→22:32)
--- NOTE | 2023-08-27 07:48 | Progress Note ---
Subjective Subjective/Events-last exam patient has still been having episodes of asthma as well as coughing spells. After discussing her issues, it appears that when her cough occurs she is having more of a laryngeal spasm. Apparently she is allergic to a lot of different environmental allergens that she is unaware . She denies any fever. Objective Exam Last Set of Vital Signs Vital Signs Date Time Temp Pulse Resp B/P (MAP) Pulse Ox O2 Delivery O2 Flow Rate FiO2 08/27/23 04:17 36.6 72 16 106/57 (73) 96 Room Air 08/26/23 14:28 0.00 08/25/23 22:42 21 Capillary Refill : Less Than 3 Seconds I&O Intake and Output 08/27/23 00:00 Intake Total 2122 ml Balance 2122 ml Intake Oral 2122 ml # Voids 10 General: Alert, No Acute Distress (But she does have coughing spells) HEENT: Other (Pharynx appears clear) Lungs: Clear to Auscultation (But she just recently had albuterol treatment) Heart: Regular Rate Abdomen: Soft Results/Procedures Lab Laboratory Tests 08/26/23 11:17: Glucometer 156H 08/26/23 16:52: Glucometer 157H 08/26/23 19:50: Glucometer 156H 08/27/23 05:11: Glucometer 120H Assessment/Plan Assessment/Plan Admission Status: Inpatient Order (span 2 midnights) Assessment & Plan 1. Asthma exacerbation -she does have nasal cannula oxygen available -Currently she is on Solu-Medrol 125 mg 4 times daily -Albuterol treatments -Continue with budesonide twice daily 08/27 -Currently she is receiving Solu-Medrol 80 mg every 8 hours. -We will check with her greens laborer and give update 2. Failed outpatient treatment for asthma 3. Intrauterine at 28 weeks gestation -will notify Dr. Zepeda of her admission 08/27 -monitoring of infant with Doppler q shift KYM ALMAZAN MD Aug 27, 2023 07:48
[2023-08-27 08:03] VITALS: BP 119/76
[2023-08-27] MEDS: RT-BUDESONIDE NEBS 0.5 MG/2ML VIAL INH SCH ×2 (10:26→22:25)
[2023-08-27 11:32] VITALS: BP 103/70
[2023-08-27 15:32] VITALS: BP 115/65
[2023-08-27 19:26] VITALS: BP 127/70
[2023-08-27 23:27] VITALS: BP 113/65
[2023-08-28] MEDS: RT-Ipratropium/Albuterol NEB 3 ML VIAL INH SCH ×3 (02:43→10:10)
[2023-08-28 03:13] VITALS: BP 105/64
[2023-08-28] MEDS: methylPREDNISolone INJ 40 MG/ML VIAL IVP SCH (05:54)
[2023-08-28] MEDS: inSUlin ASPART 1 UNIT/0.01 ML (PER UNIT) SC SCH (05:54)
[2023-08-28] MEDS: CATHETER FLUSH 10 ML SYR IVP SCH (05:54)
[2023-08-28] MEDS: PRENATAL VITAMIN TABLET PO SCH (05:57)
[2023-08-28] MEDS: RT-BUDESONIDE NEBS 0.5 MG/2ML VIAL INH SCH (06:38)
--- NOTE | 2023-08-28 07:14 | Discharge Summary ---
Diagnosis/Chief Complaint Date of Admission Aug 25, 2023 at 19:56 Date of Discharge August 28, 2023 Admission Diagnosis Admission Diagnosis 1. Asthma exacerbation 2. intrauterine in third trimester Discharge Diagnosis 1. Acute exacerbation of asthma 2. Pruritusawaiting exclusion of cholestasis of 3. Intrauterine in third trimester Chief Complaint/HPI Chief Complaint/HPI 33-year-old female currently at 28 weeks gestation who presents to [facility] emergency department during the late afternoon of August 25, 2023 with shortness of breath. Patient has a known history of asthma and is currently being actively treated. She was seen 3 times this last week in emergency department and has failed outpatient treatment. Her condition apparently did not deteriorate on the previous 2 ER admissions and she was sent home with medication and prednisone. She describes her shortness of breath primarily when she stops moving and resting. There has been no reports of any fever. She has been tested for Covid 19 as well as influenza which were negative. She has not been running a fever. At home she does take albuterol breathing treatments every 4 hours as needed. She also does take budesonide twice daily at home. Discharge Summary-Simple/Stand Consultations Discharge Physical Examination Allergies: Coded Allergies: aspirin (Verified Allergy, Unknown, 05/28/22) ibuprofen (Verified Allergy, Unknown, shortness of breath; pt tolerated toradol in past, 11/19/22) naproxen (Verified Allergy, Unknown, shortness of breath; pt tolerated toradol in past, 11/19/22) SHORTNESS OF BREATH Vitals & I&Os Vital Sign - Last 12Hours Date Time Temp Pulse Resp B/P (MAP) Pulse Ox O2 Delivery O2 Flow Rate FiO2 08/28/23 06:38 97 Room Air 08/28/23 03:13 36.4 81 20 105/64 (78) 08/26/23 14:28 0.00 08/25/23 22:42 21 Intake and Output 08/27/23 23:59 Intake Total 1800 ml Output Total 2300 ml Balance -500 ml General Appearance: Alert, No Acute Distress Respiratory: Clear to Auscultation Cardiovascular: Regular Rate Abdominal: Soft Hospital Course Was the Problem List Reviewed?: Yes 1. Asthma exacerbation -she does have nasal cannula oxygen available -Currently she is on Solu-Medrol 125 mg 4 times daily -Albuterol treatments -Continue with budesonide twice daily 08/27 -Currently she is receiving Solu-Medrol 80 mg every 8 hours. -Will check with her microarray operations vice president and give update 08/28 -patient is improved with minimal cough. Her main concern now is itching. She had cholestasis in prior -Her microarray operations vice president is Dr. Ham and apparently she will get an appointment outpatient with him. Currently she is very stable with regard to the asthma. She is not coughing and no expiratory wheezing detected by auscultation. -she is ready for dismissal this morning and will follow up with Dr. Mendez within the week. Hopefully he will have the bile acids to go over with her at that time. 2. Failed outpatient treatment for asthma 3. Intrauterine at 28 weeks gestation -will notify Dr. Mendez of her admission 08/28 - heart tones have been performed every shift and noted to be normal rate 08/27 -monitoring of with Doppler q shift Discharge Instructions to patient/family Please see electronic discharge instructions given to patient. Discharge Medications Reviewed and agree with Discharge Medication list on patient's Discharge Instruction sheet Copy Copies To 1: SHARYN MENDEZ DANIEL J MD Aug 28, 2023 07:14
[2023-08-28] MEDS ORDERED: PRD20T PO (07:21)
[2023-08-28 07:22] VITALS: BP 121/74
--- NOTE | 2023-08-28 07:23 | Discharge Inst-Simple/Standard ---
Discharge Inst-Standard Reconcile Patient Problems Problems Reviewed?: Yes Discharge Medications New, Converted or Re-Newed RX: Transmitted to Pharmacy ([facility]) Patient Instructions/Follow Up Plan of Care/Instructions/FU: Take the prednisone 2 tablets daily for 4 days then 1 tablet daily for 4 days. Also follow-up with your career manager Dr. Zepeda within the week. Hopefully the bile acid results will be available. Also see your [employer] Dr. Ham On the next available appointment Activity as Tolerated: Yes Discharge Diet: Regular Diet Return to [facility]: Worsening shortness of breath. KYM ALMAZAN MD Aug 28, 2023 07:23
[2023-08-28 10:45] VITALS: BP 121/74
== END 2023-08-28 10:45 | disposition home or self-care (01) | DRG 832 ==
LOC: EDUNIT# 18:34 → ER 18:36 → 4TH 19:56
PROVIDERS: ADMIT Internal Medicine; ATTEND Family Medicine
DX: O99.513 Diseases of the respiratory system complicating pregnancy, third trimester (principal); J45.41 Moderate persistent asthma with (acute) exacerbation; O98.513 Other viral diseases complicating pregnancy, third trimester; O24.113 Pre-existing type 2 diabetes mellitus, in pregnancy, third trimester; Z3A.28 28 weeks gestation of pregnancy; O99.333 Smoking (tobacco) complicating pregnancy, third trimester; F17.210 Nicotine dependence, cigarettes, uncomplicated; B00.9 Herpesviral infection, unspecified; O26.893 Other specified pregnancy related conditions, third trimester; L29.9 Pruritus, unspecified; Z88.6 Allergy status to analgesic agent
CPT/HCPCS: 36415; 80048; 80053; 80306; 81000; 82947; 83735; 83789; 85007; 85025; 85027; 93041; 94640; 94760